=== PATIENT | male | born 1965 | race Caucasian/White ===

== ENCOUNTER 2021-10-25 07:35 | Emergency (ER) | payer BC, SELFPAY ==
[2021-10-25] VITALS (14 sets, daily range): BP systolic 118–159; BP diastolic 77–88; PULSE 103–109; RESP 14–18; TEMP 36.3–36.6; O2SAT 97–100
--- NOTE | ~2021-10-25 | CT_ITS ---
EXAMINATION: CT abdomen pelvis wo con DATE: 10/25/2021 08:52 INDICATION: Bilateral flank pain, hematuria, decreased urination. History kidney stones. TECHNIQUE: Computed tomography (CT) of the abdomen and pelvis was performed without intravenous contr ast. Automated exposure control and iterative reconstruction technique were employed. Exam dose: 367 .89 mGy-cm total exam DLP. COMPARISON: 05/08/2016 CT abdomen pelvis FINDINGS: The lung bases are clear. Normal heart size. No pericardial or pleural effusion. Calcified left hilar lymph node and multiple calcified hepatic and splenic granulomas, consistent wit h old granulomatous disease. No hepatic, splenic, pancreatic, adrenal space-occupying mass lesion is evident on this limited nonco ntrast examination. The gallbladder is present. No pericholecystic fluid or fat stranding. No bile duct or pancreatic jazmyn t dilatation. Approximately 2.5 x 3.1 cm left renal probable cyst. Approximately 3.8 x 6.2 mm nonobstructing right renal calculus Several additional subtle punctate right renal nonobstructing calculi are suggested. Approximately 2.5 mm nonobstructing upper pole left renal calculus and approximately disease. 8 mm an d 3 mm lower pole left renal nonobstructing calculi. No ureteral calculus or hydroureteronephrosis is noted on either side. There is prostate enlargement and likely associated moderately prominent diffuse urinary bladder wall thickening. There is atherosclerotic calcification but normal caliber of the abdominal aorta. No intraperitoneal or retroperitoneal or pelvic mass lesion or adenopathy or ascites is detected. Normal appendix. No bowel obstruction, bowel wall thickening, pneumatosis or intraperitoneal free air . No suspicious osteolytic or osteoblastic lesions. Mild degenerative changes of the lumbar spine. Mode rate degenerative spurring of the thoracic spine. IMPRESSION: Bilateral nonobstructive nephrolithiasis Probable 2.5 x 3 x 1 cm left renal cyst Prostate enlargement Reviewed, dictated and finalized at [facility]. Reviewed, dictated and finalized at [facility].
--- NOTE | 2021-10-25 07:44 | PC.NURSE ---
Dr. Sesay at bedside to assess pt.
--- NOTE | 2021-10-25 07:51 | ED.GENADULT ---
HPI - General Adult General Chief complaint: Urogenital-Male Stated complaint: kidney stones Time Seen by Provider: 10/25/21 07:39 History of Present Illness HPI narrative: 56-year-old male with history of diabetes, rheumatoid arthritis and kidney stones presenting the emergency department for concern of having a kidney stone. Patient states he has had decreased urinary caliber over the last few days. Patient states that he does have decreased p.o. intake due to nausea. Patient describes lower back pain across the entire lower back. Patient states he did notice some blood in his urine today. States last kidney stone was approximately 3 years ago and he saw a urologist in [place]. Patient states he does not have a current urologist. Related Data Home Medications Medication Instructions Recorded Confirmed insulin glargine 100 unit/mL 10 unit subcut HS 03/18/19 03/18/19 subcutaneous solution (Lantus U-100 Insulin) insulin lispro 100 unit/mL 5 unit subcut TID 03/18/19 03/18/19 subcutaneous cartridge (Humalog U-100 Insulin) Allergies Allergy/AdvReac Type Severity Reaction Status Date / Time Penicillins Allergy Unknown Vomiting Verified 10/25/21 07:55 Review of Systems Review of Systems: CONSTITUTIONAL: Denies fever, chills, or sweats. EYES: Denies visual changes, redness, or discharge. ENT: Denies rhinorrhea, congestion, sore throat, or otalgia. CARDIOVASCULAR: Denies chest pain, palpitations, or edema. RESPIRATORY: Denies cough or dyspnea. GASTROINTESTINAL: See HPI GENITOURINARY: See HPI SKIN: Denies rash or itching. MUSCULOSKELETAL: Denies back pain, joint pain, or myalgia. NEUROLOGIC: Denies headache, numbness, or weakness. [facility] Past Medical History Medical History (Updated 10/25/21 @ 10:07 by Elliot Sesay MD) Anemia Anxiety Asthma Depression Diabetes Diverticulitis Fibromyalgia GERD (gastroesophageal reflux disease) Gout Hepatitis HTN from septic tank Hypertension Hypothyroidism Kidney stones Osteoporosis Peripheral neuropathy Pneumonia Rheumatoid arthritis Surgical History Surgical History (Updated 03/18/19 @ 11:01 by VICK Lemons) Hx of tonsillectomy Family History Family History Father Family history of diabetes mellitus in first degree relative Mother Family history of coronary artery disease Social History Social History Smoking status: Never smoker Alcohol intake: never Exam Narrative: APPEARANCE: Well appearing, no pain, no distress, well-nourished. HEAD: normocephalic, atraumatic. EYES: PERRLA/EOMI, conjunctivae clear. NOSE: Normal no drainage NECK: Supple. No adenopathy, no masses. RESPIRATORY: Airway patent, respirations nonlabored. Clear to auscultation bilaterally, no rales, rhonchi, wheezing. CARDIOVASCULAR: Regular rate and rhythm without murmurs rubs or gallops. ABDOMINAL: Soft, nondistended. Left CVA tenderness to palpation. Suprapubic tenderness to palpation. MUSCULOSKELETAL: Moves all extremities. Strength/ROM intact, No edema, No calf tenderness. NEURO: Alert. Cranial nerves II through XII intact. Good gait. Good coordination SKIN: Warm, dry. Normal Color Course Course Emergency Course: Patient did not have significant retained urine on the posterior residual bladder scan. Patient does have a urinary tract infection and an enlarged prostate on the CT scan. Patient does have an elevated white count of 24.6. Patient's vital signs including his heart rate did improve. Patient was comfortable to plan for discharge home. Patient states he does feel improved. Patient was educated on reasons to return to the emergency room. All question concerns were addressed. Patient was discharged with Zofran for nausea control. Flomax for the enlarged prostate and Bactrim for the urinary tract infection. Along with Pyridium for sy
[2021-10-25] MEDS: ONDANSETRON INJ 4 MG/2 ML VIAL IV PUSH (08:05)
[2021-10-25] MEDS: SODIUM CHLORIDE 0.9% IV 1,000 ML 999 ML IV CONT (08:06)
[2021-10-25 08:10] LABS: Appearance Urine Turbid (Clear); Bilirubin Urine 1+ (Negative); Blood Urine 3+ (Negative); Glucose Urine UA 3+ mg/dL (Negative); Ketones Urine 2+ mg/dL (Negative); Leukocyte Esterase Ur Trace LEU/UL (Negative); Nitrate Urine Positive (Negative); Protein Urine 3+ mg/dL (Negative); Specific Grav Ur 1.025 (1.001-1.035)
[2021-10-25 08:18] LABS: Bacteria Urine 2+ /hpf; Mucus Urine Few /lpf; RBC Urine >75 /hpf (0-2); Squamous Epithelial Cell Urine Few /hpf (Few); WBC Clumps Urine Present /HPF; WBC Urine >75 /hpf
[2021-10-25 08:19] LABS: Add Urine Microscopic? YES; Color Urine Dark Yellow (Yellow)
[2021-10-25 08:28] LABS: Basophils Absolute Auto 0.1 K/mm3 (0.0-0.1); Basophils Percent Auto 0.3 % (0.2-1.2); Eosinophils Absolute Auto 0.1 K/mm3 (0-0.3); Eosinophils Percent Auto 0.2 % (0-4.4); Hematocrit 44.9 % (42.0-52.0); Hemoglobin 15.1 g/dL (14.0-18.0); Immature Granulocyte Absolute 0.21 K/mm3 (0.00-0.031); Immature Granulocyte Percent A 0.9 % (0-0.5); Lymphocytes Absolute Auto 2.12 K/mm3 (0.9-3.2); Lymphocytes Percent Auto 8.6 % (18.3-44.2); Mean Corpuscular HGB Conc 33.6 g/dl (32-36); Mean Corpuscular Hemoglobin 30.3 pg (26-34); Mean Corpuscular Volume 90.2 fl (80-100); Monocytes Absolute Auto 2.8 K/mm3 (0.1-0.6); Monocytes Percent Auto 11.4 % (2.6-8.5); Neutrophils Absolute Auto 19.4 K/mm3 (1.3-6.7); Neutrophils Percent Auto 78.6 % (45.5-73.1); Platelet Count Result 235 k/mm3 (150-375); Red Blood Count 4.98 M/mm3 (4.6-6.20); Red Cell Distribution Width 12.9 % (11.5-14.5); White Blood Count 24.6 K/mm3 (4.5-10.0)
--- NOTE | 2021-10-25 08:38 | PC.NURSE ---
Patient off unit to CT.
[2021-10-25 08:52] LABS: Alanine Aminotransferase 18 U/L (6-50); Albumin Level 3.7 g/dL (3.5-5.1); Alkaline Phosphatase 134 U/L (38-126); Anion Gap 14 mmol/L (8-16); Aspartate Amino Transferase 19 U/L (17-59); Blood Urea Nitrogen 23 mg/dL (9-20); Carbon Dioxide 22 mmol/L (22-30); Chloride 99 mmol/L (98-107); Estimated CRCL calculation 93 ml/min; Estimated Glomerular Filt Rate > 60; Glucose 296 mg/dL (65-110); Potassium 3.9 mmol/L (3.4-5.0); Sodium 135 mmol/L (137-145)
[2021-10-25] MEDS: SULFAMETHOXAZOLE/TRIMETHOPRIM 800/160 MG DS TABLET 1 TAB PO (09:36)
[2021-10-25] MEDS: PHENAZOPYRIDINE HCL 100 MG TABLET 200 MG PO (10:18)
== END 2021-10-25 10:28 | disposition home or self-care (01) ==
PROVIDERS: Emergency Provider Emergency Medicine
DX: N39.0 Urinary tract infection, site not specified (principal); N40.0 Benign prostatic hyperplasia without lower urinary tract symptoms; J45.909 Unspecified asthma, uncomplicated; M79.7 Fibromyalgia; K21.9 Gastro-esophageal reflux disease without esophagitis; M10.9 Gout, unspecified; I10 Essential (primary) hypertension; E03.9 Hypothyroidism, unspecified; M81.0 Age-related osteoporosis without current pathological fracture; E11.42 Type 2 diabetes mellitus with diabetic polyneuropathy; M06.9 Rheumatoid arthritis, unspecified; Z79.4 Long term (current) use of insulin; Z87.442 Personal history of urinary calculi
CPT/HCPCS: 36415; 74176; 80053; 81001; 85025; 87086; 87147; 87181; 87186; 96361; 96374; 99284; A9270; J2405; J7030

== ENCOUNTER 2021-11-10 10:54 | Inpatient (IN) | payer BC, SELFPAY ==
[2021-11-10] VITALS (13 sets, daily range): BP systolic 120–143; BP diastolic 65–86; PULSE 90–111; RESP 13–24; TEMP 36.7–37.1; O2SAT 94–100; BMI 22.2
--- NOTE | ~2021-11-10 | XR_ITS ---
EXAMINATION: XR retrograde pyelo w/stent RT DATE: 11/10/2021 16:10 CDT INDICATION: RT SIDED RETROGRADE PYLOGRAM W/ STENT PLACEMENT . TECHNIQUE: 80 fluoroscopic images of the right abdomen and pelvis were obtained, including a 75 image s cine clip and 5 static images, during right-sided retrograde pyelography with stent placement perfo rmed by the surgeon. I was not present in the operating room. Fluoroscopy exposure time was 20.6 seco nds. COMPARISON: CT abdomen and pelvis, same date FINDINGS: Cannulation of the bladder and catheter access to the right ureter which on filling demonstrates a di stal ureteral stone and moderate hydronephrosis. Right ureteral stent deployed in good position. IMPRESSION: Fluoroscopic documentation of right retrograde pyelography with right stent placement. Please refer t o the operative note for complete procedural details. Reviewed, dictated and finalized at location K. IMPRESSION: Fluoroscopic documentation of right retrograde pyelography with right stent tiffanie cement. Please refer to the operative note for complete procedural details.
--- NOTE | ~2021-11-10 | XR_ITS ---
EXAMINATION: XR chest PICC line DATE: 11/20/2021 12:09 INDICATION: Central line placement. TECHNIQUE: A single frontal view of the chest was obtained. COMPARISON: Chest 2 views 07/03/2016, CT abdomen and pelvis 11/10/2021 FINDINGS: The chest demonstrates clear lungs without pneumonia, pleural effusion, or pneumothorax. Th e heart size is normal. A right upper extremity peripherally inserted central venous catheter (PICC) is seen with tip in the superior vena cava. IMPRESSION: 1. PICC tip in the superior vena cava. Reviewed, dictated and finalized at location A.
--- NOTE | ~2021-11-10 | US_ITS ---
EXAMINATION: US scrotum doppler DATE: 11/10/2021 12:18 INDICATION: Right testicular pain. TECHNIQUE: Grayscale and Doppler ultrasound images of the testes were obtained. COMPARISON: CT abdomen and pelvis 10/25/2021 FINDINGS: The right testis measures 3.3 x 2.8 x 1.9 cm. The left testis measures 4.3 x 2.1 x 2.2 cm. There is normal vascular flow to both testes. The right epididymis is normal with normal vascular evin w. The left epididymis is normal with normal vascular flow. There is no varicocele or hydrocele. IMPRESSION: 1. Normal testes. 2. Review of the prior CT demonstrates a 5 mm stone in the distal right ureter. I called this result to Dr. Hoskins. Reviewed, dictated and finalized at location A.
--- NOTE | ~2021-11-10 | CT_ITS ---
EXAMINATION: CT abdomen pelvis wo con DATE: 11/10/2021 12:55 INDICATION: Hematuria. TECHNIQUE: Computed tomography (CT) of the abdomen and pelvis was performed without intravenous contr ast. Automated exposure control and iterative reconstruction technique were employed. The dose-length product was 672.19 mGy-cm. COMPARISON: CT abdomen and pelvis 10/25/2021 FINDINGS: The visualized portions of the lung bases demonstrate mild atelectasis in the right. No ple ural effusion. The heart size is normal. No pericardial effusion. There are coronary artery calcifica tions. Calcifications in the liver and spleen are consistent with old granulomatous disease. There ar e gallstones in the gallbladder, which is normal in size. The pancreas and adrenal glands are normal. There is cysts in the kidneys measuring up to 2.9 cm on the left. There is a 6 mm stone in right kid nestor. There is a 5 mm stone in distal right ureter. There is mild bilateral hydronephrosis and hydrour eter. There are approximately 6 stones in left kidney measuring up to 5 mm. The bladder is distended. The pancreas is severely enlarged. There are no dilated loops of bowel. The appendix is normal. Ther e is an umbilical hernia containing fat. There are no pathologically enlarged lymph nodes. There is n o free intraperitoneal fluid. There is mild thoracolumbar spondylosis. There is mild chronic anterior wedging of T8 and T9 vertebral bodies. IMPRESSION: 1. 5 mm stone in distal right ureter with mild right hydronephrosis and hydroureter. Mild left hydron ephrosis and hydroureter may be secondary to bladder distention. 2. Bilateral nonobstructing kidney stones. Reviewed, dictated and finalized at location A. IMPRESSION: 1. 5 mm stone in distal right ureter with mild right hydronephrosis and hydrour eter. Mild left hydronephrosis and hydroureter may be secondary to bladder dist ention. 2. Bilateral nonobstructing kidney stones.
[2021-11-10] MEDS: LACTATED RINGERS 1,000 ML 999 ML IV CONT (11:19)
[2021-11-10 11:28] LABS: Basophils Absolute Auto 0.1 K/mm3 (0.0-0.1); Basophils Percent Auto 0.3 % (0.2-1.2); Hematocrit 36.7 % (42.0-52.0); Hemoglobin 12.4 g/dL (14.0-18.0); Immature Granulocyte Absolute 0.14 K/mm3 (0.00-0.031); Immature Granulocyte Percent A 0.6 % (0-0.5); Lymphocytes Absolute Auto 1.61 K/mm3 (0.9-3.2); Lymphocytes Percent Auto 6.8 % (18.3-44.2); Mean Corpuscular HGB Conc 33.8 g/dl (32-36); Mean Corpuscular Volume 88.6 fl (80-100); Mean Platelet Volume 9.7 fl (7.4-10.4); Monocytes Absolute Auto 1.9 K/mm3 (0.1-0.6); Monocytes Percent Auto 8.2 % (2.6-8.5); Neutrophils Absolute Auto 19.8 K/mm3 (1.3-6.7); Neutrophils Percent Auto 84.1 % (45.5-73.1); Platelet Count Result 318 k/mm3 (150-375); Red Blood Count 4.14 M/mm3 (4.6-6.20); Red Cell Distribution Width 11.9 % (11.5-14.5); White Blood Count 23.5 K/mm3 (4.5-10.0)
[2021-11-10 11:31] LABS: Appearance Urine Cloudy (Clear); Bilirubin Urine Negative (Negative); Blood Urine 2+ (Negative); Color Urine Yellow (Yellow); Glucose Urine UA 3+ mg/dL (Negative); Ketones Urine 1+ mg/dL (Negative); Leukocyte Esterase Ur 1+ LEU/UL (Negative); Nitrate Urine Negative (Negative); Protein Urine 3+ mg/dL (Negative); Specific Grav Ur 1.025 (1.001-1.035); Urobilinogen Urine 0.2 mg/dL (<2.0)
[2021-11-10 11:38] LABS: Alanine Aminotransferase 20 U/L (6-50); Albumin Level 3.9 g/dL (3.5-5.1); Alkaline Phosphatase 171 U/L (38-126); Anion Gap 14 mmol/L (8-16); Aspartate Amino Transferase 29 U/L (17-59); Bilirubin,Total 0.9 mg/dL (0.2-1.3); Blood Urea Nitrogen 22 mg/dL (9-20); Calcium 9.1 mg/dL (8.4-10.2); Carbon Dioxide 23 mmol/L (22-30); Chloride 95 mmol/L (98-107); Estimated Glomerular Filt Rate > 60; Glucose 355 mg/dL (65-110); Potassium 4.1 mmol/L (3.4-5.0); Sodium 132 mmol/L (137-145)
[2021-11-10 11:44] LABS: Mucus Urine Rare /lpf; RBC Urine 51-75 /hpf (0-2); WBC Clumps Urine Present /HPF; WBC Urine >75 /hpf
--- NOTE | 2021-11-10 11:44 | ED.MALEGU ---
HPI - Male Genitourinary General Chief complaint: Urogenital-Male Stated complaint: UTI? Enlarged prostate problems per patient Time Seen by Provider: 11/10/21 11:05 Source: patient Mode of arrival: ambulatory Limitations: no limitations History of Present Illness HPI Narrative: THis is a 56 year old male with history of DM, enlarged prostate who presents for evaluation of UTI. Patient was diagnosed with UTI and enlarged prostate 2 weeks ago and he was started on antibiotics. He took antibiotics for 1 week along with flomax and pyridium. He states he felt better until 2 days ago . He is complaining of right testicular pain. He also reports his urine stream is not consistent and he is having urinary hesitancy. He also has dysuria. He denies fever, vomiting, chills, abdominal pain or back pain. He has constant nausea. He has been unable to make appointment with urologist. Related Data Home Medications Medication Instructions Recorded Confirmed insulin glargine 100 unit/mL 10 unit subcut HS 03/18/19 11/10/21 subcutaneous solution (Lantus U-100 Insulin) insulin lispro 100 unit/mL 5 unit subcut TID 03/18/19 11/10/21 subcutaneous cartridge (Humalog U-100 Insulin) Allergies Allergy/AdvReac Type Severity Reaction Status Date / Time Penicillins Allergy Unknown Vomiting Verified 11/10/21 11:04 Review of Systems Review of Systems: All systems reviewed & are unremarkable except as noted in HPI and below Constitutional: Constitutional: Denies chills, Reports fatigue and Denies fever(s) Cardiovascular: Cardiovascular: Denies chest pain and Denies rapid heart rate Respiratory: Respiratory: Denies chest congestion and Denies cough Gastrointestinal: Gastrointestinal: Denies abdominal pain, Denies bloating, Reports nausea and Denies vomiting Genitourinary: Genitourinary: Denies hematuria, Reports oliguria, Reports dysuria and Reports testicular pain Musculoskeletal: Musculoskeletal: Denies back pain [facility] Past Medical History Medical History Anemia Anxiety Asthma Depression Diverticulitis Fibromyalgia Gastroesophageal reflux disease Gout Hypertension Hypothyroidism Insulin dependent diabetes mellitus Kidney stones Osteoporosis Peripheral neuropathy Pneumonia Rheumatoid arthritis Surgical History Surgical History History of tonsillectomy Family History Family History Father Family history of diabetes mellitus in first degree relative Mother Family history of coronary artery disease Social History Social History Social History: Surrogate medical decision maker: Code status: Full code. Smoking status: Never smoker Second hand tobacco smoke exposure: No Alcohol intake: never Substance use: never Substance use type: does not use Spiritual care concerns: No Exam Const: General: no acute distress and alert Nutritional Appearance: well nourished HENMT: Head: normal to inspection Mouth: Yes Normal oral and palatal mucosa present Throat: posterior oropharynx normal Eyes: EOM: EOMs intact bilaterally Neck: Neck: normal visual inspection Chest: Chest palpation & inspection: normal inspection of the chest Resp: Effort & Inspection: normal respiratory effort Auscultation: clear to auscultation bilaterally Cardio: Rate: regular rate Rhythm: regular rhythm Heart sounds: no murmurs GI: GI Palp: Yes Soft to palpation, No Tenderness to palpation present (GI) and No Guarding due to palpation present (GI) Auscultation: normal bowel sounds : Penis: Yes circumcised Testes: epididymal tenderness on the right and testicular swelling on the right Other: right scrotum with increased swelling and tenderness, no open wound, Back/Spine/Pelvis: Back:
[2021-11-10 11:45] LABS: Add Urine Microscopic? YES
[2021-11-10] MEDS: SODIUM CHLORIDE 0.9% IV 1,000 ML 999 ML IV CONT ×2 (12:05→14:05)
[2021-11-10 13:39] LABS: Lactic Acid Reflex 1.4 mmol/L (0.7-2.0)
[2021-11-10] MEDS: INSULIN HUMAN REGULAR (*BKC) 100 UNITS/ML 6 UNITS SUB-Q (14:13)
--- NOTE | 2021-11-10 14:15 | ECG_ITS ---
Measurements Intervals Ida Rate: 106 P: 53 DC: 177 QRS: -36 QRSD: 103 T: 92 QT: 334 QTc: 443 Interpretive Statements SINUS TACHYCARDIA LEFT AXIS DEVIATION CANNOT RULE OUT SEPTAL INFARCT, AGE INDETERMINATE BORDERLINE ST-T WAVE ABNORMALITY- HIGH LATERAL LEADS BASELINE ARTIFACT- I, II, AVR, AVL, AVF, V1 ABNORMAL ECG NO PREVIOUS ECG AVAILABLE FOR COMPARISON Electronically Signed On 11-10-2021 21:46:32 CDT by Maxwell Duong D.O.
[2021-11-10 14:33] LABS: Glucose Point of Care 295 mg/dl (65-105)
--- NOTE | 2021-11-10 15:15 | PM.IMHP ---
H&P: HPI History of Present Illness Date/Time: 11/10/21 15:15 Chief Complaint: Difficulties urinating. Narrative: This is a pleasant 56-year-old male with insulin-dependent type 2 diabetes mellitus, hypertension, hypothyroidism, rheumatoid arthritis, benign prostatic hyperplasia, and history of kidney stones who presented to the emergency department from home with complaints of difficulties urinating. He was seen in the ED on 10/25/2021 for evaluation of low back pain, nausea, and decreased urine output. At that time his urinalysis was concerning for UTI (urinalysis grew out pansensitive Staphylococcus aureus) and a CT of the abdomen and pelvis showed an enlarged prostate. He was discharged home with prescriptions for Bactrim, Flomax, and Pyridium and he was told to follow-up with Urology. He has completed his course of antibiotics and he felt better up until 2 days ago when he once again started having urinary symptoms including hesitancy, slow stream, dysuria, and pain in the right groin. This morning he was not able to empty his bladder and he came back in for re-evaluation. CT scan showed a right distal ureteral stone and his urine is grossly purulent. He is now awaiting transport to OR for cystoscopy with stent placement per Dr. Olivares. He feels better now that the Esparza catheter has been inserted and his urine is draining. He has not had a fever. His appetite has been poor due to nausea but he has not had any vomiting. Review of Systems Review of Systems: Twelve systems were reviewed and are negative except for as per HPI. [facility] Past Medical History Medical History (Updated 11/10/21 @ 19:32 by Minerva Rosas PA-C) Anemia Anxiety Asthma Benign prostatic hyperplasia with urinary retention Depression Diverticulitis Fibromyalgia Gastroesophageal reflux disease Gout Hypertension Hypothyroidism Insulin dependent diabetes mellitus Kidney stones Osteoporosis Peripheral neuropathy Pneumonia Rheumatoid arthritis Surgical History Surgical History History of tonsillectomy Family History Family History Father Family history of diabetes mellitus in first degree relative Mother Family history of coronary artery disease Social History Social History (Updated 11/10/21 @ 19:26 by Minerva Rosas PA-C) Social History: Surrogate medical decision maker: Toya Noguera, spouse. Code status: Full code. Smoking status: Never smoker Second hand tobacco smoke exposure: No Alcohol intake: never Substance use: never Substance use type: does not use Spiritual care concerns: No Meds Home Medications and Allergies Home Medications Medication Instructions Recorded Confirmed Type insulin glargine 100 unit/mL 10 unit subcut HS 03/18/19 11/10/21 History subcutaneous solution (Lantus U-100 Insulin) insulin lispro 100 unit/mL 5 unit subcut TID 03/18/19 11/10/21 History subcutaneous cartridge (Humalog U-100 Insulin) ondansetron 4 mg disintegrating 4 mg PO Q6H PRN nausea and 10/25/21 11/10/21 Rx tablet vomiting #14 tabs tamsulosin 0.4 mg capsule (Flomax) 0.4 mg PO DAILY #30 caps 10/25/21 11/10/21 Rx Allergies Allergy/AdvReac Type Severity Reaction Status Date / Time Penicillins Allergy Unknown Vomiting Verified 11/10/21 11:04 Vital Signs Vital Signs - 24 hr 11/10/21 12:06 11/10/21 12:13 11/10/21 12:34 Temperature 98.7 F Pulse Rate 98 100 Respiratory Rate 18 18 Blood Pressure 143/77 H 137/65 Pulse Oximetry 97 99 99 11/10/21 12:54 11/10/21 12:55 Temperature Pulse Rate 90 Respiratory Rate 20 Blood Pressure 143/86 H Pulse Oximetry 100 98 Exam Narrative: General: Mildly ill-appearing male sitting up in bed in no acute distress. Weight: 72.4 kilograms. BMI: 22.3. HEENT: PERRL, EOMI. Sclera anicteric. Tacky mucous membranes. Neck:
--- NOTE | 2021-11-10 15:17 | WPDANESEPP ---
Anes - Eval Pre Procedure Procedure: Cystoscopy with Right stent placement Date/Time: 11/10/21 15:17 Surgeon: Dr. Olivares Preop Diagnosis: Right ureteral stone Pre Op Diagnosis: UTI? Enlarged prostate problems per patient Patient Data Age: 56 Gender: M Height: Weight: Last Vital Signs Temp 37.1 C 11/10/21 12:06 Pulse 90 11/10/21 12:54 Resp 20 11/10/21 12:54 BP 143/86 H 11/10/21 12:54 Pulse Ox 98 11/10/21 12:55 Allergies Allergy/AdvReac Type Severity Reaction Status Date / Time Penicillins Allergy Unknown Vomiting Verified 11/10/21 11:04 Home Medications Medication Instructions Recorded Confirmed Type benzonatate 200 mg capsule 200 mg PO TID PRN cough 10 days 03/18/19 Rx #30 caps insulin glargine 100 unit/mL 10 unit subcut HS 03/18/19 03/18/19 History subcutaneous solution (Lantus U-100 Insulin) insulin lispro 100 unit/mL 5 unit subcut TID 03/18/19 03/18/19 History subcutaneous cartridge (Humalog U-100 Insulin) ondansetron 4 mg disintegrating 4 mg PO Q6H PRN nausea and 10/25/21 Rx tablet vomiting #14 tabs phenazopyridine 100 mg tablet 100 mg PO TID PRN pain 6 doses #6 10/25/21 Rx (Pyridium) tabs sulfamethoxazole 800 1 tablet PO Q12H 7 days #14 tabs 10/25/21 Rx mg-trimethoprim 160 mg tablet (Bactrim DS) tamsulosin 0.4 mg capsule (Flomax) 0.4 mg PO DAILY #30 caps 10/25/21 Rx Laboratory Tests 11/10/21 11/10/21 11/10/21 11:20 11:20 11:21 WBC 23.5 K/mm3 H K/mm3 (4.5-10.0) RBC 4.14 M/mm3 L M/mm3 (4.6-6.20) Hgb 12.4 g/dL L g/dL (14.0-18.0) Hct 36.7 % L % (42.0-52.0) MCV 88.6 fl fl (80-100) MCH 30.0 pg pg (26-34) MCHC 33.8 g/dl g/dl (32-36) RDW 11.9 % % (11.5-14.5) Plt Count 318 k/mm3 k/mm3 (150-375) MPV 9.7 fl fl (7.4-10.4) Immature Gran % (Auto) 0.6 % H % (0-0.5) Neut % (Auto) 84.1 % H % (45.5-73.1) Lymph % (Auto) 6.8 % L % (18.3-44.2) Rich % (Auto) 8.2 % % (2.6-8.5) Eos % (Auto) 0.0 % % (0-4.4) Baso % (Auto) 0.3 % % (0.2-1.2) Lymph # (Auto) 1.61 K/mm3 K/mm3 (0.9-3.2) Rich # (Auto) 1.9 K/mm3 H K/mm3 (0.1-0.6) Eos # (Auto) 0.0 K/mm3 K/mm3 (0-0.3) Baso # (Auto) 0.1 K/mm3 K/mm3 (0.0-0.1) Abs Immat Gran (auto) 0.14 K/mm3 H K/mm3 (0.00-0.031) Absolute Neuts (auto) 19.8 K/mm3 H K/mm3 (1.3-6.7) Absolute Nucleated RBC 0.0 K/mm3 K/mm3 (0.0-0.012) Nucleated RBC % 0.0 % % (0.0-0.2) Sodium 132 mmol/L L mmol/L (137-145) Potassium 4.1 mmol/L mmol/L (3.4-5.0) Chloride 95 mmol/L L mmol/L (98-107) Carbon Dioxide 23 mmol/L mmol/L (22-30) Anion Gap 14 mmol/L mmol/L (8-16) BUN 22 mg/dL H mg/dL (9-20) Creatinine 0.90 mg/dL mg/dL (0.7-1.3) Estim Creat Clear Calc Not Reportable Estimated GFR > 60 (59 - ) Glucose 355 mg/dL H mg/dL (65-110) POC Capillary Glucose Lactic Acid Calcium 9.1 mg/dL mg/dL (8.4-10.2) Total Bilirubin 0.9 mg/dL mg/dL (0.2-1.3) AST 29 U/L U/L (17-59) ALT 20 U/L U/L (6-50) Alkaline Phosphatase 171 U/L H U/L (38-126) Total Protein 9.0 g/dL H g/dL (6.3-8.2) Albumin 3.9 g/dL g/dL (3.5-5.1) Urine Color Yellow (Yellow) Urine Appearance Cloudy H (Clear) Urine pH 6.0 (5.0-9.0) Ur Specific [place] 1.025 (1.001-1.035) Urine Protein 3+ mg/dL H mg/dL (Negative) Urine Glucose (UA) 3+ mg/dL H mg/dL (Negative) Urine Ketones 1+ mg/dL H mg/dL (Negative) Ur Blood (Man) 2+ H (Negative) Urine Nitrate Negative (Negative) Urine Bilirubin Negative
[2021-11-10 15:51] LABS: Glucose Point of Care 231 mg/dl (65-105)
--- NOTE | 2021-11-10 15:58 | WPDURCON ---
Assessment and Plan Assessment and plan (1) Ureteral stone: Code(s): N20.1 - Calculus of ureter Status: Acute Assessment and Plan: He be taken the operating room for right ureteral stent placement. He understands risks of bleeding, infection, damage to urine tract, inability to place the stent. Will need definitive stone management as an outpatient (2) Bilateral hydronephrosis: Code(s): N13.30 - Unspecified hydronephrosis Status: Acute Assessment and Plan: On the right side this is likely secondary to ureteral stone. On the left side this is likely secondary to his BPH and incomplete bladder emptying. (3) BPH loc w urin obs/LUTS: Code(s): N40.1 - Benign prostatic hyperplasia with lower urinary tract symptoms Status: Acute Assessment and Plan: Esparza catheter has been placed. Will start Flomax. Likely can have a void trial before discharge (4) Urinary tract infection: Code(s): N39.0 - Urinary tract infection, site not specified Status: Acute Assessment and Plan: Staph aureus on urine culture from 10/25/2021. Will be admitted after stent and placed on antibiotics. He has already received 1 dose Urology Consult Note HPI Date Seen: 11/10/21 Requesting Physician: The emergency room and hospitalist Primary Care Provider: MICROBIOLOGY LAB ASSISTANT PHYSICIAN Consult Narrative Narrative: Robinson Noguera is a 56 year old male seen at the request of the emergency room and hospitalist here at [facility]. He has a prior history of nephrolithiasis. He has always passed them on his own. He was in the ER on October 25 with symptoms of urinary tract infection he was sent home on Bactrim. CT scan was done which showed no hydronephrosis. I reviewed the CT scan and there was a distal stone on the right. It was not identified in the radiology report as there was no hydronephrosis. Over the last several days he has had increased urinary symptoms of dysuria and frequency. He has had no fevers and chills. He has some nausea without vomiting. This progressed further and he had more and more difficulties emptying his bladder. He also noted right scrotal swelling. He re-presented to the emergency room this afternoon. CT scan shows mild bilateral hydronephrosis. The stone is still present in the right distal ureter. His bladder was distended. He has an elevated white count. Urine culture ultimately grew out Staph aureus. Esparza catheter was placed in the ER with return of purulent urine. Review of Systems Review of Systems: All systems reviewed & are unremarkable except as noted in HPI and below PMFSH Past Medical History Medical History Anemia Anxiety Asthma Depression Diverticulitis Fibromyalgia Gastroesophageal reflux disease Gout Hypertension Hypothyroidism Insulin dependent diabetes mellitus Kidney stones Osteoporosis Peripheral neuropathy Pneumonia Rheumatoid arthritis Surgical History Surgical History History of tonsillectomy Family History Family History Father Family history of diabetes mellitus in first degree relative Mother Family history of coronary artery disease Social History Social History Social History: Surrogate medical decision maker: Code status: Full code. Smoking status: Never smoker Alcohol intake: never Meds Home Medications and Allergies Home Medications Medication Instructions Recorded Confirmed Type benzonatate 200 mg capsule 200 mg PO TID PRN cough 10 days 03/18/19 Rx #30 caps insulin glargine 100 unit/mL 10 unit subcut HS 03/18/19 03/18/19 History subcutaneous solution (Lantus U-100 Insulin) insulin lispro 100 unit/mL 5 unit subcut TID 03/18/19 03/18/19 History subcut
--- NOTE | 2021-11-10 16:04 | P.PNAN_ITS ---
Anes - Eval Final PreProcedure Day of Procedure 11/10/21 16:04 Patient weight: normal Heart: regular rate and rhythm Lungs: clear to auscultation Airway: Mallampati scale class II Neurological: alert and oriented Last oral intake: >/= 8 hours ASA classification: IV Emergent: yes Anesthetic plan: proceed Anesthesia type and monitoring: general LMA and standard monitoring Results Review: All pre-operative results and documents have been reviewed as part of the pre- operative evaluation. Informed Consent: The patient's anesthetic plan and its attendant risks and benefits were discussed with the patient/family/POA. Questions were solicited and answers provided to the satisfaction of the patient/family/POA.
[2021-11-10] MEDS: LACTATED RINGERS 1,000 ML 30 ML IV CONT (16:05)
--- NOTE | 2021-11-10 16:09 | WPDHPUPDATE1 ---
History and Physical Update Update Date/Time: 11/10/21 16:09 History and Physical has been reviewed, including an updated exam of the patient. There are NO changes in the patient's condition. Risks, benefits, and alternatives have been discussed and questions answered. Patient agrees to proceed with procedure.
--- NOTE | 2021-11-10 16:37 | P.OP_ITS ---
Procedure Note - Detailed Date of Procedure 11/10/21 Pre-op Diagnosis Sepsis/UTI/Obstructing R Ureteral Calculus/Urinary tract infection Post-op Diagnosis Same Procedure Performed Cystoscopy, right retrograde pyelogram, right ureteral stent placed Surgeon Hemanth Olivares MD Anesthesia General Indications This is a gentleman who arrived to emergency room with a Staph aureus urinary tract infection, a right distal ureteral stone, elevated white count, incomplete bladder emptying with bilateral hydronephrosis, and orchitis Findings Uncomplicated stent placement. Right orchitis. Diffusely inflamed bladder Description of Procedure He has correctly identified. Informed consent obtained. From the operating room. He was given general anesthesia. He was placed in dorsal thigh position. He was prepped and draped sterile fashion. Time-out performed. Cystoscopy revealed a small prostate that did not appear necessarily overly obstructive. Upon emptying the bladder there was purulent urine. His bladder was diffusely inflamed. You visualization was difficult due to the purulence of his urine in the inflammation of the bladder. I was able to identify the right ureteral orifice. I did a retrograde pyelogram on the right. The stone was seen on soldering inspector radiograph. I was able to get contrast proximal to the stone. There is hydronephrosis. I outlined the collecting system. I placed a Bentson wire to the kidney. I placed a 4.8 variable length stent. Proximal coil the renal pelvis. Distal coil was the bladder. Esparza catheter replaced. Examination of his scrotum revealed signs consistent with a right orchitis. There is no skin changes. He had a firm right testicle. Implants Right ureteral stent Estimated Blood Loss 1 Urine Output 0 Drains Yes (Right ureteral stent) Packing No Pathology None sent Complications No immediate complications Condition Stable Disposition PACU
[2021-11-10 16:49] LABS: Glucose Point of Care 194 mg/dl (65-105)
--- NOTE | 2021-11-10 18:01 | PC.NURSE ---
This patient, Robinson Noguera, was admitted to Medical Room 340-01. Patient/family oriented to hospital policies and general routines including ID bracelet, bed and alarms, visiting hours, pain management, procedures, bathroom and other care routines, personal items, smoking policy, room service/diet, and visiting hours. Information on how to activate the Rapid Response Team has been discussed. Patient/Family are encouraged to report perceived risks to care and to ask questions if they do not understand what they are told or what they should do.
[2021-11-10] MEDS: ONDANSETRON INJ 4 MG/2 ML VIAL IV PUSH (19:58)
[2021-11-10] MEDS: MORPHINE SULFATE (*CRX) 2 MG/ML INJ IV PUSH (19:58)
[2021-11-10] MEDS: INSULIN GLARGINE (*BKC) 100 UNITS/ML 10 UNITS SUB-Q (20:08)
[2021-11-10 20:15] LABS: Glucose Point of Care 178 mg/dl (65-105)
[2021-11-11] MEDS: MORPHINE SULFATE (*CRX) 2 MG/ML INJ IV PUSH ×3 (02:47→14:00)
[2021-11-11 05:51] LABS: Basophils Percent Auto 0.2 % (0.2-1.2); Eosinophils Percent Auto 0.1 % (0-4.4); Hematocrit 31.4 % (42.0-52.0); Hemoglobin 10.6 g/dL (14.0-18.0); Immature Granulocyte Absolute 0.12 K/mm3 (0.00-0.031); Immature Granulocyte Percent A 0.6 % (0-0.5); Lymphocytes Absolute Auto 1.45 K/mm3 (0.9-3.2); Lymphocytes Percent Auto 7.6 % (18.3-44.2); Mean Corpuscular HGB Conc 33.8 g/dl (32-36); Mean Platelet Volume 10.3 fl (7.4-10.4); Monocytes Absolute Auto 1.8 K/mm3 (0.1-0.6); Monocytes Percent Auto 9.6 % (2.6-8.5); Neutrophils Absolute Auto 15.5 K/mm3 (1.3-6.7); Neutrophils Percent Auto 81.9 % (45.5-73.1); Platelet Count Result 248 k/mm3 (150-375); Red Blood Count 3.53 M/mm3 (4.6-6.20); Red Cell Distribution Width 11.8 % (11.5-14.5)
[2021-11-11 05:59] VITALS: BP 134/69; PULSE 104; RESP 16; TEMP 36.9; O2SAT 96
[2021-11-11 06:21] LABS: Alanine Aminotransferase 15 U/L (6-50); Albumin Level 3.1 g/dL (3.5-5.1); Alkaline Phosphatase 141 U/L (38-126); Anion Gap 9 mmol/L (8-16); Aspartate Amino Transferase 20 U/L (17-59); Bilirubin,Total 0.6 mg/dL (0.2-1.3); Blood Urea Nitrogen 10 mg/dL (9-20); Calcium 8.1 mg/dL (8.4-10.2); Carbon Dioxide 24 mmol/L (22-30); Chloride 99 mmol/L (98-107); Estimated CRCL calculation 119 ml/min; Estimated Glomerular Filt Rate > 60; Glucose 198 mg/dL (65-110); Potassium 3.4 mmol/L (3.4-5.0); Sodium 132 mmol/L (137-145)
[2021-11-11 06:40] LABS: Hemoglobin A1C 10.8 % (<5.7)
[2021-11-11 07:19] LABS: Free T4 Free Thyroxine Reflex 1.96 ng/dL (0.78-2.19)
--- NOTE | 2021-11-11 07:56 | WPDUROPN2 ---
Progress Note: A&P Assessment and Plan (1) Calculus of distal right ureter: Code(s): N20.1 - Calculus of ureter Status: Acute Assessment and Plan: will need definitive stone management in the future (2) Orchitis, right: Code(s): N45.2 - Orchitis Status: Acute Assessment and Plan: Levaquin times 14 days (3) Acute urinary retention: Code(s): R33.8 - Other retention of urine Status: Acute Assessment and Plan: Flomax. Can likely attempt a voiding trial before discharge (4) Urinary tract infection: Code(s): N39.0 - Urinary tract infection, site not specified Status: Acute Assessment and Plan: antibiotics as above Subjective Subjective Date/Time Seen: 11/11/21 07:56 having some stent related discomfort on the right. Also some blood in the urine. All this is consistent with his stent placement. They been given IV pain medicine. Attempts should be made to transition to orals Exam Narrative: resting comfortably. Appears to be in no acute distress. Right testicle examined. No scrotal changes. Tenderness noted Objective Data Vital Signs Vital Signs: Vital Signs - 24 hr 11/10/21 12:06 11/10/21 12:13 11/10/21 12:34 Temperature 98.7 F Pulse Rate 98 100 Respiratory Rate 18 18 Blood Pressure 143/77 H 137/65 Pulse Oximetry 97 99 99 Oxygen Delivery Oxygen Flow Rate 11/10/21 12:54 11/10/21 12:55 11/10/21 15:43 Temperature Pulse Rate 90 100 Respiratory Rate 20 19 Blood Pressure 143/86 H 130/82 Pulse Oximetry 100 98 99 Oxygen Delivery Oxygen Flow Rate 11/10/21 15:47 11/10/21 16:10 11/10/21 16:40 Temperature 98.6 F 98.1 F Pulse Rate 99 111 H 96 Respiratory Rate 18 20 20 Blood Pressure 134/79 137/80 120/80 Pulse Oximetry 99 99 99 Oxygen Delivery Room Air Simple Face Mask Oxygen Flow Rate 8 11/10/21 16:55 11/10/21 17:10 11/10/21 17:25 Temperature Pulse Rate 102 H 107 H 108 H Respiratory Rate 13 24 H 16 Blood Pressure 135/83 127/79 136/83 Pulse Oximetry 99 95 94 Oxygen Delivery Simple Face Mask Room Air Room Air Oxygen Flow Rate 8 11/10/21 20:00 11/10/21 22:00 11/11/21 05:59 Temperature 98.5 F 98.5 F Pulse Rate 100 104 H Respiratory Rate 16 16 Blood Pressure 128/70 134/69 Pulse Oximetry 99 96 Oxygen Delivery Room Air Oxygen Flow Rate Intake/Output Intake/Output: Intake & Output 11/08/21 11/09/21 11/10/21 11/11/21 23:59 23:59 23:59 23:59 Intake Total 4150 Output Total 350 800 Balance 3800 -800 Meds/Results Medications: Active Medications Generic Name Dose Route Start Last Admin Trade Name Freq PRN Reason Stop Dose Admin Acetaminophen 650 mg 11/10/21 19:37 Acetaminophen 325 Mg Tablet PO Q6H PRN Mild Pain (1-3) or Fever Hydrocodone Bitart/Acetaminophen 1 tab 11/10/21 19:37 Hydrocodone/Acetaminophen (*Crx) 5-325 Mg Tablet PO Q6H PRN Pain Rated 4-6 Dextrose 12.5 gm 11/10/21 16:36 Dextrose 50% 25 Gm/50 Ml Syringe IV PUSH PRN PRN Hypoglycemia Protocol Glucagon 1 mg 11/10/21 16:36 Glucagon For Inj 1 Mg Vial IM PRN PRN Hypoglycemia Protocol Glucose 15 gm 11/10/21 16:36 Glucose Oral Gel 15 Gm Of Glucse In 37.5 Gm Tube PO PRN PRN Hypoglycemia Protocol Dextrose 1,000 mls @ 100 mls/hr 11/10/21 16:36 Dextrose 5% 1,000 Ml IVPB PRN PRN Hypoglycemia Protocol Insulin Aspart 2 - 5 units 11/11/21 08:00 Insulin Aspart (*Bkc) 100 Units/Ml SUB-Q TIDWM COLTEN Protocol Insulin Aspart 5 units 11/11/21 09:00 Insulin Aspart (*Bkc) 100 Units/Ml SUB-Q 12/11/21 08:59 TID COLTEN Insulin Glargine 10 units 11/10/21 21:00 11/10/21 20:08 Insulin Glargine (*Bkc) 100 Units/Ml SUB-Q 10 units HS COLTEN Administration Levofloxacin 750 mg 11/11/21 09:00 Levofloxacin 750 Mg Tablet PO DAILY COLTEN Morphine Ray
[2021-11-11 08:07] LABS: Total Triiodothyronine (T3) 0.86 NG/ML (0.97-1.69)
[2021-11-11] MEDS: levoFLOXacin 750 MG TABLET PO (08:10)
[2021-11-11] MEDS: TAMSULOSIN HCL 0.4 MG CAPSULE PO (08:10)
[2021-11-11] MEDS: ONDANSETRON INJ 4 MG/2 ML VIAL IV PUSH ×2 (08:10→15:54)
[2021-11-11 08:22] LABS: Glucose Point of Care 238 mg/dl (65-105)
[2021-11-11] MEDS: INSULIN ASPART (*BKC) 100 UNITS/ML SUB-Q ×5 (09:12→17:27)
[2021-11-11 12:18] LABS: Glucose Point of Care 208 mg/dl (65-105)
[2021-11-11 13:54] VITALS: BP 127/72; PULSE 101; RESP 16; TEMP 36.7; O2SAT 98
--- NOTE | 2021-11-11 16:39 | PM.IMPN ---
Progress Note: A&P Assessment and Plan (1) Calculus of distal right ureter: Code(s): N20.1 - Calculus of ureter Status: Acute Assessment and Plan: 5 millimeter distal right ureteral stone noted on imaging causing right-sided hydro nephrosis. he is s/p cystoscopy with right retrograde pyelogram and right ureteral stent placement on 11/10. Appreciate urology consultation. Will need outpatient follow-up for definitive stone management. (2) Urinary tract infection: Code(s): N39.0 - Urinary tract infection, site not specified Status: Acute Assessment and Plan: Urine culture from 10/25/2021 grew out pansensitive Staphylococcus aureus for which he completed a course of Bactrim. His urine still looks dirty thus he will be started on another course of antibiotics. continue p.o. levofloxacin. Repeat urine culture is pending. blood cultures pending (3) Orchitis, right: Code(s): N45.2 - Orchitis Status: Acute Assessment and Plan: Findings of orchitis on exam. Scrotal ultrasound was unremarkable. secondary to acute UTI. Continue levofloxacin For total of 14 days (4) Bilateral hydronephrosis: Code(s): N13.30 - Unspecified hydronephrosis Status: Acute Assessment and Plan: Related to ureteral stone and urinary retention. Urology consulted as above. s/p ureteral stent. (5) Benign prostatic hyperplasia with urinary retention: Code(s): N40.1 - Benign prostatic hyperplasia with lower urinary tract symptoms; R33.8 - Other retention of urine Status: Acute Assessment and Plan: Continue tamsulosin. Continue Esparza catheter. Plan for voiding trial prior to discharge (6) Insulin dependent diabetes mellitus: Status: Acute Assessment and Plan: A1c is 10.8. Blood sugars have been poorly controlled. Patient admits to poor compliance with blood sugar monitoring though states he does regularly take insulin. Will increase Lantus to 12 units. Continue novolog with meals. Accu-Cheks, sliding scale insulin, hypoglycemic protocol. (7) Hypertension: Code(s): I10 - Essential (primary) hypertension Status: Acute Assessment and Plan: Blood pressures Reviewed and have been stable. Last BP 127/72. Patient is not on any p.o. antihypertensives. Subjective Date/time seen: 11/11/21 16:39 Interval history: date of service: 11/11/2021 Robinson Noguera is a 56-year-old male with a history of diabetes mellitus, rheumatoid arthritis hypertension, hypothyroidism, asthma, anemia, BPH who is seen in follow-up for right ureteral calculus, right orchitis, UTI. Patient states he is feeling slightly improved today. He states his right testicle is about the size of a tennis ball. It is very sore and tender and he has not noticed any change with this. no worsening, but also no improvement. He states his scrotum is warm and red. He also has some discomfort in the right groin which she relates to the stent. Stated this morning his pain was 8/10 but after receiving pain medications, his pain improved to about 3/10. He has no issues with the Esparza catheter. He has some mild right low back pain which she also believes is due to the stent. Denies flank pain. Denies fevers or chills. No nausea, vomiting, diarrhea, shortness of breath, cough, chest pain. Review of Systems Review of Systems: All systems reviewed & are unremarkable except as noted in HPI and below Exam Narrative: General: Well-nourished, well-appearing 56-year-old male, sitting up in bed, comfortable, NARD Neuro: awake, alert and oriented x4, speech clear, no focal neuro deficits noted HEENMT: normocephalic, atraumatic, EOMI, sclerae anicteric Respiratory: clear to auscultation bilaterally, nonlabored breathing Cardio: regular rate, regular rhythm with S1-S2 Abdomen: nondistended, normoactive bowel sounds, soft, nontender to palpation :
[2021-11-11 17:31] LABS: Glucose Point of Care 167 mg/dl (65-105)
[2021-11-11] MEDS: HYDROcodone/acetaminophen (*CRX) 5-325 MG TABLET 1 TAB PO (19:37)
[2021-11-11 19:53] VITALS: BP 138/66; PULSE 99; RESP 18; TEMP 36.1; O2SAT 98
[2021-11-11] MEDS: INSULIN GLARGINE (*BKC) 100 UNITS/ML 12 UNITS SUB-Q (20:31)
[2021-11-11 20:50] LABS: Glucose Point of Care 219 mg/dl (65-105)
[2021-11-12] MEDS: HYDROcodone/acetaminophen (*CRX) 5-325 MG TABLET 1 TAB PO ×3 (01:56→18:46)
[2021-11-12] MEDS: ONDANSETRON INJ 4 MG/2 ML VIAL IV PUSH ×2 (01:56→16:59)
[2021-11-12 05:38] VITALS: BP 107/60; PULSE 97; RESP 16; TEMP 36.7; O2SAT 98
[2021-11-12 05:42] LABS: Hematocrit 31.6 % (42.0-52.0); Hemoglobin 10.6 g/dL (14.0-18.0); Mean Corpuscular HGB Conc 33.5 g/dl (32-36); Mean Corpuscular Hemoglobin 29.9 pg (26-34); Mean Platelet Volume 10.3 fl (7.4-10.4); Platelet Count Result 254 k/mm3 (150-375); Red Blood Count 3.55 M/mm3 (4.6-6.20); Red Cell Distribution Width 11.7 % (11.5-14.5); White Blood Count 17.3 K/mm3 (4.5-10.0)
[2021-11-12 05:55] LABS: Anion Gap 9 mmol/L (8-16); Blood Urea Nitrogen 10 mg/dL (9-20); Calcium 8.2 mg/dL (8.4-10.2); Carbon Dioxide 26 mmol/L (22-30); Chloride 98 mmol/L (98-107); Estimated CRCL calculation 115 ml/min; Estimated Glomerular Filt Rate > 60; Glucose 176 mg/dL (65-110); Potassium 3.3 mmol/L (3.4-5.0); Sodium 133 mmol/L (137-145)
[2021-11-12 08:19] LABS: Glucose Point of Care 146 mg/dl (65-105)
[2021-11-12] MEDS: levoFLOXacin 750 MG TABLET PO (08:28)
[2021-11-12] MEDS: TAMSULOSIN HCL 0.4 MG CAPSULE PO (08:29)
[2021-11-12] MEDS: POTASSIUM CHLORIDE 20 MEQ TABLET PO (08:32)
[2021-11-12] MEDS: INSULIN ASPART (*BKC) 100 UNITS/ML SUB-Q ×4 (08:40→17:30)
[2021-11-12 12:17] LABS: Glucose Point of Care 147 mg/dl (65-105)
[2021-11-12 14:00] VITALS: BP 101/60; PULSE 100; RESP 18; TEMP 36.7; O2SAT 99
--- NOTE | 2021-11-12 15:47 | PM.IMPN ---
Progress Note: A&P Assessment and Plan (1) Calculus of distal right ureter: Code(s): N20.1 - Calculus of ureter Status: Acute Assessment and Plan: 5 millimeter distal right ureteral stone noted on imaging causing right-sided hydro nephrosis. he is s/p cystoscopy with right retrograde pyelogram and right ureteral stent placement on 11/10. Appreciate urology consultation. Will need outpatient follow-up for definitive stone management. (2) Urinary tract infection: Code(s): N39.0 - Urinary tract infection, site not specified Status: Acute Assessment and Plan: Urine culture from 10/25/2021 grew out pansensitive Staphylococcus aureus for which he completed a course of Bactrim. His urine still looks dirty thus he will be started on another course of antibiotics. continue p.o. levofloxacin. Repeat urine culture with >100k staph aureus, susceptibility report pending. Blood cultures pending. Slow improvement of WBC. Remains afebrile. (3) Orchitis, right: Code(s): N45.2 - Orchitis Status: Acute Assessment and Plan: Findings of orchitis on exam. Scrotal ultrasound was unremarkable. Secondary to acute UTI. Continue levofloxacin for total of 14 days (4) Bilateral hydronephrosis: Code(s): N13.30 - Unspecified hydronephrosis Status: Acute Assessment and Plan: Related to ureteral stone and urinary retention. Urology consulted as above. s/p ureteral stent. (5) Benign prostatic hyperplasia with urinary retention: Code(s): N40.1 - Benign prostatic hyperplasia with lower urinary tract symptoms; R33.8 - Other retention of urine Status: Acute Assessment and Plan: Continue tamsulosin. Continue Esparza catheter. Plan for voiding trial prior to discharge per urology recs. (6) Insulin dependent diabetes mellitus: Status: Acute Assessment and Plan: A1c is 10.8. Blood sugars have been poorly controlled. Patient admits to poor compliance with blood sugar monitoring though states he does regularly take insulin. Lantus increased to 12 units. Blood sugars better today 14-170. Continue novolog with meals. Accu-Cheks, sliding scale insulin, hypoglycemic protocol. (7) Hypertension: Code(s): I10 - Essential (primary) hypertension Status: Acute Assessment and Plan: Blood pressures reviewed and have been stable. Last BP 101/60. Patient is not on any p.o. antihypertensives. Subjective Date/time seen: 11/12/21 15:47 Interval history: Date of service: 11/12/2021 Robinson Noguera is a 56-year-old male with a history of diabetes mellitus, rheumatoid arthritis hypertension, hypothyroidism, asthma, anemia, BPH who is seen in follow-up for right ureteral calculus, right orchitis, UTI. he feels a bit better today. He has right-sided low back pain that he rates as 810 related to his stent. His groin pain has improved. His right testicle discomfort seems lessened today. He states he has try to avoid touching or adjusting the area today to minimize pain. He has no issues with the Esparza catheter. States urine draining appears less bloody today. He denies fever, chills, nausea, vomiting, shortness breath, cough, chest pain Review of Systems Review of Systems: All systems reviewed & are unremarkable except as noted in HPI and below Exam Narrative: General: well-nourished, well-appearing 56-year-old male, sitting up in bed, comfortable, NARD Neuro: awake, alert and oriented x4, speech clear, no focal neuro deficits noted HEENMT: normocephalic, atraumatic, EOMI, sclerae anicteric Respiratory: clear to auscultation bilaterally, nonlabored breathing Cardio: regular rate, regular rhythm with S1-S2 Abdomen: nondistended, normoactive bowel sounds, soft, nontender to palpation : no CVA tenderness, Esparza patent and draining dark urine with sediment in tube ( bag had just been emptied so no urine seen in the bag),
[2021-11-12 17:16] LABS: Glucose Point of Care 248 mg/dl (65-105)
[2021-11-12 19:58] VITALS: BP 129/65; PULSE 106; RESP 18; TEMP 37.9; O2SAT 98
[2021-11-12] MEDS: ACETAMINOPHEN 325 MG TABLET 650 MG PO (20:11)
[2021-11-12] MEDS: INSULIN GLARGINE (*BKC) 100 UNITS/ML 12 UNITS SUB-Q (20:13)
[2021-11-12 20:49] LABS: Glucose Point of Care 198 mg/dl (65-105)
[2021-11-12 22:29] VITALS: TEMP 37.3
[2021-11-13] MEDS: HYDROcodone/acetaminophen (*CRX) 5-325 MG TABLET 1 TAB PO ×3 (02:44→17:15)
[2021-11-13] MEDS: ONDANSETRON INJ 4 MG/2 ML VIAL IV PUSH ×3 (02:44→17:14)
[2021-11-13 05:36] VITALS: BP 129/70; PULSE 89; RESP 18; TEMP 36.6; O2SAT 100
[2021-11-13] MEDS: MORPHINE SULFATE (*CRX) 2 MG/ML INJ IV PUSH ×2 (05:39→22:10)
[2021-11-13 05:55] LABS: Hematocrit 33.1 % (42.0-52.0); Mean Corpuscular HGB Conc 33.2 g/dl (32-36); Mean Corpuscular Hemoglobin 29.8 pg (26-34); Mean Corpuscular Volume 89.7 fl (80-100); Mean Platelet Volume 9.6 fl (7.4-10.4); Platelet Count Result 260 k/mm3 (150-375); Red Blood Count 3.69 M/mm3 (4.6-6.20); Red Cell Distribution Width 11.9 % (11.5-14.5); White Blood Count 14.6 K/mm3 (4.5-10.0)
[2021-11-13 06:08] LABS: Alanine Aminotransferase 15 U/L (6-50); Albumin Level 3.2 g/dL (3.5-5.1); Alkaline Phosphatase 157 U/L (38-126); Anion Gap 12 mmol/L (8-16); Aspartate Amino Transferase 18 U/L (17-59); Bilirubin,Total 0.3 mg/dL (0.2-1.3); Blood Urea Nitrogen 9 mg/dL (9-20); Calcium 8.5 mg/dL (8.4-10.2); Carbon Dioxide 28 mmol/L (22-30); Chloride 98 mmol/L (98-107); Estimated CRCL calculation 100 ml/min; Estimated Glomerular Filt Rate > 60; Glucose 200 mg/dL (65-110); Potassium 3.4 mmol/L (3.4-5.0); Sodium 138 mmol/L (137-145)
[2021-11-13 07:53] LABS: Glucose Point of Care 193 mg/dl (65-105)
[2021-11-13] MEDS: INSULIN ASPART (*BKC) 100 UNITS/ML SUB-Q ×4 (08:57→17:16)
[2021-11-13] MEDS: TAMSULOSIN HCL 0.4 MG CAPSULE PO (09:00)
[2021-11-13] MEDS: levoFLOXacin 750 MG TABLET PO (09:00)
[2021-11-13 12:20] LABS: Glucose Point of Care 192 mg/dl (65-105)
--- NOTE | 2021-11-13 13:58 | P.PNIM_ITS ---
Progress Note: A&P Assessment and Plan (1) Calculus of distal right ureter: Code(s): N20.1 - Calculus of ureter Status: Acute Assessment and Plan: * 5 millimeter distal right ureteral stone noted on imaging causing right-sided hydro nephrosis. s/p cystoscopy with right retrograde pyelogram and right ureteral stent placement on 11/10. * Appreciate urology consultation. * I spoke with Urology and they will reach out to the patient themselves to schedule a right ureteroscopy with stent exchange as outpatient next week when stable to schedule. * Will attempt a voiding trial prior to discharge. (2) Urinary tract infection: Code(s): N39.0 - Urinary tract infection, site not specified Status: Acute Assessment and Plan: * Urine culture from 10/25/2021 grew out pansensitive Staphylococcus aureus for which he completed a course of Bactrim. * His urine still looks dirty thus he will be started on another course of antibiotics. continue p.o. levofloxacin. * Repeat urine culture with >100k staph aureus, susceptibility report pending. * Blood cultures grew out Staph aureus as well. Susceptibilities pending. * Slow improvement of WBC. * Febrile overnight--> New concern for potential sepsis. (3) Orchitis, right: Code(s): N45.2 - Orchitis Status: Acute Assessment and Plan: * Findings of orchitis on exam. * Scrotal ultrasound was unremarkable. * Secondary to acute UTI. * Continue levofloxacin for total of 14 days (4) Bilateral hydronephrosis: Code(s): N13.30 - Unspecified hydronephrosis Status: Acute Assessment and Plan: * Related to ureteral stone and urinary retention. * Urology consulted as above. s/p ureteral stent. (5) Benign prostatic hyperplasia with urinary retention: Code(s): N40.1 - Benign prostatic hyperplasia with lower urinary tract symptoms; R33.8 - Other retention of urine Status: Acute Assessment and Plan: * Continue tamsulosin. * Continue Esparza catheter. * Plan for voiding trial prior to discharge per urology recs. (6) Insulin dependent diabetes mellitus: Status: Acute Assessment and Plan: * A1c is 10.8. * Blood sugars have been poorly controlled. * atient admits to poor compliance with blood sugar monitoring though states he does regularly take insulin. Lantus increased to 12 units. * Continue novolog with meals. * Accu-Cheks, sliding scale insulin, hypoglycemic protocol. (7) Hypertension: Code(s): I10 - Essential (primary) hypertension Status: Acute Assessment and Plan: * Blood pressures reviewed and have been stable. * Not requiring any oral antihypertensive coverage. Time Spent With Patient Time with patient: 15 - 25 minutes Subjective Date/time seen: 11/13/21 13:58 This pt. is examined at the bedside today as he is status post right sided ureteral stent placement from obstructing uropathy that caused urinary retention and UTI. His Urine grew out pansensitive staph and he currently taking Levaquin of which it is sensitive to. He was going to be discharged by Urology today, but he had a fever overnight of 100.2, and he has Bacteremia, with Staph aureus growing not only in his urine, but also in 2/4 bottles of blood cultures. Sensitivity is pending. Urology then recommends holding off on discharge until pt is stable and they will reach out to him to schedule a right ureteroscopy with stent exchange as outpatient next week. Urology recommends a voiding trial
--- NOTE | 2021-11-13 13:58 | PM.IMPN ---
Progress Note: A&P Assessment and Plan (1) Calculus of distal right ureter: Code(s): N20.1 - Calculus of ureter Status: Acute Assessment and Plan: 5 millimeter distal right ureteral stone noted on imaging causing right-sided hydro nephrosis. s/p cystoscopy with right retrograde pyelogram and right ureteral stent placement on 11/10. Appreciate urology consultation. I spoke with Urology and they will reach out to the patient themselves to schedule a right ureteroscopy with stent exchange as outpatient next week when stable to schedule. Will attempt a voiding trial prior to discharge. (2) Urinary tract infection: Code(s): N39.0 - Urinary tract infection, site not specified Status: Acute Assessment and Plan: Urine culture from 10/25/2021 grew out pansensitive Staphylococcus aureus for which he completed a course of Bactrim. His urine still looks dirty thus he will be started on another course of antibiotics. continue p.o. levofloxacin. Repeat urine culture with >100k staph aureus, susceptibility report pending. Blood cultures grew out Staph aureus as well. Susceptibilities pending. Slow improvement of WBC. Febrile overnight--> New concern for potential sepsis. (3) Orchitis, right: Code(s): N45.2 - Orchitis Status: Acute Assessment and Plan: Findings of orchitis on exam. Scrotal ultrasound was unremarkable. Secondary to acute UTI. Continue levofloxacin for total of 14 days (4) Bilateral hydronephrosis: Code(s): N13.30 - Unspecified hydronephrosis Status: Acute Assessment and Plan: Related to ureteral stone and urinary retention. Urology consulted as above. s/p ureteral stent. (5) Benign prostatic hyperplasia with urinary retention: Code(s): N40.1 - Benign prostatic hyperplasia with lower urinary tract symptoms; R33.8 - Other retention of urine Status: Acute Assessment and Plan: Continue tamsulosin. Continue Esparza catheter. Plan for voiding trial prior to discharge per urology recs. (6) Insulin dependent diabetes mellitus: Status: Acute Assessment and Plan: A1c is 10.8. Blood sugars have been poorly controlled. atient admits to poor compliance with blood sugar monitoring though states he does regularly take insulin. Lantus increased to 12 units. Continue novolog with meals. Accu-Cheks, sliding scale insulin, hypoglycemic protocol. (7) Hypertension: Code(s): I10 - Essential (primary) hypertension Status: Acute Assessment and Plan: Blood pressures reviewed and have been stable. Not requiring any oral antihypertensive coverage. Time Spent With Patient Time with patient: 15 - 25 minutes Subjective Date/time seen: 11/13/21 13:58 This pt. is examined at the bedside today as he is status post right sided ureteral stent placement from obstructing uropathy that caused urinary retention and UTI. His Urine grew out pansensitive staph and he currently taking Levaquin of which it is sensitive to. He was going to be discharged by Urology today, but he had a fever overnight of 100.2, and he has Bacteremia, with Staph aureus growing not only in his urine, but also in 2/4 bottles of blood cultures. Sensitivity is pending. Urology then recommends holding off on discharge until pt is stable and they will reach out to him to schedule a right ureteroscopy with stent exchange as outpatient next week. Urology recommends a voiding trial before discharge. The patient denies any CP, dyspnea, N/V/D, headache, lightheadedness, dizziness, or abdominal pain. Review of Systems Review of Systems: All systems reviewed & are unremarkable except as noted in HPI and below Exam Const: General: comfortable and no acute distress HENMT: Ears: TM's normal bilaterally General nose exam: Normal nares present Mouth: Yes moist mucous membranes Eyes: Genera
[2021-11-13 14:00] VITALS: BP 114/58; PULSE 96; RESP 18; TEMP 36.4; O2SAT 99
[2021-11-13 17:17] LABS: Glucose Point of Care 258 mg/dl (65-105)
[2021-11-13 19:32] VITALS: BP 157/74; PULSE 102; RESP 18; TEMP 37.3; O2SAT 98
[2021-11-13 20:04] LABS: Glucose Point of Care 179 mg/dl (65-105)
[2021-11-13] MEDS: INSULIN GLARGINE (*BKC) 100 UNITS/ML 12 UNITS SUB-Q (20:06)
[2021-11-14] MEDS: HYDROcodone/acetaminophen (*CRX) 5-325 MG TABLET 1 TAB PO ×2 (05:10→13:38)
[2021-11-14] MEDS: ONDANSETRON INJ 4 MG/2 ML VIAL IV PUSH (05:10)
[2021-11-14 05:35] VITALS: BP 157/75; PULSE 99; RESP 16; TEMP 36.2; O2SAT 99
[2021-11-14 05:37] LABS: Basophils Percent Auto 0.3 % (0.2-1.2); Eosinophils Absolute Auto 0.1 K/mm3 (0-0.3); Eosinophils Percent Auto 0.7 % (0-4.4); Hemoglobin 11.6 g/dL (14.0-18.0); Immature Granulocyte Percent A 0.7 % (0-0.5); Lymphocytes Absolute Auto 1.62 K/mm3 (0.9-3.2); Lymphocytes Percent Auto 10.7 % (18.3-44.2); Mean Corpuscular HGB Conc 33.1 g/dl (32-36); Mean Corpuscular Hemoglobin 30.1 pg (26-34); Mean Corpuscular Volume 90.9 fl (80-100); Mean Platelet Volume 9.8 fl (7.4-10.4); Monocytes Absolute Auto 1.6 K/mm3 (0.1-0.6); Monocytes Percent Auto 10.7 % (2.6-8.5); Neutrophils Absolute Auto 11.7 K/mm3 (1.3-6.7); Neutrophils Percent Auto 76.9 % (45.5-73.1); Platelet Count Result 297 k/mm3 (150-375); Red Blood Count 3.85 M/mm3 (4.6-6.20); Red Cell Distribution Width 11.8 % (11.5-14.5); White Blood Count 15.2 K/mm3 (4.5-10.0)
[2021-11-14 05:53] LABS: Alanine Aminotransferase 16 U/L (6-50); Albumin Level 3.2 g/dL (3.5-5.1); Alkaline Phosphatase 201 U/L (38-126); Anion Gap 8 mmol/L (8-16); Aspartate Amino Transferase 23 U/L (17-59); Bilirubin,Total 0.2 mg/dL (0.2-1.3); Blood Urea Nitrogen 8 mg/dL (9-20); Calcium 8.7 mg/dL (8.4-10.2); Carbon Dioxide 28 mmol/L (22-30); Chloride 99 mmol/L (98-107); Estimated CRCL calculation 100 ml/min; Estimated Glomerular Filt Rate > 60; Glucose 174 mg/dL (65-110); Magnesium 1.8 mg/dL (1.6-2.3); Potassium 3.5 mmol/L (3.4-5.0); Sodium 135 mmol/L (137-145)
[2021-11-14] MEDS: levoFLOXacin 750 MG TABLET PO (07:58)
[2021-11-14] MEDS: TAMSULOSIN HCL 0.4 MG CAPSULE PO (07:58)
[2021-11-14 08:09] LABS: Glucose Point of Care 271 mg/dl (65-105)
[2021-11-14] MEDS: INSULIN ASPART (*BKC) 100 UNITS/ML SUB-Q ×4 (09:27→17:53)
[2021-11-14 12:08] LABS: Glucose Point of Care 120 mg/dl (65-105)
[2021-11-14 14:36] VITALS: BP 142/70; PULSE 99; RESP 16; TEMP 36.9; O2SAT 100
--- NOTE | 2021-11-14 15:30 | P.PNIM_ITS ---
Progress Note: A&P Assessment and Plan (1) Calculus of distal right ureter: Code(s): N20.1 - Calculus of ureter Status: Acute Assessment and Plan: * 5 millimeter distal right ureteral stone noted on imaging causing right-sided hydro nephrosis. s/p cystoscopy with right retrograde pyelogram and right ureteral stent placement on 11/10. * Appreciate urology consultation. * I spoke with Urology and they will reach out to the patient themselves to schedule a right ureteroscopy with stent exchange as outpatient next week when stable to schedule. * Will attempt a voiding trial prior to discharge. * Will leave monk until patient is ready to go home per his request. A trial will be performed early the morning that we expect he will be discharged. (2) Urinary tract infection: Code(s): N39.0 - Urinary tract infection, site not specified Status: Acute Assessment and Plan: * Urine culture from 10/25/2021 grew out pansensitive Staphylococcus aureus for which he completed a course of Bactrim. * His urine still looks dirty thus he will be started on another course of antibiotics. continue p.o. levofloxacin. * Repeat urine culture with >100k staph aureus, susceptibility report pending. * Blood cultures grew out Staph aureus as well. Susceptibilities pending. * Slow improvement of WBC. * Febrile overnight--> New concern for potential sepsis. * 11/14: Pt. with stable VS. His staph that grew out of blood does nojt have same sensitivity. Will use IV ancef for now and transition to IV Dapto for home. PICC line ordered and will have ID pharmacist help with dosing of IV dapto tomorrow. (3) Orchitis, right: Code(s): N45.2 - Orchitis Status: Acute Assessment and Plan: * Findings of orchitis on exam. * Scrotal ultrasound was unremarkable. * Secondary to acute UTI. * Continue levofloxacin for total of 14 days * Ancef Q8 hrs and then prep for Dapto as outpatient. Discontinue Monk. Dapto will need to continue for 14 days after negative blood culture. (4) Bilateral hydronephrosis: Code(s): N13.30 - Unspecified hydronephrosis Status: Acute Assessment and Plan: * Related to ureteral stone and urinary retention. * Urology consulted as above. s/p ureteral stent. * Urology to replace stent next week to be rescheduled by them. (5) Benign prostatic hyperplasia with urinary retention: Code(s): N40.1 - Benign prostatic hyperplasia with lower urinary tract symptoms; R33.8 - Other retention of urine Status: Acute Assessment and Plan: * Continue tamsulosin. * Continue Monk catheter. * Plan for voiding trial prior to discharge per urology recs. (6) Insulin dependent diabetes mellitus: Status: Acute Assessment and Plan: * A1c is 10.8. * Blood sugars have been poorly controlled. * atient admits to poor compliance with blood sugar monitoring though states he does regularly take insulin. Lantus increased to 12 units. * Continue novolog with meals. * Accu-Cheks, sliding scale insulin, hypoglycemic protocol. (7) Hypertension: Code(s): I10 - Essential (primary) hypertension Status: Acute Assessment and Plan: * Blood pressures reviewed and have been stable. * Not requiring any oral antihypertensive coverage. Time Spent With Patient Time with patient: 15 - 25 minutes Subjective Date/time seen: 11/14/21 1120 This pt. was examined at the bedside today in interval assessment. He has had inte
--- NOTE | 2021-11-14 15:30 | PM.IMPN ---
Progress Note: A&P Assessment and Plan (1) Calculus of distal right ureter: Code(s): N20.1 - Calculus of ureter Status: Acute Assessment and Plan: 5 millimeter distal right ureteral stone noted on imaging causing right-sided hydro nephrosis. s/p cystoscopy with right retrograde pyelogram and right ureteral stent placement on 11/10. Appreciate urology consultation. I spoke with Urology and they will reach out to the patient themselves to schedule a right ureteroscopy with stent exchange as outpatient next week when stable to schedule. Will attempt a voiding trial prior to discharge. Will leave monk until patient is ready to go home per his request. A trial will be performed early the morning that we expect he will be discharged. (2) Urinary tract infection: Code(s): N39.0 - Urinary tract infection, site not specified Status: Acute Assessment and Plan: Urine culture from 10/25/2021 grew out pansensitive Staphylococcus aureus for which he completed a course of Bactrim. His urine still looks dirty thus he will be started on another course of antibiotics. continue p.o. levofloxacin. Repeat urine culture with >100k staph aureus, susceptibility report pending. Blood cultures grew out Staph aureus as well. Susceptibilities pending. Slow improvement of WBC. Febrile overnight--> New concern for potential sepsis. 11/14: Pt. with stable VS. His staph that grew out of blood does nojt have same sensitivity. Will use IV ancef for now and transition to IV Dapto for home. PICC line ordered and will have ID pharmacist help with dosing of IV dapto tomorrow. (3) Orchitis, right: Code(s): N45.2 - Orchitis Status: Acute Assessment and Plan: Findings of orchitis on exam. Scrotal ultrasound was unremarkable. Secondary to acute UTI. Continue levofloxacin for total of 14 days Ancef Q8 hrs and then prep for Dapto as outpatient. Discontinue Monk. Dapto will need to continue for 14 days after negative blood culture. (4) Bilateral hydronephrosis: Code(s): N13.30 - Unspecified hydronephrosis Status: Acute Assessment and Plan: Related to ureteral stone and urinary retention. Urology consulted as above. s/p ureteral stent. Urology to replace stent next week to be rescheduled by them. (5) Benign prostatic hyperplasia with urinary retention: Code(s): N40.1 - Benign prostatic hyperplasia with lower urinary tract symptoms; R33.8 - Other retention of urine Status: Acute Assessment and Plan: Continue tamsulosin. Continue Monk catheter. Plan for voiding trial prior to discharge per urology recs. (6) Insulin dependent diabetes mellitus: Status: Acute Assessment and Plan: A1c is 10.8. Blood sugars have been poorly controlled. atient admits to poor compliance with blood sugar monitoring though states he does regularly take insulin. Lantus increased to 12 units. Continue novolog with meals. Accu-Cheks, sliding scale insulin, hypoglycemic protocol. (7) Hypertension: Code(s): I10 - Essential (primary) hypertension Status: Acute Assessment and Plan: Blood pressures reviewed and have been stable. Not requiring any oral antihypertensive coverage. Time Spent With Patient Time with patient: 15 - 25 minutes Subjective Date/time seen: 11/14/21 1120 This pt. was examined at the bedside today in interval assessment. He has had interval improvement in how he feels. We have results of his blood cultures and his urine cultures that all grew out staph aureus sensitive to the Levaquin that he is on but, his blood cultures resulted today and his staph bacteremia is not sensitive to Levaquin. He should have IV coverage and should continue IV abx for his bacteremia for 14 days after his negative blood cultures, meaning he will need PICC placement and be set up for home infusion. I c
[2021-11-14] MEDS: ceFAZolin 2 GM/D5W 50 ML 2 GM/50 ML BAG IVPB (16:21)
[2021-11-14 16:52] LABS: Glucose Point of Care 203 mg/dl (65-105)
[2021-11-14 19:43] LABS: Glucose Point of Care 191 mg/dl (65-105)
[2021-11-14] MEDS: INSULIN GLARGINE (*BKC) 100 UNITS/ML 12 UNITS SUB-Q (20:11)
[2021-11-14] MEDS: MORPHINE SULFATE (*CRX) 2 MG/ML INJ IV PUSH (20:14)
--- NOTE | 2021-11-14 20:54 | PC.NURSE ---
CALLED VASCULAR RN EXT#[id number]. LEFT MESSAGE REGARDING PHYSICIAN ORDER FOR PICC LINE PLACEMENT ON THIS PATIENT. .
[2021-11-14 22:00] VITALS: BP 123/59; PULSE 93; RESP 16; TEMP 36.8; O2SAT 98
[2021-11-15] MEDS: HYDROcodone/acetaminophen (*CRX) 5-325 MG TABLET 1 TAB PO ×3 (00:53→17:07)
[2021-11-15] MEDS: ceFAZolin 2 GM/D5W 50 ML 2 GM/50 ML BAG IVPB ×3 (00:54→17:06)
[2021-11-15 05:38] LABS: Basophils Absolute Auto 0.1 K/mm3 (0.0-0.1); Basophils Percent Auto 0.5 % (0.2-1.2); Eosinophils Absolute Auto 0.1 K/mm3 (0-0.3); Eosinophils Percent Auto 0.8 % (0-4.4); Hematocrit 33.7 % (42.0-52.0); Hemoglobin 11.2 g/dL (14.0-18.0); Immature Granulocyte Percent A 0.6 % (0-0.5); Lymphocytes Absolute Auto 2.04 K/mm3 (0.9-3.2); Lymphocytes Percent Auto 13.2 % (18.3-44.2); Mean Corpuscular HGB Conc 33.2 g/dl (32-36); Mean Corpuscular Volume 90.3 fl (80-100); Mean Platelet Volume 9.6 fl (7.4-10.4); Monocytes Absolute Auto 1.6 K/mm3 (0.1-0.6); Monocytes Percent Auto 10.6 % (2.6-8.5); Neutrophils Absolute Auto 11.4 K/mm3 (1.3-6.7); Neutrophils Percent Auto 74.3 % (45.5-73.1); Platelet Count Result 284 k/mm3 (150-375); Red Blood Count 3.73 M/mm3 (4.6-6.20); Red Cell Distribution Width 11.8 % (11.5-14.5); White Blood Count 15.4 K/mm3 (4.5-10.0)
[2021-11-15 05:44] VITALS: BP 131/73; PULSE 88; RESP 16; TEMP 36.8; O2SAT 98
[2021-11-15 05:55] LABS: Alanine Aminotransferase 17 U/L (6-50); Albumin Level 3.2 g/dL (3.5-5.1); Alkaline Phosphatase 205 U/L (38-126); Anion Gap 9 mmol/L (8-16); Aspartate Amino Transferase 25 U/L (17-59); Bilirubin,Total 0.2 mg/dL (0.2-1.3); Blood Urea Nitrogen 9 mg/dL (9-20); Calcium 8.6 mg/dL (8.4-10.2); Carbon Dioxide 28 mmol/L (22-30); Chloride 99 mmol/L (98-107); Estimated CRCL calculation 100 ml/min; Estimated Glomerular Filt Rate > 60; Glucose 236 mg/dL (65-110); Magnesium 1.9 mg/dL (1.6-2.3); Potassium 3.6 mmol/L (3.4-5.0); Sodium 136 mmol/L (137-145)
[2021-11-15] MEDS: polyethylene glycoL 3350 17 GM POWD.PACK PO (08:27)
[2021-11-15] MEDS: INSULIN ASPART (*BKC) 100 UNITS/ML SUB-Q ×4 (08:27→17:09)
[2021-11-15] MEDS: TAMSULOSIN HCL 0.4 MG CAPSULE PO (08:28)
[2021-11-15 08:34] LABS: Glucose Point of Care 261 mg/dl (65-105)
[2021-11-15] MEDS: ONDANSETRON INJ 4 MG/2 ML VIAL IV PUSH (08:34)
[2021-11-15 11:55] LABS: Glucose Point of Care 161 mg/dl (65-105)
--- NOTE | 2021-11-15 12:20 | PM.IMPN ---
Progress Note: A&P Assessment and Plan (1) Calculus of distal right ureter: Code(s): N20.1 - Calculus of ureter Status: Acute Assessment and Plan: 5 millimeter distal right ureteral stone noted on imaging causing right-sided hydro nephrosis. s/p cystoscopy with right retrograde pyelogram and right ureteral stent placement on 11/10. Appreciate urology consultation. I spoke with Urology and they will reach out to the patient themselves to schedule a right ureteroscopy with stent exchange as outpatient next week when stable to schedule. Will attempt a voiding trial prior to discharge. Will leave monk until patient is ready to go home per his request. A trial will be performed early the morning that we expect he will be discharged. 11/15: Urology to determine if and when his stent replacement will be performed in the setting of him having staph bacteremia. (2) Urinary tract infection: Code(s): N39.0 - Urinary tract infection, site not specified Status: Acute Assessment and Plan: Urine culture from 10/25/2021 grew out pansensitive Staphylococcus aureus for which he completed a course of Bactrim. His urine still looks dirty thus he will be started on another course of antibiotics. continue p.o. levofloxacin. Repeat urine culture with >100k staph aureus, susceptibility report pending. Blood cultures grew out Staph aureus as well. Susceptibilities pending. Slow improvement of WBC. Febrile overnight--> New concern for potential sepsis. 11/14: Pt. with stable VS. His staph that grew out of blood does nojt have same sensitivity. Will use IV ancef for now and transition to IV Dapto for home. PICC line ordered and will have ID pharmacist help with dosing of IV dapto tomorrow. 11/15: Plan is to continue with IV Ancef through the weekend and redraw blood cultures on Thursday morning to check for resolution of bacteremia. Then PICC will be placed and when negative Dapto to be started. (3) Orchitis, right: Code(s): N45.2 - Orchitis Status: Acute Assessment and Plan: Findings of orchitis on exam. Scrotal ultrasound was unremarkable. Secondary to acute UTI. Continue levofloxacin for total of 14 days Ancef Q8 hrs and then prep for Dapto as outpatient. Discontinue Monk. Dapto will need to continue for 14 days after negative blood culture. See above plan of care. (4) Bilateral hydronephrosis: Code(s): N13.30 - Unspecified hydronephrosis Status: Acute Assessment and Plan: Related to ureteral stone and urinary retention. Urology consulted as above. s/p ureteral stent. Urology to replace stent next week to be rescheduled by them. See plan of care for #1. (5) Benign prostatic hyperplasia with urinary retention: Code(s): N40.1 - Benign prostatic hyperplasia with lower urinary tract symptoms; R33.8 - Other retention of urine Status: Acute Assessment and Plan: Continue tamsulosin. Continue Monk catheter. Plan for voiding trial prior to discharge per urology recs. (6) Insulin dependent diabetes mellitus: Status: Acute Assessment and Plan: A1c is 10.8. Blood sugars have been poorly controlled. atient admits to poor compliance with blood sugar monitoring though states he does regularly take insulin. Lantus increased to 12 units. Continue novolog with meals. Accu-Cheks, sliding scale insulin, hypoglycemic protocol. (7) Hypertension: Code(s): I10 - Essential (primary) hypertension Status: Acute Assessment and Plan: Blood pressures reviewed and have been stable. Not requiring any oral antihypertensive coverage. Time Spent With Patient Time with patient: 15 - 25 minutes Subjective Date/time seen: 11/15/21 1100 This pt. was examined at the bedside today in interval assessment since yesterday. He has staph bacteremia and he is on Ancef currently. He will con
[2021-11-15] MEDS: ACETAMINOPHEN 325 MG TABLET 650 MG PO (12:41)
[2021-11-15 14:00] VITALS: BP 138/75; PULSE 95; RESP 20; TEMP 36.6; O2SAT 99
[2021-11-15 17:14] LABS: Glucose Point of Care 195 mg/dl (65-105)
[2021-11-15 19:43] LABS: Glucose Point of Care 166 mg/dl (65-105)
[2021-11-15 22:00] VITALS: BP 136/76; PULSE 102; RESP 16; TEMP 36.3; O2SAT 97
[2021-11-15] MEDS: INSULIN GLARGINE (*BKC) 100 UNITS/ML 12 UNITS SUB-Q (22:00)
[2021-11-16] MEDS: HYDROcodone/acetaminophen (*CRX) 5-325 MG TABLET 1 TAB PO ×4 (00:42→23:37)
[2021-11-16] MEDS: ceFAZolin 2 GM/D5W 50 ML 2 GM/50 ML BAG IVPB ×4 (00:44→23:36)
[2021-11-16 05:55] VITALS: BP 129/63; PULSE 85; RESP 16; TEMP 36.9; O2SAT 97
[2021-11-16 05:57] LABS: Basophils Absolute Auto 0.1 K/mm3 (0.0-0.1); Basophils Percent Auto 0.4 % (0.2-1.2); Eosinophils Absolute Auto 0.2 K/mm3 (0-0.3); Eosinophils Percent Auto 1.6 % (0-4.4); Hematocrit 33.1 % (42.0-52.0); Hemoglobin 10.8 g/dL (14.0-18.0); Immature Granulocyte Absolute 0.16 K/mm3 (0.00-0.031); Immature Granulocyte Percent A 1.1 % (0-0.5); Lymphocytes Percent Auto 12.9 % (18.3-44.2); Mean Corpuscular HGB Conc 32.6 g/dl (32-36); Mean Corpuscular Hemoglobin 29.5 pg (26-34); Mean Corpuscular Volume 90.4 fl (80-100); Mean Platelet Volume 9.8 fl (7.4-10.4); Monocytes Absolute Auto 1.5 K/mm3 (0.1-0.6); Monocytes Percent Auto 10.9 % (2.6-8.5); Neutrophils Absolute Auto 10.2 K/mm3 (1.3-6.7); Neutrophils Percent Auto 73.1 % (45.5-73.1); Platelet Count Result 294 k/mm3 (150-375); Red Blood Count 3.66 M/mm3 (4.6-6.20); Red Cell Distribution Width 11.8 % (11.5-14.5)
[2021-11-16 06:09] LABS: Alanine Aminotransferase 16 U/L (6-50); Albumin Level 3.2 g/dL (3.5-5.1); Alkaline Phosphatase 185 U/L (38-126); Anion Gap 10 mmol/L (8-16); Aspartate Amino Transferase 25 U/L (17-59); Bilirubin,Total 0.2 mg/dL (0.2-1.3); Blood Urea Nitrogen 9 mg/dL (9-20); Calcium 8.5 mg/dL (8.4-10.2); Carbon Dioxide 27 mmol/L (22-30); Chloride 98 mmol/L (98-107); Estimated CRCL calculation 106 ml/min; Estimated Glomerular Filt Rate > 60; Glucose 291 mg/dL (65-110); Magnesium 1.9 mg/dL (1.6-2.3); Potassium 3.5 mmol/L (3.4-5.0); Sodium 135 mmol/L (137-145)
[2021-11-16 08:39] LABS: Glucose Point of Care 214 mg/dl (65-105)
[2021-11-16] MEDS: INSULIN ASPART (*BKC) 100 UNITS/ML SUB-Q ×5 (08:43→18:05)
[2021-11-16] MEDS: polyethylene glycoL 3350 17 GM POWD.PACK PO (08:45)
[2021-11-16] MEDS: TAMSULOSIN HCL 0.4 MG CAPSULE PO (08:45)
[2021-11-16] MEDS: ONDANSETRON INJ 4 MG/2 ML VIAL IV PUSH ×2 (08:48→23:36)
[2021-11-16 12:12] LABS: Glucose Point of Care 204 mg/dl (65-105)
--- NOTE | 2021-11-16 14:24 | PM.IMPN ---
Progress Note: A&P Assessment and Plan (1) Calculus of distal right ureter: Code(s): N20.1 - Calculus of ureter Status: Acute Assessment and Plan: 5 millimeter distal right ureteral stone noted on imaging causing right-sided hydro nephrosis. s/p cystoscopy with right retrograde pyelogram and right ureteral stent placement on 11/10. Appreciate urology consultation. I spoke with Urology and they will reach out to the patient themselves to schedule a right ureteroscopy with stent exchange as outpatient next week when stable to schedule. Will attempt a voiding trial prior to discharge. Will leave monk until patient is ready to go home per his request. A trial will be performed early the morning that we expect he will be discharged. 11/15: Urology to determine if and when his stent replacement will be performed in the setting of him having staph bacteremia. (2) Urinary tract infection: Code(s): N39.0 - Urinary tract infection, site not specified Status: Acute Assessment and Plan: Urine culture from 10/25/2021 grew out pansensitive Staphylococcus aureus for which he completed a course of Bactrim. His urine still looks dirty thus he will be started on another course of antibiotics. continue p.o. levofloxacin. Repeat urine culture with >100k staph aureus, susceptibility report pending. Blood cultures grew out Staph aureus as well. Susceptibilities pending. Slow improvement of WBC. Febrile overnight--> New concern for potential sepsis. 11/14: Pt. with stable VS. His staph that grew out of blood does nojt have same sensitivity. Will use IV ancef for now and transition to IV Dapto for home. PICC line ordered and will have ID pharmacist help with dosing of IV dapto tomorrow. 11/15: Plan is to continue with IV Ancef through the weekend and redraw blood cultures on Thursday morning to check for resolution of bacteremia. Then PICC will be placed and when negative Dapto to be started. (3) Orchitis, right: Code(s): N45.2 - Orchitis Status: Acute Assessment and Plan: Findings of orchitis on exam. Scrotal ultrasound was unremarkable. Secondary to acute UTI. Continue levofloxacin for total of 14 days Ancef Q8 hrs and then prep for Dapto as outpatient. Discontinue Monk. Dapto will need to continue for 14 days after negative blood culture. See above plan of care. (4) Bilateral hydronephrosis: Code(s): N13.30 - Unspecified hydronephrosis Status: Acute Assessment and Plan: Related to ureteral stone and urinary retention. Urology consulted as above. s/p ureteral stent. Urology to replace stent next week to be rescheduled by them. See plan of care for #1. (5) Benign prostatic hyperplasia with urinary retention: Code(s): N40.1 - Benign prostatic hyperplasia with lower urinary tract symptoms; R33.8 - Other retention of urine Status: Acute Assessment and Plan: Continue tamsulosin. Continue Monk catheter. Plan for voiding trial prior to discharge per urology recs. (6) Insulin dependent diabetes mellitus: Status: Acute Assessment and Plan: A1c is 10.8. Blood sugars have been poorly controlled. atient admits to poor compliance with blood sugar monitoring though states he does regularly take insulin. Lantus increased to 12 units. Continue novolog with meals. Accu-Cheks, sliding scale insulin, hypoglycemic protocol. (7) Hypertension: Code(s): I10 - Essential (primary) hypertension Status: Acute Assessment and Plan: Blood pressures reviewed and have been stable. Not requiring any oral antihypertensive coverage. Time Spent With Patient Time with patient: 15 - 25 minutes Subjective Date/time seen: 11/16/21 1000 This pt was examined at the bedside today in interval assessment. He has no new complaints today and appears to be without discomfort. He reports
[2021-11-16 15:00] VITALS: BP 142/81; PULSE 95; RESP 16; TEMP 36.1; O2SAT 98
[2021-11-16] MEDS: BISACODYL 10 MG SUPPOSITORY RECTAL (16:58)
[2021-11-16 17:48] LABS: Glucose Point of Care 167 mg/dl (65-105)
[2021-11-16 20:32] VITALS: BP 160/67; PULSE 93; RESP 18; TEMP 36.8; O2SAT 99
[2021-11-16] MEDS: INSULIN GLARGINE (*BKC) 100 UNITS/ML 12 UNITS SUB-Q (20:34)
[2021-11-16 20:47] LABS: Glucose Point of Care 230 mg/dl (65-105)
[2021-11-17 05:32] LABS: Basophils Absolute Auto 0.1 K/mm3 (0.0-0.1); Basophils Percent Auto 0.5 % (0.2-1.2); Eosinophils Absolute Auto 0.4 K/mm3 (0-0.3); Eosinophils Percent Auto 2.6 % (0-4.4); Hematocrit 33.6 % (42.0-52.0); Hemoglobin 11.1 g/dL (14.0-18.0); Immature Granulocyte Absolute 0.14 K/mm3 (0.00-0.031); Immature Granulocyte Percent A 0.9 % (0-0.5); Lymphocytes Absolute Auto 2.44 K/mm3 (0.9-3.2); Lymphocytes Percent Auto 16.3 % (18.3-44.2); Mean Corpuscular Hemoglobin 29.8 pg (26-34); Mean Corpuscular Volume 90.3 fl (80-100); Mean Platelet Volume 9.6 fl (7.4-10.4); Monocytes Absolute Auto 1.7 K/mm3 (0.1-0.6); Monocytes Percent Auto 11.3 % (2.6-8.5); Neutrophils Absolute Auto 10.2 K/mm3 (1.3-6.7); Neutrophils Percent Auto 68.4 % (45.5-73.1); Platelet Count Result 323 k/mm3 (150-375); Red Blood Count 3.72 M/mm3 (4.6-6.20); Red Cell Distribution Width 11.6 % (11.5-14.5); White Blood Count 14.9 K/mm3 (4.5-10.0)
[2021-11-17 05:48] VITALS: BP 139/73; PULSE 88; RESP 18; TEMP 36.3; O2SAT 97
[2021-11-17 05:51] LABS: Alanine Aminotransferase 15 U/L (6-50); Albumin Level 3.4 g/dL (3.5-5.1); Alkaline Phosphatase 197 U/L (38-126); Anion Gap 12 mmol/L (8-16); Aspartate Amino Transferase 24 U/L (17-59); Bilirubin,Total 0.2 mg/dL (0.2-1.3); Blood Urea Nitrogen 7 mg/dL (9-20); Calcium 8.9 mg/dL (8.4-10.2); Carbon Dioxide 28 mmol/L (22-30); Chloride 97 mmol/L (98-107); Estimated CRCL calculation 106 ml/min; Estimated Glomerular Filt Rate > 60; Glucose 245 mg/dL (65-110); Magnesium 1.9 mg/dL (1.6-2.3); Potassium 3.7 mmol/L (3.4-5.0); Sodium 137 mmol/L (137-145)
[2021-11-17] MEDS: HYDROcodone/acetaminophen (*CRX) 5-325 MG TABLET 1 TAB PO ×2 (08:22→17:50)
[2021-11-17] MEDS: TAMSULOSIN HCL 0.4 MG CAPSULE PO (08:24)
[2021-11-17] MEDS: ceFAZolin 2 GM/D5W 50 ML 2 GM/50 ML BAG IVPB ×3 (08:24→23:38)
[2021-11-17] MEDS: polyethylene glycoL 3350 17 GM POWD.PACK PO (08:24)
[2021-11-17] MEDS: ONDANSETRON INJ 4 MG/2 ML VIAL IV PUSH ×2 (08:25→17:50)
[2021-11-17] MEDS: INSULIN ASPART (*BKC) 100 UNITS/ML SUB-Q ×5 (08:25→17:45)
[2021-11-17 08:33] LABS: Glucose Point of Care 206 mg/dl (65-105)
[2021-11-17] MEDS: BISACODYL 5 MG TABLET EC 10 MG PO (11:37)
[2021-11-17] MEDS: polyethylene glycoL 3350 238 GM BOTTLE PO (11:37)
[2021-11-17 12:23] LABS: Glucose Point of Care 198 mg/dl (65-105)
[2021-11-17] MEDS: ACETAMINOPHEN 325 MG TABLET 650 MG PO (12:29)
--- NOTE | 2021-11-17 12:29 | P.PNIM_ITS ---
Progress Note: A&P Assessment and Plan (1) Calculus of distal right ureter: Code(s): N20.1 - Calculus of ureter Status: Acute Assessment and Plan: * 5 millimeter distal right ureteral stone noted on imaging causing right-sided hydro nephrosis. s/p cystoscopy with right retrograde pyelogram and right ureteral stent placement on 11/10. * Appreciate urology consultation. * I spoke with Urology and they will reach out to the patient themselves to schedule a right ureteroscopy with stent exchange as outpatient next week when stable to schedule. * Will attempt a voiding trial prior to discharge. * Will leave monk until patient is ready to go home per his request. A trial will be performed early the morning that we expect he will be discharged. * 11/15: Urology to determine if and when his stent replacement will be performed in the setting of him having staph bacteremia. (2) Urinary tract infection: Code(s): N39.0 - Urinary tract infection, site not specified Status: Acute Assessment and Plan: * Urine culture from 10/25/2021 grew out pansensitive Staphylococcus aureus for which he completed a course of Bactrim. * His urine still looks dirty thus he will be started on another course of antibiotics. continue p.o. levofloxacin. * Repeat urine culture with >100k staph aureus, susceptibility report pending. * Blood cultures grew out Staph aureus as well. Susceptibilities pending. * Slow improvement of WBC. * Febrile overnight--> New concern for potential sepsis. * 11/14: Pt. with stable VS. His staph that grew out of blood does nojt have same sensitivity. Will use IV ancef for now and transition to IV Dapto for home. PICC line ordered and will have ID pharmacist help with dosing of IV dapto tomorrow. * 11/15: Plan is to continue with IV Ancef through the weekend and redraw blood cultures on Thursday morning to check for resolution of bacteremia. Then PICC will be placed and when negative Dapto to be started. * 11/17: Continue with current IV Ancef. Blood cultures x2 to be repeated in the a.m.. (3) Orchitis, right: Code(s): N45.2 - Orchitis Status: Acute Assessment and Plan: * Findings of orchitis on exam. * Scrotal ultrasound was unremarkable. * Secondary to acute UTI. * Continue levofloxacin for total of 14 days * Ancef Q8 hrs and then prep for Dapto as outpatient. Discontinue Monk. Dapto will need to continue for 14 days after negative blood culture. * See above plan of care. (4) Bilateral hydronephrosis: Code(s): N13.30 - Unspecified hydronephrosis Status: Acute Assessment and Plan: * Related to ureteral stone and urinary retention. * Urology consulted as above. s/p ureteral stent. * Urology to replace stent next week to be rescheduled by them. * See plan of care for #1. (5) Benign prostatic hyperplasia with urinary retention: Code(s): N40.1 - Benign prostatic hyperplasia with lower urinary tract symptoms; R33.8 - Other retention of urine Status: Acute Assessment and Plan: * Continue tamsulosin. * Continue Monk catheter. * Plan for voiding trial prior to discharge per urology recs. (6) Insulin dependent diabetes mellitus: Status: Acute Assessment and Plan: * A1c is 10.8. * Blood sugars have been poorly controlled. * atient admits to poor compliance with blood sugar monitoring though states he does regularly take insulin. Lantus increased to 12 units. * Continue novolog with meals. * Accu-Cheks, sliding scale insulin, hypogly
[2021-11-17 14:00] VITALS: BP 126/63; PULSE 90; RESP 18; TEMP 36.7; O2SAT 99
[2021-11-17 17:45] LABS: Glucose Point of Care 207 mg/dl (65-105)
[2021-11-17 19:39] VITALS: BP 147/81; PULSE 103; RESP 20; TEMP 37; O2SAT 100
[2021-11-17] MEDS: INSULIN GLARGINE (*BKC) 100 UNITS/ML 12 UNITS SUB-Q (20:08)
[2021-11-17 21:53] LABS: Glucose Point of Care 210 mg/dl (65-105)
[2021-11-18] MEDS: ONDANSETRON INJ 4 MG/2 ML VIAL IV PUSH ×2 (04:22→12:38)
[2021-11-18] MEDS: HYDROcodone/acetaminophen (*CRX) 5-325 MG TABLET 1 TAB PO ×3 (04:22→20:24)
[2021-11-18 05:17] VITALS: BP 130/78; PULSE 92; RESP 18; TEMP 36.8; O2SAT 98
[2021-11-18 06:01] LABS: Basophils Absolute Auto 0.1 K/mm3 (0.0-0.1); Basophils Percent Auto 0.4 % (0.2-1.2); Eosinophils Absolute Auto 0.4 K/mm3 (0-0.3); Eosinophils Percent Auto 2.5 % (0-4.4); Hematocrit 33.1 % (42.0-52.0); Hemoglobin 10.7 g/dL (14.0-18.0); Immature Granulocyte Absolute 0.16 K/mm3 (0.00-0.031); Lymphocytes Absolute Auto 2.31 K/mm3 (0.9-3.2); Lymphocytes Percent Auto 14.6 % (18.3-44.2); Mean Corpuscular HGB Conc 32.3 g/dl (32-36); Mean Corpuscular Hemoglobin 29.5 pg (26-34); Mean Corpuscular Volume 91.2 fl (80-100); Mean Platelet Volume 9.6 fl (7.4-10.4); Monocytes Absolute Auto 1.6 K/mm3 (0.1-0.6); Monocytes Percent Auto 9.8 % (2.6-8.5); Neutrophils Absolute Auto 11.4 K/mm3 (1.3-6.7); Neutrophils Percent Auto 71.7 % (45.5-73.1); Platelet Count Result 319 k/mm3 (150-375); Red Blood Count 3.63 M/mm3 (4.6-6.20); Red Cell Distribution Width 11.8 % (11.5-14.5); White Blood Count 15.9 K/mm3 (4.5-10.0)
[2021-11-18 06:12] LABS: Alanine Aminotransferase 15 U/L (6-50); Albumin Level 3.3 g/dL (3.5-5.1); Alkaline Phosphatase 217 U/L (38-126); Anion Gap 9 mmol/L (8-16); Aspartate Amino Transferase 28 U/L (17-59); Bilirubin,Total 0.2 mg/dL (0.2-1.3); Blood Urea Nitrogen 11 mg/dL (9-20); Calcium 8.5 mg/dL (8.4-10.2); Carbon Dioxide 28 mmol/L (22-30); Chloride 98 mmol/L (98-107); Estimated CRCL calculation 98 ml/min; Estimated Glomerular Filt Rate > 60; Glucose 214 mg/dL (65-110); Magnesium 1.9 mg/dL (1.6-2.3); Potassium 3.9 mmol/L (3.4-5.0); Sodium 135 mmol/L (137-145)
[2021-11-18 08:04] LABS: Glucose Point of Care 179 mg/dl (65-105)
[2021-11-18] MEDS: ceFAZolin 2 GM/D5W 50 ML 2 GM/50 ML BAG IVPB ×3 (08:32→23:50)
[2021-11-18] MEDS: TAMSULOSIN HCL 0.4 MG CAPSULE PO (08:32)
[2021-11-18] MEDS: INSULIN ASPART (*BKC) 100 UNITS/ML SUB-Q ×4 (08:34→16:59)
--- NOTE | 2021-11-18 08:42 | WPDUROPN2 ---
Progress Note: A&P Assessment and Plan (1) Calculus of distal right ureter: Code(s): N20.1 - Calculus of ureter Status: Acute Assessment and Plan: will need prolonged IV antibiotics. Stone procedure to follow. This will not hold up his discharge. We can schedule as an outpatient (2) Acute urinary retention: Code(s): R33.8 - Other retention of urine Status: Acute Assessment and Plan: Flomax. Can attempt a voiding trial before discharge (3) Orchitis, right: Code(s): N45.2 - Orchitis Status: Acute Assessment and Plan: antibiotics for at least 2 weeks. Subjective Subjective Date/Time Seen: 11/18/21 08:42 Cultures grew out Staph aureus. Repeat cultures are pending. He has a stent in place. He is tolerating well. He has a Esparza catheter in place with clear yellow urine. He states his testicular pain is improved. according to the patient the hospitalist service is waiting for negative cultures in the plan is to transfer him to a rehab and/or nursing facility for IV antibiotics Exam Narrative: no acute distress normal breathing urine clear in Esparza right testicular swelling decreased. diaper machine tender and enlarged. no signs of skin breakdown Objective Data Vital Signs Vital Signs: Vital Signs - 24 hr 11/17/21 14:00 11/17/21 19:39 11/18/21 05:17 Temperature 98.1 F 98.6 F 98.2 F Pulse Rate 90 103 H 92 Respiratory Rate 18 20 18 Blood Pressure 126/63 147/81 H 130/78 Pulse Oximetry 99 100 98 Intake/Output Intake/Output: Intake & Output 11/15/21 11/16/21 11/17/21 11/18/21 23:59 23:59 23:59 23:59 Intake Total 1638 512 2056 150 Output Total 1850 2450 3050 600 Balance -60 -1580 -1760 -450 Meds/Results Medications: Active Medications Generic Name Dose Route Start Last Admin Trade Name Freq PRN Reason Stop Dose Admin Acetaminophen 650 mg 11/10/21 19:37 11/17/21 12:29 Acetaminophen 325 Mg Tablet PO 650 mg Q6H PRN Administration Mild Pain (1-3) or Fever Hydrocodone Bitart/Acetaminophen 1 tab 11/10/21 19:37 11/18/21 04:22 Hydrocodone/Acetaminophen (*Crx) 5-325 Mg Tablet PO 1 tab Q6H PRN Administration Pain Rated 4-6 Bisacodyl 10 mg 11/16/21 09:00 11/18/21 08:33 Bisacodyl 10 Mg Suppository RECTAL Not Given QAM [facility] Dextrose 12.5 gm 11/10/21 16:36 Dextrose 50% 25 Gm/50 Ml Syringe IV PUSH PRN PRN Hypoglycemia Protocol Glucagon 1 mg 11/10/21 16:36 Glucagon For Inj 1 Mg Vial IM PRN PRN Hypoglycemia Protocol Glucose 15 gm 11/10/21 16:36 Glucose Oral Gel 15 Gm Of Glucse In 37.5 Gm Tube PO PRN PRN Hypoglycemia Protocol Dextrose 1,000 mls @ 100 mls/hr 11/10/21 16:36 Dextrose 5% 1,000 Ml IVPB PRN PRN Hypoglycemia Protocol Cefazolin Sodium 2 gm in 50 mls @ 100 mls/hr 11/14/21 16:00 11/18/21 08:32 Ancef 2 Gm/D5w 50 Ml IVPB 100 mls/hr Q8H COLTEN Administration Insulin Aspart 2 - 5 units 11/11/21 08:00 11/18/21 08:05 Insulin Aspart (*Bkc) 100 Units/Ml SUB-Q Not Given TIDWM [facility] Protocol Insulin Aspart 5 units 11/11/21 09:00 11/18/21 08:34 Insulin Aspart (*Bkc) 100 Units/Ml SUB-Q 12/11/21 08:59 5 units TID COLTEN Administration Insulin Glargine 12 units 11/11/21 21:00 11/17/21 20:08 Insulin Glargine (*Bkc) 100 Units/Ml SUB-Q 12 units HS COLTEN Administration Morphine Sulfate 2 mg 11/10/21 19:37 11/14/21 20:14 Morphine Sulfate (*Crx) 2 Mg/Ml Inj IV PUSH 2 mg Q4H PRN Administration Pain Rated 7-10 Ondansetron HCl 4 mg 11/10/21 19:37 11/18/21 04:22 Ondansetron Inj 4 Mg/2 Ml Vial IV PUSH 4 mg Q6H PRN Administration Nausea And Vomiting Polyethylene Glycol 17 gm 11/15/21 09:00 11/18/21 08:33 Polyethylene Glycol 3350 17 Gm Powd.Pack PO Not Given QAM [facility] Tamsulosin HCl 0.4 mg 11/11/21 09:00 11/18/21 08:32 Tamsulosin Hcl 0.4 Mg Capsule
--- NOTE | 2021-11-18 09:31 | PCNWS ---
Weekly nutritional screen. Patient is tolerating current diabetic diet with adequate intake at 75-100% of meals. No weight loss reported, EMR shows wt stable. No nutritional needs at this time.
[2021-11-18 12:15] LABS: Glucose Point of Care 214 mg/dl (65-105)
--- NOTE | 2021-11-18 13:00 | P.PNIM_ITS ---
Progress Note: A&P Assessment and Plan (1) Calculus of distal right ureter: Code(s): N20.1 - Calculus of ureter Status: Acute Assessment and Plan: * 5 millimeter distal right ureteral stone noted on imaging causing right-sided hydro nephrosis. s/p cystoscopy with right retrograde pyelogram and right ureteral stent placement on 11/10. * Appreciate urology consultation. * I spoke with Urology and they will reach out to the patient themselves to schedule a right ureteroscopy with stent exchange as outpatient next week when stable to schedule. * Will attempt a voiding trial prior to discharge. * Will leave monk until patient is ready to go home per his request. A trial will be performed early the morning that we expect he will be discharged. * 11/15: Urology to determine if and when his stent replacement will be performed in the setting of him having staph bacteremia. (2) Urinary tract infection: Code(s): N39.0 - Urinary tract infection, site not specified Status: Acute Assessment and Plan: * Urine culture from 10/25/2021 grew out pansensitive Staphylococcus aureus for which he completed a course of Bactrim. * His urine still looks dirty thus he will be started on another course of antibiotics. continue p.o. levofloxacin. * Repeat urine culture with >100k staph aureus, susceptibility report pending. * Blood cultures grew out Staph aureus as well. Susceptibilities pending. * Slow improvement of WBC. * Febrile overnight--> New concern for potential sepsis. * 11/14: Pt. with stable VS. His staph that grew out of blood does nojt have same sensitivity. Will use IV ancef for now and transition to IV Dapto for home. PICC line ordered and will have ID pharmacist help with dosing of IV dapto tomorrow. * 11/15: Plan is to continue with IV Ancef through the weekend and redraw blood cultures on Thursday morning to check for resolution of bacteremia. Then PICC will be placed and when negative Dapto to be started. * 11/17: Continue with current IV Ancef. Blood cultures x2 to be repeated in the a.m.. * 11/18: BC pending, Care coordination working to find patient placement or someone to follow up with at discharge. (3) Orchitis, right: Code(s): N45.2 - Orchitis Status: Acute Assessment and Plan: * Findings of orchitis on exam. * Scrotal ultrasound was unremarkable. * Secondary to acute UTI. * Continue levofloxacin for total of 14 days * Ancef Q8 hrs and then prep for Dapto as outpatient. Discontinue Monk. Dapto will need to continue for 14 days after negative blood culture. * See above plan of care. (4) Bilateral hydronephrosis: Code(s): N13.30 - Unspecified hydronephrosis Status: Acute Assessment and Plan: * Related to ureteral stone and urinary retention. * Urology consulted as above. s/p ureteral stent. * Urology to replace stent next week to be rescheduled by them. * See plan of care for #1. (5) Benign prostatic hyperplasia with urinary retention: Code(s): N40.1 - Benign prostatic hyperplasia with lower urinary tract symptoms; R33.8 - Other retention of urine Status: Acute Assessment and Plan: * Continue tamsulosin. * Continue Monk catheter. * Plan for voiding trial prior to discharge per urology recs. (6) Insulin dependent diabetes mellitus: Status: Acute Assessment and Plan: * A1c is 10.8. * Blood sugars have been poorly controlled. * atient admits to poor compliance with blood sugar monitoring though states he does regularly take in
--- NOTE | 2021-11-18 13:00 | PM.IMPN ---
Progress Note: A&P Assessment and Plan (1) Calculus of distal right ureter: Code(s): N20.1 - Calculus of ureter Status: Acute Assessment and Plan: 5 millimeter distal right ureteral stone noted on imaging causing right-sided hydro nephrosis. s/p cystoscopy with right retrograde pyelogram and right ureteral stent placement on 11/10. Appreciate urology consultation. I spoke with Urology and they will reach out to the patient themselves to schedule a right ureteroscopy with stent exchange as outpatient next week when stable to schedule. Will attempt a voiding trial prior to discharge. Will leave monk until patient is ready to go home per his request. A trial will be performed early the morning that we expect he will be discharged. 11/15: Urology to determine if and when his stent replacement will be performed in the setting of him having staph bacteremia. (2) Urinary tract infection: Code(s): N39.0 - Urinary tract infection, site not specified Status: Acute Assessment and Plan: Urine culture from 10/25/2021 grew out pansensitive Staphylococcus aureus for which he completed a course of Bactrim. His urine still looks dirty thus he will be started on another course of antibiotics. continue p.o. levofloxacin. Repeat urine culture with >100k staph aureus, susceptibility report pending. Blood cultures grew out Staph aureus as well. Susceptibilities pending. Slow improvement of WBC. Febrile overnight--> New concern for potential sepsis. 11/14: Pt. with stable VS. His staph that grew out of blood does nojt have same sensitivity. Will use IV ancef for now and transition to IV Dapto for home. PICC line ordered and will have ID pharmacist help with dosing of IV dapto tomorrow. 11/15: Plan is to continue with IV Ancef through the weekend and redraw blood cultures on Thursday morning to check for resolution of bacteremia. Then PICC will be placed and when negative Dapto to be started. 11/17: Continue with current IV Ancef. Blood cultures x2 to be repeated in the a.m.. 11/18: BC pending, Care coordination working to find patient placement or someone to follow up with at discharge. (3) Orchitis, right: Code(s): N45.2 - Orchitis Status: Acute Assessment and Plan: Findings of orchitis on exam. Scrotal ultrasound was unremarkable. Secondary to acute UTI. Continue levofloxacin for total of 14 days Ancef Q8 hrs and then prep for Dapto as outpatient. Discontinue Monk. Dapto will need to continue for 14 days after negative blood culture. See above plan of care. (4) Bilateral hydronephrosis: Code(s): N13.30 - Unspecified hydronephrosis Status: Acute Assessment and Plan: Related to ureteral stone and urinary retention. Urology consulted as above. s/p ureteral stent. Urology to replace stent next week to be rescheduled by them. See plan of care for #1. (5) Benign prostatic hyperplasia with urinary retention: Code(s): N40.1 - Benign prostatic hyperplasia with lower urinary tract symptoms; R33.8 - Other retention of urine Status: Acute Assessment and Plan: Continue tamsulosin. Continue Monk catheter. Plan for voiding trial prior to discharge per urology recs. (6) Insulin dependent diabetes mellitus: Status: Acute Assessment and Plan: A1c is 10.8. Blood sugars have been poorly controlled. atient admits to poor compliance with blood sugar monitoring though states he does regularly take insulin. Lantus increased to 12 units. Continue novolog with meals. Accu-Cheks, sliding scale insulin, hypoglycemic protocol. (7) Hypertension: Code(s): I10 - Essential (primary) hypertension Status: Acute Assessment and Plan: Blood pressures reviewed and have been stable. Not requiring any oral antihypertensive coverage. (8) Constipation: Code(s): K59.00 - Constipa
[2021-11-18 14:00] VITALS: BP 131/72; PULSE 91; RESP 20; TEMP 36.4; O2SAT 100
[2021-11-18] MEDS: ACETAMINOPHEN 325 MG TABLET 650 MG PO (16:44)
[2021-11-18 16:59] LABS: Glucose Point of Care 173 mg/dl (65-105)
[2021-11-18 19:25] VITALS: BP 134/66; PULSE 92; RESP 18; TEMP 36.6; O2SAT 99
[2021-11-18 20:00] VITALS: PULSE 92; RESP 18; O2SAT 99
[2021-11-18] MEDS: INSULIN GLARGINE (*BKC) 100 UNITS/ML 12 UNITS SUB-Q (20:25)
[2021-11-18 21:18] LABS: Glucose Point of Care 213 mg/dl (65-105)
[2021-11-19 05:56] VITALS: BP 131/70; PULSE 96; RESP 18; TEMP 36.9; O2SAT 98
[2021-11-19] MEDS: HYDROcodone/acetaminophen (*CRX) 5-325 MG TABLET 1 TAB PO ×2 (06:29→17:17)
[2021-11-19 08:06] LABS: Glucose Point of Care 211 mg/dl (65-105)
[2021-11-19] MEDS: ceFAZolin 2 GM/D5W 50 ML 2 GM/50 ML BAG IVPB ×2 (08:20→17:07)
[2021-11-19] MEDS: TAMSULOSIN HCL 0.4 MG CAPSULE PO (08:22)
[2021-11-19] MEDS: INSULIN ASPART (*BKC) 100 UNITS/ML SUB-Q ×5 (08:24→17:13)
[2021-11-19 10:01] LABS: Hematocrit 33.9 % (42.0-52.0); Hemoglobin 11.2 g/dL (14.0-18.0); Mean Corpuscular Hemoglobin 29.6 pg (26-34); Mean Corpuscular Volume 89.4 fl (80-100); Mean Platelet Volume 9.3 fl (7.4-10.4); Platelet Count Result 310 k/mm3 (150-375); Red Blood Count 3.79 M/mm3 (4.6-6.20); Red Cell Distribution Width 11.6 % (11.5-14.5); White Blood Count 14.3 K/mm3 (4.5-10.0)
[2021-11-19 10:14] LABS: Anion Gap 10 mmol/L (8-16); Blood Urea Nitrogen 8 mg/dL (9-20); Calcium 8.8 mg/dL (8.4-10.2); Carbon Dioxide 30 mmol/L (22-30); Chloride 98 mmol/L (98-107); Estimated CRCL calculation 113 ml/min; Estimated Glomerular Filt Rate > 60; Glucose 214 mg/dL (65-110); Sodium 138 mmol/L (137-145)
[2021-11-19 12:31] LABS: Glucose Point of Care 190 mg/dl (65-105)
--- NOTE | 2021-11-19 13:09 | P.PNIM_ITS ---
Progress Note: A&P Assessment and Plan (1) Septicemia: Code(s): A41.9 - Sepsis, unspecified organism Status: Acute Assessment and Plan: patient septic with fever, leukocytosis. Blood culture with growth of St aphylococcus aureus in 2/2 bottles. Source of infection felt to be UTI, Staph aureus growing in urine. * Sepsis resolved. WBC with downward trend. Patient afebrile. * Repeat blood cultures collected on 11/19/2019 2- to date * discussed case with ID Pharm D. will plan to proceed with IV antibiotics x14 days following negative culture * continue IV Ancef at this time while awaiting negative repeat blood cultures x48 hours * will plan to transition to daptomycin 500 mg q24H for total of 14 days. Care coordination following to arrange outpatient infusions. will plan for baseline CK to be obtained tomorrow and will need weekly CK as well as weekly renal function panel for duration of IV antibiotics. Urology will follow and schedule outpatient definitive stone management following completion of antibiotics * PICC line to be placed tomorrow pending negative culture results (2) Urinary tract infection: Code(s): N39.0 - Urinary tract infection, site not specified Status: Acute Assessment and Plan: completed a course of Bactrim following UTI with Staphylococcus aureus on 10/25/2021. Repeat UA on presentation on 11/10 concerning for infection with growth of >100k Staph aureus * plan as above. Continue IV Ancef at this time (3) Calculus of distal right ureter: Code(s): N20.1 - Calculus of ureter Status: Acute Assessment and Plan: 5 millimeter distal right ureteral stone noted on imaging causing right-sided hydro nephrosis. s/p cystoscopy with right retrograde pyelogram and right ureteral stent placement on 11/10. * Appreciate urology consultation. * will need outpatient follow-up for right ureteroscopy with stent exchange as an outpatient * proceed with voiding trial today. Discontinue Esparza (4) Orchitis, right: Code(s): N45.2 - Orchitis Status: Acute Assessment and Plan: Findings of orchitis on exam, secondary to acute UTI * Scrotal ultrasound was unremarkable. * Continue antibiotics as above (5) Bilateral hydronephrosis: Code(s): N13.30 - Unspecified hydronephrosis Status: Acute Assessment and Plan: Related to ureteral stone and urinary retention. patient is now s/p ureteral stent * Urology to replace stent next week to be rescheduled by them. (6) Benign prostatic hyperplasia with urinary retention: Code(s): N40.1 - Benign prostatic hyperplasia with lower urinary tract symptoms; R33.8 - Other retention of urine Status: Acute Assessment and Plan: Esparza catheter patent and draining at this time * will discontinue Esparza today and proceed with voiding trial * Continue tamsulosin. (7) Insulin dependent diabetes mellitus: Status: Acute Assessment and Plan: A1c is 10.8. blood sugars elevated above target today 190-210 * Patient admits to poor compliance with blood sugar monitoring though states he does regularly take insulin. * Lantus increased to 14 units. * Continue novolog 5 units with meals. * Accu-Cheks, low-dose sliding scale insulin, hypoglycemic protocol. (8) Hypertension: Code(s): I10 - Essential (primary) hypertension Status: Acute Assessment and Plan: Blood pressures reviewed and have been stable. last BP 131/70 * Not requiring any oral an
--- NOTE | 2021-11-19 13:09 | PM.IMPN ---
Progress Note: A&P Assessment and Plan (1) Septicemia: Code(s): A41.9 - Sepsis, unspecified organism Status: Acute Assessment and Plan: patient septic with fever, leukocytosis. Blood culture with growth of Staphylococcus aureus in 2/2 bottles. Source of infection felt to be UTI, Staph aureus growing in urine. Sepsis resolved. WBC with downward trend. Patient afebrile. Repeat blood cultures collected on 11/19/2019 2- to date discussed case with ID Pharm D. will plan to proceed with IV antibiotics x14 days following negative culture continue IV Ancef at this time while awaiting negative repeat blood cultures x48 hours will plan to transition to daptomycin 500 mg q24H for total of 14 days. Care coordination following to arrange outpatient infusions. will plan for baseline CK to be obtained tomorrow and will need weekly CK as well as weekly renal function panel for duration of IV antibiotics. Urology will follow and schedule outpatient definitive stone management following completion of antibiotics PICC line to be placed tomorrow pending negative culture results (2) Urinary tract infection: Code(s): N39.0 - Urinary tract infection, site not specified Status: Acute Assessment and Plan: completed a course of Bactrim following UTI with Staphylococcus aureus on 10/25/2021. Repeat UA on presentation on 11/10 concerning for infection with growth of >100k Staph aureus plan as above. Continue IV Ancef at this time (3) Calculus of distal right ureter: Code(s): N20.1 - Calculus of ureter Status: Acute Assessment and Plan: 5 millimeter distal right ureteral stone noted on imaging causing right-sided hydro nephrosis. s/p cystoscopy with right retrograde pyelogram and right ureteral stent placement on 11/10. Appreciate urology consultation. will need outpatient follow-up for right ureteroscopy with stent exchange as an outpatient proceed with voiding trial today. Discontinue Esparza (4) Orchitis, right: Code(s): N45.2 - Orchitis Status: Acute Assessment and Plan: Findings of orchitis on exam, secondary to acute UTI Scrotal ultrasound was unremarkable. Continue antibiotics as above (5) Bilateral hydronephrosis: Code(s): N13.30 - Unspecified hydronephrosis Status: Acute Assessment and Plan: Related to ureteral stone and urinary retention. patient is now s/p ureteral stent Urology to replace stent next week to be rescheduled by them. (6) Benign prostatic hyperplasia with urinary retention: Code(s): N40.1 - Benign prostatic hyperplasia with lower urinary tract symptoms; R33.8 - Other retention of urine Status: Acute Assessment and Plan: Esparza catheter patent and draining at this time will discontinue Esparza today and proceed with voiding trial Continue tamsulosin. (7) Insulin dependent diabetes mellitus: Status: Acute Assessment and Plan: A1c is 10.8. blood sugars elevated above target today 190-210 Patient admits to poor compliance with blood sugar monitoring though states he does regularly take insulin. Lantus increased to 14 units. Continue novolog 5 units with meals. Accu-Cheks, low-dose sliding scale insulin, hypoglycemic protocol. (8) Hypertension: Code(s): I10 - Essential (primary) hypertension Status: Acute Assessment and Plan: Blood pressures reviewed and have been stable. last BP 131/70 Not requiring any oral antihypertensive coverage. Subjective Date/time seen: 11/19/21 13:09 Interval history: Date of service: 11/19/2021 Robinson Noguera is a 56 year old male with a history of diabetes mellitus, rheumatoid arthritis, hypertension, hypothyroidism, asthma, anemia, BPH who is seen in follow up for right ureteral calculus, and UTI with septicemia. He feels good today. He is able to get out of bed and walk around
[2021-11-19 13:52] VITALS: BP 119/66; PULSE 92; RESP 16; TEMP 36.7; O2SAT 99
[2021-11-19 17:10] LABS: Glucose Point of Care 212 mg/dl (65-105)
[2021-11-19 20:00] VITALS: PULSE 92; RESP 16; O2SAT 99
[2021-11-19] MEDS: INSULIN GLARGINE (*BKC) 100 UNITS/ML 14 UNITS SUB-Q (20:12)
[2021-11-19 22:00] VITALS: BP 139/73; PULSE 103; RESP 16; TEMP 36.9; O2SAT 100
[2021-11-20] MEDS: ceFAZolin 2 GM/D5W 50 ML 2 GM/50 ML BAG IVPB ×2 (00:04→09:38)
[2021-11-20] MEDS: ONDANSETRON INJ 4 MG/2 ML VIAL IV PUSH ×2 (00:09→09:37)
[2021-11-20 03:05] LABS: Glucose Point of Care 128 mg/dl (65-105)
[2021-11-20 05:08] LABS: Basophils Absolute Auto 0.1 K/mm3 (0.0-0.1); Basophils Percent Auto 0.5 % (0.2-1.2); Eosinophils Absolute Auto 0.5 K/mm3 (0-0.3); Eosinophils Percent Auto 4.1 % (0-4.4); Hematocrit 33.7 % (42.0-52.0); Hemoglobin 10.9 g/dL (14.0-18.0); Immature Granulocyte Absolute 0.17 K/mm3 (0.00-0.031); Immature Granulocyte Percent A 1.3 % (0-0.5); Lymphocytes Absolute Auto 2.57 K/mm3 (0.9-3.2); Lymphocytes Percent Auto 19.5 % (18.3-44.2); Mean Corpuscular HGB Conc 32.3 g/dl (32-36); Mean Corpuscular Hemoglobin 29.6 pg (26-34); Mean Corpuscular Volume 91.6 fl (80-100); Mean Platelet Volume 9.1 fl (7.4-10.4); Monocytes Absolute Auto 1.3 K/mm3 (0.1-0.6); Neutrophils Absolute Auto 8.5 K/mm3 (1.3-6.7); Neutrophils Percent Auto 64.6 % (45.5-73.1); Platelet Count Result 325 k/mm3 (150-375); Red Blood Count 3.68 M/mm3 (4.6-6.20); Red Cell Distribution Width 11.7 % (11.5-14.5); White Blood Count 13.2 K/mm3 (4.5-10.0)
[2021-11-20 05:25] LABS: Albumin Level 3.4 g/dL (3.5-5.1); Anion Gap 14 mmol/L (8-16); Blood Urea Nitrogen 8 mg/dL (9-20); Calcium 8.7 mg/dL (8.4-10.2); Carbon Dioxide 28 mmol/L (22-30); Chloride 98 mmol/L (98-107); Creatine Kinase 52 U/L (55-170); Estimated CRCL calculation 98 ml/min; Estimated Glomerular Filt Rate > 60; Glucose 240 mg/dL (65-110); Potassium 3.8 mmol/L (3.4-5.0); Sodium 140 mmol/L (137-145)
[2021-11-20 06:00] VITALS: BP 135/76; PULSE 98; RESP 18; TEMP 36.9; O2SAT 100
[2021-11-20 08:50] VITALS: O2SAT 98
[2021-11-20 08:52] LABS: Glucose Point of Care 177 mg/dl (65-105)
[2021-11-20] MEDS: HYDROcodone/acetaminophen (*CRX) 5-325 MG TABLET 1 TAB PO (09:37)
[2021-11-20] MEDS: INSULIN ASPART (*BKC) 100 UNITS/ML SUB-Q ×3 (09:38→12:35)
[2021-11-20] MEDS: TAMSULOSIN HCL 0.4 MG CAPSULE PO (09:39)
[2021-11-20] MEDS: LIDOCAINE HCL 1% PF INJ 5 ML VIAL INFILTRATE (11:40)
[2021-11-20 12:11] LABS: Glucose Point of Care 216 mg/dl (65-105)
[2021-11-20] MEDS: DAPTOmycin 500 MG in SODIUM CHLORIDE 0.9% IV 50 ML 100 MG IVPB (13:58)
[2021-11-20] MEDS: CENTRAL LINE FLUSH 10 ML IV PUSH (13:58)
[2021-11-20 15:21] VITALS: BP 134/77; PULSE 91; RESP 18; TEMP 36.6; O2SAT 100
--- NOTE | 2021-11-20 15:31 | PM.DS ---
DS: Admitting Diagnosis Discharge Date 11/20/2021 Admitting Diagnosis right ureteral calculus DS: Discharge Diagnosis Discharge Diagnosis (1) Septicemia: Code(s): A41.9 - Sepsis, unspecified organism Status: Acute Assessment and Plan: Patient septic with fever, leukocytosis. Blood culture with growth of Staphylococcus aureus in 2/2 bottles. Source of infection felt to be UTI, Staph aureus growing in urine. Sepsis resolved. WBC with downward trend. Patient remain afebrile. Repeat blood cultures collected on 11/18/2021 negative to date Discussed case with ID Pharm D. Will plan to proceed with IV antibiotics x14 days following negative culture Received IV Ancef during admission PICC line was placed on 11/20 following negative repeat cultures x48 hours. Patient will continue outpatient infusions via home health service Patient will continue daptomycin 500 mg Q 24h to complete 14 days of treatment. This will be followed by Urology. Baseline CK was normal. He will need weekly CK and renal function testing which will be completed by home health. (2) Urinary tract infection: Code(s): N39.0 - Urinary tract infection, site not specified Status: Acute Assessment and Plan: Completed a course of Bactrim following UTI with Staphylococcus aureus on 10/25/2021. Repeat UA on presentation on 11/10 concerning for infection with growth of >100k Staph aureus Plan as above. Outpatient IV Daptomycin (3) Calculus of distal right ureter: Code(s): N20.1 - Calculus of ureter Status: Acute Assessment and Plan: 5 millimeter distal right ureteral stone noted on imaging causing right-sided hydro nephrosis. S/p cystoscopy with right retrograde pyelogram and right ureteral stent placement on 11/10. Managed by Urology Will need outpatient follow-up for right ureteroscopy with stent exchange following completion of antibiotics (4) Orchitis, right: Code(s): N45.2 - Orchitis Status: Acute Assessment and Plan: Findings of orchitis on exam, secondary to acute UTI Scrotal ultrasound was unremarkable. Continue antibiotics as above (5) Bilateral hydronephrosis: Code(s): N13.30 - Unspecified hydronephrosis Status: Acute Assessment and Plan: Related to ureteral stone and urinary retention. patient is now s/p ureteral stent Urology managing for stent exchange (6) Benign prostatic hyperplasia with urinary retention: Code(s): N40.1 - Benign prostatic hyperplasia with lower urinary tract symptoms; R33.8 - Other retention of urine Status: Acute Assessment and Plan: Managed with monk catheter during admission Voiding trial completed and pt able to void independently Continue tamsulosin. (7) Insulin dependent diabetes mellitus: Status: Acute Assessment and Plan: A1c is 10.8. blood sugars elevated above target Patient admits to poor compliance with blood sugar monitoring though states he does regularly take insulin. Lantus increased to 14 units. Continue novolog 5 units with meals. Instructed regarding need for close monitoring of blood sugars at home. Monitor and record ACHS with PCP follow up for review. (8) Hypertension: Code(s): I10 - Essential (primary) hypertension Status: Acute Assessment and Plan: Blood pressures reviewed and were stable. Not requiring any oral antihypertensive coverage. DS: Summary Hospital Course Hospital Course: date of admission: 11/10/2021 date of discharge: 11/20/2021 Robinson Noguera is a 56-year-old male with a history of diabetes mellitus, rheumatoid arthritis hypertension, hypothyroidism, asthma, anemia, and BPH? who presented to the emergency department on 11/10/2021 with complaints of right testicular pain and urinary has and did see and dysuria. On presentation to the ED, he was mildly tachycardic with additi
== END 2021-11-20 17:00 | disposition home health service (06) | DRG 854 ==
LOC: ANHED 11:32 → ANH3MED 16:16
PROVIDERS: Nurse Practitioner Adult Health; Physician Assistant; Urology; Admitting Provider Internal Medicine; Emergency Provider General Practice; Visit Provider Family Medicine
PROC: 0T768DZ Dilation of Right Ureter with Intraluminal Device, Via Natural or Artificial Opening Endoscopic (ICD-10-PCS; CPT 52352; principal; 2021-11-10 16:00)
DX: A41.01 Sepsis due to Methicillin susceptible Staphylococcus aureus (principal); N13.6 Pyonephrosis; N40.1 Benign prostatic hyperplasia with lower urinary tract symptoms; N45.2 Orchitis; R33.8 Other retention of urine; D64.9 Anemia, unspecified; E11.42 Type 2 diabetes mellitus with diabetic polyneuropathy; E03.9 Hypothyroidism, unspecified; I10 Essential (primary) hypertension; F41.9 Anxiety disorder, unspecified; F32.A Depression, unspecified; J45.909 Unspecified asthma, uncomplicated; K59.00 Constipation, unspecified; K21.9 Gastro-esophageal reflux disease without esophagitis; M79.7 Fibromyalgia; M10.9 Gout, unspecified; M06.9 Rheumatoid arthritis, unspecified; Z79.4 Long term (current) use of insulin; Z87.442 Personal history of urinary calculi; Z88.0 Allergy status to penicillin
CPT/HCPCS: 36415; 36569; 74176; 74420; 76870; 80048; 80053; 80069; 81001; 82550; 82948; 83036; 83605; 83735; 84439; 84443; 84480; 85025; 85027; 87040; 87077; 87086; 87088; 87186; 93005; 93976; 96361; 96365; 99285; A9270; C1751; C1769; C2617; J0690; J0878; J1815; J1956; J2250; J2270; J2405; J2704; J3010; J7030; J7120

== ENCOUNTER 2021-11-25 12:50 | Outpatient (RCR) | payer BC, SELFPAY ==
[2021-11-25 15:38] LABS: Basophils Absolute Auto 0.1 K/mm3 (0.0-0.1); Basophils Percent Auto 0.7 % (0.2-1.2); Eosinophils Absolute Auto 0.2 K/mm3 (0-0.3); Eosinophils Percent Auto 2.2 % (0-4.4); Hematocrit 33.8 % (42.0-52.0); Hemoglobin 11.1 g/dL (14.0-18.0); Immature Granulocyte Absolute 0.04 K/mm3 (0.00-0.031); Immature Granulocyte Percent A 0.4 % (0-0.5); Mean Corpuscular HGB Conc 32.8 g/dl (32-36); Mean Corpuscular Hemoglobin 29.3 pg (26-34); Mean Corpuscular Volume 89.2 fl (80-100); Mean Platelet Volume 10.3 fl (7.4-10.4); Monocytes Absolute Auto 0.8 K/mm3 (0.1-0.6); Monocytes Percent Auto 8.5 % (2.6-8.5); Neutrophils Absolute Auto 6.2 K/mm3 (1.3-6.7); Neutrophils Percent Auto 65.2 % (45.5-73.1); Platelet Count Result 349 k/mm3 (150-375); Red Blood Count 3.79 M/mm3 (4.6-6.20); Red Cell Distribution Width 11.5 % (11.5-14.5); White Blood Count 9.6 K/mm3 (4.5-10.0)
[2021-11-25 15:43] LABS: Albumin Level 3.8 g/dL (3.5-5.1); Anion Gap 12 mmol/L (8-16); Blood Urea Nitrogen 17 mg/dL (9-20); Calcium 8.8 mg/dL (8.4-10.2); Carbon Dioxide 25 mmol/L (22-30); Chloride 97 mmol/L (98-107); Creatine Kinase 69 U/L (55-170); Estimated Glomerular Filt Rate > 60; Glucose 432 mg/dL (65-110); Phosphorus 3.7 mg/dL (2.5-4.5); Potassium 4.9 mmol/L (3.4-5.0); Sodium 134 mmol/L (137-145)
== END 2022-02-23 23:59 | disposition home or self-care (01) ==
LOC: HOME HLTH 12:50
PROVIDERS: Visit Provider Nurse Practitioner Adult Health
DX: A41.9 Sepsis, unspecified organism (principal); N39.0 Urinary tract infection, site not specified
CPT/HCPCS: 80069; 82550; 85025

== ENCOUNTER 2021-11-26 01:51 | Day surgery (SDC) | payer BC, SELFPAY ==
[2021-11-22 08:53] VITALS: BMI 21.7
--- NOTE | 2021-11-22 09:02 | PC.NURSE ---
Report to the Outpatient Waiting Room, entrance under the green pavilion located off [facility], at time 1115 on date 11/26/21. OR Time: 1315. Time changes happen often and if your time is changed the preop area will call you the afternoon before. - You and your visitor will be asked to self-screen and do not enter if you have any COVID symptoms. - Only one visitor and NO children visitors are allowed at this time. - The patient visitor is requested to leave or wait in car when not with patient due to restrictions. - A mask is required within the hospital. Patients may have clear liquids (water, carbonated beverages, clear teas, apple juice) until 3 hours prior to surgery with a maximum of 20 ounces. - No food from midnight until time of surgery Take the following medications with a SIP of water the morning of surgery: PAIN PILL IF NEEDED, 1/2 AM INSULIN DOSE Medications to discontinue per physician: N/A Date to take last dose: N/A Please no make-up, nail equ[place] gu[place], hairspray, perfume, deodorant, or body powder the day of surgery. No jewelry (including any body piercings) or valuables the day of surgery, leave them at home. Please take a shower or bath the night before, or the morning of, surgery with an antibacterial soap. Wear comfortable, loose fitting clothing. - Jewelry must be removed prior to entering the operating room. Rings and piercings that are not removed may be cut off. - The hospital will not accept responsibility for valuables. - Please leave all valuables, including medications, at home the day of surgery. If you are going home after surgery, a licensed car pick up driver must drive you home. - NO public transportation without another adult. - We recommend that an adult stay with you for 24 hours following discharge. - We also recommend that you do not drive, make important decision, drink alcoholic beverages, or take any drugs that were not prescribed by your health care provider for at least 24 hours after your discharge time. Follow any additional instructions given to you from your surgeon. If you or anyone in your household have experienced Covid symptoms in the past week, please notify your surgeon or the nurse liaison at the phone number below for possible testing. Telephone instructions given to PT - SELINA JOHNSON and asked if any additional questions and then verbalized understanding. Patient advised to call surgeon office or pre surgery nurse liaison [phone] if any additional questions.
[2021-11-26] VITALS (9 sets, daily range): BP systolic 102–149; BP diastolic 71–95; PULSE 86–103; RESP 10–20; TEMP 36.5–37; O2SAT 96–100
--- NOTE | ~2021-11-26 | XR_ITS ---
EXAMINATION: XR retrograde pyelo w/stent RT DATE: 11/26/2021 13:30 CDT INDICATION: CYSTO, RT RETRO/STENT EXCHANGE, STONE EXTRACTION . TECHNIQUE: 10 fluoroscopic images of the right abdomen and pelvis were obtained during cystoscopy, ri ght retrograde pyelography, stent exchange, stone extraction performed by the surgeon. I was not pres ent in the operating room. Fluoroscopy exposure time was 12.5 seconds. DAP [id number]. COMPARISON: 11/10/2021, CT and x-ray FINDINGS: Right ureteral stent removal followed by cannulation and wire access to the right ureter and stent de ployment. IMPRESSION: Fluoroscopic documentation of cystoscopy, right retrograde pyelography, stent exchange, and stone ext raction. Please refer to the operative note for complete procedural details . Reviewed, dictated and finalized at location K. IMPRESSION: Fluoroscopic documentation of cystoscopy, right retrograde pyelography, stent e xchange, and stone extraction. Please refer to the operative note for complete procedural details .
--- NOTE | 2021-11-26 11:38 | WPDANESEPPF ---
Anes - Initial Pre Proc Eval Procedure: Operation Date: 11/26/21 13:15 Proposed Procedures p Cystoscopy, Right Ureteroscopy, Right Retrograde Pyelogram, Right Stone Extraction, Right Stent Placement, Possible Holmium Laser Procedure - Herminio Hernandez MD Date/Time: 11/26/21 11:38 Surgeon: Herminio Hernandez MD Pre Op Diagnosis: right ureteral kidney stones Patient Data Age: 56 Gender: M Height: 1.8 m Weight: 70.76 kg Allergies Allergy/AdvReac Type Severity Reaction Status Date / Time Penicillins AdvReac Mild Vomiting Verified 11/26/21 11:34 Home Medications Medication Instructions Recorded Confirmed Type insulin lispro 100 unit/mL 5 unit subcut TID 03/18/19 11/26/21 History subcutaneous cartridge (Humalog U-100 Insulin) tamsulosin 0.4 mg capsule (Flomax) 0.4 mg PO DAILY #30 caps 10/25/21 11/26/21 Rx daptomycin 500 mg intravenous 500 mg IV Q24H 12 days #12 ea 11/20/21 11/26/21 Rx solution hydrocodone 5 mg-acetaminophen 325 1 tablet PO Q6H PRN Pain Rated 4-6 11/20/21 11/26/21 Rx mg tablet #10 tabs insulin glargine 100 unit/mL 14 unit (0.14 mL) subcut HS #10 mL 11/20/21 11/26/21 Rx subcutaneous solution (Lantus U-100 Insulin) ondansetron 4 mg disintegrating 4 mg PO Q6H PRN nausea and 11/20/21 11/26/21 Rx tablet vomiting #14 tabs Patient hx anesthesia problems: none Family hx anesthesia problems: none Results Review: All pre-operative results and documents have been reviewed as part of the pre-operative evaluation. [facility] Past Medical History Medical History (Updated 11/19/21 @ 13:34 by Elena Roth PA-C) Anemia Anxiety Asthma Benign prostatic hyperplasia with urinary retention Depression Diverticulitis Fibromyalgia Gastroesophageal reflux disease Gout Hypertension Hypothyroidism Insulin dependent diabetes mellitus Kidney stones Osteoporosis Peripheral neuropathy Pneumonia Rheumatoid arthritis Surgical History Surgical History History of tonsillectomy Family History Family History Father Family history of diabetes mellitus in first degree relative Mother Family history of coronary artery disease Social History Social History (Updated 11/10/21 @ 19:26 by Minerva Rosas PA-C) Social History: Surrogate medical decision maker: Toya Noguera, spouse. Code status: Full code. Smoking status: Never smoker Second hand tobacco smoke exposure: No Alcohol intake: never Substance use: never Substance use type: does not use Living arrangements: with family Spiritual care concerns: No Anes - Eval Final PreProcedure Day of Procedure 11/26/21 11:38 Patient weight: normal Heart: regular rate and rhythm Lungs: clear to auscultation Airway: Mallampati scale class II Neurological: alert and oriented Last oral intake: >/= 8 hours ASA classification: III Emergent: no Anesthetic plan: proceed Anesthesia type and monitoring: general LMA and standard monitoring Results Review: All pre-operative results and documents have been reviewed as part of the pre-operative evaluation. Informed Consent: The patient's anesthetic plan and its attendant risks and benefits were discussed with the patient/family/POA. Questions were solicited and answers provided to the satisfaction of the patient/family/POA.
[2021-11-26] MEDS: LACTATED RINGERS 1,000 ML 30 ML IV CONT (11:55)
[2021-11-26 12:03] LABS: Glucose Point of Care 195 mg/dl (65-105)
--- NOTE | 2021-11-26 12:13 | WPDHPUPDATE1 ---
History and Physical Update Update Date/Time: 11/26/21 12:13 History and Physical has been reviewed, including an updated exam of the patient. There are NO changes in the patient's condition. Risks, benefits, and alternatives have been discussed and questions answered. Patient agrees to proceed with procedure. Proceed with cysto, right retrograde, right ureteroscopy with stone extraction, possible laser, stent exchange
[2021-11-26] MEDS: DAPTOmycin 500 MG in SODIUM CHLORIDE 0.9% IV 50 ML 100 MG IVPB (13:28)
--- NOTE | 2021-11-26 14:16 | W.PM.PROC2 ---
Procedure Note - Detailed Date of Procedure 11/26/21 Pre-op Diagnosis right ureteral calculus Post-op Diagnosis Same Procedure Performed Cystoscopy, right retrograde pyelogram, right ureteroscopy with holmium laser, stone extraction, right ureteral stent exchange 4.8 Northern Irish contour Surgeon Herminio Hernandez MD Anesthesia General Description of Procedure Patient is taken to the operative suite correctly identified. Once anesthesia was obtained was placed in dorsal lithotomy position and prepped and draped usual sterile fashion. Twenty-two Northern Irish scope inserted the bladder. The stent was grasped and brought out to the meatus. Guidewire was inserted through the stent. Rigid ureteral scope was then placed into the distal ureter. The stone was a mulberry type stone. We could not retrieve it in 1 piece. An escape basket was placed around it. We used a 273 micron fiber to fragment to multiple small pieces. The largest pieces were sent for analysis using an escape basket. Reinspection revealed no significant stone burden in the ureter. Pyelogram was then performed. A 4.8 Northern Irish contour stent was then placed with the proximal end in the renal pelvis distal in the bladder. Bladder was drained. 2% viscous lidocaine was inserted into the urethra patient is taken recovery good condition. The follow-up in approximately 1 week's time for stent removal. Drains Yes Packing No Pathology Yes Complications No immediate complications Condition Stable Disposition PACU
[2021-11-26] MEDS: LIDOCAINE HCL 2% GEL UROJET 10 ML PKG MUCOUS MEM (14:18)
[2021-11-26 14:36] LABS: Glucose Point of Care 152 mg/dl (65-105)
[2021-11-26] MEDS: fentaNYL CITRATE INJ (*CRX) 100 MCG/2 ML VIAL 25 MCG IV PUSH ×4 (14:52→15:01)
[2021-11-26] MEDS: oxyCODONE HCL (*CRX) 5 MG TAB IR PO (15:30)
[2021-11-26] MEDS: ONDANSETRON INJ 4 MG/2 ML VIAL IV PUSH (15:49)
== END 2021-11-26 16:10 | disposition home or self-care (01) ==
PROVIDERS: Visit Provider Urology
PROC: (CPT 52352; principal; 2021-11-26 13:15)
DX: N20.1 Calculus of ureter (principal); N40.1 Benign prostatic hyperplasia with lower urinary tract symptoms; R33.8 Other retention of urine; E11.40 Type 2 diabetes mellitus with diabetic neuropathy, unspecified; Z79.4 Long term (current) use of insulin
CPT/HCPCS: 52356; 74420; 82365; 82948; 88300; A9270; C1758; C1769; C1887; C2617; J0878; J2250; J2370; J2405; J2704; J3010; J7120; Q9966

== ENCOUNTER 2021-12-02 15:59 | Outpatient (NON) | payer BC, SELFPAY ==
[2021-12-02 16:24] LABS: Hematocrit 33.1 % (42.0-52.0); Mean Corpuscular HGB Conc 33.2 g/dl (32-36); Mean Corpuscular Hemoglobin 29.3 pg (26-34); Mean Platelet Volume 10.5 fl (7.4-10.4); Platelet Count Result 291 k/mm3 (150-375); Red Blood Count 3.76 M/mm3 (4.6-6.20); Red Cell Distribution Width 12.6 % (11.5-14.5); White Blood Count 9.4 K/mm3 (4.5-10.0)
[2021-12-02 16:49] LABS: Anion Gap 11 mmol/L (8-16); Blood Urea Nitrogen 19 mg/dL (9-20); Calcium 9.1 mg/dL (8.4-10.2); Carbon Dioxide 28 mmol/L (22-30); Chloride 95 mmol/L (98-107); Creatine Kinase 70 U/L (55-170); Estimated Glomerular Filt Rate > 60; Glucose 400 mg/dL (65-110); Phosphorus 4.1 mg/dL (2.5-4.5); Potassium 3.9 mmol/L (3.4-5.0); Sodium 134 mmol/L (137-145)
[2021-12-04 09:39] LABS: Basophils Percent Auto 0.3 % (0.2-1.2); Eosinophils Absolute Auto 0.2 K/mm3 (0-0.3); Eosinophils Percent Auto 2.1 % (0-4.4); Immature Granulocyte Absolute 0.03 K/mm3 (0.00-0.031); Immature Granulocyte Percent A 0.3 % (0-0.5); Lymphocytes Absolute Auto 2.27 K/mm3 (0.9-3.2); Lymphocytes Percent Auto 24.3 % (18.3-44.2); Monocytes Absolute Auto 0.8 K/mm3 (0.1-0.6); Monocytes Percent Auto 8.6 % (2.6-8.5); Neutrophils Percent Auto 64.4 % (45.5-73.1)
== END 2021-12-02 16:00 | disposition home or self-care (01) ==
LOC: HOME HLTH 16:01
PROVIDERS: Visit Provider Nurse Practitioner Adult Health
DX: N39.0 Urinary tract infection, site not specified (principal); A41.9 Sepsis, unspecified organism
CPT/HCPCS: 80069; 82550; 85025

== ENCOUNTER → 2022-01-02 10:02 | Outpatient (CLI) | payer BC, SELFPAY ==
--- NOTE | ~2022-01-02 | US_ITS ---
EXAMINATION: US retroperitoneal comp DATE: 01/02/2022 11:04 INDICATION: Recent kidney stone TECHNIQUE: Multiple grayscale and Doppler ultrasound images of the kidneys were obtained. COMPARISON: CT, 11/10/2021 FINDINGS: The right kidney measures 10 x 5 x 6.3 cm. The left kidney measures 12.3 x 6.4 x 5.3 cm. Th e kidneys demonstrate normal parenchymal echogenicity. There is mild left hydronephrosis. The bladder is normal. IMPRESSION: 1. Mild left hydronephrosis. Reviewed, dictated and finalized at location B. GATE KEEPER
== END ==
PROVIDERS: PCP Urology; Visit Provider Urology
DX: N20.1 Calculus of ureter (principal)
CPT/HCPCS: 76770

== ENCOUNTER 2022-01-26 08:41 | Emergency (ER) | payer BC, SELFPAY ==
--- NOTE | 2022-01-26 08:48 | ED.URI ---
HPI - URI/Sore Throat General Chief Complaint: Upper Respiratory Infection Stated Complaint: uri Time Seen by Provider: 01/26/22 09:03 Source: patient and RN notes reviewed Mode of arrival: ambulatory Limitations: no limitations History of Present Illness HPI Narrative: 56-year-old male history of RA and diabetes presents concern for 5 day history of cough, chest congestion, nasal congestion, rhinorrhea, ear pain, sore throat, chills, body aches. Reports he has began having burning in his chest, discomfort with coughing. He reports other members of his family have similar symptoms but are getting better. MD elicited complaint: cough and sore throat Related Data Home Medications Medication Instructions Recorded Confirmed insulin lispro 100 unit/mL 5 unit subcut TID 03/18/19 01/26/22 subcutaneous cartridge (Humalog U-100 Insulin) Allergies Allergy/AdvReac Type Severity Reaction Status Date / Time Penicillins AdvReac Mild Vomiting Verified 01/26/22 08:59 Review of Systems Review of Systems: CONSTITUTIONAL: Reports malaise, chills. Denies sweats, or fever. EYES: Denies visual changes, redness, or discharge. ENT: Reports rhinorrhea, congestion, otalgia and sore throat. CARDIOVASCULAR: Denies chest pain, palpitations, or edema. RESPIRATORY: Reports cough with chest discomfort with. Denies dyspnea. GASTROINTESTINAL: Denies abdominal pain, nausea, vomiting, diarrhea SKIN: Denies rash or itching. MUSCULOSKELETAL: Reports myalgia. NEUROLOGIC: Denies headache. All systems reviewed & are unremarkable except as noted in HPI and below [facility] Past Medical History Medical History (Updated 01/26/22 @ 09:26 by Traci Gallagher NP) Anemia Anxiety Asthma Benign prostatic hyperplasia with urinary retention Depression Diverticulitis Fibromyalgia Gastroesophageal reflux disease Gout Hypertension Hypothyroidism Insulin dependent diabetes mellitus Kidney stones Osteoporosis Peripheral neuropathy Pneumonia Rheumatoid arthritis Surgical History Surgical History History of tonsillectomy Family History Family History Father Family history of diabetes mellitus in first degree relative Mother Family history of coronary artery disease Social History Social History (Updated 11/10/21 @ 19:26 by Minerva G. Gerling, PA-C) Social History: Surrogate medical decision maker: Toya Noguera, spouse. Code status: Full code. Smoking status: Never smoker Second hand tobacco smoke exposure: No Alcohol intake: never Substance use: never Substance use type: does not use Spiritual care concerns: No Comments At time of signature, agree with nursing past medical, surgical, social and family history. There is no relevant family history pertinent to the presenting complaint Exam Narrative: GENERAL: Nontoxic-appearing and in no acute distress. HEAD: Normocephalic EYES: PERRLA, conjunctivae clear ENT: Nares clear, turbinates edematous and erythematous. Mucous membranes moist. TM pearly lomas with dull light reflex bilaterally; no tragal tenderness. Oropharynx not erythematous without lesions. Tonsils not enlarged and without exudate, no drooling, no hoarseness, no trismus, uvula midline. NECK: Supple. No lymphadenopathy CHEST: Scattered rhonchi, otherwise Clear to auscultation, breath sounds equal. No wheezing, rales, or stridor. No respiratory distress, speaks in full sentences. HEART: Regular rate and rhythm. No murmur heard. SKIN: Warm, dry, no rash. NEURO: Alert and oriented x3. PSYCH: Normal mood and affect Course Course Emergency Course: Patient is aware of diagnosis, understands and agrees to treatment plan. Anticipatory guidance given. Patient agrees to follow-up as directed and is aware of reasons to seek care at the emergency department. Portions of this record may have been created w
[2022-01-26 08:50] VITALS: BP 128/72; PULSE 89; RESP 16; TEMP 36.6; O2SAT 100
== END 2022-01-26 09:35 | disposition home or self-care (01) ==
PROVIDERS: Emergency Provider Nurse Practitioner
DX: J06.9 Acute upper respiratory infection, unspecified (principal); E11.9 Type 2 diabetes mellitus without complications; E03.9 Hypothyroidism, unspecified; I10 Essential (primary) hypertension; M06.9 Rheumatoid arthritis, unspecified; Z20.822 Contact with and (suspected) exposure to COVID-19
CPT/HCPCS: 87426; 87804; 99213; C9803; G0463

== ENCOUNTER 2022-04-10 12:37 | Outpatient (CLI) | payer BC, SELFPAY ==
--- NOTE | ~2022-04-10 | US_ITS ---
US retroperitoneal comp 04/10/2022 12:58 Procedure: Realtime transabdominal ultrasound of the kidneys and bladder. Indication: Right ureteral stone Comparison: Ultrasound dated 01/02/[address] dated 11/10/2021 Findings: Renal echotexture is normal bilaterally without hydronephrosis, contour deforming mass. The re are bilateral renal cysts, largest in the left kidney measuring 3.3 cm. There are echogenic foci c entrally in both kidneys, most likely nonobstructing renal stones. The right kidney measures 11.5 cm and left kidney measures 12.8 cm. Bladder within normal limits. Impression: 1: Probable nonobstructing bilateral nephrolithiasis. 2: Bilateral renal cysts, largest in the left kidney measuring 3.3 cm. Reviewed, dictated and finalized at location A. RVISOR CLEANING AND ANNEALING Impression: 1: Probable nonobstructing bilateral nephrolithiasis. 2: Bilateral renal cysts, largest in the left kidney measuring 3.3 cm.
== END 2022-04-10 12:38 ==
PROVIDERS: PCP Urology; Visit Provider Urology
DX: N20.1 Calculus of ureter (principal); N28.1 Cyst of kidney, acquired
CPT/HCPCS: 76770

== ENCOUNTER 2023-01-23 08:22 | Outpatient (CLI) | payer BC, SELFPAY ==
--- NOTE | 2023-01-23 08:34 | ECG_ITS ---
Measurements Intervals Davis Rate: 102 P: 63 IL: 180 QRS: -42 QRSD: 104 T: 81 QT: 328 QTc: 428 Interpretive Statements SINUS TACHYCARDIA MARKED LEFT AXIS DEVIATION [QRS AXIS < -30] CANNOT EXCLUDE PREVIOUS sEPTAL MYOCARDIAL INFARCTION ABNORMAL ECG COMPARED TO ECG 11/10/2021 15:45:21 NO SIGNIFICANT CHANGES Electronically Signed On 01-23-2023 13:27:45 BATT MACHINE OPERATOR by Robinson Palomo M.D.
[2023-01-23 09:12] LABS: INR 1.1; Prothrombin Time 14.4 Seconds (11.1-14.7)
[2023-01-23 09:13] LABS: Partial Thromboplastin Time 32.7 SECONDS (22.3-36.8)
[2023-01-23 09:14] LABS: Anion Gap 10 mmol/L (8-16); Blood Urea Nitrogen 23 mg/dL (9-20); Calcium 9.2 mg/dL (8.4-10.2); Carbon Dioxide 24 mmol/L (22-30); Chloride 100 mmol/L (98-107); Estimated Glomerular Filt Rate > 60; Glucose 508 mg/dL (65-110); Potassium 4.6 mmol/L (3.4-5.0); Sodium 134 mmol/L (137-145)
== END 2023-01-23 08:23 | disposition home or self-care (01) ==
LOC: ANHSURGERY 08:25
PROVIDERS: Anesthesiology; Visit Provider Urology
DX: N20.0 Calculus of kidney (principal); Z01.818 Encounter for other preprocedural examination; R94.31 Abnormal electrocardiogram [ECG] [EKG]
CPT/HCPCS: 36415; 80048; 85610; 85730; 87086; 87088; 87106; 93005

== ENCOUNTER 2023-01-30 03:05 | Day surgery (SDC) | payer BC, SELFPAY ==
[2023-01-21 14:42] VITALS: BMI 22.1
--- NOTE | 2023-01-21 14:45 | PC.NURSE ---
Report to the Outpatient Waiting Room, entrance under the green pavilion located off [facility], at time 11:00 on date 01/30/23. Planned Procedure Time: 1:00. Time changes happen often and if your time is changed the preop area will call you the afternoon before. - You and your visitor will be asked to self-screen and do not enter if you have any COVID symptoms. - A mask is optional within the hospital at this time. Patients may have clear liquids (water, carbonated beverages, clear teas, apple juice) until 3 hours prior to surgery with a maximum of 20 ounces. - No food from midnight until time of surgery Take the following medications with a SIP of water the morning of surgery: 1/2 MORNING INSULIN DOSE DO NOT STOP ANY OF YOUR OTHER PRESCRIPTION MEDICATIONS PRIOR TO SURGERY ?EXCEPT THE FOLLOWING Medications to discontinue per physician: N/A Date to take last dose: N/A Please no make-up, nail danish, hairspray, perfume, deodorant, or body powder the day of surgery. No jewelry (including any body piercings) or valuables the day of surgery, leave them at home. Please take a shower or bath the night before, or the morning of, surgery with an antibacterial soap. Wear comfortable, loose fitting clothing. - Jewelry must be removed prior to entering the operating room. Rings and piercings that are not removed may be cut off. - The hospital will not accept responsibility for valuables. - Please leave all valuables, including medications, at home the day of surgery. If you are going home after surgery, a licensed hi lo driver must drive you home. - NO public transportation without another adult if you receive anesthesia. - We recommend that an adult stay with you for 24 hours following discharge. - We also recommend that you do not drive, make important decision, drink alcoholic beverages, or take any drugs that were not prescribed by your health care provider for at least 24 hours after your discharge time. Follow any additional instructions given to you from your surgeon. If you or anyone in your household have experienced Covid symptoms in the past week, please notify your surgeon or the nurse liaison at the phone number below for possible testing. Telephone instructions given to PT - BRYAN JOHNSON and asked if any additional questions and then verbalized understanding. Patient advised to call surgeon office or pre surgery nurse liaison [phone] if any additional questions.
[2023-01-30] VITALS (7 sets, daily range): BP systolic 91–145; BP diastolic 59–90; PULSE 0–93; RESP 14–18; TEMP 36.3–36.8; O2SAT 97–100
--- NOTE | ~2023-01-30 | XR_ITS ---
XR abdomen/kub 1V 01/30/2023 11:08 Indication: Preop ESWL Procedure: KUB Comparison: 03/20/2011 Findings: There is a left renal stone at the lower pole. Bowel pattern nonobstructive. Moderate colon ic fecal loading. There are pelvic phleboliths. Mild lumbar spondylosis. No acute osseous abnormality . Impression: 1: Left nephrolithiasis. Reviewed, dictated and finalized at location B. LE TAPE STITCHER UCO Impression: 1: Left nephrolithiasis.
[2023-01-30 11:05] LABS: Glucose Point of Care 161 mg/dl (65-105)
[2023-01-30] MEDS: LACTATED RINGERS 1,000 ML 30 ML IV CONT ×2 (11:27→15:44)
--- NOTE | 2023-01-30 11:33 | WPDHPUPDATE1 ---
History and Physical Update Update Date/Time: 01/30/23 11:33 History and Physical has been reviewed, including an updated exam of the patient. There are NO changes in the patient's condition. Risks, benefits, and alternatives have been discussed and questions answered. Patient agrees to proceed with procedure. Proceed with left renal eswl, flexible cystoscopy
--- NOTE | 2023-01-30 12:36 | WPDANESEPPF ---
Anes - Initial Pre Proc Eval Procedure: Operation Date: 01/30/23 13:00 Proposed Procedures p Left Renal Extracorporeal Shock Wave Lithotripsy - Herminio Hernandez MD s Flexible Cystoscopy - Hermniio Hernandez MD Date/Time: 01/30/23 12:36 Surgeon: Herminio Hernandez MD Pre Op Diagnosis: Left Kidney Stone Patient Data Age: 57 Gender: M Height: 1.8 m Weight: 73.3 kg Last Vital Signs Temp 36.3 C L 01/30/23 11:18 Pulse 93 01/30/23 11:18 Resp 16 01/30/23 11:18 BP 138/90 01/30/23 11:18 Pulse Ox 100 01/30/23 11:18 O2 Del Method Room Air 01/30/23 11:18 Allergies Allergy/AdvReac Type Severity Reaction Status Date / Time Penicillins AdvReac Mild Vomiting Verified 01/30/23 11:12 Home Medications Medication Instructions Recorded Confirmed Type insulin lispro 100 unit/mL 5 unit subcut TID 03/18/19 01/21/23 History subcutaneous cartridge (Humalog U-100 Insulin) insulin glargine 100 unit/mL 14 unit (0.14 mL) subcut HS #10 mL 11/20/21 01/21/23 Rx subcutaneous solution (Lantus U-100 Insulin) tamsulosin 0.4 mg capsule (Flomax) 0.4 mg PO HS 01/21/23 01/21/23 History Laboratory Tests 01/30/23 11:01 POC Capillary Glucose 161 H mg/dl (65-105) Patient hx anesthesia problems: none Family hx anesthesia problems: none Results Review: All pre-operative results and documents have been reviewed as part of the pre-operative evaluation. [facility] Past Medical History Medical History Anemia Anxiety Asthma Benign prostatic hyperplasia with urinary retention Depression Diverticulitis Fibromyalgia Gastroesophageal reflux disease Gout Hypertension Hypothyroidism Insulin dependent diabetes mellitus Kidney stones Osteoporosis Peripheral neuropathy Pneumonia Rheumatoid arthritis Surgical History Surgical History History of tonsillectomy Family History Family History Father Family history of diabetes mellitus in first degree relative Mother Family history of coronary artery disease Social History Social History Social History: Surrogate medical decision maker: Toya Noguera, spouse. Code status: Full code. Smoking status: Never smoker Second hand tobacco smoke exposure: No Alcohol intake: never Substance use: never Substance use type: does not use Living arrangements: with family Spiritual care concerns: No Anes - Eval Final PreProcedure Day of Procedure 01/30/23 12:36 Patient weight: normal Heart: regular rate and rhythm Lungs: clear to auscultation Airway: Mallampati scale class II Neurological: alert and oriented Last oral intake: >/= 8 hours ASA classification: III Emergent: no Anesthetic plan: proceed Anesthesia type and monitoring: general LMA and standard monitoring Results Review: All pre-operative results and documents have been reviewed as part of the pre-operative evaluation. Informed Consent: The patient's anesthetic plan and its attendant risks and benefits were discussed with the patient/family/POA. Questions were solicited and answers provided to the satisfaction of the patient/family/POA.
[2023-01-30 13:35] LABS: Glucose Point of Care 142 mg/dl (65-105)
[2023-01-30] MEDS: ceFAZolin 2 GM/D5W 50 ML 2 GM/50 ML BAG IVPB (13:37)
--- NOTE | 2023-01-30 14:17 | W.PM.PROC2 ---
Procedure Note - Detailed Date of Procedure 01/30/23 Pre-op Diagnosis Left Kidney Stone Incomplete bladder emptying Post-op Diagnosis Same Procedure Performed Flexible cystoscopy, lithotripsy of left renal calculi Surgeon Herminio Hernandez MD Anesthesia General Description of Procedure Patient is taken to the operative suite correctly identified. Once anesthesia was obtained he was prepped draped usual sterile fashion. Sixteen Italian flexible scope was inserted into the urethra. There were no urethral strictures. External sphincter is intact. Prostate does not appear obstructive in nature. Upon entering the bladder the bladder is inspected satiety. Both ureteral orifices normal anatomic position. There are no tumors noted. There is 1 to 2+ trabeculation. Is also noted that he has approximately 5-600 cc of fluid in his bladder. This was drained. He was then repositioned. The left renal calculi were position in both planes. It appeared that he had 2 stones present. It appears if there was fairly good fragmentation at termination of procedure. A total 2500 shocks were given. He is taken recovery stable condition. This completes dictation on this patient. Please send a copy of this op note to my office. Estimated Blood Loss 0 Drains No Packing No Pathology None sent Complications No immediate complications Condition Stable Disposition PACU
[2023-01-30 14:35] LABS: Glucose Point of Care 143 mg/dl (65-105)
[2023-01-30] MEDS: fentaNYL CITRATE INJ (*CRX) 100 MCG/2 ML VIAL 25 MCG IV PUSH (15:28)
[2023-01-30] MEDS: oxyCODONE HCL (*CRX) 5 MG TAB IR PO (15:29)
--- NOTE | 2023-01-30 15:49 | SUR.PHASEII ---
DR. ROMEO SPEAKING TO PATIENT AND SPOUSE.
--- NOTE | 2023-01-30 16:03 | SUR.PHASEII ---
PATIENT INSTRUCTED HOW TO STRAIN URINE. STRAINING KIT GIVEN TO PATIENT.
== END 2023-01-30 16:18 | disposition home or self-care (01) ==
PROVIDERS: PCP Internal Medicine; Visit Provider Urology
PROC: (CPT 50590; principal; 2023-01-30 13:00)
PROC: 0TJB8ZZ Inspection of Bladder, Via Natural or Artificial Opening Endoscopic (ICD-10-PCS; CPT 52000; 2023-01-30 13:00)
DX: N20.0 Calculus of kidney (principal); N40.1 Benign prostatic hyperplasia with lower urinary tract symptoms; R33.8 Other retention of urine; E11.42 Type 2 diabetes mellitus with diabetic polyneuropathy; Z79.4 Long term (current) use of insulin
CPT/HCPCS: 50590; 52000; 74018; 82948; A9270; J0690; J2001; J2250; J2371; J2405; J2704; J3010; J7030; J7120

== ENCOUNTER 2023-02-11 11:17 | Outpatient (CLI) | payer BC, SELFPAY ==
--- NOTE | ~2023-02-11 | XR_ITS ---
EXAMINATION: XR abdomen/kub 1V INDICATION: Calcium kidney stone TECHNIQUE: Supine views of the abdomen were obtained on 2 radiographs. COMPARISON: 01/30/2023 FINDINGS: There is a 7 mm stone of the left kidney lower pole which appears slightly less dense than on the comparison examination, possibly reflecting interval lithotripsy. No additional urolithiasis i s identified. There are phleboliths of the pelvis. A moderate volume of colonic stool is present. The re is mild elevation of the right hemidiaphragm. The left lung base. IMPRESSION: 1. Stone of the left kidney lower pole with slight decrease in density since the comparison examinati on, possibly reflecting interval lithotripsy. No additional urolithiasis identified. Reviewed, dictated and finalized at location B. K FITTER IMPRESSION: 1. Stone of the left kidney lower pole with slight decrease in density since e comparison examination, possibly reflecting interval lithotripsy. No addition al urolithiasis identified.
== END 2023-02-11 11:18 | disposition home or self-care (01) ==
PROVIDERS: PCP Internal Medicine; Visit Provider Urology
DX: N20.0 Calculus of kidney (principal)
CPT/HCPCS: 74018

== ENCOUNTER 2023-02-20 08:13 | Outpatient (CLI) | payer BC, SELFPAY ==
[2023-02-20 08:33] LABS: Basophils Percent Auto 0.2 % (0.2-1.2); Eosinophils Absolute Auto 0.2 K/mm3 (0-0.3); Eosinophils Percent Auto 2.7 % (0-4.4); Hematocrit 36.5 % (42.0-52.0); Hemoglobin 12.2 g/dL (14.0-18.0); Immature Granulocyte Absolute 0.02 K/mm3 (0.00-0.031); Immature Granulocyte Percent A 0.2 % (0-0.5); Lymphocytes Absolute Auto 1.83 K/mm3 (0.9-3.2); Lymphocytes Percent Auto 21.6 % (18.3-44.2); Mean Corpuscular HGB Conc 33.4 g/dl (32-36); Mean Corpuscular Hemoglobin 29.2 pg (26-34); Mean Corpuscular Volume 87.3 fl (80-100); Monocytes Percent Auto 11.7 % (2.6-8.5); Neutrophils Absolute Auto 5.4 K/mm3 (1.3-6.7); Neutrophils Percent Auto 63.6 % (45.5-73.1); Platelet Count Result 275 k/mm3 (150-375); Red Blood Count 4.18 M/mm3 (4.6-6.20); White Blood Count 8.5 K/mm3 (4.5-10.0)
[2023-02-20 08:43] LABS: Alanine Aminotransferase 16 U/L (6-50); Alkaline Phosphatase 135 U/L (38-126); Anion Gap 9 mmol/L (8-16); Aspartate Amino Transferase 23 U/L (17-59); Bilirubin,Total 0.5 mg/dL (0.2-1.3); Blood Urea Nitrogen 23 mg/dL (9-20); Calcium 9.4 mg/dL (8.4-10.2); Carbon Dioxide 24 mmol/L (22-30); Chloride 107 mmol/L (98-107); Cholesterol 172 mg/dL (0-200); Estimated Glomerular Filt Rate > 60; Glucose 233 mg/dL (65-110); HDL Direct 24 mg/dL; Potassium 4.3 mmol/L (3.4-5.0); Sodium 140 mmol/L (137-145); Triglycerides 148 mg/dL (<150)
[2023-02-20 08:47] LABS: Rheumatoid Factor 15.2 IU/ML (<12)
[2023-02-20 08:54] LABS: LDL Cholesterol Direct 104 mg/dL
[2023-02-20 09:14] LABS: Prostate Specific Antigen 0.8 ng/mL (< OR = 4.0)
[2023-02-20 10:25] LABS: Free T4 Free Thyroxine 0.87 ng/mL (0.78-2.19)
[2023-02-20 10:38] LABS: Hepatitis B Surface Antigen Negative (Negative)
[2023-02-20 10:47] LABS: Erythrocyte Sedimentation Rate > 140 mm/hr (0-20)
[2023-02-20 11:11] LABS: Creatinine Urine 73.4 mg/dL
[2023-02-20 12:01] LABS: MALB Creatinine Ratio 559.8 mg/g (0-30); Microalbumin Urine Random 410.9 mg/L (0-16.7)
[2023-02-23 19:00] LABS: Hepatitis B Core Ab Total Nonreactive (Nonreactive)
[2023-02-24 08:38] LABS: ANA Cascade Screen Negative (Negative)
== END 2023-02-20 08:14 | disposition home or self-care (01) ==
LOC: ANHLAB 08:15
PROVIDERS: PCP Internal Medicine; Visit Provider Clinical Nurse Specialist
DX: E11.9 Type 2 diabetes mellitus without complications (principal); B19.10 Unspecified viral hepatitis B without hepatic coma; E03.9 Hypothyroidism, unspecified; Z12.5 Encounter for screening for malignant neoplasm of prostate; Z13.228 Encounter for screening for other metabolic disorders; M06.9 Rheumatoid arthritis, unspecified
CPT/HCPCS: 36415; 80053; 80061; 82043; 82607; 83036; 84153; 84439; 84443; 85025; 85652; 86038; 86225; 86235; 86364; 86430; 86704; 87340; G0103

== ENCOUNTER 2023-02-25 07:19 | Outpatient (CLI) | payer BC, SELFPAY ==
[2023-02-25 10:02] LABS: Hepatitis C Virus Antibody Negative (Negative)
[2023-03-01 14:55] LABS: Glutamic acid decarboxylase AA <5 IU/mL (<5)
== END 2023-02-25 07:20 | disposition home or self-care (01) ==
LOC: ANHLAB 07:20
PROVIDERS: PCP Internal Medicine; Visit Provider Clinical Nurse Specialist
DX: E11.9 Type 2 diabetes mellitus without complications (principal); Z20.5 Contact with and (suspected) exposure to viral hepatitis
CPT/HCPCS: 36415; 83525; 84681; 86337; 86341; 86803

== ENCOUNTER 2023-03-26 11:10 | Outpatient (CLI) | payer BC, SELFPAY ==
--- NOTE | ~2023-03-26 | XR_ITS ---
XR abdomen/kub 1V DATE: 03/26/2023 11:37 INDICATION: Follow-up one month from lithotripsy. TECHNIQUE: 2 supine AP views COMPARISON: 02/11/2023 KUB 01/30/2023 KUB FINDINGS: There are multiple stone fragments overlying the lower pole of the left kidney. No left ure teral calcified stones are identified. There are bilateral calcified pelvic phleboliths. The psoas shadows are intact. No visceromegaly. There is a prominent of fecal material in the colon. No bowel obstruction. The lung bases appear clear. Normal heart size. IMPRESSION: Multiple lithotripsy stone fragments at the lower pole left kidney; no ureteral calcified calculi are identified Reviewed, dictated and finalized at Location A. Reviewed, dictated and finalized at location L. OPATHOLOGY TEACHER
== END 2023-03-26 11:11 | disposition home or self-care (01) ==
PROVIDERS: PCP Internal Medicine; Visit Provider Urology
DX: N20.0 Calculus of kidney (principal)
CPT/HCPCS: 74018

== ENCOUNTER 2023-04-03 12:33 | Outpatient (CLI) | payer BC, SELFPAY ==
--- NOTE | ~2023-04-03 | XR_ITS ---
EXAMINATION:XR_[id number]_CR DATE: 04/03/2023 13:06 INDICATION: Polyarthralgia TECHNIQUE: AP, lateral, and odontoid views of the cervical spine are provided. COMPARISON: None FINDINGS: Alignment is normal. The odontoid process is intact. No fracture is identified. The vertebr al body heights are maintained. There is moderate loss of intervertebral disc space height at C6-7. S mall anterior endplate osteophytes are present at C6-7. There is mild multilevel facet and uncoverteb ral joint osteoarthritis. Prevertebral soft tissues are normal. IMPRESSION: 1. Mild cervical spondylosis without acute findings. Reviewed, dictated and finalized at location B. POT MAN
--- NOTE | ~2023-04-03 | XR_ITS ---
Left wrist Technique: PA, oblique, lateral, and ulnar deviation views were obtained. Clinical History: Pain Findings: No acute fracture or dislocation is seen. There is advanced degenerative change of the STT articulations, radial scaphoid articulation, radiolunate articulation, and the capitate lunate articu lations. There is moderate degenerative change of the first CMC joint. Soft tissues are unremarkable. Impression: Advanced osteoarthritis of the wrist, as detailed above. Reviewed, dictated and finalized at location M. NISTRATIVE PERSONAL ASSISTANT Impression: Advanced osteoarthritis of the wrist, as detailed above.
--- NOTE | ~2023-04-03 | XR_ITS ---
EXAMINATION: XR wrist RT min 3V INDICATION: Polyarthralgia TECHNIQUE: Four views of the right wrist are obtained. COMPARISON: 12/08/2014 FINDINGS: There is advanced osteoarthritis at the radiocarpal and intercarpal articulations. There is also severe osteoarthritis at the triscaphe and first carpometacarpal joints. There is moderate oste oarthritis at the remaining carpal metacarpal joints. Overall osteoarthritis throughout the wrist dem onstrates interval worsening since the comparison examination. There is no fracture. The soft tissues are unremarkable. IMPRESSION: 1. Advanced osteoarthritis of the wrist with interval worsening since the comparison examination. Reviewed, dictated and finalized at location B. NSE CLERK IMPRESSION: 1. Advanced osteoarthritis of the wrist with interval worsening since the kyra rison examination.
== END 2023-04-03 12:34 | disposition home or self-care (01) ==
PROVIDERS: PCP Internal Medicine
DX: M47.892 Other spondylosis, cervical region (principal); M19.031 Primary osteoarthritis, right wrist; M19.032 Primary osteoarthritis, left wrist; Z87.39 Personal history of other diseases of the musculoskeletal system and connective tissue
CPT/HCPCS: 72040; 73110

== ENCOUNTER 2023-05-05 15:38 | Outpatient (CLI) | payer BC, SELFPAY ==
--- NOTE | ~2023-05-05 | XR_ITS ---
EXAM: XR abdomen/kub 1V DATE: 05/05/2023 15:50 HISTORY: f/u CALCIUM KIDNEY STONE L SIDE SURGERYX2-3MONTHS AGO . COMPARISON: 03/26/2023. FINDINGS: Clear lung bases. Normal bowel gas pattern. No organomegaly. Calcified granulomas in the l iver and spleen. Multiple stable left lower pole calcifications. Stable pelvic phleboliths. Degenerat mabel changes in the spine IMPRESSION: Left nephrolithiasis. Reviewed, dictated and finalized at location K. IMPRESSION: Left nephrolithiasis.
== END 2023-05-05 15:39 | disposition home or self-care (01) ==
LOC: ANHIMG 15:39
PROVIDERS: PCP Internal Medicine; Visit Provider Urology
DX: N20.0 Calculus of kidney (principal)
CPT/HCPCS: 74018

== ENCOUNTER 2023-05-18 16:22 | Outpatient (CLI) | payer BC, SELFPAY ==
[2023-05-18 18:33] LABS: Creatinine Urine 75.9 mg/dL
[2023-05-18 18:48] LABS: Free T4 Free Thyroxine 0.82 ng/mL (0.78-2.19)
[2023-05-18 19:08] LABS: MALB Creatinine Ratio 478.5 mg/g (0-30); Microalbumin Urine Random 363.2 mg/L (0-16.7)
== END 2023-05-18 16:23 | disposition home or self-care (01) ==
LOC: ANHLAB 16:23
PROVIDERS: PCP Internal Medicine; Visit Provider Clinical Nurse Specialist
DX: E03.9 Hypothyroidism, unspecified (principal); E11.9 Type 2 diabetes mellitus without complications
CPT/HCPCS: 36415; 82043; 83036; 84439; 84443

== ENCOUNTER 2023-08-07 11:50 | Outpatient (CLI) | payer BC, SELFPAY ==
[2023-08-07 14:45] LABS: Creatinine Urine 71.9 mg/dL
[2023-08-07 16:32] LABS: MALB Creatinine Ratio 826.8 mg/g (0-30); Microalbumin Urine Random 594.5 mg/L (0-16.7)
== END 2023-08-07 11:51 | disposition home or self-care (01) ==
LOC: ANHLAB 11:51
PROVIDERS: PCP Internal Medicine; Visit Provider Clinical Nurse Specialist
DX: E11.9 Type 2 diabetes mellitus without complications (principal)
CPT/HCPCS: 82043

== ENCOUNTER 2023-08-21 08:16 | Outpatient (CLI) | payer BC, SELFPAY ==
[2023-08-21 09:10] LABS: Anion Gap 7 mmol/L (4-12); Blood Urea Nitrogen 19 mg/dL (9-20); Calcium 9.2 mg/dL (8.4-10.2); Carbon Dioxide 27 mmol/L (22-30); Chloride 109 mmol/L (98-107); Estimated Glomerular Filt Rate > 60; Glucose 122 mg/dL (65-110); Potassium 3.9 mmol/L (3.4-5.0); Sodium 143 mmol/L (137-145)
[2023-08-21 10:08] LABS: Hemoglobin A1C 7.2 % (<5.7)
== END 2023-08-21 08:17 | disposition home or self-care (01) ==
LOC: ANHLAB 08:17
PROVIDERS: PCP Internal Medicine; Visit Provider Clinical Nurse Specialist
DX: E11.9 Type 2 diabetes mellitus without complications (principal); E03.9 Hypothyroidism, unspecified
CPT/HCPCS: 36415; 80048; 83036; 84443

== ENCOUNTER 2023-09-14 12:12 | Outpatient (CLI) | payer BC, SELFPAY ==
[2023-09-14 12:38] LABS: Hematocrit 39.4 % (42.0-52.0); Hemoglobin 13.5 g/dL (14.0-18.0); Mean Corpuscular HGB Conc 34.3 g/dl (32-36); Mean Corpuscular Hemoglobin 30.2 pg (26-34); Mean Corpuscular Volume 88.1 fl (80-100); Mean Platelet Volume 10.4 fl (7.4-10.4); Platelet Count Result 254 k/mm3 (150-375); Red Blood Count 4.47 M/mm3 (4.6-6.20); Red Cell Distribution Width 13.1 % (11.5-14.5); White Blood Count 8.2 K/mm3 (4.5-10.0)
[2023-09-14 13:34] LABS: Erythrocyte Sedimentation Rate 105 mm/hr (0-20)
[2023-09-14 14:33] LABS: Albumin Level 4.2 g/dL (3.5-5.1); Anion Gap 11 mmol/L (4-12); Blood Urea Nitrogen 23 mg/dL (9-20); Calcium 9.4 mg/dL (8.4-10.2); Carbon Dioxide 21 mmol/L (22-30); Chloride 107 mmol/L (98-107); Estimated Glomerular Filt Rate > 60; Glucose 199 mg/dL (65-110); Phosphorus 3.9 mg/dL (2.5-4.5); Potassium 4.4 mmol/L (3.4-5.0); Sodium 139 mmol/L (137-145)
[2023-09-14 14:40] LABS: Complement C3 134 mg/dL (88-165)
[2023-09-15 12:22] LABS: Kappa\\Lambda Light Chains 1.93 (0.26-1.65); Lambda Light Chain 26.2 mg/L (5.7-26.3)
[2023-09-16 15:17] LABS: Complement Total CH50 >60 U/mL (31-60)
[2023-09-19 20:08] LABS: Immunofixation, Serum Normal pattern.
[2023-09-30 14:20] LABS: Add Urine Microscopic? NO
== END 2023-09-14 12:13 | disposition home or self-care (01) ==
LOC: ANHLAB 12:13
PROVIDERS: PCP Clinical Nurse Specialist; Visit Provider Internal Medicine Nephrology
DX: R80.9 Proteinuria, unspecified (principal)
CPT/HCPCS: 36415; 80069; 81003; 82570; 83883; 84156; 85027; 85652; 86038; 86039; 86160; 86162; 86334

== ENCOUNTER 2023-09-21 08:23 | Outpatient (CLI) | payer BC, SELFPAY ==
[2023-09-21 09:27] LABS: Rheumatoid Factor < 12.0 IU/ML (<12)
[2023-09-21 10:13] LABS: Erythrocyte Sedimentation Rate 60 mm/hr (0-20)
[2023-09-21 12:14] LABS: Total Volume 24 Hour Urine 2900 ml; Urea Nitrogen 24 Hour Urine 11.9 G/DAY (12-20)
[2023-09-22 18:54] LABS: Pro/Creat Ratio 842 mg/g creat (<100); Pro/Creat Ratio mg/mg 0.842 (<0.100); Protein,total, 24 Hr Ur 928 mg/24 h (<150)
[2023-09-23 11:58] LABS: SS-A <1.0 NEG AI (<1.0 NEG); SS-B <1.0 NEG AI (<1.0 NEG)
[2023-09-23 13:53] LABS: Anti Glomerular Basement Memb <1.0 AI
[2023-09-24 09:43] LABS: Albumin 68 %
[2023-09-24 11:43] LABS: ANCA Screen NEGATIVE (NEGATIVE)
== END 2023-09-21 08:24 | disposition home or self-care (01) ==
LOC: ANHLAB 08:24
PROVIDERS: PCP Clinical Nurse Specialist; Visit Provider Internal Medicine Nephrology
DX: R80.9 Proteinuria, unspecified (principal); R76.0 Raised antibody titer
CPT/HCPCS: 36415; 81050; 82595; 83520; 84540; 85652; 86036; 86038; 86039; 86225; 86235; 86335; 86430

== ENCOUNTER 2023-09-23 07:51 | Outpatient (CLI) | payer BC, SELFPAY ==
--- NOTE | ~2023-09-23 | US_ITS ---
EXAMINATION: US renal BI DATE: 09/23/2023 08:13 INDICATION: Proteinuria, unspecified. TECHNIQUE: Multiple ultrasound grayscale images of the kidneys were obtained. COMPARISON: Ultrasound 04/10/2022, CT abdomen and pelvis 11/10/2021 FINDINGS: The right kidney measures 11.7 x 6.6 x 6.0 cm. The left kidney measures 12.5 x 6.4 x 6.3 cm. The kidn eys demonstrate normal parenchymal echogenicity. In the left kidney, there is a 3.3 cm exophytic hypo echoic mass. In the right kidney, there is an 8 mm exophytic isoechoic mass. There is a 10 mm cyst in right kidney. There is echogenic material in the bladder posteriorly. There is no hydronephrosis. Th e bladder is normal. IMPRESSION: 1. Bilateral kidney masses, which may be hemorrhagic cysts or less likely neoplasm(s). CT abdomen an d pelvis without and with contrast (CT urogram) is recommended. 2. Echogenic material in the bladder posteriorly, which may be hematoma or malignancy. Reviewed, dictated and finalized at location A. IMPRESSION: 1. Bilateral kidney masses, which may be hemorrhagic cysts or less likely neop lasm(s). CT abdomen and pelvis without and with contrast (CT urogram) is recomm ended. 2. Echogenic material in the bladder posteriorly, which may be hematoma or sandee gnancy.
== END 2023-09-23 07:52 ==
LOC: MICIMG 07:51
PROVIDERS: PCP Clinical Nurse Specialist; Visit Provider Internal Medicine Nephrology
DX: R80.9 Proteinuria, unspecified (principal); N28.89 Other specified disorders of kidney and ureter
CPT/HCPCS: 76775

== ENCOUNTER 2023-11-23 07:58 | Outpatient (CLI) | payer BC, SELFPAY ==
[2023-11-23 13:40] LABS: Anion Gap 8 mmol/L (4-12); Blood Urea Nitrogen 23 mg/dL (9-20); Calcium 8.9 mg/dL (8.4-10.2); Carbon Dioxide 25 mmol/L (22-30); Chloride 106 mmol/L (98-107); Estimated Glomerular Filt Rate > 60; Glucose 206 mg/dL (65-110); Potassium 4.1 mmol/L (3.4-5.0); Sodium 139 mmol/L (137-145)
[2023-11-23 13:51] LABS: Add Urine Microscopic? YES; Appearance Urine Turbid (Clear); Bacteria Urine None Seen /hpf; Bilirubin Urine Negative (Negative); Blood Urine 2+ (Negative); Color Urine Yellow (Yellow); Glucose Urine UA 3+ mg/dL (Negative); Ketones Urine Negative (Negative); Leukocyte Esterase Ur 2+ LEU/UL (Negative); Need Manual Microscopic Reviewed; Nitrate Urine Negative (Negative); Non Pathogenic Casts 0-2; Protein Urine 2+ mg/dL (Negative); Specific Grav Ur 1.023 (1.001-1.035); Squamous Epithelial Cell Urine Occasional /hpf (Few); Urobilinogen Urine 0.2 mg/dL (<2.0); WBC Urine >100 /hpf (0-3)
[2023-11-23 14:19] LABS: Free T4 Free Thyroxine 0.96 ng/mL (0.78-2.19)
[2023-11-23 14:33] LABS: Hemoglobin A1C 7.3 % (<5.7)
[2023-11-26 15:14] LABS: SM Antibody <1.0 NEG AI (<1.0 NEG); SM/RNP Antibody <1.0 NEG AI (<1.0 NEG)
== END 2023-11-23 07:59 | disposition home or self-care (01) ==
PROVIDERS: Internal Medicine Nephrology; PCP Clinical Nurse Specialist; Visit Provider Clinical Nurse Specialist
DX: E03.9 Hypothyroidism, unspecified (principal); E11.29 Type 2 diabetes mellitus with other diabetic kidney complication; R80.9 Proteinuria, unspecified; R76.0 Raised antibody titer; N20.0 Calculus of kidney; N28.1 Cyst of kidney, acquired
CPT/HCPCS: 36415; 80048; 81001; 83036; 84439; 84443; 86235

== ENCOUNTER 2024-02-22 09:29 | Emergency (ER) | payer BC, SELFPAY ==
--- NOTE | ~2024-02-22 | XR_ITS ---
HISTORY: swelling HX OF DIABETES AND GOUT COMPARISON: 12/08/2014 TECHNIQUE: 3 views of the right ankle were performed. FINDINGS: No acute fracture is identified. Significant periosteal bone reaction within the medial malleolus. The remainder of the malleoli are u nremarkable. Significant soft tissue swelling over the medial and lateral malleolus. Calcaneal spur is noted. IMPRESSION: Medial and lateral malleolar soft tissue swelling. A large calcaneal spur is noted. Significant periosteal reaction Reviewed, dictated and finalized at location A. EXTRACTOR
[2024-02-22 09:42] VITALS: BP 161/92; PULSE 92; RESP 18; TEMP 36.9; O2SAT 97
--- NOTE | 2024-02-22 13:33 | ED.EXTPRO ---
HPI - Extremity Problem General Chief complaint: Extremity Problem,Nontraumatic Stated complaint: right foot swelling Time Seen by Provider: 02/22/24 11:52 History of Present Illness HPI Narrative: Patient is a 4-year-old male who presents ER with ankle swelling worsening over last 3 days. No known trauma. Has history of gout. No significant redness. Denies fevers or chills or sweats. No IV drug use. Has history of gout and this feels similar. He is able to bear weight. Related Data Home Medications ?Medication ?Instructions ?Recorded ?Confirmed ?Last Taken ?Type abatacept 125 mg/mL subcutaneous 125 mg subcut WEEKLY 09/01/23 11/24/23 Unknown History syringe (Orencia) Allergies Allergy/AdvReac Type Severity Reaction Status Date / Time Penicillins AdvReac Mild Vomiting Verified 02/22/24 11:48 Review of Systems Constitutional: Constitutional: Reports no additional constitutional complaints Gastrointestinal: Gastrointestinal: Reports no additional gastrointestinal complaints Musculoskeletal: Musculoskeletal: Denies myalgias, Denies arthralgias and Reports joint swelling Integumentary/Breasts: Skin/Breast: Reports system reviewed and no additional complaints, except as docu [facility] Past Medical History Medical History (Updated 02/22/24 @ 13:39 by Armani Richards MD) BMI 24.0-24.9, adult Screening for metabolic disorder Septicemia Constipation Benign prostatic hyperplasia with urinary retention Orchitis, right Calculus of distal right ureter Acute urinary retention Sepsis Urinary tract infection BPH loc w urin obs/LUTS Bilateral hydronephrosis Ureteral stone Insulin dependent diabetes mellitus Gastroesophageal reflux disease Anemia Anxiety Depression Hypothyroidism Gout Osteoporosis Rheumatoid arthritis Fibromyalgia Kidney stones Diverticulitis Pneumonia Asthma Hypertension Peripheral neuropathy Surgical History Surgical History (Updated 11/24/23 @ 08:08 by Shadia Vance CMA) History of eye surgery left eye History of tonsillectomy Family History Family History Father Family history of diabetes mellitus in first degree relative Diabetes mellitus COPD (chronic obstructive pulmonary disease) Thyroid condition Mother Family history of coronary artery disease Acute myocardial infarction Sibling , cirrhosis of the liver Hypertension Sibling No problems noted. Social History Social History Social History: Surrogate medical decision maker: Toya Noguera, spouse. Code status: Full code. Smoking status: Never smoker Second hand tobacco smoke exposure: Yes Alcohol intake: never Substance use: never Substance use type: does not use Do You Feel Safe in your Home?: Yes Lack of Transportation: No Lack of Food: Never True Current Housing: I Have Housing Concerned About Future Housing: No Difficulty Paying Gas/Electric Bills: No Difficulty Paying for Meds: No Currently Unemployed: No Education: High School Diploma/GED Difficulty w/ Childcare or Family Care: No Living arrangements: with family Occupation/Education: occupation Additional occupation/education comments: [employer] Gender identity (if verbalized by the patient): Male Spiritual care concerns: No Exam Narrative: GENERAL: Well-appearing, well-nourished, and in no acute distress. HEAD: Normocephalic, atraumatic. ENT: Mucous membranes moist. CHEST: Clear to auscultation. No respiratory distress. HEART: Regular rate and rhythm. Normal peripheral pulses. EXTREMITIES: Normal range of motion. No edema. Large joint effusion right ankle without point tenderness. No cellulitis or increased warmth compared to left side. SKIN: Warm, dry, no rash. NEURO: Alert and oriented x3. PSYCH: Normal mood and affect. Course Course Emergency Course: Recommend rest/ice/compression/elevation. Jarad wrap provided. Will prescribe anti-inflammatories. X-ray with chronic changes. Patient may be having gout flare or due to chronic changes and ankle having a arthritic flare. Vital Signs Vital signs: Vital Signs Temperature 98.4 F 02/22/24 09:42 Pulse Rate 92 02/22/24 09:42 Respiratory Rate 18 02/22/24 09:42 Blood Pressure 161/92 H 02/22/24 09:42 Pulse Oximetry 97 02/22/24 09:42 Temperature 98.4 F 02/22/24 09:42 Pulse Rate 92 02/22/24 09:42 Respiratory Rate 18 02/22/24 09:42 Blood Pressure 161/92 H 02/22/24 09:42 Pulse Oximetry 97 02/22/24 09:42 Discharge Plan Discharge Clinical Impression: Ankle effusion Patient Disposition: Home, Self-Care Condition: Stable Instructions: Gout (ED), P.R.I.C.E. Treatment (ED), Swollen Ankle Joint (ED) Additional Instructions: Return the ER if you have fever over 100.4? F, you have worsening swelling, you cannot bear weight on your foot, or you have additional concerns. Patient Language: Spanish Prescriptions: New naproxen 375 mg tablet 375 mg PO BID Qty: 14 0RF No Action triamcinolone acetonide 0.1 % cream 1 applic topical BID Qty: 30 0RF Rx Instructions: Apply to leg twice a day for 5 days. (DME) pen needle, diabetic [BD Ultra-Fine Mini Pen Needle] 31 gauge x 3/16 needle See Rx Instructions .ROUTE .MEDSUPPLY Qty: 50 0RF Rx Instructions: To inject Lantus every night Orencia 125 mg/mL syringe 125 mg subcut WEEKLY (DME) blood-glucose meter Misc See Rx Instructions .ROUTE .MEDSUPPLY Qty: 1 0RF Rx Instructions: To check glucose 4 times daily. (DME) Blood Glucose Test Strip See Rx Instructions .ROUTE .MEDSUPPLY Qty: 50 2RF Rx Instructions: To check blood sugar 4 times daily (DME) lancets 32 gauge misc See Rx Instructions .Route Qty: 100 1RF Rx Instructions: To check glucose 4 times daily. Jardiance 10 mg tablet 10 mg PO DAILY Qty: 90 0RF insulin glargine [Basaglar KwikPen U-100 Insulin] 100 unit/mL (3 mL) insulin pen 35 unit subcut QPM Qty: 15 4RF ciprofloxacin HCl 250 mg tablet 250 mg PO Q12H Qty: 10 0RF Rx Instructions: take at lunch and bedtime levothyroxine 75 mcg tablet 75 mcg PO DAILY Qty: 90 0RF Follow-up/Referrals: Brook Guzman, HR RECRUITER-C [Primary Care Provider] - 1 Week Stand Alone Forms: Work/School Release IP
--- OUTSIDE RECORDS SUMMARY | 2024-02-29 23:41 | XMS_ITS | Referral Summary ---
Author Organization [facility] Address [address] [place] [address] Care Team Providers Care Injector Assembler Name Role Phone Brook Guzman BALAJI-MOTOR INSTALLER Primary Care Provider [phone] Source Comments [facility],non-owned Affiliates and Associated Physician Practices is amultiple site organization consisting of ambulatory clinics and hospital sitesin [place], [place], [place] and [place]. This disclosure is being madepursuant to the Care Everywhere program and may not contain all information available regarding this patient. Last updated 17.[facility] Allergies Active Allergy Reactions Criticality Noted Date Comments Penicillins Diarrhea 04/03/2023 Medications * Be aware that medications may not be up to date on this document. Alwaysverify current medications with the patient. Medication Sig Dispensed Refills Start Date End Date Status Basaglar KwikPen (Basaglar) pen ADMINISTER 15 UNITS UNDER THE SKIN EVERY EVENING 02/25/2023 Active levothyroxine (Synthroid) 50 MCG tablet Take 1.5 (one and one-half) tablets by mouth once daily 02/20/2023 Active Ozempic, 0.25 or 0.5 MG/DOSE, 2 MG/3ML SOPN INJECT 0.5 MG UNDER THE SKIN WEEKLY 02/20/2023 Active Jardiance 10 MG tablet Take 1 (one) tablet by mouth once daily 09/12/2023 Active abatacept (Orencia ClickJect) 125 MG/ML auto-injector penIndications:Rh eumatoid arthritis of multiple sites without rheumatoid factor (HCC) Inject 1 mL subcutaneously every 7 days Pen 4 mL 4 11/26/2023 Active leflunomide (Arava) 10 MG tabletIndications :Rheumatoid arthritis of multiple sites without rheumatoid factor (HCC) Take 1 (one) tablet by mouth once daily 30 tablet 11/26/2023 Active Active Problems No known active problems Social History Tobacco Use Types Packs/Day Years Used Date Smoking Tobacco: Never Smokeless Tobacco: Never Tobacco Cessation:Counseling Given: Not Answered Alcohol Use Standard Drinks/Week Comments Not Currently 0 (1 standard drink = 0.6 oz pur e alcohol) Sex and Gender Information Value Date Recorded Sex Assigned at Not on file Gender Identity Not on file Sexual Orientation Not on file Last Filed Vital Signs Vital Sign Reading Time Taken Comments Blood Pressure 140/80 11/26/2023 8:17 AM CDT Pulse 91 11/26/2023 8:17 AM CDT Temperature 36.7 ??C (98 ??F) 11/26/2023 8:17 AM CDT Respiratory Rate 16 11/26/2023 8:17 AM CDT Oxygen Saturation 99% 11/26/2023 8:17 AM CDT Inhaled Oxygen Concentration - - Weight 77.1 kg (170 lb) 11/26/2023 8:17 AM CDT Height 180.3 cm (5' 11 ) 11/26/2023 8:17 AM CDT Body Mass Index 23.71 11/26/2023 8:17 AM CDT Plan of Treatment Upcoming Encounters Date Type Department Care Team (Late st Contact Info) Description 03/08/2024 8:20 AM AUTOMATIC TIRE TESTER Office Visit [facility] - Rheumatology [address] [place] [address] Susannah Bautista MD [address] [place] [address] Administered Medications Care Teams Injector Assembler Relationship Specialty Start Date End Date Brook Guzman APRN-MOTOR INSTALLER [address] [place] [address] PCP - General Certified Clinical Nurse Specialist 04/03/23
--- OUTSIDE RECORDS SUMMARY | 2024-02-29 23:41 | XMS_ITS | Patient Health Summary ---
Author Organization [facility] [employer] Address [address] [address] Care Team Providers Care Hooker On Name Role Phone Brook Guzman BALAJI-CAREER DEVELOPMENT MANAGER Primary Care Provider [phone] Note from [facility],non-owned Affiliates and Associated Physician Practices is amultiple site organization consisting of ambulatory clinics and hospital sitesin [place], [place], [place] and [place]. This disclosure is being madepursuant to the Care Everywhere program and may not contain all information available regarding this patient. Last updated 17.[facility] Allergies * Penicillins(Diarrhea) Medications * Be aware that medications may not be up to date on this document. Alwaysverify current medications with the patient. * Basaglar KwikPen (Basaglar) pen(Started 02/25/2023) ADMINISTER 15 UNITS UNDER THE SKIN EVERY EVENING * levothyroxine (Synthroid) 50 MCG tablet(Started 02/20/2023) Take 1.5 (one and one-half) tablets by mouth once daily * Ozempic, 0.25 or 0.5 MG/DOSE, 2 MG/3ML SOPN(Started 02/20/2023) INJECT 0.5 MG UNDER THE SKIN WEEKLY * Jardiance 10 MG tablet(Started 09/12/2023) Take 1 (one) tablet by mouth once daily * abatacept (Orencia ClickJect) 125 MG/ML auto-injector pen(Started 11/26/2023) Inject 1 mL subcutaneously every 7 days Pen 4 refills by 11/25/2024 * leflunomide (Arava) 10 MG tablet(Started 11/26/2023) Take 1 (one) tablet by mouth once daily Active Problems No known active problems Social [...] Mass Index 23.71 11/26/2023 8:17 AM CDT Procedures * PROTEIN CREATININE RATIO URINE RANDOM PNL(Performed 08/03/2023) Performed for Rheumatoid arthritis of multiple sites without rheumatoid factor (HCC), Cervicalgia, Encounter for long-term (current) use of high-risk medication, High total serum IgA, CRP elevated * PROTEIN ELECTROPHORESIS BLOOD(Performed 08/03/2023) Performed for Rheumatoid arthritis of multiple sites without rheumatoid factor (HCC), Cervicalgia, Encounter for long-term (current) use of high-risk medication, High total serum IgA, CRP elevated * IMMUNOFIXATION BLOOD(Performed 08/03/2023) Performed for Rheumatoid arthritis of multiple sites without rheumatoid factor (HCC), Cervicalgia, Encounter for long-term (current) use of high-risk medication, High total serum IgA, CRP elevated * HEPATIC FUNCTION PANEL(Performed 08/03/2023) Performed for Rheumatoid arthritis of multiple sites without rheumatoid factor (HCC), Cervicalgia, Encounter for long-term (current) use of high-risk medication, High total serum IgA, CRP elevated * URINALYSIS W/MICROSCOPIC NO CULTURE(Performed 08/03/2023) Performed for Rheumatoid arthritis of multiple sites without rheumatoid factor (HCC), Cervicalgia, Encounter for long-term (current) use of high-risk medication, High total serum IgA, CRP elevated * ERYTHROCYTE SEDIMENTATION RATE(Performed 08/03/2023) Performed for Rheumatoid arthritis of multiple sites without rheumatoid factor (HCC), Cervicalgia, Encounter for long-term (current) use of high-risk medication, High total serum IgA, CRP elevated * CREATININE BLOOD(Performed 08/03/2023) Performed for Rheumatoid arthritis of multiple sites without rheumatoid factor (HCC), Cervicalgia, Encounter for long-term (current) use of high-risk medication, High total serum IgA, CRP elevated * C-REACTIVE PROTEIN(Performed 08/03/2023) Performed for Rheumatoid arthritis of multiple sites without rheumatoid factor (HCC), Cervicalgia, Encounter for long-term (current) use of high-risk medication, High total serum IgA, CRP elevated * CBC W AUTO DIFFERENTIAL(Performed 08/03/2023) Performed for Rheumatoid arthritis of multiple sites without rheumatoid factor (HCC), Cervicalgia, Encounter for long-term (current) use of high-risk medication, High total serum IgA, CRP elevated * QUANTIFERON TB-GOLD(Performed 04/03/2023) * REF LAB-SPECIMEN STATUS REPORT(Performed 04/03/2023) * HEPATITIS B CORE ANTIBODY IGM(Performed 04/03/2023) Performed for Polyarthralgia, Cervicalgia, History of rheumatoid arthritis, Encounter for long-term(current) use of high-risk medication, Screening examination for pulmonary tuberculosis, Other fatigue, Myalgia, multiple sites * HEPATITIS B SURFACE ANTIGEN W RFLX CONFIRMATION(Performed 04/03/2023) Performed for Polyarthralgia, Cervicalgia, History of rheumatoid arthritis, Encounter for long-term(current) use of high-risk medication, Screening examination for pulmonary tuberculosis, Other fatigue, Myalgia, multiple sites * HEPATIC FUNCTION PANEL(Performed 04/03/2023) Performed for Polyarthralgia, Cervicalgia, History of rheumatoid arthritis, Encounter for long-term(current) use of high-risk medication, Screening examination for pulmonary tuberculosis, Other fatigue, Myalgia, multiple sites * CREATININE BLOOD(Performed 04/03/2023) Performed for Polyarthralgia, Cervicalgia, History of rheumatoid arthritis, Encounter for long-term(current) use of high-risk medication, Screening examination for pulmonary tuberculosis, Other fatigue, Myalgia, multiple sites * BARAK PANEL COMPREHENSIVE(Performed 04/03/2023) Performed for Polyarthralgia, Cervicalgia, History of rheumatoid arthritis, Encounter for long-term(current) use of high-risk medication, Screening examination for pulmonary tuberculosis, Other fatigue, Myalgia, multiple sites * RHEUMATOID FACTOR BLOOD QUANTITATIVE(Performed 04/03/2023) Performed for Polyarthralgia, Cervicalgia, History of rheumatoid arthritis, Encounter for long-term(current) use of high-risk medication, Screening examination for pulmonary tuberculosis, Other fatigue, Myalgia, multiple sites * CYCLIC CITRULLINATED PEPTIDE(CCP) AB IGG(Performed 04/03/2023) Performed for Polyarthralgia, Cervicalgia, History of rheumatoid arthritis, Encounter for long-term(current) use of high-risk medication, Screening examination for pulmonary tuberculosis, Other fatigue, Myalgia, multiple sites * BARAK BLOOD SCREEN W/REFLEX TITER(Performed 04/03/2023) Performed for Polyarthralgia, Cervicalgia, History of rheumatoid arthritis, Encounter for long-term(current) use of high-risk medication, Screening examination for pulmonary tuberculosis, Other fatigue, Myalgia, multiple sites * ANCA VASCULITIS PANEL(Performed 04/03/2023) Performed for Polyarthralgia, Cervicalgia, History of rheumatoid arthritis, Encounter for long-term(current) use of high-risk medication, Screening examination for pulmonary tuberculosis, Other fatigue, Myalgia, multiple sites * MYOSITIS ANTIBODY PANEL COMPREHENSIVE(Performed 04/03/2023) Performed for Polyarthralgia, Cervicalgia, History of rheumatoid arthritis, Encounter for long-term(current) use of high-risk medication, Screening examination for pulmonary tuberculosis, Other fatigue, Myalgia, multiple sites * IMMUNOFIXATION BLOOD(Performed 04/03/2023) Performed for Polyarthralgia, Cervicalgia, History of rheumatoid arthritis, Encounter for long-term(current) use of high-risk medication, Screening examination for pulmonary tuberculosis, Other fatigue, Myalgia, multiple sites * C-REACTIVE PROTEIN(Performed 04/03/2023) Performed for Polyarthralgia, Cervicalgia, History of rheumatoid arthritis, Encounter for long-term(current) use of high-risk medication, Screening examination for pulmonary tuberculosis, Other fatigue, Myalgia, multiple sites * CK BLOOD(Performed 04/03/2023) Performed for Polyarthralgia, Cervicalgia, History of rheumatoid arthritis, Encounter for long-term(current) use of high-risk medication, Screening examination for pulmonary tuberculosis, Other fatigue, Myalgia, multiple sites * CBC W AUTO DIFFERENTIAL(Performed 04/03/2023) Performed for Polyarthralgia, Cervicalgia, History of rheumatoid arthritis, Encounter for long-term(current) use of high-risk medication, Screening examination for pulmonary tuberculosis, Other fatigue, Myalgia, multiple sites * ANGIOTENSIN CONVERTING ENZYME BLOOD(Performed 04/03/2023) Performed for Polyarthralgia, Cervicalgia, History of rheumatoid arthritis, Encounter for long-term(current) use of high-risk medication, Screening examination for pulmonary tuberculosis, Other fatigue, Myalgia, multiple sites * RHEUMATOID ARTHRITIS 14-3-3 ETA(Performed 04/03/2023) Performed for Polyarthralgia, Cervicalgia, History of rheumatoid arthritis, Encounter for long-term(current) use of high-risk medication, Screening examination for pulmonary tuberculosis, Other fatigue, Myalgia, multiple sites * XR CERVICAL SPINE 2 OR 3VW(Performed 04/03/2023) Performed for Polyarthralgia, Cervicalgia, History of rheumatoid arthritis * XR WRIST BILAT 3VW OR MORE(Performed 04/03/2023) Performed for Polyarthralgia, Cervicalgia, History of rheumatoid arthritis * SKIN TEST PPD - POINT OF CARE(Performed 10/18/2020) Performed for Encounter for screening for respiratory tuberculosis Results * (ABNORMAL) URINALYSIS W/MICROSCOPIC NO CULTURE (08/03/2023 7:39 AM CDT) Color UA YELLOW YELLOW [facility] Appearance CLEAR CLEAR [facility] Specific [place] UA 1.014 1.001 - 1.035 [facility] pH UA 5.5 5.0 - 8.0 [facility] Glucose UA NEGATIVE NEGATIVE [facility] Bilirubin UA NEGATIVE NEGATIVE [facility] Ketone UA NEGATIVE NEGATIVE [facility] Blood UA NEGATIVE NEGATIVE [facility] Protein UA 1+(A) NEGATIVE [facility] Nitrite UA NEGATIVE NEGATIVE [facility] Leukocyte UA 2+(A) NEGATIVE [facility] WBC UA 40-60(A) < OR = 5 /HPF [facility] RBC UA NONE SEEN < OR = 2 /HPF [facility] Epithelial Cell UA NONE SEEN < OR = 5 /HPF [facility] Bacteria UA NONE SEEN NONE SEEN /HPF [facility] Hyaline Casts NONE SEEN NONE SEEN /LPF [facility] Yeast MODERATE(A) NONE SEEN /HPF [facility] Comment: Test Performed at: [facility] [address] [place], [place] ??[phone] JENNA EPPS MD Urine URINE SPECIMEN OBTAINED BY CLEAN CATCH PROCEDURE / Unknown 08/03/2023 7:39 AM CDT 08/03/2023 7:40 AM CDT Susannah Bautista MD LAB - URINALYSIS ORD ERABLES Performing Organization Address [facility] Co de Phone Number [address] [address] * IMMUNOFIXATION BLOOD (08/03/2023 7:39 AM CDT) Only the most recent of2 resultswithin the time period is included. [facility] Interpretation Normal pattern. [facility] Comment: No monoclonal proteins detected. Test Performed at: [employer] [facility]/[address] ?? HORACIO VELASCO MD,PHD Blood BLOOD SPECIMEN / Unknown 08/03/2023 7:39 AM CDT 08/03/2023 7:40 AM CDT Susannah Bautista MD LAB - CHEMISTRY ALEXA FUNK Performing Organization Address [facility] Co de Phone Number [address] [address] * (ABNORMAL) C-REACTIVE PROTEIN (08/03/2023 7:39 AM CDT) Only the most recent of2 resultswithin the time period is included. Pathologist [facility] C-Reactive Protein 9.4(H) <8.0 mg/L [facility] Comment: Test Performed at: [facility] [address] [place], [place] ??[phone] JENNA EPPS MD Blood BLOOD SPECIMEN / Unknown 08/03/2023 7:39 AM CDT 08/03/2023 7:40 AM CDT Susannah Bautista MD LAB - CHEMISTRY ALEXA FUNK Performing Organization Address [facility] Co de Phone Number [address] [address] * (ABNORMAL) ERYTHROCYTE SEDIMENTATION RATE (08/03/2023 7:39 AM CDT) Pathologist [facility] Erythrocyte Sedimentation Rate Westergren 48(H) < OR = 20 mm/h [facility] Comment: Test Performed at: [facility] [place] [id number] [place] [address] [place] ??[phone] JENNA EPPS MD Blood BLOOD SPECIMEN / Unknown 08/03/2023 7:39 AM CDT 08/03/2023 7:40 AM CDT Susannah Bautista MD LAB - HEMATOLOGY ORD ERABLES [facility] [address] [place] [address] * (ABNORMAL) CBC WITH DIFFERENTIAL (08/03/2023 7:39 AM CDT) Only the most recent of2 resultswithin the time period is included. Pathologist [facility] White Blood Cell Count 8.0 3.8 - 10.8 Thousand/ uL [facility] RBC 4.24 4.20 - 5.80 Million/u L [facility] Hemoglobin 12.6(L) 13.2 - 17.1 g/dL [facility] Hematocrit 38.0(L) 38.5 - 50.0 % [facility] MCV 89.6 80.0 - 100.0 fL [facility] MCH 29.7 27.0 - 33.0 pg [facility] MCHC 33.2 32.0 - 36.0 g/dL [facility] RDW 13.5 11.0 - 15.0 % [facility] Platelet Count 211 140 - 400 Thousand/ uL [facility] MPV 10.7 7.5 - 12.5 fL [facility] Neutrophil Absolute 4936 1500 - 7800 cells/uL [facility] Absolute Bands [facility] Metamyelocytes Absolute [facility] Myelocytes Absolute [facility] Absolute Prolymphocytes [facility] Lymphocytes Absolute 2056 850 - 3900 cells/uL [facility] Absolute Monocytes 752 200 - 950 cells/uL [facility] Eosinophils Absolute 224 15 - 500 cells/uL [facility] Basophils Absolute 32 0 - 200 cells/uL [facility] Absolute Blasts [facility] nRBC Absolute [facility] Granulocytes % 61.7 % [facility] Band Neutrophil [facility] Metamyelocytes [facility] Myelocytes [facility] Promyelocytes [facility] Lymphocytes % 25.7 % [facility] Lymphocyte Reactive [facility] Monocytes % 9.4 % [facility] Eosinophils % 2.8 % [facility] Basophils % 0.4 % [facility] Comment: Test Performed at: [facility] [address] [place], [place] ??[phone] JENNA EPPS MD [facility] nRBC [facility] Comments [facility] Comment: Test Performed at: [facility] [address] [place], [place] ??[phone] JENNA EPPS MD Blood BLOOD SPECIMEN / Unknown 08/03/2023 7:39 AM CDT 08/03/2023 7:40 AM CDT Susannah Bautista MD LAB - HEMATOLOGY ORD ERABLES Performing Organization Address [facility] Co de Phone Number [facility] [address] [place] [address] * (ABNORMAL) PROTEIN CREATININE RATIO URINE RANDOM PNL (08/03/2023 7:39 AM CDT) Creatinine Urine 64 20 - 320 mg/dL [facility] Protein/Creatini ne Ratio 875(H) 25 - 148 mg/g creat [facility] Protein/Creatini ne Ratio 0.875(H) 0.025 - 0.148 mg/mg creat [facility] Protein Random Urine 56(H) 5 - 25 mg/dL [facility] Comment: Test Performed at: [facility] [address] [place] [address] ??[phone] JENNA EPPS MD Urine URINE SPECIMEN OBTAINED BY CLEAN CATCH PROCEDURE / Unknown 08/03/2023 7:39 AM CDT 08/03/2023 7:40 AM CDT Susannah Bautista MD LAB - URINE CHEMISTR Y ORDERABLES Performing Organization Address [facility]/ZIP Co de Phone Number [facility] [id number] [place] [address] * HEPATIC FUNCTION PANEL (08/03/2023 7:39 AM CDT) Only the most recent of2 resultswithin the time period is included. Protein Total 7.0 6.1 - 8.1 g/dL [facility] Albumin 3.9 3.6 - 5.1 g/dL [facility] Globulin Total 3.1 1.9 - 3.7 g/dL (calc) [facility] Albumin/Globulin Ratio 1.3 1.0 - 2.5 (calc) [facility] Bilirubin Total 0.3 0.2 - 1.2 mg/dL [facility] Bilirubin Direct 0.0 < OR = 0.2 mg/dL [facility] Bilirubin Indirect 0.3 0.2 - 1.2 mg/dL (calc) [facility] Alkaline Phosphatase 136 35 - 144 U/L [facility] AST 17 10 - 35 U/L [facility] ALT 14 9 - 46 U/L [facility] Comment: Test Performed at: [employer] [place], [place] ??[phone] JENNA EPPS MD Blood BLOOD SPECIMEN / Unknown 08/03/2023 7:39 AM CDT 08/03/2023 7:40 AM CDT Susannah Bautista MD LAB - CHEMISTRY ALEXA FUNK Performing Organization Address [facility] de Phone Number [facility] [address] [place] [address] * CREATININE BLOOD (08/03/2023 7:39 AM CDT) Only the most recent of2 resultswithin the time period is included. Creatinine 0.84 0.70 - 1.35 mg/dL [facility] eGFR by Cystatin C 100 > OR = 60 mL/min/1.7 3m2 [facility] Comment: Test Performed at: [facility] [address] [place] [address] ??[phone] JENNA EPPS MD Blood BLOOD SPECIMEN / Unknown 08/03/2023 7:39 AM CDT 08/03/2023 7:40 AM CDT Susannah Bautista MD LAB - CHEMISTRY ALEXA FUNK Performing Organization Address [facility] Co de Phone Number [facility] [address] [place] [address] * (ABNORMAL) PROTEIN ELECTROPHORESIS BLOOD (08/03/2023 7:39 AM CDT) Protein Total 7.0 6.1 - 8.1 g/dL [facility] Albumin 3.6(L) 3.8 - 4.8 g/dL [facility] Alpha-1 Globulin 0.3 0.2 - 0.3 g/dL [facility] Emxat-9-Bfshklje 0.8 0.5 - 0.9 g/dL [facility] Beta-1 Globulin g/dL 0.5 0.4 - 0.6 g/dL [facility] Beta-2 Globulin 0.7(H) 0.2 - 0.5 g/dL [facility] Gamma Globulin 1.1 0.8 - 1.7 g/dL [facility] Abnormal Protein Band [facility] Abnormal Protein Band 2 [facility] Abnormal Protein Band 3 [facility] Interpretation [facility] Comment: Hypoalbuminemia may be seen as a result of decreased protein synthesis or protein loss. No restricted band (M-spike) seen. Test Performed at: [facility] [address] [place], [place] ??[phone] JENNA EPPS MD Blood BLOOD SPECIMEN / Unknown 08/03/2023 7:39 AM CDT 08/03/2023 7:40 AM CDT Susannah Bautista MD LAB - CHEMISTRY ALEXA FUNK [facility] [address] [place] [address] * MYOSITIS ANTIBODY PANEL COMPREHENSIVE (04/03/2023 1:41 PM WET PROCESS MILLER HEAD) Luann-1 Antibody <20 <20 Units [facility]ILL [address]-7 Antibody Negative Negative [facility]ILL [address]-12 Antibody Negative Negative [facility] INSURANCE BILL EJ Antibody Negative Negative [facility] INSURANCE BILL OJ Antibody Negative Negative [facility] INSURANCE BILL SRP Antibody Negative Negative [facility] INSURANCE BILL Mi-2 Antibody Negative Negative [facility] INSURANCE BILL TIF1-Gamma Antibody <20 <20 Units [facility] INSURANCE BILL MDA-5 Antibody <20 <20 Units [facility]URANCE B[facility] NXP-2 Antibody <20 <20 Units [facility]URANCE B[facility] PM/SCL 100 <20 <20 Units [facility] INSURANCE BILL KU Antibody Negative Negative [facility] INSURANCE BILL SS-A 52 Antibody <20 <20 Units [facility] INSURANCE BILL Anti-U1 HOG TENDER By EIA <20 <20 Units [facility] INSURANCE BILL U2 sn HOG TENDER Antibody Negative Negative [facility] INSURANCE BILL Fibrillarin (U3 HOG TENDER) Negative Negative [facility] INSURANCE BILL Comment: ? Interpretation for Anti-Luann-1, Xigi-RSR-3yferm, ? Anti-MDA-5, Anti-NXP-2, Anti-PM/Scl-100, ? Anti-SS-A 52 kD, Anti-U1 HOG TENDER: ? Negative: ?<20 ? Weak Positive: ? 20 - 39 ? Moderate Positive: ? 40 - 80 ? Strong Positive: ? >80 ? . Blood BLOOD SPECIMEN / Unknown 04/03/2023 1:41 PM WET PROCESS MILLER HEAD 04/03/2023 Narrative [facility] INSURANCE BILL - 04/23/2023 6:12 AM WET PROCESS MILLER HEAD Test(s) 988899-Fuvf-WF-1 Ab (RDL); 304155-Brwr-PD-33 Ab (RDL); 132255-Uuhb-HI Ab (RDL); 493163-Qjit-VE Ab (RDL); 905679- Anti-SRP Ab (RDL); 392449-Obxw-Mq-1 Ab (RDL); 578370- Jfyg-MJS-9otqpp Ab (RDL); 969015-Hhgg-YAA-0 Ab (CADM-140)(RDL); 298409-Nkso-UII-4 (P140) Ab (RDL); 547710-Zfkz-CP/Scl-100 Ab (RDL); 480948-Pdct-Mf Ab (RDL); 630078-Ehkn-BY-U 52kD Ab, IgG (RDL); 166655- was developed and its performance characteristics determined by [employer]. It has not been cleared or approved by the Food and Drug Administration. Resulting Agency Comment Lab Testing performed at: [facility] [address] [place] [address] ??[facility] [phone] Susannah Bautista MD LAB - CHEMISTRY ALEXA FUNK Performing Organization Address [facility]/ZIP Co de Phone Number [facility] INSURANCE BILL [address] [place] [address] * REF LAB-SPECIMEN STATUS REPORT (04/03/2023 1:41 PM WET PROCESS MILLER HEAD) Specimen Status Report NOT AVAILABLE [facility] INSURANCE BILL Comment: Test not performed. Test cancelled by Healthcare provider after order was submitted to [employer]. ?TEST: ??[id number] ??Rheumatoid Factor (RF) ? 798601 ??BARAK by IFA Rfx Titer/Pattern ? 561796 ??HBsAg Screen ? 299034 ??Hep B Core Ab, IgM Contacted by Heron Daily RN at your facility 04/07/2023. Result cannot be obtained for this observation. 04/03/2023 1:41 PM WET PROCESS MILLER HEAD 04/03/2023 Narrative Resulting Agency Comment [facility] performed [facility]: [facility] [address] ??[facility] [phone] Susannah Bautista MD LAB - CHEMISTRY ALEXA FUNK Performing Organization Address [facility]/ZIP Co de Phone Number [facility] [address] [place] [address] * BARAK PANEL COMPREHENSIVE (04/03/2023 1:41 PM WET PROCESS MILLER HEAD) Anti-dsDNA Quantitative <1 0 - 9 IU/mL [facility] INSURANCE BILL Comment: ?Negative ?<5 ?Equivocal ??5 - 9 ?Positive ?>9 HOG TENDER Antibody 0.2 0.0 - 0.9 AI [facility] INSURANCE BILL Griffin (GERARDO) Antibody <0.2 0.0 - 0.9 AI [facility] INSURANCE BILL Antiscleroderma-70 Antibody <0.2 0.0 - 0.9 AI [facility] INSURANCE BILL Sjogren's Antibodies (SSA) <0.2 0.0 - 0.9 AI [facility] INSURANCE BILL Sjogren's Antibodies (SSB) <0.2 0.0 - 0.9 AI [facility] INSURANCE BILL Antichromatin Antibodies <0.2 0.0 - 0.9 AI [facility] INSURANCE BILL Luann-1 Antibody <0.2 0.0 - 0.9 AI [facility] INSURANCE BILL Centromere B Antibody <0.2 0.0 - 0.9 AI [facility] INSURANCE BILL See Below [facility] INSURANCE BILL Comment: Autoantibody ? Disease Association ?Condition ?Frequency ? --------- Antinuclear Antibody, ?SLE, mixed connective Direct (BARAK-D) ? tissue diseases ? --------- dsDNA ?SLE ?40 - 60% ? --------- Chromatin ?Drug induced SLE ?90% ? SLE ?48 - 97% ? --------- SSA (Ro) ? SLE ?25 - 35% ? Sjogren's Syndrome ? 40 - 70% ? Lupus ? 100% ? --------- SSB (La) ? SLE ? 10% ? Sjogren's Syndrome ?30% ?--------- Sm (anti-Griffin) ?SLE ?15 - 30% ?--------- HOG TENDER ?Mixed Connective Tissue ? Disease ? 95% (U1 nRNP, ?SLE ?30 - 50% anti-ribonucleoprotein) ??Polymyositis and/or ? Dermatomyositis ? 20% ? --------- Scl-70 (antiDNA ?Scleroderma (diffuse) ?20 - 35% topoisomerase) ? Crest ? 13% ? --------- Luann-1 ? Polymyositis and/or ? Dermatomyositis ?20 - 40% ? --------- Centromere B ? Scleroderma - Crest ? variant ? 80% Blood BLOOD SPECIMEN / Unknown 04/03/2023 1:41 PM WET PROCESS MILLER HEAD 04/03/2023 Narrative Resulting Agency Comment Lab Testing performed at: [facility] [address] [facility] ??[facility]ly [facility] [phone] Susannah Bautista MD LAB - SEROLOGY ORDER ELIZABETH [facility] INSURANCE BILL [address] [place] [address] * ANCA VASCULITIS PANEL (04/03/2023 1:41 PM WET PROCESS MILLER HEAD) Myeloperoxidase Antibody <0.2 0.0 - 0.9 units [facility] INSURANCE BILL Proteinase 3 Antibody <0.2 0.0 - 0.9 units [facility] INSURANCE BILL Cytoplasmic (C-ANCA) <1:20 Neg:<1:20 titer [facility] INSURANCE BILL p-ANCA Titer <1:20 Neg:<1:20 titer [facility] INSURANCE BILL Comment: The presence of positive fluorescence exhibiting P-ANCA or C-ANCA patterns alone is not specific for the diagnosis of Giovanna's Granulomatosis (WG) or microscopic polyangiitis. Decisions about treatment should not be based solely on ANCA IFA results. ??The International ANCA Group Consensus recommends follow up testing of positive sera with both NH-3 and MPO-ANCA enzyme immunoassays. As many as 5% serum samples are positive only by EIA. Ref. AM J Clin Pathol 1999;111:507-513. Atypical p-ANCA Titer <1:20 Neg:<1:20 titer [facility] INSURANCE BILL Comment: The atypical pANCA pattern has been observed in a significant percentage of patients with ulcerative colitis, primary sclerosing cholangitis and autoimmune hepatitis. Blood BLOOD SPECIMEN / Unknown 04/03/2023 1:41 PM WET PROCESS MILLER HEAD 04/03/2023 Narrative Resulting Agency Comment Lab Testing performed at: [facility] [address] ??[facility] [phone] Susannah Bautista MD LAB - CHEMISTRY ORDE RABCONSTANTINE [facility] INSURANCE BILL [address] [place] [address] * RHEUMATOID FACTOR BLOOD QUANTITATIVE (04/03/2023 1:41 PM WET PROCESS MILLER HEAD) Rheumatoid Factor NOT AVAILABLE IU/mL [facility] INSURANCE BILL Comment: Test not performed. Test cancelled by Healthcare provider after order was submitted to [facility]. Contacted by Heron Daily RN at your facility 04/07/2023. Result cannot be obtained for this observation. Blood BLOOD SPECIMEN / Unknown 04/03/2023 1:41 PM WET PROCESS MILLER HEAD 04/03/2023 Narrative Resulting Agency Comment Lab Testing performed at: [address] ??[facility] [phone] Susannah Bautista MD LAB - CHEMISTRY ALEXA FUNK [facility] INSURANCE BILL [address] [place] [address] * BARAK BLOOD SCREEN W/REFLEX TITER (04/03/2023 1:41 PM WET PROCESS MILLER HEAD) BARAK NOT AVAILABLE [facility] INSURANCE BILL Comment: Test not performed. Test cancelled by Healthcare provider after order was submitted to [facility]. ?Negative ?? <1:80 ?Borderline ??1:80 ?Positive ?? >1:80 Contacted by Heron Daily RN at your facility 04/07/2023. Result cannot be obtained for this observation. Blood BLOOD SPECIMEN / Unknown 04/03/2023 1:41 PM WET PROCESS MILLER HEAD 04/03/2023 Narrative Resulting Agency Comment Lab [facility] performed [facility]: [facility] [address] ??Formerly [facility] [phone] Susannah Bautista MD LAB - CHEMISTRY ALEXA FUNK Performing Organization Address [facility] Co de Phone Number [facility] INSURANCE BILL [address] [place] [address] * ANGIOTENSIN CONVERTING ENZYME BLOOD (04/03/2023 1:41 PM WET PROCESS MILLER HEAD) [facility] Angiotensin-Con verting Enzyme 61 14 - 82 U/L [facility] INSURANCE BILL Blood BLOOD SPECIMEN / Unknown 04/03/2023 1:41 PM WET PROCESS MILLER HEAD 04/03/2023 Narrative Resulting Agency Comment [facility]: [facility] [address] ??[facility] [phone] Susannah Bautista MD LAB - CHEMISTRY ALEXA FUNK Performing Organization Address [facility] de Phone Number [facility] INS[facility] B[facility] [address] [place] [address] * (ABNORMAL) CYCLIC CITRULLINATED PEPTIDE(CCP) AB IGG (04/03/2023 1:41 PM WET PROCESS MILLER HEAD) [facility] CCP Antibodies IgG/IgA 56(H) <20 Units [facility] INSURANCE BILL Comment: ? Negative: <20 ? Weak Positive: 20-39 ? Moderate Positive: 40-59 ??Strong Positive: >59 Blood BLOOD SPECIMEN / Unknown 04/03/2023 1:41 PM WET PROCESS MILLER HEAD 04/03/2023 Narrative Resulting Agency Comment Lab Testing performed at: [facility] [address] [place] [address] ??[facility] [phone] Susannah Bautista MD LAB - CHEMISTRY ALEXA FUNK Performing Organization Address [facility] Co de Phone Number [facility] INSURANCE BILL [address] [place] [address] * QUANTIFERON TB-GOLD (04/03/2023 1:41 PM WET PROCESS MILLER HEAD) [facility] QuantiFERON Incubation Incubation performed. [facility] INSURANCE BILL QuantiFERON Criteria [facility] INSURANCE BILL Comment: QuantiFERON-TB Gold Plus is a qualitative indirect test for M tuberculosis infection (including disease) and is intended for use in conjunction with risk assessment, radiography, and other medical and diagnostic evaluations. The QuantiFERON-TB Gold Plus result is determined by subtracting the Nil value from either TB antigen (Ag) value. The Mitogen tube serves as a control for the test. QuantiFERON TB1 Ag Value 0.06 IU/mL [facility] INSURANCE BILL QuantiFERON TB2 Ag Value 0.07 IU/mL [facility] INSURANCE BILL QuantiFERON Nil Value 0.03 IU/mL [facility] INSURANCE BILL QuantiFERON Mitogen Value >10.00 IU/mL [facility] INSURANCE BILL QuantiFERON-TB Gold Plus Negative Negative [facility] INSURANCE BILL Comment: No response to M tuberculosis antigens detected. Infection with M tuberculosis is unlikely, but high risk individuals should be considered for additional testing (ATS/IDSA/CDC Clinical Practice Guidelines, 2017). The reference range is an Antigen minus Nil result of <0.35 IU/mL. Chemiluminescence immunoassay methodology 04/03/2023 1:41 PM WET PROCESS MILLER HEAD 04/03/2023 Narrative Resulting Agency Comment Lab Testing performed at: [facility] [address] ??[facility]ly [facility] [phone] Susannah Bautista MD LAB - CHEMISTRY ALEXA FUNK [facility] INSURANCE BILL [address] [place] [address] * HEPATITIS B SURFACE ANTIGEN W RFLX CONFIRMATION (04/03/2023 1:41 PM WET PROCESS MILLER HEAD) Hepatitis B Virus Surface Antigen Negative Negative [facility] INSURANCE BILL Blood BLOOD SPECIMEN / Unknown 04/03/2023 1:41 PM WET PROCESS MILLER HEAD 04/03/2023 Narrative Resulting Agency Comment Lab Testing performed at: [facility] [address] ??[facility]ly [facility] [phone] Susannah Bautista MD LAB - CHEMISTRY ALEXA FUNK [facility] INSURANCE BILL [address] [place] [address] * CK BLOOD (04/03/2023 1:41 PM WET PROCESS MILLER HEAD) Pathologist [facility] CK 76 41 - 331 U/L [facility] INSURANCE BILL Blood BLOOD SPECIMEN / Unknown 04/03/2023 1:41 PM WET PROCESS MILLER HEAD 04/03/2023 Narrative Resulting Agency Comment Lab Testing performed at: [facility] [address] ??[facility]ly [facility] [phone] Susannah Bautista MD LAB - CHEMISTRY ALEXA FUNK [facility] INSURANCE BILL [address] [place] [address] * HEPATITIS B CORE ANTIBODY IGM (04/03/2023 1:41 PM WET PROCESS MILLER HEAD) [facility] Hepatitis B Core Virus Antibody IgM Negative Negative [facility] INSURANCE BILL Blood BLOOD SPECIMEN / Unknown 04/03/2023 1:41 PM WET PROCESS MILLER HEAD 04/03/2023 Narrative Resulting Agency Comment Lab Testing performed at: [facility] [address] ??[facility]ly [facility] [phone] Susannah Bautista MD LAB - CHEMISTRY ALEXA FUNK Performing Organization Address City/[facility] Co de Phone Number [facility] INSURANCE BILL [address] [place] [address] * (ABNORMAL) RHEUMATOID ARTHRITIS 14-3-3 ETA (04/03/2023 1:25 PM WET PROCESS MILLER HEAD) [facility] 14.3.3 eta Protein 0.82(H) ng/mL [facility] INSURANCE BILL Comment: Reference Range: < 0.20 Comments: 14-3-3 eta protein is a joint-derived, proinflammatory drum worker that is implicated in the joint erosion process and pathogenesis of RA. ??Serum 14-3-3 eta is elevated in both early and established RA. - Diagnostic value: ??14-3-3 eta is highly specific for RA. ??Serum 14-3-3 eta may be especially helpful in identifying ??patients with early RA where it provides a 15% incremental ??benefit to the diagnostic sensitivity of markers, ??Rheumatoid Arthritis (RA) Factor and Cyclic Citrullinated ??Peptide (CCP) Antibodies, i.e. An additional 15% of early ??RA patients may be detected by 14-3-3 eta (1). - Correlation with radiographic evidence of joint damage. ??Positive serum 14-3-3 eta levels are associated with ??higher rates of joint damage as measured by radiographic ??assessments (Sharp/van sienna Heijde Score) (2). - Serum 14-3-3 eta levels above a threshold of 0.50 ng/ml ??identify RA patients who will have more rapid radiographic ??progression, even those who may be in SDAI remission (1). References: 1. Patrice N, et al. Serum levels of 14-3-3 eta protein ?? supplement C-reactive protein and rheumatoid arthritis- ?? associated antibodies to predict clinical and ?? radiographic outcomes in a ??prospective cohort of ?? patients with recent-onset inflammatory polyarthritis. ?? Arthritis Res Ther 2016;18:37 2. Carol LUCIANO, et al. 14-3-3 eta is a novel drum worker ?? associated with the pathogenesis of rheumatoid arthritis ?? and joint damage. Arthritis Res Ther 2014;16:R99. This test was developed and its performance characteristics determined by [employer]. It has not been cleared or approved by the Food and Drug Administration. Blood BLOOD SPECIMEN / Unknown 04/03/2023 1:25 PM WET PROCESS MILLER HEAD 04/03/2023 Narrative Resulting Agency Comment Lab Testing performed at: [facility] [address] [place] [address] ??[facility] [phone] Susannah Bautista MD LAB - CHEMISTRY ALEXA FUNK [facility] Organization Address City/State/ZIP Co de Phone Number [facility] INSURANCE BILL [address] [place] [address] * XR WRIST BILAT 3VW OR MORE (04/03/2023) Anatomical Region Laterality Modality Wrist / Hand, Upper Extremity Ot her Susannah Bautista MD DIAGNOSTIC IMAGING O RDERAZAYRA * XR CERVICAL SPINE 2 OR 3VW (04/03/2023) Anatomical Region Laterality Modality Spine Other Susannah Bautista MD DIAGNOSTIC IMAGING O MAR[place] * SKIN TEST PPD - POINT OF CARE (10/18/2020 4:00 PM CDT) PPD 0 mm [facility] Other MISCELLANEOUS SAMPLE S / Unknown 10/18/2020 4:00 PM CDT Latia Natarajan ON LINE CSR-FILM [facility]TER LAB - POINT OF CARE ORDERABLES [facility] [phone] Care Teams Hooker On Relationship Specialty Start Date End Date Brook Guzman APRN-CAREER DEVELOPMENT MANAGER [address] [place] [address] PCP - General Certified Clinical Nurse Specialist 04/03/23
--- OUTSIDE RECORDS SUMMARY | 2024-02-29 23:41 | XMS_ITS | Clinical Summary ---
Author Organization [facility] Address [address] [place] [address]. [place], [place] [address] [place] [address] Care Team Providers Care System Analyst Name Role Phone None, Provider MD Primary Care Provider Unavaila ble Social History Tobacco Use Types Packs/Day Years Used Date Smoking Tobacco: Never Assessed Sex and Gender Information Value Date Recorded Sex Assigned at Not on file Legal Sex Male 8:11 PM CDT Gender Identity Not on file Sexual Orientation Not on file Plan of Treatment Health Maintenance Due Date Last Done Comments Colorectal Cancer Screening Colonoscopy (10 Years) 1965 Annual Physical 05/23/1966 Hepatitis C 05/23/1981 DTaP, Tdap and Td Vaccines ( 1 - Tdap) 05/23/1982 Zoster Vaccines (1 of 2) 05/23/2013 COVID-19 Vaccine ( - 2023-2 5 season) 2023 Influenza Adult (#1) 2023 03/10/2013 RSV Immunization or 60+ Years (1 - 1-dose 75+ series) 05/23/2038 Meningococcal Vaccine Aged Out No cb robyn eligible based on patient's age to complete this topic Pneumococcal Vaccine: Pediat rics (0 to 5 Years) and At-Risk Patients (6 to 64 Years) Aged Out No longer eligi ble based on patient's age to complete this topic RSV Immunizations Under 20 Months Aged Out No longer eligible based on patient's age to complete this topic Insurance [facility] Care Teams System Analyst Relationship Specialty Start Date End Date None, Provider, PCP - General UNKNOWN PHYSICIAN SPECIALTY 12/01/22
--- OUTSIDE RECORDS SUMMARY | 2024-02-29 23:41 | XMS_ITS | Encounter Summary ---
Author Organization [facility] Address [address] [place] [address] Care Team Providers Care Neighborhood Worker Name Role Phone Unavailable Primary Care Provider Unavailabl e Encounter Details Date Type Department Care Team (Latest Contact Info) Description 10/21/2020 Travel Social History Tobacco Use Types Packs/Day Years Used Date Smoking Tobacco: Never Assessed Sex and Gender Information Value Date Recorded Sex Assigned at Not on file Gender Identity Not on file Sexual Orientation Not on file COVID-19 Exposure Response Date Recorded In the last month, have you been in contact with someone who was confirmed or suspected to have Coronavirus / COVID-19? No / Unsure 10/18/2020 3:49 PM CDT documented as of this encounter Plan of Treatment Upcoming Encounters Date Type Department Care Team (Late st Contact Info) Description 03/08/2024 8:20 AM COUNTER CLERK Office Visit [facility] Medical [facility] - Rheumatology [address], [address] [place] [address] Susannah Bautista MD [address] [place] [address] documented as of this encounter Visit Diagnoses Not on filedocumented in this encounter
--- OUTSIDE RECORDS SUMMARY | 2024-02-29 23:41 | XMS_ITS | Encounter Summary ---
Author Organization [facility] Address [address] [place] [address] Care Team Providers Care Ware Server Name Role Phone Brook Guzman Primary Care Provider [phone] Reason for Visit * Reason Onset Date Comments Medication Monitoring 05/19/2023 BENEFIT IN VESTIGATION INQUIRY ONLY Encounter Details Date Type Department Care Team (Latest Contact Info) Description 05/19/2023 Pharmacist Telephone/Documenta tion [facility] [address] [place] [address] Porcic, Amila Medication Monitoring (BENEFIT INVESTIGATION INQUIRY ONLY) Social History Tobacco Use Types Packs/Day Years Used Date Smoking Tobacco: Never Smokeless Tobacco: Never Alcohol Use Standard Drinks/Week Comments Not Currently 0 (1 standard drink = 0.6 oz pur e alcohol) Sex and Gender Information Value Date Recorded Sex Assigned at Not on file Gender Identity Not on file Sexual Orientation Not on file documented as of this encounter Plan of Treatment Upcoming Encounters Date Type Department Care Team (Late st Contact Info) Description 03/08/2024 8:20 AM LINER ASSEMBLER Office Visit [facility] - Rheumatology [address], [address] [place] [address] Susannah Bautista MD [address] [place] [address] documented as of this encounter Visit Diagnoses Not on filedocumented in this encounter Care Teams Ware Server Relationship Specialty Start Date End Date Brook Guzman APRN-CNS [address] [place] [address] PCP - General Certified Clinical Nurse Specialist 04/03/23 documented as of this encounter
--- OUTSIDE RECORDS SUMMARY | 2024-02-29 23:41 | XMS_ITS | Encounter Summary ---
Author Organization [facility] Address [address] [place] [address] Care Team Providers Care County Agricultural Agent Name Role Phone Brook Guzman [facility] Primary Care Provider [phone] Encounter Details Date Type Department Care Team (Late Contact Info) Description 04/03/2023 Orders Only [facility] - Rheumatology [address], [address] [place] [address] Susannah Bautista MD [address] [place] [address] [address] [place] [address] Polyarthralgia; Cervicalgia; History of rheumatoid arthritis Social History Tobacco Use Types Packs/Day Years [...] Encounters Date Type Department Care Team (Late Contact Info) Description 03/08/2024 8:20 AM TYPEWRITER OPERATOR AUTOMATIC Office Visit [facility] - Rheumatology [address] [place] [address], [address] [place] [address] Susannah Bautista MD [address] [place] [address] [address] [place] [address] documented as of this encounter Procedures Procedure Name Priority Date/Time Associated Diagnosis Comments REF LAB-SPECIMEN STATUS REPORT 04/03/2023 1:41 PM TYPEWRITER OPERATOR AUTOMATIC QUANTIFERON TB-GOLD 04/03/2023 1 :41 PM TYPEWRITER OPERATOR AUTOMATIC XR WRIST BILAT 3VW OR MORE Routine 04/03/2023 Polyarthralgia Cervicalgia History of rheumatoid arthritis documented in this encounter Results * QUANTIFERON TB-GOLD (04/03/2023 1:41 PM TYPEWRITER OPERATOR AUTOMATIC) Pathologist [facility] QuantiFERON Incubation Incubation performed. [facility] INSURANCE BILL [...] IU/mL. Chemiluminescence immunoassay methodology 04/03/2023 1:41 PM TYPEWRITER OPERATOR AUTOMATIC 04/03/2023 Narrative Resulting Agency Comment Lab Testing performed at: [facility] [place] [address] [facility] ??[facility] [id number] Susannah Bautista MD LAB - CHEMISTRY ALEXA FUNK [facility] INSURANCE BILL [address] [place] [address] * REF LAB-SPECIMEN STATUS REPORT (04/03/2023 1:41 PM TYPEWRITER OPERATOR AUTOMATIC) Specimen Status Report NOT AVAILABLE [facility] INSURANCE BILL Comment: Test not performed. Test cancelled by Healthcare provider after order was submitted to [facility] [employer] ?TEST: ??[id number] ??Rheumatoid Factor (RF) ? [id number] ??BARAK by IFA Rfx Titer/Pattern ? [id number] ??HBsAg Screen ? 104800 ??Hep B Core Ab, IgM Contacted by Heron Daily RN at your facility 04/07/2023. Result cannot be obtained for this observation. 04/03/2023 1:41 PM TYPEWRITER OPERATOR AUTOMATIC 04/03/2023 Narrative Resulting Agency Comment Lab Testing performed at: [facility] ??[facility] [id number] Susannah Bautista MD LAB - CHEMISTRY ALEXA FUNK [facility] INSURANCE BILL [address] [place] [address] * XR WRIST BILAT 3VW OR MORE (04/03/2023) Anatomical Region Laterality Modality Wrist / Hand, Upper Extremity Ot her Susannah Bautista MD DIAGNOSTIC IMAGING O RDERABLES documented in this encounter Visit Diagnoses Diagnosis Polyarthralgia Pain in joint, multiple sites Cervicalgia History of rheumatoid arthritis Personal history of arthritis documented in this encounter Care Teams County Agricultural Agent Relationship Specialty Start Date End Date Brook Guzman APRN-PORTFOLIO DIRECTOR [address] [place] [address] PCP - General Certified Clinical Nurse Specialist 04/03/23 documented as of this encounter
--- OUTSIDE RECORDS SUMMARY | 2024-02-29 23:41 | XMS_ITS | Encounter Summary ---
Author Organization [facility] Address [address] [place] [address] Care Team Providers Care Staff Nurse Midwife Name Role Phone Brook Guzman PAINT TESTER-SEXTON HELPER Primary Care Provider [phone] Reason for Visit * Reason Comments Establish Care History of RA Encounter Details Date Type Department Care Team (Late st Contact Info) Description 04/03/2023 10:00 AM TIRE GROOVER Office Visit [facility] - Rheumatology [address], [address] [place] [address] Susannah Bautista MD [address] [place] [address] Polyarthralgia (Primary Dx); Cervicalgia; History of rheumatoid arthritis; Encounter for long-term (current) use of high-risk medication; Screening examination for pulmonary tuberculosis; Other fatigue; Myalgia, multiple sites Social History Tobacco Use Types Packs/Day Years Used Date Smoking Tobacco: Never Smokeless Tobacco: Never Alcohol Use Standard Drinks/Week Comments Not Currently 0 (1 standard drink = 0.6 oz pur e alcohol) Sex and Gender Information Value Date Recorded Sex Assigned at Not on file Gender Identity Not on file Sexual Orientation Not on file documented as of this encounter Last Filed Vital Signs Vital Sign Reading Time Taken Comments Blood Pressure 104/80 04/03/2023 9:44 AM TIRE GROOVER Pulse 100 04/03/2023 9:44 AM TIRE GROOVER Temperature 36.4 ??C (97.5 ??F) 04/03/2023 9:44 AM CS T Respiratory Rate - - Oxygen Saturation 100% 04/03/2023 9:44 AM TIRE GROOVER Inhaled Oxygen Concentration - - Weight 71.5 kg (157 lb 9.6 oz) 04/03/2023 9:44 A M TIRE GROOVER Height 180.3 cm (5' 11 ) 04/03/2023 9:44 AM TIRE GROOVER Body Mass Index 21.98 04/03/2023 9:44 AM TIRE GROOVER documented in this encounter Patient Instructions * Patient Instructions* Susannah Bautista MD - 04/03/2023 10:14 AM TIRE GROOVER [facility] at [facility] X-rays today here Please read information on azathioprine, leflunomide, Orencia. Please have your primary care doctor send us a copy of recent labs. Take medrol dose pack as directed on the package. GROOVER documented in this encounter Progress Notes * Susannah Bautista MD - 04/05/2023 6:30 PM CST Initial Rheumatology Office Note Date of Visit: April 03, 2023 Patient's Primary Care Physician: TAINA CorralesSEXTON HELPER Referring physician: PCP Chief Complaint/History of Present Illness Subjective Robinson Noguera is a 57 year old male here sent by PCP regarding rheumatoid arthritis. According to the patient he was diagnosed as rheumatoid arthritis about 10 years ago on the basis of joint pain and swelling of small joints of the hands wrists. No redness or warmth. Used to have morning stiffness. He took lot of medicines including oral and subcutaneous methotrexate, Enbrel whichhe stopped after 5-6 months as it stopped helping, Humira which he stopped taking after 8-10 monthsas his workforce staffing advisor left. He has not taken Humira and methotrexate for 4 years according to him he had 4 workforce staffing advisor who left in succession . he also took Simponi infusion which did not help. He has not been taking any medicine and complains of lot of joint pain and swelling. He takes ibuprofen. He also has history of neck pain. 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 Previous Report(s) Reviewed: I reviewed patient's past medical history, past surgical history,family history,allergies, social history, OBGYN history in females in [facility]. They are noted as follows. No past medical history on file. Past Surgical History: Procedure Laterality Date ??? Lithotripsy 01/2023 Family History Problem Relation Name Age of Onset ??? Diabetes - Type 2 Mother ??? Diabetes - Type 2 Father ??? Hypertension Father ??? Diabetes - Type 2 Maternal Grandmother ??? Diabetes - Type 2 Maternal Grandfather ??? Diabetes - Type 2 Paternal Grandmother ??? Diabetes - Type 2 Paternal Grandfather Allergies Allergen Reactions ??? Penicillins Diarrhea Social History Socioeconomic History ??? Marital status: Spouse name: Not on file ??? Number of children: Not on file ??? Years of education: Not on file ??? Highest education level: Not on file Occupational History ??? Not on file Tobacco Use ??? Smoking status: Never ??? Smokeless tobacco: Never Vaping Use ??? Vaping Use: Never used Substance and Sexual Activity ??? Alcohol use: Not Currently ??? Drug use: Not on file ??? Sexual activity: Not on file Other Topics Concern ??? Not on file Social History Narrative ??? Not on file Social Determinants of Health Financial Resource Strain: Not on file Food Insecurity: Not on file Transportation Needs: Not on file Stress: Not on file Housing Stability: Not on file Review of Systems Complains of joint pain swelling morning stiffness muscle pain fatigue, neck pain, diabetes. Denies any fever more than 101 severe headache ear pain deafness sudden blindness dry eyes dry mouth multiple mucosal ulcers malar rash Raynaud's phenomena, seizures numbness tingling weakness of thelimbs stroke anxiety depression blood in the urine UTI dysphagia blood in the stool thyroid pattern parathyroid problems, midback pain Objective Objective: BP 104/80 Pulse 100 Temp 97.5 ??F (36.4 ??C) (Temporal) Ht 1.803 m (5' 11 ) Wt 71.5 kg (157lb 9.6 oz) SpO2 100% GENERAL: ?no distress HEENT: ??No obvious abnormality or lesion SKIN: ??No rash or vasculitic lesion visible ?? NEURO: ?nonfocal examination ?PSYCH: ?alert and oriented into 3 EXTREMITIES: ?no edema clubbing or cyanosis MUSCULOSKELETAL: He has mild tenderness of multiple joints of the hands bilaterally and the cervical spine. No synovitis of any joints. Normal range of motion of the joints?? Lab Review Recent Labs Component Name 04/03/23 1341 WBC 8.4 Recent Labs Component Name 04/03/23 1341 WBC 8.4 HGB 12.1* HCT 35.8* PLTCOUNT 275 No results found for: NEUTROPHILAB No results for input(s): SODIUM , POTASSIUM , CHLORIDE , CO2 , BUN , CREATININE , CALCIUM , ALBUMIN , PROTEIN , [id number] , [id number] , ALT , AST , GFR , GLUCOSE , [id number] in the last 69115 hours. No results for input(s): SODIUM , POTASSIUM , CHLORIDE , CO2 , BUN , CREATININE , EGFR , EGFRAFRIC , GLUCOSE , CALCIUM in the last 13032 hours. Previous workup: I do not have any recent records other than negative hepatitis-C antibody According to the note from the PCP they do hepatitis-B BARAK panel rheumatoid factor CMP TSH sed rateand PSA, I do not have any results on those labs and we called the doctor's office for those results Assessment Assessment: Polyarthralgia - Plan: XR HAND BILAT 2VW, XR WRIST BILAT 3VW OR MORE, XR CERVICAL SPINE 2 OR 3VW, ANGIOTENSIN CONVERTING ENZYME BLOOD, CBC WITH DIFFERENTIAL, CK BLOOD, C-REACTIVE PROTEIN, IMMUNOFIXATION BLOOD, MYOSITIS ANTIBODY PANEL COMPREHENSIVE, RHEUMATOID ARTHRITIS 14-3-3 ETA, QUANTIFERON-TB GOLD PLUS 4-TUBE, ANCA VASCULITIS PANEL, methylPREDNISolone (Medrol Dosepak) 4 MG tablet, BARAK BLOOD SCREEN W/REFLEX TITER, CYCLIC CITRULLINATED PEPTIDE(CCP) AB IGG, RHEUMATOID FACTOR BLOOD QUANTITATIVE,BARAK PANEL COMPREHENSIVE, CREATININE BLOOD, ERYTHROCYTE SEDIMENTATION RATE, HEPATIC FUNCTION PANEL, HEPATITIS B SURFACE ANTIGEN W RFLX CONFIRMATION, HEPATITIS B CORE ANTIBODY IGM Cervicalgia - Plan: XR HAND BILAT 2VW, XR WRIST BILAT 3VW OR MORE, XR CERVICAL SPINE 2 OR 3VW, ANGIOTENSIN CONVERTING ENZYME BLOOD, CBC WITH DIFFERENTIAL, CK BLOOD, C-REACTIVE PROTEIN, IMMUNOFIXATIONBLOOD, MYOSITIS ANTIBODY PANEL COMPREHENSIVE, RHEUMATOID ARTHRITIS 14-3-3 ETA, QUANTIFERON-TB GOLD PLUS 4-TUBE, ANCA VASCULITIS PANEL, BARAK BLOOD SCREEN W/REFLEX TITER, CYCLIC CITRULLINATED PEPTIDE(CCP) AB IGG, RHEUMATOID FACTOR BLOOD QUANTITATIVE, BARAK PANEL COMPREHENSIVE, CREATININE BLOOD, ERYTHROCYTE SEDIMENTATION RATE, HEPATIC FUNCTION PANEL, HEPATITIS B SURFACE ANTIGEN W RFLX CONFIRMATION, HEPATITIS B CORE ANTIBODY IGM History of rheumatoid arthritis - Plan: XR HAND BILAT 2VW, XR WRIST BILAT 3VW OR MORE, XR CERVICAL SPINE 2 OR 3VW, ANGIOTENSIN CONVERTING ENZYME BLOOD, CBC WITH DIFFERENTIAL, CK BLOOD, C-REACTIVE PROTEIN, IMMUNOFIXATION BLOOD, MYOSITIS ANTIBODY PANEL COMPREHENSIVE, RHEUMATOID ARTHRITIS 14-3-3 ETA, QUANTIFERON-TB GOLD PLUS 4-TUBE, ANCA VASCULITIS PANEL, BARAK BLOOD SCREEN W/REFLEX TITER, CYCLIC CITRULLINATED PEPTIDE(CCP) AB IGG, RHEUMATOID FACTOR BLOOD QUANTITATIVE, BARAK PANEL COMPREHENSIVE, CREATININE BLOOD, ERYTHROCYTE SEDIMENTATION RATE, HEPATIC FUNCTION PANEL, HEPATITIS B SURFACE ANTIGEN W RFLX CONFIRMATION, HEPATITIS B CORE ANTIBODY IGM Encounter for long-term (current) use of high-risk medication - Plan: ANGIOTENSIN CONVERTING ENZYMEBLOOD, CBC WITH DIFFERENTIAL, CK BLOOD, C-REACTIVE PROTEIN, IMMUNOFIXATION BLOOD, MYOSITIS ANTIBODYPANEL COMPREHENSIVE, RHEUMATOID ARTHRITIS 14-3-3 ETA, QUANTIFERON-TB GOLD PLUS 4-TUBE, ANCA VASCULITIS PANEL, BARAK BLOOD SCREEN W/REFLEX TITER, CYCLIC CITRULLINATED PEPTIDE(CCP) AB IGG, RHEUMATOID FACTOR BLOOD QUANTITATIVE, BARAK PANEL COMPREHENSIVE, CREATININE BLOOD, ERYTHROCYTE SEDIMENTATION RATE, HEPATIC FUNCTION PANEL, HEPATITIS B SURFACE ANTIGEN W RFLX CONFIRMATION, HEPATITIS B CORE ANTIBODY IGM Screening examination for pulmonary tuberculosis - Plan: ANGIOTENSIN CONVERTING ENZYME BLOOD, CBC WITH DIFFERENTIAL, CK BLOOD, C-REACTIVE PROTEIN, IMMUNOFIXATION BLOOD, MYOSITIS ANTIBODY PANEL COMPREHENSIVE, RHEUMATOID ARTHRITIS 14-3-3 ETA, QUANTIFERON-TB GOLD PLUS 4-TUBE, ANCA VASCULITIS PANEL, BARAK BLOOD SCREEN W/REFLEX TITER, CYCLIC CITRULLINATED PEPTIDE(CCP) AB IGG, RHEUMATOID FACTOR BLOOD QUANTITATIVE, BARAK PANEL COMPREHENSIVE, CREATININE BLOOD, ERYTHROCYTE SEDIMENTATION RATE, HEPATIC FUNCTION PANEL, HEPATITIS B SURFACE ANTIGEN W RFLX CONFIRMATION, HEPATITIS B CORE ANTIBODY IGM Other fatigue - Plan: ANGIOTENSIN CONVERTING ENZYME BLOOD, CBC WITH DIFFERENTIAL, CK BLOOD, C-REACTIVE PROTEIN, IMMUNOFIXATION BLOOD, MYOSITIS ANTIBODY PANEL COMPREHENSIVE, RHEUMATOID ARTHRITIS 14-3-3 ETA, QUANTIFERON-TB GOLD PLUS 4-TUBE, ANCA VASCULITIS PANEL, BARAK BLOOD SCREEN W/REFLEX TITER, CYCLIC CITRULLINATED PEPTIDE(CCP) AB IGG, RHEUMATOID FACTOR BLOOD QUANTITATIVE, BARAK PANEL COMPREHENSIVE,CREATININE BLOOD, ERYTHROCYTE SEDIMENTATION RATE, HEPATIC FUNCTION PANEL, HEPATITIS B SURFACE ANTIGEN W RFLX CONFIRMATION, HEPATITIS B CORE ANTIBODY IGM Myalgia, multiple sites - Plan: ANGIOTENSIN CONVERTING ENZYME BLOOD, CBC WITH DIFFERENTIAL, CK BLOOD, C-REACTIVE PROTEIN, IMMUNOFIXATION BLOOD, MYOSITIS ANTIBODY PANEL COMPREHENSIVE, RHEUMATOID ARTHRITIS 14-3-3 ETA, QUANTIFERON-TB GOLD PLUS 4-TUBE, ANCA VASCULITIS PANEL, BARAK BLOOD SCREEN W/REFLEX TITER, CYCLIC CITRULLINATED PEPTIDE(CCP) AB IGG, RHEUMATOID FACTOR BLOOD QUANTITATIVE, BARAK PANEL COMPREHENSIVE, CREATININE BLOOD, ERYTHROCYTE SEDIMENTATION RATE, HEPATIC FUNCTION PANEL, HEPATITIS B SURFACE ANTIGEN W RFLX CONFIRMATION, HEPATITIS B CORE ANTIBODY IGM Patient with long history of rheumatoid arthritis. Previously used methotrexate and Humira which was the last medicine he stopped about 3 and half years ago after his workforce staffing advisor left. Previously he took Enbrel Humira Simponi Aria. He is only taking ibuprofen but I do not see any synovitis today. Currently most pain seems to be noninflammatory possibly due to diabetic neuropathy or cervical radiculopathy. We discussed checking labs and x-rays to evaluate autoimmune disease inflammatory arthritis. He agrees. He complains of lot of pain and previously responded to steroids. He sees his diabetes is under good control and wants to take steroid taper pack knowing risks. I will make further plan at next visit after going over the workup ordered today. Thank you for referral, I hope that I will be off benefit in care for this pleasant patient. Pleasefeel free to call for any questions. Plan Plan: There are no discontinued medications. Current Outpatient Medications Medication Sig Dispense Refill ??? Basaglar KwikPen (Basaglar) pen ADMINISTER 15 UNITS UNDER THE SKIN EVERY EVENING ??? fluconazole (Diflucan) 100 MG tablet Take 1 (one) tablet by mouth once daily (Patient not taking: Reported on 04/03/2023) ??? levothyroxine (Synthroid) 50 MCG tablet Take 1 (one) tablet by mouth once daily ??? methylPREDNISolone (Medrol Dosepak) 4 MG tablet Take by mouth as directed Take as directed by mouth per package instructions. 21 tablet 0 ??? Ozempic, 0.25 or 0.5 MG/DOSE, 2 MG/3ML SOPN INJECT 0.5 MG UNDER THE SKIN WEEKLY ??? sildenafil (Revatio) 20 MG tablet TAKE 1 TO 5 TABLETS BY MOUTH ONCE DAILY NEEDED (Patient not taking: Reported on 04/03/2023) ??? sulfamethoxazole-trimethoprim (Bactrim DS; Septra DS) 800-160 MG tablet Take 1 (one) tablet by mouth 2 times daily Until all taken. (Patient not taking: Reported on 04/03/2023) ??? tamsulosin (Flomax) 0.4 MG capsule Take 1 (one) capsule by mouth at bedtime (Patient not taking: Reported on 04/03/2023) ??? traMADol (Ultram) 50 MG tablet TAKE 1 TABLET BY MOUTH EVERY 6 HOURS FOR PAIN (Patient not taking: Reported on 04/03/2023) ??? triamcinolone acetonide (Kenalog) 0.1 % cream APPLY TOPICALLY TO LEG TWICE DAILY FOR 5 DAYS No current facility-administered medications for this visit. Orders Placed This Encounter ??? XR HAND BILAT 2VW Standing Status: Future Standing Expiration Date: 04/03/2024 Order Specific Question: Release to patient Answer: Immediate ??? XR WRIST BILAT 3VW OR MORE Standing Status: Future Number of Occurrences: 1 Standing Expiration Date: 04/03/2024 Order Specific Question: Release to patient Answer: Immediate Order Specific Question: Which Views are required? Answer: Radiologist Protocol Views ??? XR CERVICAL SPINE 2 OR 3VW Standing Status: Future Standing Expiration Date: 04/03/2024 Order Specific Question: Release to patient Answer: Immediate Order Specific Question: Which views are required? Answer: Radiologist Protocol Views ??? ANGIOTENSIN CONVERTING ENZYME BLOOD Order Specific Question: Release to patient Answer: Immediate ??? CBC WITH DIFFERENTIAL Order Specific Question: Release to patient Answer: Immediate ??? CK BLOOD Order Specific Question: Release to patient Answer: Immediate ??? C-REACTIVE PROTEIN Order Specific Question: Release to patient Answer: Immediate ??? IMMUNOFIXATION BLOOD Order Specific Question: Release to patient Answer: Immediate ??? MYOSITIS ANTIBODY PANEL COMPREHENSIVE Order Specific Question: Release to patient Answer: Immediate ??? RHEUMATOID ARTHRITIS 14-3-3 ETA Order Specific Question: Release to patient Answer: Immediate ??? QUANTIFERON-TB GOLD PLUS 4-TUBE Order Specific Question: Release to patient Answer: Immediate ??? ANCA VASCULITIS PANEL Order Specific Question: Release to patient Answer: Immediate ??? BARAK BLOOD SCREEN W/REFLEX TITER Order Specific Question: Release to patient Answer: Immediate ??? CYCLIC CITRULLINATED PEPTIDE(CCP) AB IGG Order Specific Question: Release to patient Answer: Immediate ??? RHEUMATOID FACTOR BLOOD QUANTITATIVE Order Specific Question: Release to patient Answer: Immediate ??? BARAK PANEL COMPREHENSIVE Order Specific Question: Release to patient Answer: Immediate ??? CREATININE BLOOD Order Specific Question: Release to patient Answer: Immediate ??? ERYTHROCYTE SEDIMENTATION RATE Order Specific Question: Release to patient Answer: Immediate ??? HEPATIC FUNCTION PANEL Order Specific Question: Release to patient Answer: Immediate ??? HEPATITIS B SURFACE ANTIGEN W RFLX CONFIRMATION Order Specific Question: Release to patient Answer: Immediate ??? HEPATITIS B CORE ANTIBODY IGM Order Specific Question: Release to patient Answer: Immediate ??? methylPREDNISolone (Medrol Dosepak) 4 MG tablet Sig: Take by mouth as directed Take as directed by mouth per package instructions. Dispense: 21 tablet Refill: 0 We will discuss results of workup ordered today at next visit,unless they need to be taken care of urgently. Call sooner for any problems. Return in about 4 weeks (around 05/01/2023). Cc: PCP GROOVER documented in this encounter Plan of Treatment Upcoming Encounters Date Type Department Care Team (Late st Contact Info) Description 03/08/2024 8:20 AM TIRE GROOVER Office Visit [facility] - Rheumatology [address], [address] [place] [address] Susannah Bautista MD [address] [place] [address] Scheduled Orders Name Type Priority Associated Diagnoses Orde r Schedule XR HAND BILAT 2VW Imaging Routine Polyarthralgia Cervicalgia History of rheumatoid arthritis 1 Occurrences starting 04/03/2023 until 04/03/2024 QUANTIFERON-TB GOLD PLUS 4-TUBE Lab Routine Polyarthralgia Cervicalgia History of rheumatoid arthritis Encounter for long-term (current) use of high-risk medication Screening examination for pulmonary tuberculosis Other fatigue Myalgia, multiple sites Ordered: 04/03/2023 ERYTHROCYTE SEDIMENTATION RATE Lab Routine Polyarthralgia Cervicalgia History of rheumatoid arthritis Encounter for long-term (current) use of high-risk medication Screening examination for pulmonary tuberculosis Other fatigue Myalgia, multiple sites Ordered: 04/03/2023 documented as of this encounter Procedures Procedure Name Priority Date/Time Associated Diagnosis Comments MYOSITIS ANTIBODY PANEL COMPREHENSIVE Routine 04/03/2023 1:41 PM TIRE GROOVER Polyarthralgia Cervicalgia History of rheumatoid arthritis Encounter for long-term (current) use of high-risk medication Screening examination for pulmonary tuberculosis Other fatigue Myalgia, multiple sites IMMUNOFIXATION BLOOD Routine 04/03/2023 1:41 PM TIRE GROOVER Polyarthralgia Cervicalgia History of rheumatoid arthritis Encounter for long-term (current) use of high-risk medication Screening examination for pulmonary tuberculosis Other fatigue Myalgia, multiple sites BARAK PANEL COMPREHENSIVE Routine 04/03/2023 1:41 PM TIRE GROOVER Polyarthralgia Cervicalgia History of rheumatoid arthritis Encounter for long-term (current) use of high-risk medication Screening examination for pulmonary tuberculosis Other fatigue Myalgia, multiple sites ANCA VASCULITIS PANEL Routine 04/03/2023 1:41 PM TIRE GROOVER Polyarthralgia Cervicalgia History of rheumatoid arthritis Encounter for long-term (current) use of high-risk medication Screening examination for pulmonary tuberculosis Other fatigue Myalgia, multiple sites RHEUMATOID FACTOR BLOOD QUANTITATIVE Routine 04/03/2023 1:41 PM TIRE GROOVER Polyarthralgia Cervicalgia History of rheumatoid arthritis Encounter for long-term (current) use of high-risk medication Screening examination for pulmonary tuberculosis Other fatigue Myalgia, multiple sites C-REACTIVE PROTEIN Routine 04/03/2023 1: 41 PM TIRE GROOVER Polyarthralgia Cervicalgia History of rheumatoid arthritis Encounter for long-term (current) use of high-risk medication Screening examination for pulmonary tuberculosis Other fatigue Myalgia, multiple sites BARAK BLOOD SCREEN W/REFLEX TITER Routine 04/03/2023 1:41 PM TIRE GROOVER Polyarthralgia Cervicalgia History of rheumatoid arthritis Encounter for long-term (current) use of high-risk medication Screening examination for pulmonary tuberculosis Other fatigue Myalgia, multiple sites ANGIOTENSIN CONVERTING ENZYME BLOOD Routine 04/03/2023 1:41 PM TIRE GROOVER Polyarthralgia Cervicalgia History of rheumatoid arthritis Encounter for long-term (current) use of high-risk medication Screening examination for pulmonary tuberculosis Other fatigue Myalgia, multiple sites CYCLIC CITRULLINATED PEPTIDE(CCP) AB IGG Routine 04/03/2023 1:41 PM TIRE GROOVER Polyarthralgia Cervicalgia History of rheumatoid arthritis Encounter for long-term (current) use of high-risk medication Screening examination for pulmonary tuberculosis Other fatigue Myalgia, multiple sites CBC W AUTO DIFFERENTIAL Routine 04/03/2023 1:41 PM TIRE GROOVER Polyarthralgia Cervicalgia History of rheumatoid arthritis Encounter for long-term (current) use of high-risk medication Screening examination for pulmonary tuberculosis Other fatigue Myalgia, multiple sites HEPATIC FUNCTION PANEL Routine 1:41 PM TIRE GROOVER Polyarthralgia Cervicalgia History of rheumatoid arthritis Encounter for long-term (current) use of high-risk medication Screening examination for pulmonary tuberculosis Other fatigue Myalgia, multiple sites HEPATITIS B SURFACE ANTIGEN W RFLX CONFIRMATION Routine 04/03/2023 1:41 PM TIRE GROOVER Polyarthralgia Cervicalgia History of rheumatoid arthritis Encounter for long-term (current) use of high-risk medication Screening examination for pulmonary tuberculosis Other fatigue Myalgia, multiple sites CREATININE BLOOD Routine 04/03/2023 1:41 PM TIRE GROOVER Polyarthralgia Cervicalgia History of rheumatoid arthritis Encounter for long-term (current) use of high-risk medication Screening examination for pulmonary tuberculosis Other fatigue Myalgia, multiple sites CK BLOOD Routine 04/03/2023 1:41 PM TIRE GROOVER Polyarthralgia Cervicalgia History of rheumatoid arthritis Encounter for long-term (current) use of high-risk medication Screening examination for pulmonary tuberculosis Other fatigue Myalgia, multiple sites HEPATITIS B CORE ANTIBODY IGM Routine 04/03/2023 1:41 PM TIRE GROOVER Polyarthralgia Cervicalgia History of rheumatoid arthritis Encounter for long-term (current) use of high-risk medication Screening examination for pulmonary tuberculosis Other fatigue Myalgia, multiple sites RHEUMATOID ARTHRITIS 14-3-3 ETA Routine 04/03/2023 1:25 PM TIRE GROOVER Polyarthralgia Cervicalgia History of rheumatoid arthritis Encounter for long-term (current) use of high-risk medication Screening examination for pulmonary tuberculosis Other fatigue Myalgia, multiple sites documented in this encounter Results * HEPATITIS B CORE ANTIBODY IGM (04/03/2023 1:41 PM TIRE GROOVER) Hepatitis B Core Virus Antibody IgM Negative Negative [facility] INSURANCE BILL Blood BLOOD SPECIMEN / Unknown 04/03/2023 1:41 PM TIRE GROOVER 04/03/2023 Narrative Resulting Agency Comment [facility] [address] [place] [address] ??[facility] [id number] Susannah Bautista MD LAB - CHEMISTRY ALEXA FUNK Performing Organization Address [facility]/ZIP Co de Phone Number [facility] INSURANCE BILL [address] [place] [address] * HEPATITIS B SURFACE ANTIGEN W RFLX CONFIRMATION (04/03/2023 1:41 PM TIRE GROOVER) Hepatitis B Virus Surface Antigen Negative Negative [facility] INSURANCE BILL Blood BLOOD SPECIMEN / Unknown 04/03/2023 1:41 PM TIRE GROOVER 04/03/2023 Narrative Resulting Agency Comment [facility] performed [facility]: [facility] [address] ??[facility] [id number] Susannah Bautista MD LAB - CHEMISTRY ALEXA FUNK Performing Organization Address City/[facility]/ZIP Co de Phone Number [facility] INSURANCE BILL [address] [place] [address] * (ABNORMAL) HEPATIC FUNCTION PANEL (04/03/2023 1:41 PM TIRE GROOVER) Protein Total 7.3 6.0 - 8.5 g/dL [facility] INSURANCE BILL Albumin 3.8 3.8 - 4.9 g/dL [facility] INSURANCE BILL Bilirubin Total <0.2 0.0 - 1.2 mg/dL [facility] INSURANCE BILL Bilirubin Direct <0.10 0.00 - 0.40 mg/dL [facility] INSURANCE BILL Alkaline Phosphatase 133(H) 44 - 121 IU/L [facility] INSURANCE BILL AST 16 0 - 40 IU/L [facility] INSURANCE BILL ALT 11 0 - 44 IU/L [facility] INSURANCE BILL Blood BLOOD SPECIMEN / Unknown 04/03/2023 1:41 PM TIRE GROOVER 04/03/2023 Narrative Resulting Agency Comment Lab Testing performed at: [facility] [place] [id number] [facility] ??[facility] [id number] Susannah Bautista MD LAB - CHEMISTRY ALEXA FUNK Performing Organization Address City/[facility] Co de Phone Number [facility] INSURANCE BILL [address] [place] [address] * CREATININE BLOOD (04/03/2023 1:41 PM TIRE GROOVER) Pathologist [facility] Creatinine 0.90 0.76 - 1.27 mg/dL [facility] INSURANCE BILL eGFR by CKD-EPI 98 >59 mL/min/1.7 3 [facility] INSURANCE BILL Blood BLOOD SPECIMEN / Unknown 04/03/2023 1:41 PM TIRE GROOVER 04/03/2023 Narrative Resulting Agency Comment Lab Testing performed at: [facility] ??[facility] [phone] Susannah Bautista MD LAB - CHEMISTRY ALEXA FUNK Performing Organization Address [facility] Co de Phone Number [facility] INSURANCE BILL [address] [place] [address] * BRAAK PANEL COMPREHENSIVE (04/03/2023 1:41 PM TIRE GROOVER) Anti-dsDNA Quantitative <1 0 - 9 IU/mL [facility] INSURANCE BILL Comment: ?Negative ?<5 ?Equivocal ??5 - 9 ?Positive ?>9 INFORMATION TECHNOLOGY SECURITY ANALYST Antibody 0.2 0.0 - 0.9 AI [facility] [...] Sm (anti-Griffin) ?SLE ?15 - 30% ?--------- INFORMATION TECHNOLOGY SECURITY ANALYST ?Mixed Connective Tissue ? Disease ? 95% [...] BLOOD SPECIMEN / Unknown 04/03/2023 1:41 PM TIRE GROOVER 04/03/2023 Narrative Resulting Agency Comment Lab Testing performed at: [facility] [address] [place] [address] [facility] [id number] Susannah Bautista MD LAB - SEROLOGY ORDER [facility] INSURANCE BILL [address] [place] [address] * RHEUMATOID FACTOR BLOOD QUANTITATIVE (04/03/2023 1:41 PM TIRE GROOVER) Rheumatoid Factor NOT AVAILABLE IU/mL [facility] INSURANCE BILL Comment: Test not performed. Test cancelled by Healthcare provider after order was submitted to [facility]. Contacted by Heron Daily RN at your facility 04/07/2023. Result cannot be obtained for this observation. Blood BLOOD SPECIMEN / Unknown 04/03/2023 1:41 PM TIRE GROOVER 04/03/2023 Narrative Resulting Agency Comment Lab Testing performed at: [facility] [address] [facility] [id number] Susannah Bautista MD LAB - CHEMISTRY ALEXA FUNK Performing Organization Address [facility] de Phone Number [facility] INSURANCE BILL [address] [place] [address] * (ABNORMAL) CYCLIC CITRULLINATED PEPTIDE(CCP) AB IGG (04/03/2023 1:41 PM TIRE GROOVER) Pathologist [facility] CCP Antibodies IgG/IgA 56(H) <20 Units [facility] INSURANCE BILL Comment: ? Negative: <20 ? Weak Positive: 20-39 ? Moderate Positive: 40-59 ??Strong Positive: >59 Blood BLOOD SPECIMEN / Unknown 04/03/2023 1:41 PM TIRE GROOVER 04/03/2023 Narrative Resulting Agency Comment Lab Testing performed at: [facility] [address] [place] [address] ??[facility] [phone] Susannah Bautista MD LAB - CHEMISTRY ALEXA FUNK Performing Organization Address [facility] de Phone Number [facility] INSURANCE BILL [address] [place] [address] * BARAK BLOOD SCREEN W/REFLEX TITER (04/03/2023 1:41 PM TIRE GROOVER) Pathologist [facility] BARAK NOT AVAILABLE [facility] INSURANCE BILL Comment: Test not performed. Test cancelled by Healthcare provider after order was submitted to [facility]. ?Negative ?? <1:80 ?Borderline ??1:80 ?Positive ?? >1:80 Contacted by Heron Daily RN at your facility 04/07/2023. Result cannot be obtained for this observation. Blood BLOOD SPECIMEN / Unknown 04/03/2023 1:41 PM TIRE GROOVER 04/03/2023 Narrative Resulting Agency Comment Lab Testing performed at: [facility] [address] [facility] [id number] Susannah Bautista MD LAB - CHEMISTRY ALEXA FUNK [facility] INSURANCE BILL [address] [place] [address] * ANCA VASCULITIS PANEL (04/03/2023 1:41 PM TIRE GROOVER) Myeloperoxidase Antibody <0.2 0.0 - 0.9 units [...] up testing of positive sera with both WV-3 and MPO-ANCA enzyme immunoassays. As many as 5% serum samples are positive only by EIA. Ref. AM J Clin Pathol 1999;111:507-513. Atypical p-ANCA Titer <1:20 Neg:<1:20 titer [facility] INSURANCE BILL Comment: The atypical pANCA pattern has been observed in a significant percentage of patients with ulcerative colitis, primary sclerosing cholangitis and autoimmune hepatitis. Blood BLOOD SPECIMEN / Unknown 04/03/2023 1:41 PM TIRE GROOVER 04/03/2023 Narrative Resulting Agency Comment Lab Testing performed at: [facility] [address] ??[facility] [id number] Susannah Bautista MD LAB - CHEMISTRY ALEXA FUNK [facility] INSURANCE BILL [address] [place] [address] * MYOSITIS ANTIBODY PANEL COMPREHENSIVE (04/03/2023 1:41 PM TIRE GROOVER) Luann-1 Antibody <20 <20 Units [facility] [...] <20 Units [facility] INSURANCE BILL Anti-U1 INFORMATION TECHNOLOGY SECURITY ANALYST By EIA <20 <20 Units [facility] INSURANCE BILL U2 sn INFORMATION TECHNOLOGY SECURITY ANALYST Antibody Negative Negative [facility] INSURANCE BILL Fibrillarin (U3 INFORMATION TECHNOLOGY SECURITY ANALYST) Negative Negative [facility] INSURANCE BILL Comment: ? Interpretation for Anti-Luann-1, Cpxu-PBI-5yncyd, ? Anti-MDA-5, Anti-NXP-2, Anti-PM/Scl-100, ? Anti-SS-A 52 kD, Anti-U1 INFORMATION TECHNOLOGY SECURITY ANALYST: ? Negative: ?<20 ? Weak Positive: ? 20 - 39 ? Moderate Positive: ? 40 - 80 ? Strong Positive: ? >80 ? . Blood BLOOD SPECIMEN / Unknown 04/03/2023 1:41 PM TIRE GROOVER 04/03/2023 Narrative [facility] INSURANCE BILL - 04/23/2023 6:12 AM TIRE GROOVER Test(s) 715023-Nkgn-KE-5 Ab (RDL); [id number]-Iloz-ZX-08 Ab (RDL); 716938-Rrnk-XP Ab (RDL); 315542-Sxcr-SI Ab (RDL); 198643- Anti-SRP Ab (RDL); 432661-Whfk-Ha-8 Ab (RDL); [id number]- Uarl-WCF-5xzntu Ab (RDL); 161700-Bqkx-YDA-3 Ab (CADM-140)(RDL); [id number]-Fxmz-MAC-6 (P140) Ab (RDL); 827009-Aeyr-BY/Scl-100 Ab (RDL); 389339-Pfsu-Qn Ab (RDL); 461641-Dffw-VX-U 52kD Ab, IgG (RDL); 535014- was developed and its performance characteristics determined by [employer]. It has not been cleared or approved by the Food and Drug Administration. Resulting Agency Comment Lab Testing performed at: [facility] [address] [place] [address] ??[facility] [phone] Susannah Bautista MD LAB - CHEMISTRY ALEXA FUNK Performing Organization Address [facility]/ZIP Co de Phone Number [facility] INSURANCE BILL [address] [place] [address] * (ABNORMAL) IMMUNOFIXATION BLOOD (04/03/2023 1:41 PM TIRE GROOVER) Immunofixation Result [facility] INSURANCE BILL Comment:No monoclonality det ected. IgG Quantitative 1,412 603 - 1,613 mg/dL [facility] INSURANCE BILL IgA Quantitative 866(H) 90 - 386 mg/dL [facility] INSURANCE BILL Comment: Results confirmed on dilution. IgM Quantitative 62 20 - 172 mg/dL [facility] INSURANCE BILL Blood BLOOD SPECIMEN / Unknown 04/03/2023 1:41 PM TIRE GROOVER 04/03/2023 Narrative Resulting Agency Comment Lab Testing performed at: [facility] [address] [facility] [id number] Susannah Bautista MD LAB - CHEMISTRY ALEXA FUNK Performing Organization Address [facility] Co de Phone Number [facility] INSURANCE BILL [address] [place] [address] * (ABNORMAL) C-REACTIVE PROTEIN (04/03/2023 1:41 PM TIRE GROOVER) Pathologist [facility] C-Reactive Protein 28(H) 0 - 10 mg/L [facility] INSURANCE BILL Blood BLOOD SPECIMEN / Unknown 04/03/2023 1:41 PM TIRE GROOVER 04/03/2023 Narrative Resulting Agency Comment Lab Testing performed at: [facility] [employer] [address] ??[facility] [phone] Susannah Bautista MD LAB - CHEMISTRY ALEXA FUNK Performing Organization Address [facility]/ZIP Co de Phone Number [facility] INSURANCE BILL [address] [place] [address] * CK BLOOD (04/03/2023 1:41 PM TIRE GROOVER) CK 76 41 - 331 U/L [facility] INSURANCE BILL Blood BLOOD SPECIMEN / Unknown 04/03/2023 1:41 PM TIRE GROOVER 04/03/2023 Narrative Resulting Agency Comment Lab Testing performed at: [facility] [address] [facility] [phone] Susannah Bautista MD LAB - CHEMISTRY ALEXA FUNK [facility] INSURANCE BILL [address] [place] [address] * (ABNORMAL) CBC WITH DIFFERENTIAL (04/03/2023 1:41 PM TIRE GROOVER) Pathologist [facility] WBC 8.4 3.4 - 10.8 x10E3/uL [facility] INSURANCE BILL RBC 4.18 4.14 - 5.80 x10E6/uL [facility] INSURANCE BILL Hemoglobin 12.1(L) 13.0 - 17.7 g/dL [facility] INSURANCE BILL Hematocrit 35.8(L) 37.5 - 51.0 % [facility] INSURANCE BILL MCV 86 79 - 97 fL [facility] INSURANCE BILL MCH 28.9 26.6 - 33.0 pg [facility] INSURANCE BILL MCHC 33.8 31.5 - 35.7 g/dL [facility] INSURANCE BILL RDW 13.3 11.6 - 15.4 % [facility] INSURANCE BILL Platelet Count 275 150 - 450 x10E3/uL [facility] INSURANCE BILL Granulocytes % 62 Not Estab. % [facility] INSURANCE BILL Lymphocytes % 24 Not Estab. % [facility] INSURANCE BILL Monocytes % 10 Not Estab. % [facility] INSURANCE BILL Eosinophils % 3 Not Estab. % [facility] INSURANCE BILL Basophils % 1 Not Estab. % [facility] INSURANCE BILL Immature Cells NOT AVAILABLE [facility] INSURANCE BILL Comment:Result cannot be obt ained for this observation. Granulocytes Absolute 5.2 1.4 - 7.0 x10E3/uL [facility] INSURANCE BILL Lymphocytes Absolute 2.0 0.7 - 3.1 x10E3/uL [facility] INSURANCE BILL Monocytes Absolute 0.8 0.1 - 0.9 x10E3/uL [facility] INSURANCE BILL Eosinophils Absolute 0.3 0.0 - 0.4 x10E3/uL [facility] INSURANCE BILL Basophils Absolute 0.0 0.0 - 0.2 x10E3/uL [facility] INSURANCE BILL Immature Granulocytes 0 Not Estab. % [facility] INSURANCE BILL Immature Granulocytes Absolute 0.0 0.0 - 0.1 x10E3/uL [facility] INSURANCE BILL nRBC NOT AVAILABLE [facility] INSURANCE BILL Comment:Result cannot be obt ained for this observation. Comment Hematology NOT AVAILABLE [facility] INSURANCE BILL Comment:Result cannot be obt ained for this observation. Blood BLOOD SPECIMEN / Unknown 04/03/2023 1:41 PM TIRE GROOVER 04/03/2023 Narrative Resulting Agency Comment Lab Testing performed at: [address] ??[facility] [id number] Susannah Bautista MD LAB - HEMATOLOGY ORD ERABLES Performing Organization Address [facility] Co de Phone Number [facility] INSURANCE BILL [address] [place] [address] * ANGIOTENSIN CONVERTING ENZYME BLOOD (04/03/2023 1:41 PM TIRE GROOVER) Pathologist [facility] Angiotensin-Con verting Enzyme 61 14 - 82 U/L [facility] INSURANCE BILL Blood BLOOD SPECIMEN / Unknown 04/03/2023 1:41 PM TIRE GROOVER 04/03/2023 Narrative Resulting Agency Comment Lab Testing performed at: [address] ??[facility] [id number] Susannah Bautista MD LAB - CHEMISTRY ORDE RABLES Performing Organization Address [facility] Co de Phone Number [facility] INSURANCE BILL [address] [place] [address] * (ABNORMAL) RHEUMATOID ARTHRITIS 14-3-3 ETA (04/03/2023 1:25 PM TIRE GROOVER) Pathologist [facility] 14.3.3 eta Protein 0.82(H) ng/mL [facility] INSURANCE BILL Comment: Reference Range: < 0.20 Comments: 14-3-3 eta protein is a joint-derived, proinflammatory communications and signals supervisor that is implicated in the joint erosion [...] be in SDAI remission (1). References: 1. Carrier N, et al. Serum levels of 14-3-3 eta protein ?? supplement C-reactive protein and rheumatoid arthritis- ?? associated antibodies to predict clinical and ?? radiographic outcomes in a ??prospective cohort of ?? patients with recent-onset inflammatory polyarthritis. ?? Arthritis Res Ther 2016;18:37 2. Carol LUCIANO, et al. 14-3-3 eta is a novel communications and signals supervisor ?? associated with the pathogenesis of rheumatoid arthritis ?? and joint damage. Arthritis Res Ther 2014;16:R99. This test was developed and its performance characteristics determined by [employer]. It has not been cleared or approved by the Food and Drug Administration. Blood BLOOD SPECIMEN / Unknown 04/03/2023 1:25 PM TIRE GROOVER 04/03/2023 Narrative Resulting Agency Comment Lab Testing performed at: [facility] [address] [facility] ??[facility] [phone] Susannah Bautista MD LAB - CHEMISTRY ALEXA FUNK [facility] INSURANCE BILL [address] [place] [address] * XR CERVICAL SPINE 2 OR 3VW (04/03/2023) Anatomical Region Laterality Modality Spine Other Susannah Bautista MD DIAGNOSTIC IMAGING O RDERABLES * XR WRIST BILAT 3VW OR MORE (04/03/2023) Anatomical Region Laterality Modality Wrist / Hand, Upper Extremity Ot her Susannah Bautista MD DIAGNOSTIC IMAGING O RDERABLES documented in this encounter Visit Diagnoses Diagnosis Polyarthralgia- Primary Pain in joint, multiple sites Cervicalgia History of rheumatoid arthritis Personal history of arthritis Encounter for long-term (current) use of high-risk medication Encounter for long-term (current) use of other medications Screening examination for pulmonary tuberculosis Other fatigue Myalgia, multiple sites documented in this encounter Care Teams Staff Nurse Midwife Relationship Specialty Start Date End Date Brook Guzman APRN-[employer] HELPER [address] [place] [address] PCP - General Certified Clinical Nurse Specialist 04/03/23 documented as of this encounter
--- OUTSIDE RECORDS SUMMARY | 2024-02-29 23:41 | XMS_ITS | Encounter Summary ---
Author Organization [facility] Address [address] [place] [address]. [place], [place] [id number] [place] [id number] Care Team Providers Care Driver Utility Worker Name Role Phone None, Provider Primary Care Provider Unavaila ble Encounter Details Date Type Department Care Team (Latest Contact Info) Description 12/01/2022 Travel Social History Tobacco Use Types Packs/Day Years Used Date Smoking Tobacco: Never Assessed Sex and Gender Information Value Date Recorded Sex Assigned at Not on file Legal Sex Male 8:11 PM CDT Gender Identity Not on file Sexual Orientation Not on file documented as of this encounter Plan of Treatment Not on file documented as of this encounter Visit Diagnoses Not on filedocumented in this encounter Care Teams Driver Utility Worker Relationship Specialty Start Date End Date None, Provider, PCP - General UNKNOWN PHYSICIAN SPECIALTY 12/01/22 documented as of this encounter
--- OUTSIDE RECORDS SUMMARY | 2024-02-29 23:41 | XMS_ITS | Encounter Summary ---
Author Organization [facility] Address [address] [place] [address] Care Team Providers Care Criminal Investigative Agent Name Role Phone Brook Guzman BALAJI-JUNIOR MECHANICAL ENGINEER Primary Care Provider [phone] Reason for Visit * Reason Comments Rheumatoid Arthritis Encounter Details Date Type Department Care Team (Late st Contact Info) Description 07/28/2023 8:20 AM CDT Office Visit [facility] - Rheumatology [address], [address] [place] [address] Susannah Cortez MD [address] [place] [address] Rheumatoid arthritis of multiple sites without rheumatoid factor (HCC) (Primary Dx); Cervicalgia; Encounter for long-term (current) use of high-risk medication; High total serum IgA; CRP elevated Social History Tobacco Use Types Packs/Day Years [...] Sign Reading Time Taken Comments Blood Pressure 128/84 07/28/2023 8:41 AM CDT Pulse 86 07/28/2023 8:41 AM CDT Temperature - - Respiratory Rate 16 07/28/2023 8:41 AM CDT Oxygen Saturation 99% 07/28/2023 8:41 AM CDT Inhaled Oxygen Concentration - - Weight 71.2 kg (157 lb) 07/28/2023 8:41 AM CDT Height 180.3 cm (5' 11 ) 07/28/2023 8:41 AM CDT Body Mass Index 21.9 07/28/2023 8:41 AM CDT documented in this encounter Patient Instructions * Patient Instructions* Susannah Cortez MD - 07/28/2023 8:59 AM CDT Continue Orencia weekly. Stop it for any infection call your PCP or go to urgent care. Labs at [facility]. Recommend keeping ideal weight and daily stretching. documented in this encounter Progress Notes * Susannah Cortez MD - 07/28/2023 8:49 AM CDT Follow-up Rheumatology Office Note Date of Visit: July 28, 2023 Patient's Primary Care Physician: Brook Guzman APRN-JUNIOR MECHANICAL ENGINEER Referring physician: PCP Chief Complaint/History of Present Illness Subjective Here for follow-up regarding history of rheumatoid arthritis. Has had 8 injection of subcu Orencia without side effects. Has mild chronic pain without joint swelling redness warmth or morning stiffness Has not seen eye doctor. Has some intermittent fussiness of the eyes. No black spots Has chronic decreased range of motion of the joints. No infection Takes as needed Tylenol and ibuprofen Initial HPI: Robinson Noguera is a 58 year old male here sent by PCP [...] which he stopped taking after 8-10 monthsas it stopped helping and his metal box maker left. He has not taken Humira and methotrexate for 4 years according to him he had 4 metal box maker who left in succession . he also took Simponi infusion which did not help. He has not been taking any medicine and complains of lot of joint pain and swelling. He takes ibuprofen. He also has history of neck pain. Family history is negative for any autoimmune disease No cigarettes or alcohol he works in a [employer]. Previous Report(s) Reviewed: I reviewed patient's past medical history, past surgical history,family history,allergies, social history, OBGYN history in females in [facility]. They are noted as follows. Past Medical History: Diagnosis Date Diabetes (HCC) type 2 Past Surgical History: Procedure Laterality Date Lithotripsy 01/2023 Family History Problem Relation Name Age of Onset Diabetes - Type 2 Mother Diabetes - Type 2 Father Hypertension Father Diabetes - Type 2 Maternal Grandmother Diabetes - Type 2 Maternal Grandfather Diabetes - Type 2 Paternal Grandmother Diabetes - Type 2 Paternal Grandfather Allergies Allergen Reactions Penicillins Diarrhea Social History Socioeconomic History Marital status: Spouse name: Not on file Number of children: Not on file Years of education: Not on file Highest education level: Not on file Occupational History Not on file Tobacco Use Smoking status: Never Smokeless tobacco: Never Vaping Use Vaping Use: Never used Substance and Sexual Activity Alcohol use: Not Currently Drug use: Never Sexual activity: Not on file Other Topics Concern Not on file Social History Narrative Not on file Social Determinants of Health [...] parathyroid problems, midback pain Objective Objective: BP 128/84 Pulse 86 Resp 16 Ht 1.803 m (5' 11 ) Wt 71.2 kg (157 lb) SpO2 99% GENERAL: no distress HEENT: No obvious abnormality or lesion SKIN: No rash or vasculitic lesion visible NEURO: nonfocal examination PSYCH: alert and oriented into 3 EXTREMITIES: no edema clubbing or cyanosis MUSCULOSKELETAL: He has mild tenderness of multiple joints of the hands bilaterally and the cervical spine. No synovitis of any joints. Decreased range of motion of the wrists due to pain Lab Review Recent Labs Component Name 08/03/23 0739 WBC 8.0 Recent Labs Component Name 08/03/23 0739 04/03/23 1341 WBC 8.0 8.4 HGB 12.6* 12.1* HCT 38.0* 35.8* PLTCOUNT 211 275 No results found for: NEUTROPHILAB Recent Labs Component Name 08/03/23 0739 CREATININE 0.84 ALBUMIN 3.9 3.6* ALT 14 AST 17 Recent Labs Component Name 08/03/23 0739 04/03/23 1341 CREATININE 0.84 0.90 EGFR - 98 Previous workup: I do not have any recent records other than negative hepatitis-C antibody According to the note from the PCP they do hepatitis-B BARAK panel rheumatoid factor CMP TSH sed rateand PSA, I do not have any results on those labs and we called the doctor's office for those results. Workup ordered by me: X-ray of the C-spine read as moderate DJD C6-7. X-ray of the wrist read as osteoarthritis and widening. I do not see report of the x-ray of the hands. Labs showed elevated CCP antibody at 56, elevated CRP at 28, elevated 1433 eta antibodies at 0.82, elevated IgA at 866 without any monoclonal antibody on serum immunofixation. Rest of the labs were normal/negative including hepatitis-B C rheumatoid factor BARAK. Assessment Assessment: Rheumatoid arthritis of multiple sites without rheumatoid factor (HCC) - Plan: CBC WITH DIFFERENTIAL, C-REACTIVE PROTEIN, CREATININE BLOOD, ERYTHROCYTE SEDIMENTATION RATE, URINALYSIS W/MICROSCOPIC NOCULTURE, HEPATIC FUNCTION PANEL, IMMUNOFIXATION BLOOD, PROTEIN ELECTROPHORESIS BLOOD, PROTEIN CREATININE RATIO URINE RANDOM PNL Cervicalgia - Plan: CBC WITH DIFFERENTIAL, C-REACTIVE PROTEIN, CREATININE BLOOD, ERYTHROCYTE SEDIMENTATION RATE, URINALYSIS W/MICROSCOPIC NO CULTURE, HEPATIC FUNCTION PANEL, IMMUNOFIXATION BLOOD, PROTEIN ELECTROPHORESIS BLOOD, PROTEIN CREATININE RATIO URINE RANDOM PNL Encounter for long-term (current) use of high-risk medication - Plan: CBC WITH DIFFERENTIAL, C-REACTIVE PROTEIN, CREATININE BLOOD, ERYTHROCYTE SEDIMENTATION RATE, URINALYSIS W/MICROSCOPIC NO CULTURE,HEPATIC FUNCTION PANEL, IMMUNOFIXATION BLOOD, PROTEIN ELECTROPHORESIS BLOOD, PROTEIN CREATININE RATIO URINE RANDOM PNL High total serum IgA - Plan: CBC WITH DIFFERENTIAL, C-REACTIVE PROTEIN, CREATININE BLOOD, ERYTHROCYTE SEDIMENTATION RATE, URINALYSIS W/MICROSCOPIC NO CULTURE, HEPATIC FUNCTION PANEL, IMMUNOFIXATION BLOOD, PROTEIN ELECTROPHORESIS BLOOD, PROTEIN CREATININE RATIO URINE RANDOM PNL CRP elevated - Plan: CBC WITH DIFFERENTIAL, C-REACTIVE PROTEIN, CREATININE BLOOD, ERYTHROCYTE SEDIMENTATION RATE, URINALYSIS W/MICROSCOPIC NO CULTURE, HEPATIC FUNCTION PANEL, IMMUNOFIXATION BLOOD, PROTEIN ELECTROPHORESIS BLOOD, PROTEIN CREATININE RATIO URINE RANDOM PNL Patient with long history of rheumatoid arthritis. Previously used methotrexate and Humira which was the last medicine he stopped about 3 and half years ago after his metal box maker left. Previously he took Enbrel Humira Simponi Aria. Enbrel and Humira stopped helping. A lot of pain seems to be noninflammatory possibly due to diabetic neuropathy or cervical radiculopathy. Cervical spine pain not too bad and he does not want to see pain management. He prefers to take Tylenol and ibuprofen as needed and do exercises. His labs did show CCP antibody with rheumatoid factor being negative so he has seronegative RA, CRPwas high and he responded very well to Medrol Dosepak. We do not want to repeat steroid due to history of diabetes and other medical issues. He does not want to take sulfasalazine as he wants to avoid regular labs. Also has GI issues Taking Orencia without any side effects. He wants to continue it knowing risk. Repeat labs including IgA level. Check monitoring labs. Patient should keep on seeing Primary Care Provider for routine medical care and cancer screening appropriate for age and risk factors Plan Plan: Medications Discontinued During This Encounter Medication Reason fluconazole (Diflucan) 100 MG tablet No Pharm No AVS sildenafil (Revatio) 20 MG tablet No Pharm No AVS sulfamethoxazole-trimethoprim (Bactrim DS; Septra DS) 800-160 MG tablet No Pharm No AVS tamsulosin (Flomax) 0.4 MG capsule No Pharm No AVS traMADol (Ultram) 50 MG tablet No Pharm No AVS Current Outpatient Medications Medication Sig Dispense Refill abatacept (Orencia ClickJect) 125 MG/ML auto-injector pen Inject 1 mL subcutaneously every 7 days Pen 4 mL 5 Basaglar KwikPen (Basaglar) pen ADMINISTER 15 UNITS UNDER THE SKIN EVERY EVENING levothyroxine (Synthroid) 50 MCG tablet Take 1.5 (one and one-half) tablets by mouth once daily methylPREDNISolone (Medrol Dosepak) 4 MG tablet Take by mouth as directed Take as directed by mouthper package instructions. (Patient not taking: Reported on 05/01/2023) 21 tablet 0 Ozempic, 0.25 or 0.5 MG/DOSE, 2 MG/3ML SOPN INJECT 0.5 MG UNDER THE SKIN WEEKLY (Patient not taking: Reported on 07/28/2023) triamcinolone acetonide (Kenalog) 0.1 % cream APPLY TOPICALLY TO LEG TWICE DAILY FOR 5 DAYS No current facility-administered medications for this visit. Orders Placed This Encounter CBC WITH DIFFERENTIAL Order Specific Question: Release to patient Answer: Immediate C-REACTIVE PROTEIN Order Specific Question: Release to patient Answer: Immediate CREATININE BLOOD Order Specific Question: Release to patient Answer: Immediate ERYTHROCYTE SEDIMENTATION RATE Order Specific Question: Release to patient Answer: Immediate URINALYSIS W/MICROSCOPIC NO CULTURE Order Specific Question: Release to patient Answer: Immediate HEPATIC FUNCTION PANEL Order Specific Question: Release to patient Answer: Immediate IMMUNOFIXATION BLOOD Order Specific Question: Release to patient Answer: Immediate PROTEIN ELECTROPHORESIS BLOOD Order Specific Question: Release to patient Answer: Immediate PROTEIN CREATININE RATIO URINE RANDOM PNL Order Specific Question: Release to patient Answer: Immediate Call sooner for any problems. Return in about 3 months (around 10/28/2023). Cc: * Darlin Galdamez MA - 07/28/2023 8:43 AM CDT THESE ARE NOT CLINICAL NOTES BY DARLIN PRICE THESE ARE NOTES FOR DR CORTEZ TO REFERENCE DURING HIS NOTE BUILDING DUE TO HIM NOT BEING ABLE TO WRITE DUE TO A BROKEN HAND. DARLIN SCRIBED ALL NOTES IN THE ROOM WITH DR CORTEZ DURING THE APPOINTMENT PERDR CORTEZ. 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 Discussed his Wrist are stiff Discussed possible referral to OT Discussed benefits and risks of orencica Discussed need for labs (pt request [facility]) Discussed need for eye exam Discussed possible inflammation behind an eye Discussed continuing orencia Discussed RA symptoms Discussed possible damage already done to joints documented in this encounter Plan of Treatment Upcoming Encounters Date Type Department Care Team (Late st Contact Info) Description 03/08/2024 8:20 AM ELECTROMECHANIC Office Visit [facility] - Rheumatology [address], [address] [place] [address] Susannah Cortez MD [address] [place] [address] documented as of this encounter Procedures Procedure Name Priority Date/Time Associated Diagnosis Comments URINALYSIS W/MICROSCOPIC NO CULTURE Routine 08/03/2023 7:39 AM CDT Rheumatoid arthritis of multiple sites without rheumatoid factor (HCC) Cervicalgia Encounter for long-term (current) use of high-risk medication High total serum IgA CRP elevated IMMUNOFIXATION BLOOD Routine 08/03/2023 7:39 AM CDT Rheumatoid arthritis of multiple sites without rheumatoid factor (HCC) Cervicalgia Encounter for long-term (current) use of high-risk medication High total serum IgA CRP elevated C-REACTIVE PROTEIN Routine 08/03/2023 7: 39 AM CDT Rheumatoid arthritis of multiple sites without rheumatoid factor (HCC) Cervicalgia Encounter for long-term (current) use of high-risk medication High total serum IgA CRP elevated ERYTHROCYTE SEDIMENTATION RATE Routine 08/03/2023 7:39 AM CDT Rheumatoid arthritis of multiple sites without rheumatoid factor (HCC) Cervicalgia Encounter for long-term (current) use of high-risk medication High total serum IgA CRP elevated CBC W AUTO DIFFERENTIAL Routine 08/03/19 24 7:39 AM CDT Rheumatoid arthritis of multiple sites without rheumatoid factor (HCC) Cervicalgia Encounter for long-term (current) use of high-risk medication High total serum IgA CRP elevated PROTEIN CREATININE RATIO URINE RANDOM PNL Routine 08/03/2023 7:39 AM CDT Rheumatoid arthritis of multiple sites without rheumatoid factor (HCC) Cervicalgia Encounter for long-term (current) use of high-risk medication High total serum IgA CRP elevated HEPATIC FUNCTION PANEL Routine 7:39 AM CDT Rheumatoid arthritis of multiple sites without rheumatoid factor (HCC) Cervicalgia Encounter for long-term (current) use of high-risk medication High total serum IgA CRP elevated CREATININE BLOOD Routine 08/03/2023 7:39 AM CDT Rheumatoid arthritis of multiple sites without rheumatoid factor (HCC) Cervicalgia Encounter for long-term (current) use of high-risk medication High total serum IgA CRP elevated PROTEIN ELECTROPHORESIS BLOOD Routine 08/03/2023 7:39 AM CDT Rheumatoid arthritis of multiple sites without rheumatoid factor (HCC) Cervicalgia Encounter for long-term (current) use of high-risk medication High total serum IgA CRP elevated documented in this encounter Results * (ABNORMAL) PROTEIN CREATININE RATIO URINE RANDOM PNL (08/03/2023 7:39 AM CDT) Creatinine Urine 64 20 - 320 mg/dL [facility] Protein/Creatini ne Ratio 875(H) 25 - 148 mg/g creat [facility] Protein/Creatini ne Ratio 0.875(H) 0.025 - 0.148 mg/mg creat [facility] Protein Random Urine 56(H) 5 - 25 mg/dL [facility] Comment: Test Performed at: [facility] [id number] [place] [address] ??[phone] JENNA EPPS MD Urine URINE SPECIMEN OBTAINED BY CLEAN CATCH PROCEDURE / Unknown 08/03/2023 7:39 AM CDT 08/03/2023 7:40 AM CDT Susannah Cortez MD LAB - URINE CHEMISTR Y ORDERABLES [facility] [address] [place] [address] * (ABNORMAL) PROTEIN ELECTROPHORESIS BLOOD (08/03/2023 7:39 AM CDT) Protein Total 7.0 6.1 - 8.1 g/dL [facility] Albumin 3.6(L) 3.8 - 4.8 g/dL [facility] Alpha-1 Globulin 0.3 0.2 - 0.3 g/dL [facility] Cwfpy-7-Kqhrgolb 0.8 0.5 - 0.9 g/dL [facility] Beta-1 [...] restricted band (M-spike) seen. Test Performed at: [facility] [address] [place], [place] ??[phone] JENNA EPPS MD Blood BLOOD SPECIMEN / Unknown 08/03/2023 7:39 AM CDT 08/03/2023 7:40 AM CDT Susannah Cortez MD LAB - CHEMISTRY ALEXA FUNK Performing Organization Address [facility] de Phone Number [facility] [address] [place] [address] * IMMUNOFIXATION BLOOD (08/03/2023 7:39 AM CDT) Pathologist [facility] Interpretation Normal pattern. [facility] Comment: No monoclonal proteins detected. Test Performed at: [facility]/[address] ??[phone] HORACIO VELASCO MD,PHD Blood BLOOD SPECIMEN / Unknown 08/03/2023 7:39 AM CDT 08/03/2023 7:40 AM CDT Susannah Cortez MD LAB - CHEMISTRY ALEXA FUNK Performing Organization Address [facility] Co de Phone Number [facility] [address] [place] [id number] * HEPATIC FUNCTION PANEL (08/03/2023 7:39 AM CDT) Pathologist [facility] Protein Total 7.0 6.1 - 8.1 g/dL [...] 46 U/L [facility] Comment: Test Performed at: [facility] [place] [address] [place], [place] ??[phone] JENNA EPPS MD Blood BLOOD SPECIMEN / Unknown 08/03/2023 7:39 AM CDT 08/03/2023 7:40 AM CDT Susannah Cortez MD LAB - CHEMISTRY ORDE RABLES Performing Organization Address [facility] Co de Phone Number [facility] [address] [place] [address] * (ABNORMAL) URINALYSIS W/MICROSCOPIC NO CULTURE (08/03/2023 7:39 AM CDT) Color UA YELLOW YELLOW [facility] Appearance CLEAR CLEAR [facility] Specific [place] UA 1.014 1.001 - 1.035 [facility] pH [...] SEEN /HPF [facility] Comment: Test Performed at: [address] [address] [place], [place] ??[phone] JENNA EPPS MD Urine URINE SPECIMEN OBTAINED BY CLEAN CATCH PROCEDURE / Unknown 08/03/2023 7:39 AM CDT 08/03/2023 7:40 AM CDT Susannah Cortez MD LAB - URINALYSIS ORD ERABLES Performing Organization Address [facility] Co de Phone Number [facility] [address] [place] [address] * (ABNORMAL) ERYTHROCYTE SEDIMENTATION RATE (08/03/2023 7:39 AM CDT) Erythrocyte Sedimentation Rate Westergren 48(H) < OR = 20 mm/h [facility] Comment: Test Performed at: [facility] [address] [place], [place] ??[phone] JENNA EPPS MD Blood BLOOD SPECIMEN / Unknown 08/03/2023 7:39 AM CDT 08/03/2023 7:40 AM CDT Susannah Cortez MD LAB - HEMATOLOGY ORD ERABLES Performing Organization Address City/[facility]/ZIP Co de Phone Number [place] [phone] * CREATININE BLOOD (08/03/2023 7:39 AM CDT) Creatinine 0.84 0.70 - 1.35 mg/dL [facility] eGFR by Cystatin C 100 > OR = 60 mL/min/1.7 3m2 [facility] Comment: Test Performed at: [facility] [address] [place] [address] ??[phone] JENNA EPPS MD Blood BLOOD SPECIMEN / Unknown 08/03/2023 7:39 AM CDT 08/03/2023 7:40 AM CDT Susannah Cortez MD LAB - CHEMISTRY ORDE RABLES Performing Organization Address City/[facility]/ZIP Co de Phone Number [address] [address] * (ABNORMAL) C-REACTIVE PROTEIN (08/03/2023 7:39 AM CDT) C-Reactive Protein 9.4(H) <8.0 mg/L [facility] Comment: Test Performed at: [facility] [address] [place] ??[phone] JENNA EPPS MD Blood BLOOD SPECIMEN / Unknown 08/03/2023 7:39 AM CDT 08/03/2023 7:40 AM CDT Susannah Cortez MD LAB - CHEMISTRY ALEXA FUNK Performing Organization Address City/[facility]/ZIP Co de Phone Number [facility] [address] [place] [address] * (ABNORMAL) CBC WITH DIFFERENTIAL (08/03/2023 7:39 AM CDT) White Blood Cell Count 8.0 3.8 - [...] 0.4 % [facility] Comment: Test Performed at: [address] [address] [place], [place] ??[phone] JENNA EPPS MD Blasts [facility] nRBC [facility] Comments [facility] Comment: Test Performed at: [address] [address] [place], [place] ??[phone] JENNA EPPS MD Blood BLOOD SPECIMEN / Unknown 08/03/2023 7:39 AM CDT 08/03/2023 7:40 AM CDT Susannah Cortez MD LAB - HEMATOLOGY ORD JAIDEN [facility] [address] [place] [address] documented in this encounter Visit Diagnoses Diagnosis Rheumatoid arthritis of multiple sites without rheumatoid factor (HCC)- Primary Rheumatoid arthritis Cervicalgia Encounter for long-term (current) use of high-risk medication Encounter for long-term (current) use of other medications High total serum IgA CRP elevated Elevated C-reactive protein (CRP) documented in this encounter Care Teams Criminal Investigative Agent Relationship Specialty Start Date End Date Brook Guzman APRN-JUNIOR MECHANICAL ENGINEER [address] [place] [address] PCP - General Certified Clinical Nurse Specialist 04/03/23 documented as of this encounter
--- OUTSIDE RECORDS SUMMARY | 2024-02-29 23:41 | XMS_ITS | Clinical Summary ---
Author Organization [facility] Address [address] [place] [address] Care Team Providers Care Global Mobility Specialist Name Role Phone Brook Guzman BALAJI-NUCLEAR PLANT OPERATOR Primary Care Provider [phone] Source Comments [facility],non-owned Affiliates and Associated Physician Practices is amultiple site organization consisting of ambulatory clinics and hospital sitesin [place], [place], [place] and [place]. This disclosure is being madepursuant to the Care Everywhere program and may not contain all information available regarding this patient. Last updated 17.[facility] Allergies Active Allergy Reactions Criticality Noted Date [...] Active Active Problems No known active problems Family History Medical History Relation Name Comments Diabetes - Type 2 Father Hypertension Father Diabetes - Type 2 Maternal Grandfather Diabetes - Type 2 Maternal Grandmother Diabetes - Type 2 Mother Diabetes - Type 2 Paternal Grandfather Diabetes - Type 2 Paternal Grandmother Relation Name Status Comments Father Maternal Grandfather Maternal Grandmother Mother Paternal Grandfather Paternal Grandmother Social History Tobacco Use Types Packs/Day Years [...] st Contact Info) Description 03/08/2024 8:20 AM LICENSED TAX CONSULTANT Office Visit [facility] - Rheumatology [address], [address] [place] [address] Susannah Bautista MD [address] [place] [address] Health Maintenance Due Date Last Done Comments COLOGUARD (AGES 45-75) - COL ON CA SCREENING 1963 COLON MONITORING 1963 COLONOSCOPY - COLON CA SCREENING 1963 CT COLONOGRAPHY - COLON CA SCREENING 1963 Colorectal Cancer Screening 1963 FIT - COLON CA SCREENING 1963 FLEX SIG - COLON CA SCREENING 1963 LIPID TESTING 1963 HIV SCREENING 05/23/1978 HEPATITIS C SCREENING 05/19/1981 DTAP/TDAP/TD VACCINES (1 - Tdap) 05/23/1982 ZOSTER VACCINE (1 of 2) 05/23/2013 Respiratory Syncytial Virus (RSV) Vaccine Pt: or over 60 yrs (1 - Risk 60-74 years 1-dose series) 2023 COVID-19 VACCINE ( - 2023-2 5 season) 2023 INFLUENZA VACCINE (#1) 2023 DEPRESSION SCREENING 02/24/2024 HEPATITIS B VACCINE Aged Out No longe r eligible based on patient's age to complete this topic HIB VACCINE Aged Out No longer eligi ble based on patient's age to complete this topic HPV VACCINE Aged Out No longer eligi ble based on patient's age to complete this topic MENINGOCOCCAL VACCINE Aged Out No cb robyn eligible based on patient's age to complete this topic PNEUMOCOCCAL VACCINE Aged Out No long er eligible based on patient's age to complete this topic Care Teams Global Mobility Specialist Relationship Specialty Start Date End Date Brook Guzman APRN-NUCLEAR PLANT OPERATOR [address] [place] [address] PCP - General Certified Clinical Nurse Specialist 04/03/23
--- OUTSIDE RECORDS SUMMARY | 2024-02-29 23:41 | XMS_ITS | Encounter Summary ---
Author Organization [facility] Address [address] [place] [address] Care Team Providers Care Photographic Technician Name Role Phone Brook Guzman APRN-VEHICLE INSURANCE AGENT Primary Care Provider [phone] Reason for Visit * Reason Onset Date Comments Medication Prior Auth Request 05/01/2023 Encounter Details Date Type Department Care Team (Late st Contact Info) Description 05/01/2023 Refill [facility] - Rheumatology [address], [address] [place] [address] Susannah Bautista MD [address] [place] [address] Medication Prior Auth Request Social History Tobacco Use Types Packs/Day Years Used Date Smoking Tobacco: Never Smokeless Tobacco: Never Alcohol Use Standard Drinks/Week Comments Not Currently 0 (1 standard drink = 0.6 oz pur e alcohol) Sex and Gender Information Value Date Recorded Sex Assigned at Not on file Gender Identity Not on file Sexual Orientation Not on file documented as of this encounter Miscellaneous Notes * Addendum Note - Bruce Daily RN - 05/19/2023 1:36 PM CDTAddended by: BRUCE DAIYL on: 05/19/2023 01:36 PM Modules accepted: Orders * Telephone Encounter - Bruce Daily RN - 05/19/2023 1:30 PM CDT Contacted patient and informed them that their Orencia was approved and the script will be sent over to the pharmacy by Dr. Bautista. Patient advised to contact the office if they do not hear from the pharmacy to schedule delivery in the next few days or if the cost of the medication is high. Patient informed that patient assistance programs and co-pay assistance cards are available if needed potentially (Patient advised to view [employer] message). Patient also informed thatfirst dose education training is available at the office if desired once the medication is received. Patient reminded to keep medication refrigerated until 10-20 minutes prior to injection. Patient advised to contact the office if any side effects/adverse reactions occur after starting the new medication including, but not limited to infection, new onset high blood pressure, nausea, headache, etc. Patient informed that new medication may take several months to reach full effectiveness. Patient questions and concerns addressed and no further questions at this time. * Telephone Encounter - Niecy Griffin CPhT - 05/19/2023 12:29 PM CDT Medication Prior Authorization-Approval ?? Medication: Orencia 125mg/ml pre-filled syringe or auto-injector (whichever preferred with the plan) ?? 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 Status: Approved 05/19/2023 through 05/18/2024 ?? Insurance: [employer] Prescription Benefit ID#: [id number] Case/Reference number: ID: [id number] Please send prescription to [facility]. Patient has already enrolled in the Orencia savings program. Approval notice has been uploaded into the media tab. 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 Some people do not respond very well to TNF inhibitors. Please proceed with prior authorization on Orencia. Thank you * Telephone Encounter - Bruce Daily RN - 05/18/2023 10:53 AM CDT Patient contacted and informed of Dr. Bautista's below response. Patient wanted to clarify that the humira was helping for a few months but then stopped working. If needed patient says he would be willing to try humira again. All questions and concerns addressed, patient verbalized understanding and nofurther questions at this time. * Telephone Encounter - Susannah Bautista MD - 05/18/2023 10:32 AM CDT Please check with the patient regarding Humira. He did say that the Enbrel stopped helping. If his insurance requires failure of 2 anti TNF agents, please check if Humira stopped helping or if it helped. If it helped, I am okay with Humira as it seems to work faster than Orencia. If he sees that Humira stopped helping, please let me know so I can update the note and we can get prior authorization on Orencia. Thank you * Telephone Encounter - Niecy Griffin CPhT - 05/18/2023 10:07 AM CDT Jackie has denied the Orencia. The denial notice statement did not match what had been submitted from the PA, so I reached out to the plan ( ). I was connected with [facility] Special[facility] PA dept rep, Yohana. After reviewing the denial, she stated the reason was because the chart notes state the patient stopped the Humira but not that it was ineffective. Yohana stated that an addendem with documentation of the Humira failure could be submitted for reconsideration. Please update the chart notes to reflect the patient's trial and failure of the Humira. If that is not accurate, the patient will have to be on a preferred therapy before the Orencia will be approved. Please review and advise. Full denial notice has been uploaded into the media tab. Medication Prior Authorization-Denial ?? Medication: Orencia 125mg/ml auto-injector ?? Diagnosis/ICD 10: Seronegative RA M06.09 Submitted via: Cover My Meds ([place]: [id number]) ?? Status: Denied-not sufficient documentation showing usage of at least 2 preferred therapies (i.e. Enbrel and Humira) ?? Insurance: [employer] Prescription Benefit ID#: [id number] Case/Reference number: [id number] * Telephone Encounter - Niecy Griffin CPhT - 05/15/2023 3:18 PM CDT Medication Prior Authorization-Submitted (marked as urgent) Medication: Orencia 125mg/ml auto-injector Diagnosis/ICD 10: Seronegative RA M06.09 Submitted via: Cover My Meds ([place]: [id number]) Status: Submitted-Pending Determination Insurance: [employer] Prescription Benefit ID#: [id number] Case/Reference number: N/A * Telephone Encounter - Niecy Griffin CPhT - 05/15/2023 2:51 PM CDT Prior authorization has been requested. Will update further once the question set has generated andPA has been fully submitted. * Telephone Encounter - Vladimir Giron - 05/08/2023 1:47 PM CDT Pt called the office to inquire about his Orencia status. Pt was advised it was still in initial prior authorization status. Discussed that briefly with pt as well as that patient assistance may alsobe necessary, but pt stated he had already gone online and gotten a copay card set up to help with Orencia, he just needed the prescription. Pt was told it was still well within normal time frame forhow long insurance can take to respond to PA requests, but that a note would be sent to the pharmacy front line leader to follow up on the PA request and advising her that pt has already completed patient assistance. * Telephone Encounter - Niecy Griffin CPhT - 05/01/2023 12:09 PM CST ----- Message from Susannah Bautista MD sent at 05/01/2023 11:40 AM PSYCH ARNP ----- Please get prior authorization on Orencia injection 125 mg subQ weekly. Reason is M06.09. He has taken methotrexate, hydroxychloroquine, anti TNF agents in the past. Due to elevated liver test we can not use leflunomide. TB test and hepatitis-B C testing negative. Thank you H ARNP documented in this encounter Plan of Treatment Upcoming Encounters Date Type Department Care Team (Late st Contact Info) Description 03/08/2024 8:20 AM PSYCH ARNP Office Visit [facility] - Rheumatology [address], [address] [place] [address] Susannah Bautista MD [address] [place] [address] documented as of this encounter Visit Diagnoses Diagnosis Rheumatoid arthritis of multiple sites without rheumatoid factor (HCC)- Primary Rheumatoid arthritis documented in this encounter Care Teams Photographic Technician Relationship Specialty Start Date End Date Brook Guzman APRN-VEHICLE INSURANCE AGENT [address] [place] [address] PCP - General Certified Clinical Nurse Specialist 04/03/23 documented as of this encounter
--- OUTSIDE RECORDS SUMMARY | 2024-02-29 23:41 | XMS_ITS | Encounter Summary ---
Author Organization [facility] Address [address] [place] [address] Care Team Providers Care Psychiatric Registered Nurse Name Role Phone Brook Guzman APRN-WASHING MACHINE REPAIRER Primary Care Provider [phone] Reason for Visit * Reason Onset Date Comments Record Request 04/03/2023 Encounter Details Date Type Department Care Team (Late st Contact Info) Description 04/03/2023 Telephone [facility] - Rheumatology [address], [address] [place] [address] Susannah Bautista MD [address] [place] [address] Record Request Social History Tobacco Use Types Packs/Day [...] as of this encounter Miscellaneous Notes * Telephone Encounter - Heron Daily RN - 04/06/2023 2:51 PM CST Received additional labs from the patient PCP office that were previously not received. These labs included some of the labs added on at [facility] earlier today including a RF, Hepatitis B surface antigen and core antibody, and the BARAK blood screen w reflex to titer. Called [facility] back and cancelledthe above add on labs since they were already completed. Remaining tests will be added on as requested by Dr. Bautista. Labs uploaded to media. CRANE OPERATOR * Telephone Encounter - Heron Daily RN - 04/06/2023 1:46 PM CST Called [facility] and spoke with Lab Director Sierra who informed me that the ANCA, CBC, PEDRO, Immunofixation, CRP, Myomarker profile, Quantiferon TB, and RA 14-3-3 protein labs were drawn. Attempted toadd on the remaining labs and was informed that they would be added if enough specimen was available. Unfortunately the ESR cannot be added due to time constraints. Will update Dr. Bautista. CRANE OPERATOR * Telephone Encounter - Susannah Bautista MD - 04/03/2023 1:55 PM CST I ordered rest of the labs. You can check Thursday if they can add some of these or all of these extra labs. Thank you CRANE OPERATOR * Telephone Encounter - Heron Daily RN - 04/03/2023 1:41 PM CST Patient contacted and informed of Dr. Bautista's below response. All questions and concerns addressed, patient verbalized understanding but he just left the lab and had the blood drawn already. Will update Dr. Bautista. CRANE OPERATOR * Telephone Encounter - Susannah Bautista MD - 04/03/2023 1:30 PM CST Please call patient. The lab reports send by PCP saw office does not include many of the test mentioned in her last note, like BARAK rheumatoid factor and other tests which I did not order today. If the patient has not drawn blood work yet, I can send more orders which he can do along with the orders I gave him in the morning. Thank you CRANE OPERATOR * Telephone Encounter - Heron Daily RN - 04/03/2023 11:46 AM CST Called patient PCP office and was transferred to medical records. Spoke with medical records staff who informed me that a faxed request would need to be sent to [phone]. Done. Will await records. CRANE OPERATOR * Telephone Encounter - Heron Daily RN - 04/03/2023 11:45 AM CST ----- Message from Susannah Bautista MD sent at 04/03/2023 10:29 AM MILL CRANE OPERATOR ----- He had labs done by his PCP recently but they did not give us report. Please have them fax us the report as soon as possible. Thank you CRANE OPERATOR documented in this encounter Plan of Treatment Upcoming Encounters Date Type Department Care Team (Late st Contact Info) Description 03/08/2024 8:20 AM MILL CRANE OPERATOR Office Visit [facility] - Rheumatology [address], [address] [place] [address] Susannah Bautista MD [address] [place] [address] documented as of this encounter Visit Diagnoses Not on filedocumented in this encounter Care Teams Psychiatric Registered Nurse Relationship Specialty Start Date End Date Brook Guzman APRN-WASHING MACHINE REPAIRER [address] [place] [id number] PCP - General Certified Clinical Nurse Specialist 04/03/23 documented as of this encounter
--- OUTSIDE RECORDS SUMMARY | 2024-02-29 23:41 | XMS_ITS | Encounter Summary ---
Author Organization [facility] Address [address] [place] [address] Care Team Providers Care Campaign Coordinator Name Role Phone Unavailable Primary Care Provider Unavailabl e Reason for Visit * Reason Comments PPD Skin Test Placement Encounter Details Date Type Department Care Team (Late st Contact Info) Description 10/18/2020 4:00 PM CDT Office Visit [facility] AT [address] [address] Provider, [facility] Exp [facility] Encounter for screening for respiratory tuberculosis (Primary Dx) Social History Tobacco Use Types Packs/Day Years [...] PM CDT documented as of this encounter Progress Notes * Latia Natarajan, LOCOMOTIVE BOILERMAKER-DECONTAMINATION TECHNICIAN - 10/18/2020 3:54 PM CDT PPD Placement note Robinson Chuckie, 55 year old male is here today for placement of PPD test Reason for PPD test: work Pt taken PPD test before: yes Verified in allergy area and with patient that they are not allergic to the products PPD is made of(Phenol or Tween). Yes Is patient taking any oral or IV steroid medication now or have they taken it in the last month? no Has the patient ever received the BCG vaccine?: no Has the patient had a COVID-19 vaccine in the last 4 weeks: no Has the patient been in recent contact with anyone known or suspected of having active TB disease?:no Date of exposure (if applicable): Name of person they were exposed to (if applicable): Patient's Country of origin?: O: Alert and oriented in NAD. P: PPD placed on 10/18/2020. Patient advised to return for reading within 48-72 hours. documented in this encounter Plan of Treatment Upcoming Encounters Date Type Department Care Team (Late st Contact Info) Description 03/08/2024 8:20 AM SOFTWARE CONFIGURATION MANAGER Office Visit [facility] - Rheumatology [address], [address] [place] [address] Susannah Bautista MD [address] [place] [address] documented as of this encounter Procedures Procedure Name Priority Date/Time Associated Diagnosis Comments SKIN TEST PPD - POINT OF CARE Routine 10/18/2020 4:00 PM CDT Encounter for screening for respiratory tuberculosis documented in this encounter Results * SKIN TEST PPD - POINT OF CARE (10/18/2020 4:00 PM CDT) PPD 0 mm [facility] Other MISCELLANEOUS SAMPLE S / Unknown 10/18/2020 4:00 PM CDT [facility] - POINT OF CARE ORDERABLES [facility] [address] [phone] documented in this encounter Visit Diagnoses Diagnosis Encounter for screening for respiratory tuberculosis- Primary Screening examination for pulmonary tuberculosis documented in this encounter Administered Medications Administered Medications Medication Order MAR Action Action Date Dose Rate Site PPD Intradermal Given 10/18/2020 0.1 mL Left Forearm documented in this encounter
--- OUTSIDE RECORDS SUMMARY | 2024-02-29 23:41 | XMS_ITS | Encounter Summary ---
Author Organization [facility] Address [address] [place] [address] Care Team Providers Care Spinner Fixer Name Role Phone Brook Guzman APRN-LAB SYSTEMS ANALYST Primary Care Provider [phone] Reason for Visit * Reason Onset Date Comments Update 04/03/2023 Encounter Details Date Type Department Care Team (Late Contact Info) Description 04/03/2023 Telephone [facility] - Rheumatology [address], [address] [place] [address] Susannah Bautista MD [address] [place] [address] Update Social History Tobacco Use Types Packs/Day Years [...] Encounter - Heron Daily RN - 04/03/2023 11:39 AM CST Patient called the office and requested that his x-ray orders from Dr. Bautista be faxed to [facility] imaging at fax [phone]. Done. Patient informed of this and verbalized understanding and had no further questions or concerns at this time. CARRIER documented in this encounter Plan of Treatment Upcoming Encounters Date Type Department Care Team (Late st Contact Info) Description 03/08/2024 8:20 AM TIE CARRIER Office Visit [facility] - Rheumatology [address], [address] [place] [address] Susannah Bautista MD [address] [place] [address] documented as of this encounter Visit Diagnoses Not on filedocumented in this encounter Care Teams Spinner Fixer Relationship Specialty Start Date End Date Brook Guzman APRN-LAB SYSTEMS ANALYST [address] [place] [address] PCP - General Certified Clinical Nurse Specialist 04/03/23 documented as of this encounter
--- OUTSIDE RECORDS SUMMARY | 2024-02-29 23:41 | XMS_ITS | Encounter Summary ---
Author Organization [facility] Address [address] [place] [address] Care Team Providers Care Customer Service Representative Teller Name Role Phone Brook Guzman APRN-BURGLARY INVESTIGATOR Primary Care Provider [phone] Reason for Visit * Reason Onset Date Comments Med Question 05/18/2023 Encounter Details Date Type Department Care Team (Late st Contact Info) Description 05/18/2023 Telephone [facility] - Rheumatology [address], [address] [place] [address] Susannah Bautista MD [address] [place] [address] Med Question Social History Tobacco Use Types Packs/Day Years [...] Telephone Encounter - Heron Daily RN - 05/18/2023 10:28 AM CDT Please see 05/01/2023 telephone encounter for resolution of this encounter. * Telephone Encounter - Susannah Bautista MD - 05/18/2023 9:49 AM CDT Okay with me. Thank you * Telephone Encounter - Jessica France LPN - 05/18/2023 9:40 AM CDT Patient calling to report his insurance Bc/bs insurance will approve a vial orencia with syringes ,as opposed to pen injector . Patient staes he's fine with that , he just wants to start it AISHA since he's having a lot of pain. Please call him back to let him know outcome. documented in this encounter Plan of Treatment Upcoming Encounters Date Type Department Care Team (Late st Contact Info) Description 03/08/2024 8:20 AM BARREL COATER Office Visit [facility] - Rheumatology [address], [address] [place] [address] Susannah Bautista MD [address] [place] [address] documented as of this encounter Visit Diagnoses Not on filedocumented in this encounter Care Teams Customer Service Representative Teller Relationship Specialty Start Date End Date Brook Guzman APRN-BURGLARY INVESTIGATOR [address] [place] [address] PCP - General Certified Clinical Nurse Specialist 04/03/23 documented as of this encounter
--- OUTSIDE RECORDS SUMMARY | 2024-02-29 23:41 | XMS_ITS | Encounter Summary ---
Author Organization [facility] Address [address] [place] [address] Care Team Providers Care Linoleum Layer Apprentice Name Role Phone Brook Guzman APRN-CONSTRUCTION SUPERVISOR/CARPENTER Primary Care Provider [phone] Reason for Visit * Reason Onset Date Comments Medication Problem 08/20/2023 Encounter Details Date Type Department Care Team (Late st Contact Info) Description 08/20/2023 Telephone [facility] - Rheumatology [address], [address] [place] [address] Susannah Bautista MD [address] [place] [address] Medication Problem Social History Tobacco Use Types Packs/Day Years [...] encounter Miscellaneous Notes * Telephone Encounter - Niecy Griffin rv body mechanic - 08/20/2023 4:17 PM CDT [facility]ed [facility] and spoke with wendie Tinoco. She stated that the [employer] was being run through the IM[employer] program but it was only covering just under $600 out of the $4000+ co-pay. I then called the [facility] program ( ) and spoke with rep Luque. She stated that the patient would need to be brought to the line in order for her to assist. I reached out to thepatient and was able to conference him into the call. Once on the call together, Ene stated that the patient would qualify for an additional savings card with the full funds of $15,000. However, due to their HIPAA guidelines, I was unable to remain on the call but advised the patient to call meif he has any issues or to let me know he was able to get set up for his Orencia refill. The patient verbalized understanding and the call was ended. * Telephone Encounter - Vladimir Giron - 08/20/2023 3:30 PM CDT Received a call from pt stating that he had attempted to refill his medication through his pharmacyas he only has his Orencia for this weekend but not any more. Agent stated the pharmacy told him they could ship tomorrow but would cost $3500. Pt stated he is not on patient assistance and that he has spoken with his insurance who confirmed they were still covering it and he had already met his deductible for the year. Briefly reviewed the case with pharmacy brittny Pemberton who did not immediately see any reason for the [place] change. Pt was informed, per Niecy, this change would be investigated further and he would be called with an update once more information was found. documented in this encounter Plan of Treatment Upcoming Encounters Date Type Department Care Team (Late st Contact Info) Description 03/08/2024 8:20 AM BLOCKER AND POLISHER GOLD WHEEL Office Visit [facility] - Rheumatology [address], [address] [place] [address] Susannah Bautista MD [address] [place] [address] documented as of this encounter Visit Diagnoses Not on filedocumented in this encounter Care Teams Linoleum Layer Apprentice Relationship Specialty Start Date End Date Brook Guzman APRN-CONSTRUCTION SUPERVISOR/CARPENTER [address] [place] [id number] PCP - General Certified Clinical Nurse Specialist 04/03/23 documented as of this encounter
--- OUTSIDE RECORDS SUMMARY | 2024-02-29 23:41 | XMS_ITS | Encounter Summary ---
Author Organization [facility] Address [address] [place] [address] Care Team Providers Care Dog Obedience Instructor Name Role Phone Brook Guzman APRN-INSIDE CHANNEL ACCOUNT MANAGER Primary Care Provider [phone] Reason for Visit * Reason Onset Date Comments MEDICATION REFILL 10/29/2023 Encounter Details Date Type Department Care Team (Late st Contact Info) Description 10/29/2023 Refill [facility] - Rheumatology [address], [address] [place] [address] Susannah Bautista MD [address] [place] [address] MEDICATION REFILL Social History Tobacco Use Types Packs/Day Years [...] encounter Miscellaneous Notes * Telephone Encounter - Susannah Bautista MD - 10/29/2023 2:27 PM CDT Images from the original note were not included. * Telephone Encounter - Heron Daily RN - 10/29/2023 9:34 AM CDT Patient chart, labs and allergies reviewed and medication sent to provider due to lack of hepatitisC testing. BIOLOGIC REFILL REQUEST Last OV: 07/28/2023 Next Appointment: 11/26/2023 Last Fill: 05/20/2023 No results for input(s): CHOL , TRIG , HDL , VLDL , LDLCALC in the last 66424 hours. Recent Labs Component Name 08/03/23 0739 04/03/23 1341 WBC 8.0 8.4 HGB 12.6* 12.1* PLTCOUNT 211 275 MCV 89.6 86 Recent Labs Component Name 08/03/23 0739 04/03/23 1341 CREATININE 0.84 0.90 Recent Labs Component Name 04/03/23 1341 EGFR 98 Recent Labs Component Name 08/03/23 0739 04/03/23 1341 AST 17 16 ALT 14 11 ALKPHOS 136 133* TBIL 0.3 <0.2 Last ESR: Recent Labs Component Name 08/03/23 0739 SEDRATE 48* Last 3 CRP: Recent Labs Component Name 08/03/23 0739 04/03/23 1341 CRP 9.4* 28* Recent Labs Component Name 04/03/23 1341 HBSAG Negative Recent Labs Component Name 04/03/23 1341 QUANTTBGPLUS Negative Hepatitis B surface Ag: negative Date: 04/03/2023 Hepatitis B surface Ab: not done Date: N/A Hepatitis B Core ab: negative Date: 04/03/2023 Hepatitis C ab: not done Date: N/A Last Quantiferon TB-GOLD: 04/03/2023 Negative Chest X-Ray: N/A Immunization: Immunization History Administered Date(s) Administered PPD 10/18/2020 documented in this encounter Plan of Treatment Upcoming Encounters Date Type Department Care Team (Late st Contact Info) Description 03/08/2024 8:20 AM ENGRAVER PICTURE Office Visit [facility] - Rheumatology [address], [address] [place] [address] Susannah Bautista MD [address] [place] [address] documented as of this encounter Visit Diagnoses Diagnosis Rheumatoid arthritis of multiple sites without rheumatoid factor (HCC) Rheumatoid arthritis documented in this encounter Care Teams Dog Obedience Instructor Relationship Specialty Start Date End Date Brook Guzman APRN-INSIDE CHANNEL ACCOUNT MANAGER [address] [place] [address] PCP - General Certified Clinical Nurse Specialist 04/03/23 documented as of this encounter
--- OUTSIDE RECORDS SUMMARY | 2024-02-29 23:41 | XMS_ITS | Encounter Summary ---
Author Organization [facility] Address [address] [place] [address]. [place] [address] [place] [address] Care Team Providers Care Latin Teacher Name Role Phone Unavailable Primary Care Provider Unavailabl e Encounter Details Date Type Department Care Team (Late st Contact Info) Description 03/02/2011 Abstract [facility] [address] [place] [address] Ariel Larson MD [address] [place] [id number] Social History Tobacco Use Types Packs/Day Years Used Date Smoking Tobacco: Never Assessed Sex and Gender Information Value Date Recorded Sex Assigned at Not on file Legal Sex Male 8:11 PM CDT Gender Identity Not on file Sexual Orientation Not on file documented as of this encounter Plan of Treatment Not on file documented as of this encounter Visit Diagnoses Diagnosis Abdominal pain Abdominal pain, unspecified site documented in this encounter
--- OUTSIDE RECORDS SUMMARY | 2024-02-29 23:41 | XMS_ITS | Encounter Summary ---
Author Organization [facility] Address [address] [place] [address] Care Team Providers Care Wheel Installer Name Role Phone Brook Guzman BALAJI-APPLICATION SERVICES MANAGER Primary Care Provider [phone] Reason for Visit * Reason Comments Follow-up Encounter Details Date Type Department Care Team (Late st Contact Info) Description 05/01/2023 8:40 AM LOCATOR SPECIALIST Office Visit [facility] - Rheumatology [address], [address] [place] [address] Susannah Bautista MD [address] [place] [address] Rheumatoid arthritis of multiple sites without rheumatoid factor (HCC) (Primary Dx); Cervicalgia; Encounter for long-term (current) use of high-risk medication; Myalgia, multiple sites; CRP elevated; High total serum IgA; Spondylosis of cervical region without myelopathy or radiculopathy Social History Tobacco Use Types Packs/Day Years [...] Sign Reading Time Taken Comments Blood Pressure 142/92 05/01/2023 8:33 AM LOCATOR SPECIALIST Pulse 100 05/01/2023 8:33 AM LOCATOR SPECIALIST Temperature 36.2 ??C (97.2 ??F) 05/01/2023 8:33 AM CS T Respiratory Rate - - Oxygen Saturation 98% 05/01/2023 8:33 AM LOCATOR SPECIALIST Inhaled Oxygen Concentration - - Weight 71.7 kg (158 lb) 05/01/2023 8:33 AM LOCATOR SPECIALIST Height 180.3 cm (5' 11 ) 05/01/2023 8:33 AM LOCATOR SPECIALIST Body Mass Index 22.04 05/01/2023 8:33 AM LOCATOR SPECIALIST documented in this encounter Patient Instructions * Patient Instructions* Susannah Bautista MD - 05/01/2023 8:58 AM LOCATOR SPECIALIST Please read information on sulfasalazine and Orencia. We will try to get Orencia approved through your insurance. We will try to get report of all the x-rays from your hospital, please call them to have them send all the x-rays fax to us. We will repeat IgA level at the next visit. Recommend keeping ideal weight and daily stretching. TOR SPECIALIST documented in this encounter Progress Notes * Susannah Bautista MD - 05/01/2023 8:37 AM CST Follow-up Rheumatology Office Note Date of Visit: 05/01/2023 Patient's Primary Care Physician: DENNYS Corrales Referring physician: PCP Chief Complaint/History of Present Illness Subjective Here for 1st follow-up regarding history of rheumatoid arthritis. He did labs and x-rays. Here for results Feels better after taking Medrol Dosepak. Neck pain not too bad. Much improvement in the pain and swelling of the small joints of the hands. Still has some swellingin the morning and morning stiffness for 2-3 hours. Take as needed Tylenol or ibuprofen. Initial HPI: Robinson Noguera is a 57 year old [...] 8-10 monthsas it stopped helping and his faculty research physician left. He has not taken Humira and methotrexate for 4 years according to him he had 4 faculty research physician who left in succession . he also [...] social history, OBGYN history in females in [facility]. They are noted as follows. Past Medical History: Diagnosis Date ??? Diabetes ([facility]) type 2 Past Surgical History: Procedure Laterality Date ??? [...] Alcohol use: Not Currently ??? Drug use: Never ??? Sexual activity: Not on file Other [...] parathyroid problems, midback pain Objective Objective: BP 142/92 Pulse 100 Temp 97.2 ??F (36.2 ??C) Ht 1.803 m (5' 11 ) Wt 71.7 kg (158 lb) [id number]% GENERAL: ?no distress HEENT: ??No obvious abnormality [...] PLTCOUNT 275 No results found for: NEUTROPHILAB Recent Labs Component Name 04/03/23 1341 CREATININE 0.90 ALBUMIN 3.8 ALT 11 AST 16 Recent Labs Component Name 04/03/23 1341 CREATININE 0.90 EGFR 98 Previous workup: I do not have [...] arthritis of multiple sites without rheumatoid factor ([facility]) Cervicalgia Encounter for long-term (current) use of high-risk medication Myalgia, multiple sites CRP elevated 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 Previously used methotrexate and Humira which was the last medicine he stopped about 3 and half years ago after his faculty research physician left. Previously he took Enbrel Humira Simponi Aria. Enbrel and Humira stopped helping. I discussed results of recent work-up in detail with the patient. A lot of pain seems to be [...] history of diabetes and other medical issues. We discussed different options including sulfasalazine and Orencia. He does not want to take sulfasalazine due to need for regular blood work. He also had some upset stomach and he is concerned about the aspirin in the sulfasalazine. We will see if the insurance allows Orencia. We discussed in detail risks benefits of both and gave him pamphlet. We will start Orencia insurance company approves it otherwise we have to try sulfasalazine as we do not want to repeat prednisone. We discussed elevated IgA. His creatinine is normal and no rash. We discussed referring him to Hematology to rule out any hematological disorder versus repeating IgA at the next visit. He prefers to wait until next visit and have it repeated. His serum protein immunofixation did not show any monoclonal protein and he denies any fever chills night sweats. Patient should keep on seeing Primary Care Provider for routine medical care and cancer screening appropriate for age and risk factors Plan Plan: There are no discontinued medications. [...] as directed by mouth per package instructions. (Patient not taking: Reported on 05/01/2023) 21 tablet 0 ??? Ozempic, 0.25 or [...] No current facility-administered medications for this visit. No orders of the defined types were placed in this encounter. Call sooner for any problems. Return in about 3 months (around 08/01/2023). Cc: PCP documented in this encounter Plan of Treatment Upcoming Encounters Date Type Department Care Team (Late st Contact Info) Description 03/08/2024 8:20 AM LOCATOR SPECIALIST Office Visit [facility] - Rheumatology [address], [address] [place] [address] Susannah Bautista MD [address] [place] [id number] documented as of this encounter Visit Diagnoses Diagnosis Rheumatoid arthritis of multiple sites without rheumatoid factor (HCC)- Primary Rheumatoid arthritis Cervicalgia Encounter for long-term (current) use of high-risk medication Encounter for long-term (current) use of other medications Myalgia, multiple sites CRP elevated Elevated C-reactive protein (CRP) 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
--- OUTSIDE RECORDS SUMMARY | 2024-02-29 23:41 | XMS_ITS | Encounter Summary ---
Author Organization [facility] Address [address] [place] [address] Care Team Providers Care Wheelman Name Role Phone Unavailable Primary Care Provider Unavailabl e Encounter Details Date Type Department Care Team (Latest Contact Info) Description 10/18/2020 Travel Social History Tobacco Use Types Packs/Day [...] st Contact Info) Description 03/08/2024 8:20 AM CUSTOMER SUPPORT COORDINATOR Office Visit [facility] - Rheumatology [address], [address] [place] [address] Susannah Bautista MD [address] [place] [address] documented as of this encounter Visit Diagnoses Not on filedocumented in this encounter
--- OUTSIDE RECORDS SUMMARY | 2024-02-29 23:41 | XMS_ITS | Encounter Summary ---
Author Organization [facility] Address [address] [place] [address] Care Team Providers Care Rewinder Operator Name Role Phone Brook Guzman BALAJI-[facility] Primary Care Provider [phone] Encounter Details Date Type Department Care Team (Late Contact Info) Description 04/06/2023 Orders Only [facility] - Rheumatology [address], [address] [place] [address] Susannah Bautista MD [address] [place] [address] [address] [place] [address] Polyarthralgia; Cervicalgia; History of rheumatoid [...] (Late Contact Info) Description 03/08/2024 8:20 AM OFFICE MACHINES WIRER Office Visit [facility] - Rheumatology [address] [place], [place] [address] [place] [address] [place] [address] [place] [address] [address] [place] [address] documented as of this encounter Procedures Procedure Name Priority Date/Time Associated Diagnosis Comments XR CERVICAL SPINE 2 OR 3VW Routine 04/03/2023 Polyarthralgia Cervicalgia History of rheumatoid arthritis documented in this encounter Results * XR CERVICAL SPINE 2 OR 3VW (04/03/2023) Anatomical Region Laterality Modality Spine Other Susannah Bautista MD DIAGNOSTIC IMAGING O RDERABLES documented in this encounter Visit Diagnoses Diagnosis Polyarthralgia Pain in joint, multiple sites Cervicalgia History of rheumatoid arthritis Personal history of arthritis documented in this encounter Care Teams Rewinder Operator Relationship Specialty Start Date End Date Brook Guzman APRN-TAR CHASER [address] [place] [address] PCP - General Certified Clinical Nurse Specialist 04/03/23 documented as of this encounter
--- OUTSIDE RECORDS SUMMARY | 2024-02-29 23:41 | XMS_ITS | Encounter Summary ---
Author Organization [facility] Address [address] [place] [address] Care Team Providers Care Incident Response Lead Name Role Phone Brook Guzman APRN-CLINICAL OFFICE TECHNICIAN Primary Care Provider [phone] Reason for Visit * Reason Comments Arthritis Encounter Details Date Type Department Care Team (Late st Contact Info) Description 11/26/2023 8:40 AM CDT Office Visit [facility] - Rheumatology [address], [address] [place] [address] Susannah Bautista MD [address] [place] [address] Rheumatoid arthritis of multiple sites without rheumatoid factor (HCC) (Primary Dx); Encounter for long-term (current) use of high-risk medication; CRP elevated; Sedimentation rate elevation; Proteinuria, unspecified type; Hypoalbuminemia; High total serum IgA Social History Tobacco Use Types Packs/Day Years [...] Mass Index 23.71 11/26/2023 8:17 AM CDT documented in this encounter Patient Instructions * Patient Instructions* Susannah Bautista MD - 11/26/2023 8:35 AM CDT Please contact your primary care physician regarding blood pressure. Please go to the emergency room if you develop chest pain shortness of breath severe headache, dizziness, vision issues, one-sided weakness. Please read information on leflunomide and azathioprine Please start leflunomide 10 mg daily if you understand the risks. Stop for any side effects and let us know right away. Please do monitoring labs 10 days after starting it Stop Orencia and leflunomide for any infection and contact PCP right away, go to the urgent care ifunable to get hold of PCP. Please sign release of information form to get records from your kidney doctor Dr. Medrano documented in this encounter Progress Notes * Susannah Bautista MD - 11/26/2023 8:35 AM CDT Follow-up Rheumatology Office Note Date of Visit: November 26, 2023 Patient's Primary Care Physician: Brook Guzman APRN-CLINICAL OFFICE TECHNICIAN Referring physician: PCP Chief Complaint/History of Present Illness Subjective Here for follow-up regarding history of rheumatoid arthritis. He is taking subcutaneous Orencia weekly without side effects. It has helped with the symptoms he continues to have chronic pain and swelling of bilateral wrist. No redness warmth. Morning stiffness for half an hour. He saw correctional facility nurse Dr. Medrano at [facility]. He did further testing Neck pain is not too bad Has chronic decreased range of motion of [...] 8-10 monthsas it stopped helping and his semiautomatic taper operator left. He has not taken Humira and methotrexate for 4 years according to him he had 4 semiautomatic taper operator who left in succession . he also [...] social history, OBGYN history in females in [facility]. They are noted as follows. Past Medical History: Diagnosis Date Diabetes (HCC) type 2 Past Surgical History: Procedure Laterality Date Lithotripsy 01/2023 Retinal Detachment Repair Left 10/22/2023 Family History Problem Relation Name Age of [...] of Systems Complains of joint pain swelling Denies any fever more than 101 severe headache ear pain deafness sudden blindness dry eyes dry mouth multiple mucosal ulcers malar rash Raynaud's phenomena, seizures numbness tingling weakness of thelimbs stroke anxiety depression blood in the urine UTI dysphagia blood in the stool thyroid pattern parathyroid problems, midback pain Objective Objective: BP 140/80 Pulse 91 Temp 98 ??F (36.7 ??C) Resp 16 Ht 1.803 m (5' 11 ) Wt 77.1 kg (170 lb) SpO2 99% GENERAL: no distress HEENT: No obvious abnormality or lesion SKIN: No rash or vasculitic lesion visible NEURO: nonfocal examination PSYCH: alert and oriented into 3 EXTREMITIES: no edema clubbing or cyanosis MUSCULOSKELETAL: He has mild tenderness of multiple joints of the hands bilaterally and mild swelling of bilateral wrists. Decreased range of motion of the wrists [...] for those results. Workup ordered by me: Recent: urine protein creatinine ratio elevated at 875, albumin low at 3.6, sed rate elevated at 48 , normal value is 20, CRP elevated at 9.4, normal is up to 8. Rest of the labs were normal/negative Previous: X-ray of the C-spine read as moderate [...] sites without rheumatoid factor (HCC) - Plan: abatacept (Orencia ClickJect) 125 MG/ML auto-injector pen, CBC WITH DIFFERENTIAL, BUN, CREATININE BLOOD, ERYTHROCYTE SEDIMENTATION RATE, C-REACTIVE PROTEIN, HEPATIC FUNCTION PANEL, THIOPURINE METHYLTRANSFERASE, leflunomide (Arava) 10 MG tablet Encounter for long-term (current) use of high-risk medication - Plan: CBC WITH DIFFERENTIAL, BUN, CREATININE BLOOD, ERYTHROCYTE SEDIMENTATION RATE, C-REACTIVE PROTEIN, HEPATIC FUNCTION PANEL, THIOPURINE METHYLTRANSFERASE CRP elevated Sedimentation rate elevation Proteinuria, unspecified type Hypoalbuminemia High total serum IgA Patient with long history of rheumatoid arthritis. Previously used methotrexate and Humira which was the last medicine he stopped about 3 and half years ago after his semiautomatic taper operator left. Previously he took Enbrel Humira Simponi [...] He wants to continue it knowing risk. It has helped him but he still has significant symptoms. Now he agrees to take DMARD. We discussed leflunomide. We discussed risk benefits, pamphlet given, he wants to take it knowing risk of infection and need for regular monitoring. Start leflunomide 10 mg daily, he will do monitoring labs in 10 days. He will stop it for any side effects or infection and let us know. If he has side effects to it in the future we can try azathioprine, check TPMT Years elevated IgA without monoclonal gammopathy He is seeing a correctional facility nurse Dr. Medrano at [facility] regarding proteinurea, he has diabetesalso. Patient should keep on seeing Primary Care Provider for routine medical care and cancer screening appropriate for age and risk factors Plan Plan: Medications Discontinued During This Encounter Medication Reason triamcinolone acetonide (Kenalog) 0.1 % cream List Clean-Up abatacept (Orencia ClickJect) 125 MG/ML auto-injector pen Tx Complete methylPREDNISolone (Medrol Dosepak) 4 MG tablet Tx Complete Current Outpatient Medications Medication Sig Dispense Refill abatacept (Orencia ClickJect) 125 MG/ML auto-injector pen Inject 1 mL subcutaneously every 7 days Pen 4 mL 4 Basaglar KwikPen (Basaglar) pen ADMINISTER 15 UNITS UNDER THE SKIN EVERY EVENING Jardiance 10 MG tablet Take 1 (one) tablet by mouth once daily leflunomide (Arava) 10 MG tablet Take 1 (one) tablet by mouth once daily 30 tablet 0 levothyroxine (Synthroid) 50 MCG tablet Take 1.5 (one and one-half) tablets by mouth once daily Ozempic, 0.25 or 0.5 MG/DOSE, 2 MG/3ML SOPN INJECT 0.5 MG UNDER THE SKIN WEEKLY (Patient not taking: Reported on 07/28/2023) No current facility-administered medications for this visit. Orders Placed This Encounter CBC WITH DIFFERENTIAL Order Specific Question: Release to patient Answer: Immediate BUN Order Specific Question: Release to patient Answer: Immediate CREATININE BLOOD Order Specific Question: Release to patient Answer: Immediate ERYTHROCYTE SEDIMENTATION RATE Order Specific Question: Release to patient Answer: Immediate C-REACTIVE PROTEIN Order Specific Question: Release to patient Answer: Immediate HEPATIC FUNCTION PANEL Order Specific Question: Release to patient Answer: Immediate THIOPURINE METHYLTRANSFERASE Order Specific Question: Release to patient Answer: Immediate abatacept (Orencia ClickJect) 125 MG/ML auto-injector pen Sig: Inject 1 mL subcutaneously every 7 days Pen Dispense: 4 mL Refill: 4 leflunomide (Arava) 10 MG tablet Sig: Take 1 (one) tablet by mouth once daily Dispense: 30 tablet Refill: 0 Call sooner for any problems. Return in about 3 months (around 02/26/2024). Cc: documented in this encounter Plan of Treatment Upcoming Encounters Date Type Department Care Team (Late st Contact Info) Description 03/08/2024 8:20 AM SUPERVISOR WORD PROCESSING Office Visit [facility] - Rheumatology [address], [address] [place] [address] Susannah Bautista MD [address] [place] [address] Scheduled Orders Name Type Priority Associated Diagnoses Orde r Schedule CBC WITH DIFFERENTIAL Lab Routine Rheumatoid arthritis of multiple sites without rheumatoid factor (HCC) Encounter for long-term (current) use of high-risk medication Ordered: 11/26/2023 BUN Lab Routine Rheumatoid arthritis of multiple sites without rheumatoid factor (HCC) Encounter for long-term (current) use of high-risk medication Ordered: 11/26/2023 CREATININE BLOOD Lab Routine Rheumatoid arthritis of multiple sites without rheumatoid factor (HCC) Encounter for long-term (current) use of high-risk medication Ordered: 11/26/2023 ERYTHROCYTE SEDIMENTATION RATE Lab Routine Rheumatoid arthritis of multiple sites without rheumatoid factor (HCC) Encounter for long-term (current) use of high-risk medication Ordered: 11/26/2023 C-REACTIVE PROTEIN Lab Routine Rheumatoid arthritis of multiple sites without rheumatoid factor (HCC) Encounter for long-term (current) use of high-risk medication Ordered: 11/26/2023 HEPATIC FUNCTION PANEL Lab Routine Rheumatoid arthritis of multiple sites without rheumatoid factor (HCC) Encounter for long-term (current) use of high-risk medication Ordered: 11/26/2023 THIOPURINE METHYLTRANSFERASE Lab Routine Rheumatoid arthritis of multiple sites without rheumatoid factor (HCC) Encounter for long-term (current) use of high-risk medication Ordered: 11/26/2023 documented as of this encounter Visit Diagnoses Diagnosis Rheumatoid arthritis of multiple sites without rheumatoid factor (HCC)- Primary Rheumatoid arthritis Encounter for long-term (current) use of high-risk medication Encounter for long-term (current) use of other medications CRP elevated Elevated C-reactive protein (CRP) Sedimentation rate elevation Elevated sedimentation rate Proteinuria, unspecified type Hypoalbuminemia Other disorders of plasma protein metabolism High total serum IgA documented in this encounter Care Teams Incident Response Lead Relationship Specialty Start Date End Date Brook Guzman APRN-CLINICAL OFFICE TECHNICIAN [address] [place] [address] PCP - General Certified Clinical Nurse Specialist 04/03/23 documented as of this encounter
--- OUTSIDE RECORDS SUMMARY | 2024-02-29 23:41 | XMS_ITS | Encounter Summary ---
Author Organization [facility] Address [address] [place] [address] [place] [address] Care Team Providers Care Director [employer] Name Role Phone Unavailable Primary Care Provider Unavailabl e Reason for Visit * Reason Onset Date Comments Referral 03/25/2023 Encounter Details Date Type Department Care Team (Late st Contact Info) Description 03/25/2023 Telephone [facility] Medical [facility] - Rheumatology [address], [address] [place] [address] Susannah Bautista MD [address] [place] [address] Referral Social History Tobacco Use Types Packs/Day Years Used Date Smoking Tobacco: Never Assessed Sex and Gender Information Value Date Recorded Sex Assigned at Not on file Gender Identity Not on file Sexual Orientation Not on file documented as of this encounter Miscellaneous Notes * Telephone Encounter - Jessica France LPN - 03/26/2023 1:23 PM OCCUPATIONAL THERAPY AIDE Patient called back and made COOLER WORKER appt with Dr Bautista. PATIONAL THERAPY AIDE * Telephone Encounter - Jessica France LPN - 03/25/2023 5:10 PM OCCUPATIONAL THERAPY AIDE Called patient as a referral to [facility] rheumatology by PCP VICK Corrales for HX of RA . No answerso M asking for a callback to schedule as well as historical Rheum records faxed to us. Call #1. PATIONAL THERAPY AIDE documented in this encounter Plan of Treatment Upcoming Encounters Date Type Department Care Team (Late st Contact Info) Description 03/08/2024 8:20 AM OCCUPATIONAL THERAPY AIDE Office Visit [facility] - Rheumatology [address], [address] [place] [address] Susannah Bautista MD [address] [place] [address] documented as of this encounter Visit Diagnoses Not on filedocumented in this encounter
--- OUTSIDE RECORDS SUMMARY | 2024-02-29 23:41 | XMS_ITS | Encounter Summary ---
Author Organization [facility] Address [address] [place] [address] Care Team Providers Care Histology Assistant Name Role Phone Unavailable Primary Care Provider Unavailabl e Reason for Visit * Reason Comments PPD SKIN TEST READ Encounter Details Date Type Department Care Team (Latest Contact Info) Description 10/21/2020 12:00 PM CDT Clinical Support [facility] AT [address] [address] Encounter for screening for respiratory tuberculosis Social History Tobacco Use Types Packs/Day Years [...] of this encounter Progress Notes * Latia Natarajan APRN-CNP - 10/21/2020 12:29 PM CDT 10/21/2020 Robinson Noguera returns to clinic today for TB (PPD) reading. 0 mm of induration noted, negative reading. Copy of the results were given to patient and scanned into the medical record. Patient denies any further questions or concerns today. CECE Diallo 10/21/2020 12:29 PM documented in this encounter Plan of Treatment Upcoming Encounters Date Type Department Care Team (Late st Contact Info) Description 03/08/2024 8:20 AM STEAM TANK OPERATOR Office Visit [facility] Medical [facility] - Rheumatology [address], [address] [place] [address] Susannah Bautista MD [address] [place] [address] documented as of this encounter Visit Diagnoses Diagnosis Encounter for screening for respiratory tuberculosis- Primary Screening examination for pulmonary tuberculosis documented in this encounter
--- OUTSIDE RECORDS SUMMARY | 2024-02-29 23:41 | XMS_ITS | Encounter Summary ---
Author Organization [facility] Address [address] [place] [address]. [place] [address] [place] [address] Care Team Providers Care Tensile Tester Name Role Phone None, Provider Primary Care Provider Eric manzo Encounter Details Date Type Department Care Team (Late st Contact Info) Description 12/01/2022 12:10 PM CDT - 12/01/2022 11:59 PM CDT Hospital Encounter [facility] [place] [address] Herminio Hernandez MD [address] [facility] [place] [address] Discharge Disposition: Home or Self Care (Routine Discharge) Social History Tobacco Use Types Packs/Day Years Used Date Smoking Tobacco: Never Assessed Sex and Gender Information Value Date Recorded Sex Assigned at Not on file Legal Sex Male 8:11 PM CDT Gender Identity Not on file Sexual Orientation Not on file documented as of this encounter Plan of Treatment Not on file documented as of this encounter Procedures Procedure Name Priority Date/Time Associated Diagnosis Comments XR ABD KUB Routine 12/01/2022 12:35 PM CDT Right ureteral stone documented in this encounter Results * XR ABD KUB (12/01/2022 12:35 PM CDT) Anatomical Region Laterality Modality Abdomen Radiographic Tammy ging 12/01/2022 1:56 PM CDT Impressions 12/01/2022 1:58 PM CDT IMPRESSION: 1. ??Left abdominal calcifications are probably within the kidney. 2. ??Multiple calcifications in the pelvis. Referred By: ?? Interpreted By: Brent Rios MD, 12/01/2022 1:56 PM Narrative 12/01/2022 1:58 PM CDT EXAM: XR ABD KUB DATE: 12/01/2022 ?? No comparison INDICATION: Right ureteral stone. TECHNIQUE: One view FINDINGS: The right kidney is obscured by bowel. ??There are 2 adjacent calcifications of similar size, shape, and density in the mid left kidney. ??Each measures about 5 mm. There are multiple calcifications in the pelvis. ??Some have the typical appearance of phleboliths. ??Others are indeterminant. ??No comparison x-ray on a recent CT. ??Moderate stool volume. Procedure Note Brent Rios MD - 12/01/2022 EXAM: XR ABD KUB DATE: 12/01/2022 No comparison INDICATION: Right ureteral stone. TECHNIQUE: One view FINDINGS: The right kidney is obscured by bowel. There are 2 adjacentcalcifications of similar size, shape, and density in the mid left kidney.Each measures about 5 mm. There are multiple calcifications in the pelvis. Some have the typicalappearance of phleboliths. Others are indeterminant. No comparison x-angely a recent CT. Moderate stool volume. IMPRESSION: 1. Left abdominal calcifications are probably within the kidney. 2. Multiple calcifications in the pelvis. Referred By: Interpreted By: Brent Rios MD, 12/01/2022 1:56 PM us Herminio Hernandez MD GENERAL IMAGING Final Re sult documented in this encounter Visit Diagnoses Diagnosis Right ureteral stone Calculus of ureter documented in this encounter Care Teams Tensile Tester Relationship Specialty Start Date End Date None, Provider, PCP - General UNKNOWN PHYSICIAN SPECIALTY 12/01/22 documented as of this encounter
--- OUTSIDE RECORDS SUMMARY | 2024-02-29 23:42 | XMS_ITS | Encounter Summary ---
Author Organization [facility] Address [address] [place] [address] Care Team Providers Care Cereal Miller Name Role Phone Unavailable Primary Care Provider Unavailabl e Encounter Details Date Type Department Care Team (Late st Contact Info) Description 02/25/2021 1:00 PM ELECTROCHEMIST Rapid Evaluation [place] [facility] Community Testing [address] [address] Social History Tobacco Use Types Packs/Day Years Used Date Smoking Tobacco: Never Assessed Sex and Gender Information Value Date Recorded Sex Assigned at Not on file Legal Sex Male 12:45 PM ELECTROCHEMIST Gender Identity Not on file Sexual Orientation Not on file documented as of this encounter Plan of Treatment Not on file documented as of this encounter Visit Diagnoses Not on filedocumented in this encounter
--- OUTSIDE RECORDS SUMMARY | 2024-02-29 23:42 | XMS_ITS | Patient Health Record ---
Author Organization [facility] [employer] Address [address] [facility] [address] [facility] [address] [place], [place] [address] Care Team Providers Care International Relations Professor Name Role Phone Ilya Granados [phone] ALLERGIES Allergen (clinical drug ingredient) Drug/Non Drug Allergy documented on EMR Reaction Allergy Type Onset Date Status penicillin stomach upset Drug Allergy Ac tive REASON FOR REFERRAL No Information MEDICATIONS Medication SIG (Take, Route, Frequency, Duration) Notes Start Date End Date Status metoclopramide 10 mg 1 tab(s) orally 4 t imes a day (before meals and at bedtime) 02/24/2024 02/24/2024 Active levothyroxine 100 mcg (0.1 mg) 1 tab(s) orally once a day 02/24/2024 02/24/2024 Active metFORMIN 1000 mg 1 tab(s) orally 2 ti mes a day 02/24/2024 02/24/2024 Active raNITIdine 150 mg 1 cap(s) orally 2 ti mes a day 02/24/2024 02/24/2024 Active FLUoxetine 20 mg 1 tab(s) orally once a day 02/24/2024 02/24/2024 Active methotrexate 2.5 mg 6 tab(s orally once a week for 30 12/31/2008 02/24/2024 Active lisinopril 2.5 mg 1 tab(s) orally once a day 02/24/2024 02/24/2024 Active SOCIAL HISTORY Sex Assigned At : Social History Observation Description Sex Assigned At Unknown PROBLEMS Problem Type ICD Code Onset Dates Problem Status W/U Status Risk SNOMED Code Notes Problem Rheumatoid Arthritis (714.0) Active confirmed Rheumatoid arthritis (23722900) PLAN OF TREATMENT No Information Insurance Providers Payer Name Payer Address Payer Phone Subscriber Number Group Number Insured Name Patient Relationship to Insured Coverage Start Date Coverage End Date [facility] [address] [place] [phone] [id number] Robinson Noguear Self - patient is the insured 9 MEDICAL (GENERAL) HISTORY Medical History History ICD Code rheumatoid arthritis
--- OUTSIDE RECORDS SUMMARY | 2024-02-29 23:42 | XMS_ITS | Encounter Summary ---
Author Organization [facility] Address [address] [place] [address]. [place], [place] [address] [place] [address] Care Team Providers Care Second Crusher Name Role Phone Unavailable Primary Care Provider Unavailabl e Encounter Details Date Type Department Care Team (Late st Contact Info) Description 03/29/1995 Abstract [place] [address] , Generic Conversion, Social History Tobacco Use Types Packs/Day Years [...]
--- OUTSIDE RECORDS SUMMARY | 2024-02-29 23:42 | XMS_ITS | Encounter Summary ---
Author Organization [facility] Address [address] [place] [address]. [place] [address] [place] [address] Care Team Providers Care Data Report Analyst Name Role Phone Unavailable Primary Care Provider Unavailabl e Encounter Details Date Type Department Care Team (Late st Contact Info) Description 02/28/2011 Abstract [facility] [address] [place] [address] Ariel Larson MD [address] [place] [phone] Social History Tobacco Use Types Packs/Day Years Used Date Smoking Tobacco: Never Assessed Sex and Gender Information Value Date Recorded Sex Assigned at Not on file Legal Sex Male 8:11 PM CDT Gender Identity Not on file Sexual Orientation Not on file documented as of this encounter Plan of Treatment Not on file documented as of this encounter Visit Diagnoses Diagnosis Reflux esophagitis documented in this encounter
--- OUTSIDE RECORDS SUMMARY | 2024-02-29 23:42 | XMS_ITS | Encounter Summary ---
Author Organization [facility] Address [address] [place] [address] Care Team Providers Care Hvac Sales Representative Name Role Phone Unavailable Primary Care Provider Unavailabl e Encounter Details Date Type Department Care Team (Late st Contact Info) Description 02/28/2021 Lab Requisition [facility] Community Testing [facility] [address] [place] [address] Martell Cazares MD [address] [place] [address] [address] [place], [place] [address] Social History Tobacco Use Types Packs/Day Years Used Date Smoking Tobacco: Never Assessed Sex and Gender Information Value Date Recorded Sex Assigned at Not on file Legal Sex Male 12:45 PM SLIDE MAKER Gender Identity Not on file Sexual Orientation Not on file documented as of this encounter Plan of Treatment Not on file documented as of this encounter Procedures Procedure Name Priority Date/Time Associated Diagnosis Comments SARS-COV-2 PCR [facility] ONLY Routine 02/25/2021 8:23 PM SLIDE MAKER documented in this encounter Visit Diagnoses Not on filedocumented in this encounter Additional Health Concerns Infection Onset Date Last Indicated Resolved Time COVID - 19 Confirmed 02/25/2021 02/25/2021 022 12:17 AM SLIDE MAKER documented as of this encounter
--- OUTSIDE RECORDS SUMMARY | 2024-02-29 23:42 | XMS_ITS | Encounter Summary ---
Author Organization [facility] Address [address] [place] [address]. [place] [address] [place] [address] Care Team Providers Care Automotive Parts Person Name Role Phone Unavailable Primary Care Provider Unavailabl e Encounter Details Date Type Department Care Team (Late st Contact Info) Description 02/28/2011 Abstract [facility] Diagnostic Imaging [address] [place] [address] Ariel Larson MD [address] [place] [phone] Social History Tobacco Use Types Packs/Day Years [...]
--- OUTSIDE RECORDS SUMMARY | 2024-02-29 23:42 | XMS_ITS | Encounter Summary ---
Author Organization [facility] Address [address] [place] [address]. [place], [place] [address] [place] [address] Care Team Providers Care Bee Breeder Name Role Phone Unavailable Primary Care Provider Unavailabl e Encounter Details Date Type Department Care Team (Late st Contact Info) Description 12/24/[address] [facility] Emergency Room [address] [place] [address] , Moris Monsalve MD Social History Tobacco Use Types Packs/Day Years [...]
--- OUTSIDE RECORDS SUMMARY | 2024-02-29 23:42 | XMS_ITS | Encounter Summary ---
Author Organization [facility] Address [address] [place] [address] Care Team Providers Care Glass Carrier Name Role Phone Unavailable Primary Care Provider Unavailabl e Encounter Details Date Type Department Care Team (Late st Contact Info) Description 03/12/2021 Lab Requisition [facility] Community Testing [facility] [address] [place] [address] Martell Cazares MD [address] [place] [address] [address] [place], [place] [address] Social History Tobacco Use Types Packs/Day Years Used Date Smoking Tobacco: Never Assessed Sex and Gender Information Value Date Recorded Sex Assigned at Not on file Legal Sex Male 12:45 PM MECHANICAL ENGINEERING TECHNOLOGIST Gender Identity Not on file Sexual Orientation Not on file documented as of this encounter Plan of Treatment Not on file documented as of this encounter Procedures Procedure Name Priority Date/Time Associated Diagnosis Comments SARS-COV-2 PCR [facility] ONLY Routine 03/12/2021 8:10 AM MECHANICAL ENGINEERING TECHNOLOGIST documented in this encounter Visit Diagnoses Not on filedocumented in this encounter Additional Health Concerns Infection Onset Date Last Indicated Resolved Time COVID - 19 Confirmed 02/25/2021 02/25/2021 022 12:17 AM MECHANICAL ENGINEERING TECHNOLOGIST documented as of this encounter
--- OUTSIDE RECORDS SUMMARY | 2024-02-29 23:42 | XMS_ITS | Clinical Summary ---
Author Organization [facility] Care Team Providers Care Country Printer Name Role Phone Unavailable Primary Care Provider Unavailabl e Social History Tobacco Use Types Packs/Day Years Used Date Smoking Tobacco: Never Assessed Sex and Gender Information Value Date Recorded Sex Assigned at Not on file Legal Sex Male 12:45 PM LADIES' HAT TRIMMER Gender Identity Not on file Sexual Orientation Not on file Plan of Treatment Health Maintenance Due Date Last Done Comments Hepatitis C Virus (HCV) Screening 1965 TdaP Immunization 1965 Colonoscopy 05/23/2008 Colorectal Cancer Screening 05/23/2008 Cologuard 05/23/2013 Immunochemical Fecal Occult Blood 05/23/2013 Pneumococcal Immunization (5 0+ years) (1 of 1 - PCV) 05/23/2013 Zoster Immunization (1 of 2) 05/23/2013 PSA Discussion 05/23/2018 Influenza Immunization (#1) 2023 03/10/2013 SARS-COV-2 Immunization ( - 2023- season) 2023 Respiratory Syncytial Virus (RSV) Immunization (Adult) (1 - 1-dose 75+ series) 05/23/2038 Hepatitis B Immunization Aged Out No longer eligible based on patient's age to complete this topic Meningococcal Immunization (ACWY) Aged Out No longer eligible based on patient's age to complete this topic Pneumococcal Immunization Combined Aged Out No longer eligible based on patient's age to complete this topic Rotavirus Immunization Aged Out No lo nger eligible based on patient's age to complete this topic
== END 2024-02-22 14:18 | disposition home or self-care (01) ==
PROVIDERS: Emergency Provider Emergency Medicine; PCP Clinical Nurse Specialist
DX: M25.471 Effusion, right ankle (principal); N40.1 Benign prostatic hyperplasia with lower urinary tract symptoms; R33.8 Other retention of urine; N13.8 Other obstructive and reflux uropathy; J45.909 Unspecified asthma, uncomplicated; E03.9 Hypothyroidism, unspecified; K21.9 Gastro-esophageal reflux disease without esophagitis; M10.9 Gout, unspecified; M06.9 Rheumatoid arthritis, unspecified; M79.7 Fibromyalgia; G62.9 Polyneuropathy, unspecified; F32.A Depression, unspecified; F41.9 Anxiety disorder, unspecified; Z87.442 Personal history of urinary calculi; Z87.01 Personal history of pneumonia (recurrent); Z87.440 Personal history of urinary (tract) infections; Z86.2 Personal history of diseases of the blood and blood-forming organs and certain disorders involving the immune mechanism; Z79.620 Long term (current) use of immunosuppressive biologic; Z79.899 Other long term (current) drug therapy; Z79.4 Long term (current) use of insulin; Z79.84 Long term (current) use of oral hypoglycemic drugs
CPT/HCPCS: 73610; 99283

== ENCOUNTER 2024-03-15 10:34 | Outpatient (CLI) | payer OTHER, SELFPAY ==
--- NOTE | ~2024-03-15 | US_ITS ---
EXAMINATION: US venous doppler LE RT DATE: 03/15/2024 11:02 INDICATION: Right lower limb swelling TECHNIQUE: Grayscale ultrasound images without and with compression and Doppler ultrasound images of the right lower extremity veins were obtained. COMPARISON: CT dated 11/10/2021 FINDINGS: The visualized portions of right common femoral vein, profunda (deep) femoral vein, femoral vein, pop liteal vein, peroneal trunk, posterior tibial veins, peroneal veins, gastrocnemius vein and greater s aphenous vein outflow are patent. Chronic right inguinal lymphadenopathy with the largest lymph nodes with increase in size of a now 4.2 x 2.2 x 1.8 cm, previously 3.4 x 1.5 x 1.7 cm lymph node with unc hanged lobular margins. Increase in size appears to result from enlargement of the central echogenic fatty hilum. IMPRESSION: 1. No deep venous thrombosis in the right lower limb. 2. Chronic likely reactive right inguinal lymphadenopathy. Reviewed, dictated and finalized at location A. ORATE AIRCRAFT MECHANIC
== END 2024-03-15 10:35 | disposition home or self-care (01) ==
PROVIDERS: PCP Internal Medicine; Visit Provider Clinical Nurse Specialist
DX: M79.89 Other specified soft tissue disorders (principal); K40.90 Unilateral inguinal hernia, without obstruction or gangrene, not specified as recurrent
CPT/HCPCS: 93971

== ENCOUNTER 2024-03-31 14:12 | Outpatient (CLI) | payer OTHER, SELFPAY ==
--- NOTE | ~2024-03-31 | XR_ITS ---
EXAMINATION: XR chest 2V 03/31/2024 14:23 INDICATION: Cough PROCEDURE: 2 view chest COMPARISON: Comparison to multiple prior studies sequentially, with oldest reviewed study dated 10/2010. FINDINGS: The lungs are clear. The cardiomediastinal silhouette is within normal limits. There are no pleural effusions. There is no pneumothorax suspected. IMPRESSION: 1: NO ACUTE CARDIOPULMONARY DISEASE. Reviewed, dictated and finalized at location B. ARTS MODEL
== END 2024-03-31 14:13 | disposition home or self-care (01) ==
LOC: GOSHIMG 14:13
PROVIDERS: PCP Clinical Nurse Specialist; Visit Provider Clinical Nurse Specialist
DX: R05.9 Cough, unspecified (principal); D72.829 Elevated white blood cell count, unspecified
CPT/HCPCS: 71046

== ENCOUNTER 2024-04-22 10:35 | Outpatient (CLI) | payer OTHER, SELFPAY | END 2024-04-22 10:36 | disposition home or self-care (01) | PROVIDERS: PCP Clinical Nurse Specialist; Visit Provider Clinical Nurse Specialist | DX: M19.071 Primary osteoarthritis, right ankle and foot (principal); M25.471 Effusion, right ankle; M65.971 Unspecified synovitis and tenosynovitis, right ankle and foot; D72.829 Elevated white blood cell count, unspecified | CPT/HCPCS: 73723; A9579 ==

== ENCOUNTER 2024-05-10 13:47 | Outpatient (CLI) | payer OTHER, SELFPAY ==
--- NOTE | ~2024-05-10 | XR_ITS ---
Exam: Abdomen 1V HISTORY: 1 YR POST OP KIDNEY STONES COMPARISON: 05/05/2023. Reference is also made to a CT examination of the abdomen and pelvis dated 10/24 TECHNIQUE: Supine images of the abdomen FINDINGS: Bowel gas pattern is non-obstructive. There is no free air or deep sulci. Redemonstration of a 4 mm calculus projecting over the lower pole of the left kidney. Additional calcification projecting over the left hemipelvis, lateral to the left SI joint consistent with a bone island. Multiple calcifications are identified within the deep pelvis, consistent with phleboliths. No calcifications are identified projecting over the right kidney or along the expected course of the bilateral ureters. Lung bases are unremarkable. Fecal stasis within the colon. IMPRESSION: Redemonstration of a 4 mm calculus projecting over the lower pole of the left kidney. No additional renal or ureteral calculi are present. Reviewed, dictated and finalized at location A. IMPRESSION: Redemonstration of a 4 mm calculus projecting over the lower pole of the left k idney. No additional renal or ureteral calculi are present.
--- OUTSIDE RECORDS SUMMARY | 2024-05-10 15:33 | XMS_ITS | Referral Summary ---
Author Organization [facility] Address [address] [place] [phone] Care Team Providers Care Conservation Planner Name Role Phone Deja Haynes MD Primary Care Provider +1- [phone] Encounters Date Type Department Care Team Description 05/06/2024 Telephone [facility] Orthopedics and Sports Medicine [address] [place] [phone] Dimas Garcia DO 05/06/2024 9:05 AM CDT - 05/06/2024 11:59 PM CDT Hospital Encounter [facility] Diag Imaging [address] [place] [phone] Right ankle pain, unspecified chronicity Discharge Disposition: Discharge to home or self care 05/06/2024 9:30 AM CDT Office Visit [facility] Orthopedics and Sports Medicine [address] [place] [phone] Dimas Garcia DO Right ankle pain, unspecified chronicity (Primary Dx); Charcot joint of right foot; Arthritis of right subtalar joint 04/22/2024 - 04/22/2024 11:[address] DRAFTSPERSON Hospital Encounter [facility] [address] [place] [address] [place] [address] Discharge Disposition: Discharge to home or self care 02/22/2024 - 02/22/2024 11:[address] DESIGN DRAFTSPERSON Hospital Encounter [facility] [address] [facility] [place] [address] Discharge Disposition: Discharge to home or self care from Last 3 Months Allergies Active Allergy Reactions Criticality Noted Date Comments Penicillins Stomach upset Low Medications insulin glargine (BASAGLAR) 100 unit/mL (3 mL) pen for injection ADMINISTER 15 UNITS UNDER THE SKIN EVERY EVENING 4 Active losartan (COZAAR) 50 mg tablet Take 1 tablet (50 mg total) by mouth daily 5 Active abatacept (Orencia ClickJect) 125 mg/mL auto-injector Inject 1 mL (125 mg total) under the skin once a week 4 Active levothyroxine (SYNTHROID) 50 mcg tablet Take 1.5 tablets (75 mcg total) by mouth daily 3 Active Active Problems No known active problems Social History Tobacco Use Types Packs/Day Years Used Date Smoking Tobacco: Never Tobacco Cessation:Counseling Given: Not Answered Sex and Gender Information Value Date Recorded Sex Assigned at Not on file Legal Sex Male 11:[address] DRAFTSPERSON Gender Identity Not on file Sexual Orientation Not on file 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 Not on file Last Filed Vital Signs Vital Sign Reading Time Taken Comments Blood Pressure 147/89 08/16/2013 9:17 AM CDT Pulse 92 08/16/2013 9:17 AM CDT Temperature - - Respiratory Rate - - Oxygen Saturation - - Inhaled Oxygen Concentration - - Weight 76.2 kg (168 lb) 05/06/2024 9:59 AM CDT Height 180.3 cm (5' 11 ) 05/06/2024 9:59 AM CDT Body Mass Index 23.43 05/06/2024 9:59 AM CDT Plan of Treatment Not on file Procedures Procedure Name Priority Date/Time Associated Diagnosis Comments MRI TRANSFER OF OUTSIDE FILMS Routine 04/22/2024 12:[address] DES[address] DRAFTSPERSON XR TRANSFER OF OUTSIDE FILMS Routine 02/22/2024 12:[address] DESIGN DRAFTSPERSON from Last 3 Months Results * MRI Outside Reference (04/22/2024 12:[address] DES[address] DRAFTSPERSON) Narrative FELICIA_[email or web address]_MHE - 05/03/2024 11:30 AM CDT This order has been auto-finalized and does not contain a result. us Provider Transcribed Order IMG MRI PROCEDURES Fi nal Result Performing Organization Address City/[facility]/ZIP Co de Phone Number [email or web address]_MHE * XR Outside Reference (02/22/2024 12:[address] DES[address] DRAFTSPERSON) Narrative ANG_GREGORIO - 05/03/2024 11:30 AM CDT This order has been auto-finalized and does not contain a result. us Provider Transcribed Order IMG XR PROCEDURES Fin al Result Performing Organization Address City/[facility] Co de Phone Number FELICIA_[email or web address]_MHE from Last 3 Months Insurance [facility] H[facility]/PPO Address: [address] [address] [facility]/PPO Address: [address] [address] Care Teams Conservation Planner Relationship Specialty Start Date End Date Deja Haynes MD PCP - General 08/16/13
--- OUTSIDE RECORDS SUMMARY | 2024-05-10 15:33 | XMS_ITS | Clinical Summary ---
Author Organization [facility] Address [address] [place] [phone] Care Team Providers Care Brownfield Redevelopment Site Manager Name Role Phone Deja Haynes MD Primary Care Provider +1- [phone] Allergies Active Allergy Reactions Criticality Noted Date [...] Active Active Problems No known active problems Encounters Date Type Department Care Team Description 05/06/2024 9:30 AM CDT Office Visit [facility] Orthopedics and Sports Medicine [address] [place] [address] [place] [phone] Dimas Garcia DO Right ankle pain, unspecified chronicity (Primary Dx); Charcot joint of right foot; Arthritis of right subtalar joint 05/06/2024 9:05 AM CDT - 05/06/2024 11:59 PM CDT Hospital Encounter [facility] Orthopedic and Neuro Center Diag Imaging [address] [place] [phone] Right ankle pain, unspecified chronicity Discharge Disposition: Discharge to home or self care 05/06/2024 Telephone [facility] Orthopedics and Sports Medicine [address] [facility] [address] [place] [phone] Dimas Garcia DO 04/22/2024 - 04/22/2024 11:59 PM GROUNDING ENGINEER Hospital Encounter [facility] [employer] [address] [facility] [place] [address] Discharge Disposition: Discharge to home or self care 02/22/2024 - 02/22/2024 11:59 PM GROUNDING ENGINEER Hospital Encounter [facility] [employer] [address] [facility] [place] [address] Discharge Disposition: Discharge to home or self care from Last 3 Months Surgical History Surgery Date Site/Laterality Comments NO PAST SURGERIES Medical History Medical History Date Comments Hx Other Medical jaundice/hepati tis Kidney disorder kidney disease Hypothyroidism hypothyroidism Depression Depression Hyperlipidemia Hyperlipidemia Hypertension Hypertension Diabetes mellitus (HCC) Diabetes Anxiety disorder Anxiety Family History Medical History Relation Name Comments Arthritis Father Gout Father Arthritis Mother Heart disease Mother Coronary artery disease Other 1 Hypertension Other 2 Thyroid disease Other 3 Diabetes Other 4 Relation Name Status Comments Father Mother Other 1 Other 2 Other 3 Other 4 Other 5 Social History Tobacco Use Types Packs/Day Years Used Date Smoking Tobacco: Never Tobacco Cessation:Counseling Given: Not Answered Sex and Gender Information Value Date Recorded Sex Assigned at Not on file Legal Sex Male 11:26 AM GROUNDING ENGINEER Gender Identity Not on file Sexual Orientation Not on file 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 Not on file Obstetrics History Last Filed Vital Signs Vital Sign Reading [...] 05/06/2024 9:59 AM CDT Plan of Treatment Health Maintenance Due Date Last Done Comments Colon Cancer Screening-Colonoscopy 1965 Depression Screening 1965 Hepatitis C Screening 1965 Prostate Cancer Screening-PSA 1965 DTaP/Tdap/Td Vaccine (1 - Tdap) 05/23/1974 Hepatitis B Screening 05/23/1981 Regular Well Visit/Exam 18-64 05/23/1981 Zoster Vaccine (1 of 2) 05/23/2013 Influenza Vaccine (#1) 2023 03/10/2013 Pneumococcal vaccine <65 Aged Out No longer eligible based on patient's age to complete this topic Procedures Procedure Name Priority Date/Time Associated Diagnosis Comments MRI TRANSFER OF OUTSIDE FILMS Routine 04/22/2024 12:00 AM GROUNDING ENGINEER XR TRANSFER OF OUTSIDE FILMS Routine 02/22/2024 12:00 AM GROUNDING ENGINEER from Last 3 Months Results * MRI Outside Reference (04/22/2024 12:00 AM GROUNDING ENGINEER) Narrative RAD_GIANNAIO_MHB_MHE - 05/03/2024 11:30 AM CDT This order has been auto-finalized and does not contain a result. us Provider Transcribed Order IMG MRI PROCEDURES Fi nal Result Performing Organization Address [facility] de Phone Number [email or web address] * XR Outside Reference (02/22/2024 12:00 AM GROUNDING ENGINEER) Narrative RAD_GIANNAIO_MHB_MHE - 05/03/2024 11:30 AM CDT This order has been auto-finalized and does not contain a result. us Provider Transcribed Order IMG XR PROCEDURES Fin al Result Performing Organization Address [facility] Co de Phone Number RAD_FLO_MHB_MHE from Last 3 Months Insurance [facility] HMO/PPO Address: [address] [address] [place] [address] [facility] H[facility]/PPO Address: [facility] [address] [place] [address] Care Teams Brownfield Redevelopment Site Manager Relationship Specialty Start Date End Date Deja Haynes MD PCP - General 08/16/13
--- OUTSIDE RECORDS SUMMARY | 2024-05-10 15:33 | XMS_ITS | Clinical Summary ---
Author Organization [facility] Care Team Providers Care Wood Drill Operator Name Role Phone Unavailable Primary Care Provider Unavailabl e Social History Tobacco Use Types Packs/Day Years Used Date Smoking Tobacco: Never Assessed Sex and Gender Information Value Date Recorded Sex Assigned at Not on file Legal Sex Male 12:45 PM PROPERTY FIELD INSPECTOR Gender Identity Not on file Sexual Orientation Not on file Plan of Treatment Health Maintenance Due Date Last Done Comments Hepatitis C Virus (HCV) Screening 1965 TdaP Immunization 1965 Colonoscopy 05/23/2008 Colorectal Cancer Screening 05/23/2008 Cologuard 05/23/2013 Immunochemical Fecal Occult Blood 05/23/2013 Pneumococcal Immunization (5 0+ years) (1 of 1 - PCV) 05/23/2013 Zoster Immunization (1 of 2) 05/23/2013 Influenza Immunization (#1) 2023 03/10/2013 SARS-COV-2 Immunization [...]
--- OUTSIDE RECORDS SUMMARY | 2024-05-10 15:33 | XMS_ITS | Continuity of Care Document ---
[facility] Organization [facility] Address [address] [place] [address] Phone Care Team Providers Care Biomedical Equipment Support Specialist Name Role Phone Lauri Maxwell MD Unavailable Unavailable Advance Directives Directive Yes / No Effective Date File Name No Information Encounters Encounter Description Practice Location Reason(s) For Visit Diagnoses Date Provider Providers Copied on Encounter [facility], [address], [place], [place], [id number], tel:[phone] [facility] No Information Hans Carreon. [address], [place], [place], [id number]. tel:[phone] Family History Family Member Type Diagnosis Age At Onset No Information Payers Payer name Insurance type Covered libertarian ID Authoriza tion(s) No Information Social History Type Description Quantity Date Captured Comments Sex Male Smoking Status No Information Chief Complaint And Reason For Visit No Information Reason For Referral Reason For Referral No Information History Of Present Illness Encounter Date Complaint History Of Prese nt Illness No Information Functional Status Date Functional Assessmen t No Information Instructions Date Instruction Additional Infor mation No Information Assessments Type Assessment Date No Information Patient Care Teams Name Effective Dates (start - stop) Status Members No Information
--- OUTSIDE RECORDS SUMMARY | 2024-05-10 15:33 | XMS_ITS | Clinical Summary ---
Author Organization [facility] Address [address] [place] [address] Care Team Providers Care Retail Loss Prevention Specialist Name Role Phone Brook Guzman BALAJI-ANALYTICAL ENGINEER Primary Care Provider [phone] Source Comments [facility],non-owned Affiliates and Associated Physician Practices is amultiple site organization consisting of ambulatory clinics and hospital sitesin [place], [place], [place] and [place]. This disclosure is being madepursuant to the Care Everywhere program and may not contain all information available regarding this patient. Last updated 17.[facility] Allergies Active Allergy Reactions Criticality Noted Date [...] tablet by mouth once daily 30 tablet 04/05/2024 Active Active Problems Problem Noted Date Diagnosed Date Rheumatoid arthritis of mult [facility] sites without rheumatoid factor 04/05/2024 Encounters Date Type Department Care Team Description 04/05/2024 9:00 AM ASSISTANT STORE MANAGER Office Visit [facility] - Rheumatology [address], [address] [place] [phone] Susannah Bautista MD Rheumatoid arthritis of multiple sites without rheumatoid factor (HCC) (Primary Dx); Encounter for long-term (current) use of high-risk medication; CRP elevated; Sedimentation rate elevation; Proteinuria, unspecified type; Hypoalbuminemia; High total serum IgA; Other fatigue; Screening examination for pulmonary tuberculosis; Elevated liver function tests; Periosteal elevation determined by X-ray 04/05/2024 Telephone [facility] - Rheumatology [address] [place] [address] Susannah Bautista MD Appointment 03/31/2024 Telephone [facility] - Rheumatology [address], [address] [place] [phone] Susannah Bautista MD Update 03/31/2024 Telephone [facility] - Rheumatology [address], [address] [place] [phone] Susannah Bautista MD Appointment 03/30/2024 Telephone [facility] - Rheumatology [address], [address] [place] [phone] Susannah Bautista MD LABS ONLY 03/29/2024 Orders Only [facility] - Rheumatology [address], [address] [place] [phone] Susannah Bautista MD from Last 3 Months Family History Medical History Relation Name Comments [...] drink = 0.6 oz pur e alcohol) PHQ-2 Answer Date Recorded Patient Health Questionnaire-2 Score 0 04/05/2024 Sex and Gender Information Value Date Recorded Sex Assigned at Not on file Gender Identity Not on file Sexual Orientation Not on file Last Filed Vital Signs Vital Sign Reading Time Taken Comments Blood Pressure 140/90 04/05/2024 8:35 AM ASSISTANT STORE MANAGER Pulse 99 04/05/2024 8:35 AM ASSISTANT STORE MANAGER Temperature 36.2 C (97.2 F) 04/05/2024 8:35 AM ASSISTANT STORE MANAGER Respiratory Rate 16 04/05/2024 8:35 AM ASSISTANT STORE MANAGER Oxygen Saturation 99% 04/05/2024 8:35 AM ASSISTANT STORE MANAGER Inhaled Oxygen Concentration - - Weight 78.5 kg (173 lb) 04/05/2024 8:35 AM ASSISTANT STORE MANAGER Height 180.3 cm (5' 11 ) 11/26/2023 8:17 AM CDT Body Mass Index 24.13 11/26/2023 8:17 AM CDT Plan of Treatment Upcoming Encounters Date Type Department Care Team (Late st Contact Info) Description 06/01/2024 9:00 AM CDT Office Visit [facility] - Rheumatology [address] [place] [address] Susannah Bautista MD [address] [place] [address] Health Maintenance Due Date Last [...] 05/19/1981 DTAP/TDAP/TD VACCINES (1 - Tdap) 05/23/1982 PNEUMOCOCCAL VACCINE 50+ (1 of 1 - PCV) 05/23/2013 ZOSTER VACCINE (1 of 2) 05/23/2013 Respiratory Syncytial Virus (RSV) Vaccine Pt: or over 60 yrs (1 - Risk 60-74 years 1-dose series) 2023 COVID-19 VACCINE (1 - 2023-2 5 season) 2023 INFLUENZA VACCINE (#1) 2023 DEPRESSION SCREENING Completed 04/05/2024 HEPATITIS B VACCINE Aged Out No longe r eligible based on patient's age to complete this topic HIB VACCINE Aged Out No longer eligi ble based on patient's age to complete this topic HPV VACCINE Aged Out No longer eligi ble based on patient's age to complete this topic MENINGOCOCCAL (Group B) VACC INE SHARED DECISION-MAKING Aged Out No longer eligibl e based on patient's age to complete this topic MENINGOCOCCAL GROUPS A/C/Y/W VACCINE Aged Out No longer eligible b ased on patient's age to complete this topic Procedures Procedure Name Priority Date/Time Associated Diagnosis Comments THIOPURINE METHYLTRANSFERASE Routine 03/29/2024 8:00 AM ASSISTANT STORE MANAGER C-REACTIVE PROTEIN Routine 03/29/2024 8: 00 AM ASSISTANT STORE MANAGER ERYTHROCYTE SEDIMENTATION RATE Routine 03/29/2024 8:00 AM ASSISTANT STORE MANAGER BUN Routine 03/29/2024 8:00 AM ASSISTANT STORE MANAGER HEPATIC FUNCTION PANEL Routine 8:00 AM ASSISTANT STORE MANAGER REF LAB-SPECIMEN STATUS REPORT Routine 03/29/2024 8:00 AM ASSISTANT STORE MANAGER CBC W AUTO DIFFERENTIAL Routine 03/29/19 8:00 AM ASSISTANT STORE MANAGER from Last 3 Months Results * REF LAB-SPECIMEN STATUS REPORT (03/29/2024 8:00 AM ASSISTANT STORE MANAGER) Specimen Status Report Comment [facility] INSURANCE BILL Comment: Javier Villareal HFP7 Default Javier Villareal HFP7 Default A hand-written panel/profile was received from your office. In accordance with the [facility] Ambiguous Test Code Policy dated August 2002, we have completed your order by using the closest currently or formerly recognized AMA panel. We have assigned Hepatic Function Panel (7), Test Code #[id number] to this request. If this is not the testing you wished to receive on this specimen, please contact the [facility] Client Inquiry/Technical Services Department to clarify the test order. We appreciate your business. 03/29/2024 8:00 AM ASSISTANT STORE MANAGER 03/29/2024 Narrative [facility] INSURANCE BILL - 03/29/2024 11:07 PM ASSISTANT STORE MANAGER Performed at: [address] [id number] Health Screener: Jason Mckenzie PhD, Phone: [phone] Susannah Bautista MD LAB - CHEMISTRY ALEXA FUNK Performing Organization Address [facility] Co de Phone Number [facility] INSURANCE BILL [address] [place] [address] * (ABNORMAL) C-REACTIVE PROTEIN (03/29/2024 8:00 AM ASSISTANT STORE MANAGER) C-Reactive Protein 109(H) 0 - 10 mg/L [facility] INSURANCE BILL 03/29/2024 8:00 AM ASSISTANT STORE MANAGER 03/29/2024 Narrative [facility] INSURANCE BILL - 03/30/2024 7:09 AM ASSISTANT STORE MANAGER Performed at: [address] [id number] Health Screener: Jason Mckenzie PhD, Phone: [phone] Susannah Bautista MD LAB - CHEMISTRY ALEXA FUNK Performing Organization Address [facility] Co de Phone Number [facility] INSURANCE BILL [address] [place] [address] * THIOPURINE METHYLTRANSFERASE (03/29/2024 8:00 AM ASSISTANT STORE MANAGER) TPMT Activity 22.2 Units/mL RBC [facility] INSURANCE BILL Comment: Reference Range: Normal: 15.1 - 26.4 Heterozygous for low TPMT variant: 6.3 - 15.0 Homozygous for low TPMT variant: <6.3 Interpretation Comment [facility] INSURANCE BILL Comment: The above results can be interpreted as Normal for red blood cell Thiopurine Methyltransferase activity. For patients having an intrinsic low level of TPMT, recent RBC transfusion can variably increase their assayed enzymatic activity depending on the amount and circulating half-life of the transfused red blood cells. This test was developed and its performance characteristics determined by [facility]. It has not been cleared or approved by the Food and Drug Administration. This case has been reviewed, approved, interpreted and electronically signed by Thomas Bryant, PhD, [facility]. Methodology Comment [facility] INSURANCE BILL Comment: Enzymatic Endpoint/Liquid Chromatography - Tandem Mass Spectrometry (LC-MS/MS) 03/29/2024 8:00 AM ASSISTANT STORE MANAGER 03/29/2024 Narrative [facility] INSURANCE BILL - 04/04/2024 3:07 PM ASSISTANT STORE MANAGER Performed at: [facility] [address] [place] [id number] Health Screener: Deniz Reyes MD, Phone: [phone] Susannah Bautista MD LAB - CHEMISTRY ALEXA FUNK Performing Organization Address [facility] Co de Phone Number [facility] INSURANCE BILL [address] [place] [address] * (ABNORMAL) ERYTHROCYTE SEDIMENTATION RATE (03/29/2024 8:00 AM ASSISTANT STORE MANAGER) Pathologist [facility] Erythrocyte Sedimentation Rate Westergren 58(H) 0 - 30 mm/hr [facility] INSURANCE BILL 03/29/2024 8:00 AM ASSISTANT STORE MANAGER 03/29/2024 Narrative [facility] INSURANCE BILL - 03/30/2024 7:09 AM ASSISTANT STORE MANAGER Performed at: [address] [place] [id number] Health Screener: Jason Mckenzie PhD, Phone: [phone] Susannah Bautista MD LAB - HEMATOLOGY ORD ERAZAYRA Performing Organization Address [facility] Co de Phone Number [facility] INSURANCE BILL [address] [place] [address] * (ABNORMAL) CBC WITH DIFFERENTIAL (03/29/2024 8:00 AM ASSISTANT STORE MANAGER) WBC 15.4(H) 3.4 - 10.8 x10E3/uL [facility] INSURANCE BILL RBC 4.74 4.14 - 5.80 x10E6/uL [facility] INSURANCE BILL Hemoglobin 14.5 13.0 - 17.7 g/dL [facility] INSURANCE BILL Hematocrit 43.2 37.5 - 51.0 % [facility] INSURANCE BILL MCV 91 79 - 97 fL [facility] INSURANCE BILL MCH 30.6 26.6 - 33.0 pg [facility] INSURANCE BILL MCHC 33.6 31.5 - 35.7 g/dL [facility] INSURANCE BILL RDW 12.6 11.6 - 15.4 % [facility] INSURANCE BILL Platelet Count 249 150 - 450 x10E3/uL [facility] INSURANCE BILL Granulocytes % 80 Not Estab. % [facility] INSURANCE BILL Lymphocytes % 9 Not Estab. % [facility] INSURANCE BILL Monocytes % 9 Not Estab. % [facility] INSURANCE BILL Eosinophils % 2 Not Estab. % [facility] INSURANCE BILL Basophils % 0 Not Estab. % [facility] INSURANCE BILL Granulocytes Absolute 12.2(H) 1.4 - 7.0 x10E3/uL [facility] INSURANCE BILL Lymphocytes Absolute 1.4 0.7 - 3.1 x10E3/uL [facility] INSURANCE BILL Monocytes Absolute 1.4(H) 0.1 - 0.9 x10E3/uL [facility] INSURANCE BILL Eosinophils Absolute 0.3 0.0 - 0.4 x10E3/uL [facility] INSURANCE BILL Basophils Absolute 0.0 0.0 - 0.2 x10E3/uL [facility] INSURANCE BILL Immature Granulocytes 0 Not Estab. % [facility] INSURANCE BILL Immature Granulocytes Absolute 0.0 0.0 - 0.1 x10E3/uL [facility] INSURANCE BILL Comment: A hand-written panel/profile was received from your office. In accordance with the [facility] Ambiguous Test Code Policy dated August 2002, we have assigned CBC with Differential/Platelet, Test Code #[id number] to this request. If this is not the testing you wished to receive on this specimen, please contact the [facility] Client Inquiry/ Technical Services Department to clarify the test order. We appreciate your business. 03/29/2024 8:00 AM ASSISTANT STORE MANAGER 03/29/2024 Narrative [facility] INSURANCE BILL - 03/29/2024 11:07 PM ASSISTANT STORE MANAGER Performed at: - [facility] [id number] Health Screener: Jason Mckenzie PhD, Phone: [phone] Susannah Bautista MD LAB - HEMATOLOGY ORD ERABLES Performing Organization Address [facility] Co de Phone Number [facility] INSURANCE BILL [address] [place] [address] * (ABNORMAL) HEPATIC FUNCTION PANEL (03/29/2024 8:00 AM ASSISTANT STORE MANAGER) Protein Total 6.3 6.0 - 8.5 g/dL [facility] INSURANCE BILL Albumin 3.5(L) 3.8 - 4.9 g/dL [facility] INSURANCE BILL Bilirubin Total 0.3 0.0 - 1.2 mg/dL [facility] INSURANCE BILL Bilirubin Direct 0.14 0.00 - 0.40 mg/dL [facility] INSURANCE BILL Alkaline Phosphatase 173(H) 44 - 121 IU/L [facility] INSURANCE BILL AST 21 0 - 40 IU/L [facility] INSURANCE BILL ALT 16 0 - 44 IU/L [facility] INSURANCE BILL 03/29/2024 8:00 AM ASSISTANT STORE MANAGER 03/29/2024 Narrative [facility] INSURANCE BILL - 03/30/2024 7:09 AM ASSISTANT STORE MANAGER Performed at: - [address] [id number] Health Screener: Jason Mckenzie PhD, Phone: [phone] Susannah Bautista MD LAB - CHEMISTRY ORDCarolina RABCONSTANTINE Performing Organization Address City/[facility]/ZIP Co de Phone Number [facility] INSURANCE BILL [address] [place] [address] * BUN (03/29/2024 8:00 AM ASSISTANT STORE MANAGER) BUN 21 8 - 27 mg/dL [facility] INSURANCE BILL 03/29/2024 8:00 AM ASSISTANT STORE MANAGER 03/29/2024 Narrative [facility] INSURANCE BILL - 03/30/2024 7:09 AM ASSISTANT STORE MANAGER Performed at: - [address] [id number] Health Screener: Jason Mckenzie PhD, Phone: [phone] Susannah Bautista MD LAB - CHEMISTRY ALEXA Aldana Organization Address City/State/ZIP Co de Phone Number [facility] INSURANCE BILL [address] [place] [address] from Last 3 Months Care Teams Retail Loss Prevention Specialist Relationship Specialty Start Date End Date Brook Guzman APRN-ANALYTICAL ENGINEER [address] [place] [address] PCP - General Certified Clinical Nurse Specialist 04/03/23
--- OUTSIDE RECORDS SUMMARY | 2024-05-10 15:33 | XMS_ITS | Clinical Summary ---
Author Organization [facility] Address [address] [place] [address] Care Team Providers Care Surfboard Designer Name Role Phone None, Provider MD Primary [...] Vaccines (1 of 2) 05/23/2013 COVID-19 Vaccine (2023-2 5 season) 2023 Influenza Adult (#1) 2023 03/10/2013 RSV Immunization or 60+ Years (1 - 1-dose 75+ series) 05/23/2038 Meningococcal B Vaccine Aged Out No l onger eligible based on patient's age to complete this topic Meningococcal Vaccine Aged Out No cb robyn [...] patient's age to complete this topic Insurance [facility] Care Teams Surfboard Designer Relationship Specialty Start Date End Date None, Provider, MD PCP - General UNKNOWN PHYSICIAN SPECIALTY 12/01/22
--- OUTSIDE RECORDS SUMMARY | 2024-05-10 15:34 | XMS_ITS | Patient Health Record ---
Author Organization [employer] Address [address] [facility] [address] [place], [place] [id number] Care Team Providers Care Belt And Link Shop Supervisor Name Role Phone Ilya Granados [phone] ALLERGIES Allergen (clinical drug ingredient) Drug/Non Drug [...] Rheumatoid Arthritis (714.0) Active confirmed Rheumatoid arthritis (46072339) PLAN OF TREATMENT No Information Insurance Providers Payer Name Payer Address Payer Phone Subscriber Number Group Number Insured Name Patient Relationship to Insured Coverage Start Date Coverage End Date [facility] [address] [place] [phone] [id number] Robinson Noguera Self - patient is the insured 9 MEDICAL (GENERAL) HISTORY Medical History History ICD Code rheumatoid arthritis
== END 2024-05-10 13:48 | disposition home or self-care (01) ==
LOC: ANHIMG 13:51
PROVIDERS: PCP Clinical Nurse Specialist; Visit Provider Urology
DX: N20.0 Calculus of kidney (principal)
CPT/HCPCS: 74018

== ENCOUNTER 2024-05-17 14:50 | Outpatient (CLI) | payer OTHER, SELFPAY ==
--- NOTE | ~2024-05-17 | CT_ITS ---
EXAMINATION: CT abdomen wo/w con DATE: 05/17/2024 15:36 INDICATION: Renal mass. TECHNIQUE: Computed tomography (CT) of the abdomen was performed without and with 100 mL Omnipaque 35 0 intravenous contrast. Automated exposure control and iterative reconstruction technique were employ ed. The dose-length product was 1162.51 mGy-cm. COMPARISON: CT abdomen and pelvis 11/10/2021 FINDINGS: The visualized portions of the lung bases demonstrate mild atelectasis. There is mild scarr ing in paraspinal right lower lobe. No pleural effusion. The heart size is normal. There are coronary artery calcifications. No pericardial effusion. Calcifications in the liver and spleen are consisten t with old granulomatous disease. There are gallstones in the gallbladder, which is normal in size. T he pancreas and adrenal glands are normal. There are cysts in the kidneys measuring up to 3.4 cm on t he left. There are five stones in left kidney measuring up to 5 mm. There are no dilated loops of bow el. There are no pathologically enlarged lymph nodes. There is no free intraperitoneal fluid. There i s an umbilical hernia containing fat. There is mild thoracic and lumbar spondylosis. There is mild ch ronic anterior wedging of multiple thoracic vertebral bodies. IMPRESSION: 1. Benign cysts in the kidneys. Reviewed, dictated and finalized at location A.
[2024-05-17 15:24] LABS: Estimated Glomerular Filt Rate > 60
--- OUTSIDE RECORDS SUMMARY | 2024-05-17 17:27 | XMS_ITS | Clinical Summary ---
Author Organization [facility] Address [address] [place] [address] Care Team Providers Care Sporting Goods Salesperson Name Role Phone Deja Haynes MD Primary Care Provider [phone] Allergies Active Allergy Reactions Criticality Noted Date [...] by mouth daily 3 Active Active Problems Problem Noted Date Diagnosed Date Rheumatoid arthritis of mult iple sites without rheumatoid factor 04/05/2024 Encounters Date Type Department Care Team Description 05/12/2024 Telephone [facility] Orthopaedic Surgery [address] [place] [address] Mary Garcia RN 05/11/2024 2:30 PM CDT Office Visit [facility] Orthopedics and Sports Medicine [address] [place] [address] [address] [place] [address] Fabby Salder PA Charcot joint of right foot (Primary Dx) 05/06/2024 9:30 AM CDT Office Visit [facility] Orthopedics and Sports Medicine [address] [place] [address] [address] [place] [address] Dimas Garcia DO Right ankle pain, unspecified chronicity (Primary Dx); Charcot joint of right foot; Arthritis of right subtalar joint 05/06/2024 9:05 AM CDT - 05/06/2024 11:59 PM CDT Hospital Encounter [facility] Di[facility] [address] [place] [address] Right ankle pain, unspecified chronicity Discharge Disposition: Discharge to home or self care 05/06/2024 Telephone [facility] Orthopedics and Sports Medicine [address] [place] [address] [address] [place] [address] Dimas Garcia DO 04/22/2024 - 04/22/2024 11:59 PM ANTI TANK MISSILEMAN Hospital Encounter [facility] [employer] [address] [place] [address] Discharge Disposition: Discharge to home or self care 02/22/2024 - 02/22/2024 11:59 PM ANTI TANK MISSILEMAN Hospital Encounter [facility] [employer] [address] [place] [address] Discharge Disposition: Discharge to home or self [...] on file Legal Sex Male 11:26 AM ANTI TANK MISSILEMAN Gender Identity Not on file Sexual Orientation [...] Name Priority Date/Time Associated Diagnosis Comments XR FOOT RIGHT 3 OR MORE VIEWS Schedule Routine, Read Routine (OP Routine) 05/06/2024 9:10 AM CDT Right ankle pain, unspecified chronicity MRI TRANSFER OF OUTSIDE FILMS Routine 04/22/2024 12:00 AM ANTI TANK MISSILEMAN XR TRANSFER OF OUTSIDE FILMS Routine 02/22/2024 12:00 AM ANTI TANK MISSILEMAN from Last 3 Months Results * XR Foot Right 3 or More Views (05/06/2024 9:10 AM CDT) Anatomical Region Laterality Modality Lower Extremities, Foot Right Computed Radiography 05/11/2024 6:48 PM CDT Narrative 05/11/2024 6:54 PM CDT EXAM DESCRIPTION: XR FOOT RIGHT 3 OR MORE VIEWS REASON FOR STUDY: pain Increased general foot pain for 6 weeks, no injury FINDINGS: Three views submitted with comparison 02/22/2024. Severe right midfoot neuropathic arthropathy is present with fragmentation, anterior subluxation of the talus in respect to the calcaneus, and vertical orientation with dorsal subluxation of the tarsal bones. Soft tissue swelling is present about the ankle. Large heel spur is present. 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 Left foot osteoarthritis noted. IMPRESSION: Severe right midfoot neuropathic arthropathy. THIS IS AN ELECTRONICALLY VERIFIED FINAL REPORT 05/11/2024 6:54 PM - Electronically signed by Robinson Buckley M.D. T: Report ID: [id number] Reading Location: [id number] Procedure Note Robinson Buckley MD - 05/11/2024 EXAM DESCRIPTION: XR FOOT RIGHT 3 OR MORE VIEWS REASON FOR STUDY: pain Increased general foot pain for 6 weeks, no injury FINDINGS: Three views submitted with comparison 02/22/2024. Severe right midfoot neuropathic arthropathy is present withfragmentation, anterior subluxation of the talus in respect to the calcaneus, andvertical orientation with dorsal subluxation of the tarsal bones. Soft tissueswelling is present about the ankle. Large heel spur is present. 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 Left footosteoarthritis noted. IMPRESSION: Severe right midfoot neuropathic arthropathy. THIS IS AN ELECTRONICALLY VERIFIED FINAL REPORT 05/11/2024 6:54 PM - Electronically signed by Robinson Buckley M.D. T: Report ID: [id number] Reading Location: [place] [address] Dimas Garcia DO IMG XR PROCEDURES Final Result * MRI Outside Reference (04/22/2024 12:00 AM ANTI TANK MISSILEMAN) Narrative RAD_FLO_MHB_MHE - 05/03/2024 11:30 AM CDT This order has been auto-finalized and does not contain a result. us Provider Transcribed Order IMG MRI PROCEDURES Fi nal Result RAD_CLARIO_MHB_MHE * XR Outside Reference (02/22/2024 12:00 AM ANTI TANK MISSILEMAN) Narrative [facility]_CLARIO_MHB_MHE - 05/03/2024 11:30 AM CDT This order has been auto-finalized and does not contain a result. us Provider Transcribed Order IMG XR PROCEDURES Fin al Result [facility]_GIANNAIO_MHB_MHE from Last 3 Months Insurance [facility] Care Teams Sporting Goods Salesperson Relationship Specialty Start Date End Date Deja Haynes MD PCP - General 08/16/13
--- OUTSIDE RECORDS SUMMARY | 2024-05-17 17:27 | XMS_ITS | Continuity of Care Document ---
Author Organization [facility] Address [address] [place] [address] Phone Care Team Providers Care Pool Attendant Name Role Phone Lauri Maxwell MD Unavailable Unavailable Advance Directives Directive Yes / No Effective Date File Name No Information Encounters Encounter Description Practice Location Reason(s) For Visit Diagnoses Date Provider Providers Copied on Encounter [employer] [facility], [address], [place], [place], [id number], tel:[phone] [facility] No Information Hans Carreon. [address] , [facility] [address], [place], [place], [id number]. tel:[phone] Family History Family Member Type Diagnosis Age At Onset No Information Payers Payer name Insurance type Covered constitution party ID Authoriza tion(s) No Information Social History [...]
--- OUTSIDE RECORDS SUMMARY | 2024-05-17 17:27 | XMS_ITS | Referral Summary ---
Author Organization [facility] Address [address] [place] [address] Care Team Providers Care Photocomposing Machine Operator Name Role Phone Deja Haynes MD Primary Care Provider [phone]- [phone] Encounters Date Type Department Care Team Description 05/12/2024 Telephone [facility] Orthopaedic Surgery [address] [place] [address] 2nd [address] [place] [address] Mary Garcia RN 05/11/2024 2:30 PM CDT Office Visit [facility] Medical [facility] Orthopedics and Sports Medicine [address] [place] [phone] Fabby Sadler PA Charcot joint of right foot (Primary Dx) 05/06/2024 Telephone [facility] Medical [facility] Orthopedics and Sports Medicine [address] [place] [address] [place] [phone] Dimas Garcia DO 05/06/2024 9:05 AM CDT - 05/06/2024 11:59 PM CDT Hospital Encounter [facility] Di[facility] Imaging [address] [place] [address] Right ankle pain, unspecified chronicity Discharge Disposition: Discharge to home or self care 05/06/2024 9:30 AM CDT Office Visit [facility] Orthopedics and Sports Medicine [address] [place] [address] [place] [phone] Dimas Garcia DO Right ankle pain, unspecified chronicity (Primary Dx); Charcot joint of right foot; Arthritis of right subtalar joint 04/22/2024 - 04/22/2024 11:59 PM PIPE LINE MAINTENANCE SUPERVISOR Hospital Encounter [facility] [address] [place] [address] Discharge Disposition: Discharge to home or self care 02/22/2024 - 02/22/2024 11:59 PM PIPE LINE MAINTENANCE SUPERVISOR Hospital Encounter [facility] [employer] [address] [place] [address] Discharge Disposition: Discharge to home or self [...] mult iple sites without rheumatoid factor 04/05/2024 Social History Tobacco Use Types Packs/Day Years Used Date Smoking Tobacco: Never Tobacco Cessation:Counseling Given: Not Answered Sex and Gender Information Value Date Recorded Sex Assigned at Not on file Legal Sex Male 11:26 AM PIPE LINE MAINTENANCE SUPERVISOR Gender Identity Not on file Sexual Orientation [...] OF OUTSIDE FILMS Routine 04/22/2024 12:00 AM PIPE LINE MAINTENANCE SUPERVISOR XR TRANSFER OF OUTSIDE FILMS Routine 02/22/2024 12:00 AM PIPE LINE MAINTENANCE SUPERVISOR from Last 3 Months Results * XR [...] by Robinson Buckley M.D. T: Report ID: [id number] Reading Location: [id number] Procedure Note Robinson Buckley MD - 05/11/2024 [...] by Robinson Buckley M.D. T: Report ID: [id number] Reading Location: [place] [address] [place] Dimas Garcia DO IMG XR PROCEDURES Final Result * MRI Outside Reference (04/22/2024 12:00 AM PIPE LINE MAINTENANCE SUPERVISOR) Narrative [email or web address] - 05/03/2024 11:30 AM CDT This order has been auto-finalized and does not contain a result. us Provider Transcribed Order IMG MRI PROCEDURES Fi nal Result Performing Organization Address [facility] de Phone Number [email or web address] * XR Outside Reference (02/22/2024 12:00 AM PIPE LINE MAINTENANCE SUPERVISOR) Narrative [email or web address] - 05/03/2024 11:30 AM CDT This order has been auto-finalized and does not contain a result. Provider Transcribed Order IMG XR PROCEDURES Fin al Result Performing Organization Address [facility] de Phone Number [email or web address] from Last 3 Months Insurance [facility] H[facility]/PPO Address: [address] [address] [place] [address] [facility] HMO/PPO Address: [address] [address] [place] [address] Care Teams Photocomposing Machine Operator Relationship Specialty Start Date End Date Deja Haynes MD PCP - General 08/16/13
--- OUTSIDE RECORDS SUMMARY | 2024-05-17 17:27 | XMS_ITS | Clinical Summary ---
Author Organization [facility] Address [address] [place] [address] Care Team Providers Care Tile Roofer Name Role Phone None, Provider MD Primary [...] patient's age to complete this topic Insurance [facility] Care Teams Tile Roofer Relationship Specialty Start Date End Date None, Provider, MD PCP - General UNKNOWN PHYSICIAN SPECIALTY 12/01/22
--- OUTSIDE RECORDS SUMMARY | 2024-05-17 17:27 | XMS_ITS | Patient Health Record ---
Author Organization [employer] Address [address] [facility] [address] [place], [place] [address] Care Team Providers Care Strategic Communications Manager Name Role Phone Ilya Granados [phone] ALLERGIES Allergen (clinical drug ingredient) Drug/Non Drug [...] Rheumatoid Arthritis (714.0) Active confirmed Rheumatoid arthritis (41838148) PLAN OF TREATMENT No Information Insurance Providers Payer Name Payer Address Payer Phone Subscriber Number Group Number Insured Name Patient Relationship to Insured Coverage Start Date Coverage End Date [employer] [address] [place] [phone] [id number] Robinson Noguera Self - patient is the insured 9 MEDICAL (GENERAL) HISTORY Medical History History ICD Code rheumatoid arthritis
--- OUTSIDE RECORDS SUMMARY | 2024-05-17 17:27 | XMS_ITS | Clinical Summary ---
Author Organization [facility] Care Team Providers Care Sales Floor Team Leader Name Role Phone Unavailable Primary Care Provider Unavailabl e Social History Tobacco Use Types Packs/Day Years Used Date Smoking Tobacco: Never Assessed Sex and Gender Information Value Date Recorded Sex Assigned at Not on file Legal Sex Male 12:45 PM BRIM IRONER HAND Gender Identity Not on file Sexual Orientation [...]
--- OUTSIDE RECORDS SUMMARY | 2024-05-17 17:27 | XMS_ITS | Clinical Summary ---
Author Organization [facility] Address [address] [place] [place] [address] Care Team Providers Care Hospital Recruiter Name Role Phone Brook Guzman BALAJI-MANAGER OF CARE Primary Care Provider [phone] [phone] Source Comments [facility],non-owned Affiliates and Associated Physician Practices is amultiple site organization consisting of ambulatory clinics and hospital sitesin [place], [place], [place] and [place]. This disclosure is being madepursuant to the Care Everywhere program and may not contain all information available regarding this patient. Last updated 17.[facility] Allergies Active Allergy Reactions Criticality Noted Date [...] Date Diagnosed Date Rheumatoid arthritis of mult access hospital daytone sites without rheumatoid factor 04/05/2024 Encounters Date Type Department Care Team Description 04/05/2024 9:00 AM SUSTAINABILITY OFFICER Office Visit [facility] - Rheumatology [address] [facility], [address] [place] [address] Susannah Bautista MD Rheumatoid arthritis of multiple sites without rheumatoid factor (Primary Dx); Encounter for long-term (current) use of high-risk medication; CRP elevated; Sedimentation rate elevation; Proteinuria, unspecified type; Hypoalbuminemia; High total serum IgA; Other fatigue; Screening examination for pulmonary tuberculosis; Elevated liver function tests; Periosteal elevation determined by X-ray 04/05/2024 Telephone [facility] - Rheumatology [address] [facility] [address] [place] [address] Susannah Bautista MD Appointment 03/31/2024 Telephone [facility] - Rheumatology [address] [facility] [facility], [address] [place] [phone] Susannah Bautista MD Update 03/31/2024 Telephone [facility] - Rheumatology [address] [facility] [facility], [address] [place] [address] Susnanah Bautista MD Appointment 03/30/2024 Telephone [facility] - Rheumatology [address] [facility] [facility], [address] [place] [address] Susannah Bautista MD LABS ONLY 03/29/2024 Orders Only [facility] - Rheumatology [address] [facility] [facility], [address] [place] [address] Susannah Bautista MD from Last 3 Months [...] Comments Blood Pressure 140/90 04/05/2024 8:35 AM SUSTAINABILITY OFFICER Pulse 99 04/05/2024 8:35 AM SUSTAINABILITY OFFICER Temperature 36.2 C (97.2 F) 04/05/2024 8:35 AM SUSTAINABILITY OFFICER Respiratory Rate 16 04/05/2024 8:35 AM SUSTAINABILITY OFFICER Oxygen Saturation 99% 04/05/2024 8:35 AM SUSTAINABILITY OFFICER Inhaled Oxygen Concentration - - Weight 78.5 kg (173 lb) 04/05/2024 8:35 AM SUSTAINABILITY OFFICER Height 180.3 cm (5' 11 ) 11/26/2023 8:17 AM CDT Body Mass Index 24.13 11/26/2023 8:17 AM CDT Plan of Treatment Upcoming Encounters Date Type Department Care Team (Late st Contact Info) Description 06/01/2024 9:00 AM CDT Office Visit [facility] - Rheumatology [address] [facility] [address] [place] [address] Susannah Bautista MD [address] [facility] [facility] [address] [place] [address] Health Maintenance Due Date Last [...] years 1-dose series) 2023 COVID-19 VACCINE (1 2023-2 5 season) 2023 INFLUENZA VACCINE (#1) [...] Comments THIOPURINE METHYLTRANSFERASE Routine 03/29/2024 8:00 AM SUSTAINABILITY OFFICER C-REACTIVE PROTEIN Routine 03/29/2024 8: 00 AM SUSTAINABILITY OFFICER ERYTHROCYTE SEDIMENTATION RATE Routine 03/29/2024 8:00 AM SUSTAINABILITY OFFICER BUN Routine 03/29/2024 8:00 AM SUSTAINABILITY OFFICER HEPATIC FUNCTION PANEL Routine 8:00 AM SUSTAINABILITY OFFICER REF LAB-SPECIMEN STATUS REPORT Routine 03/29/2024 8:00 AM SUSTAINABILITY OFFICER CBC W AUTO DIFFERENTIAL Routine 03/29/19 8:00 AM SUSTAINABILITY OFFICER from Last 3 Months Results * REF LAB-SPECIMEN STATUS REPORT (03/29/2024 8:00 AM SUSTAINABILITY OFFICER) Specimen Status Report Comment [facility] INSURANCE BILL Comment: Javier Villareal HFP7 Default Javier Villareal HFP7 Default A hand-written panel/profile was received from your office. In accordance with the [facility] Ambiguous Test Code Policy dated August 2002, we have completed your order by using the closest currently or formerly recognized AMA panel. We have assigned Hepatic Function Panel (7), Test Code #148432 to this request. If this is not the testing you wished to receive on this specimen, please contact the [facility] Client Inquiry/Technical Services Department to clarify the test order. We appreciate your business. 03/29/2024 8:00 AM SUSTAINABILITY OFFICER 03/29/2024 Narrative [facility] INSURANCE BILL - 03/29/2024 11:07 PM SUSTAINABILITY OFFICER Performed at: [address] [id number] Agent Broker: Jason Mckenzie PhD, Phone: [phone] Susannah Bautista MD LAB - CHEMISTRY ALEXA FUNK Performing Organization Address [facility] Co de Phone Number [facility] INSURANCE BILL [address] [place] [address] * (ABNORMAL) C-REACTIVE PROTEIN (03/29/2024 8:00 AM SUSTAINABILITY OFFICER) C-Reactive Protein 109(H) 0 - 10 mg/L [facility] INSURANCE BILL 03/29/2024 8:00 AM SUSTAINABILITY OFFICER 03/29/2024 Narrative [facility] INSURANCE BILL - 03/30/2024 7:09 AM SUSTAINABILITY OFFICER Performed at: [address] [id number] Agent Broker: Jason Mckenzie PhD, Phone: [phone] Susannah Bautista MD LAB - CHEMISTRY ALEXA FUNK Performing Organization Address [facility] Co de Phone Number [facility] INSURANCE BILL [address] [place] [address] * THIOPURINE METHYLTRANSFERASE (03/29/2024 8:00 AM SUSTAINABILITY OFFICER) TPMT Activity 22.2 Units/mL RBC [facility] INSURANCE [...] developed and its performance characteristics determined by [facility]. It has not been cleared or approved by the Food and Drug Administration. This case has been reviewed, approved, interpreted and electronically signed by Thomas Bryant, PhD, [facility]. Methodology Comment [facility] INSURANCE BILL Comment: Enzymatic Endpoint/Liquid Chromatography - Tandem Mass Spectrometry (LC-MS/MS) 03/29/2024 8:00 AM SUSTAINABILITY OFFICER 03/29/2024 Narrative [facility] INSURANCE BILL - 04/04/2024 3:07 PM SUSTAINABILITY OFFICER Performed at: 01 - [facility] [address] [place] [id number] Agent Broker: Deniz Reyes MD, Phone: [phone] Susannah Bautista MD LAB - CHEMISTRY ALEXA FUNK Performing Organization Address [facility] Co de Phone Number [facility] INSURANCE BILL [address] [place] [address] * (ABNORMAL) ERYTHROCYTE SEDIMENTATION RATE (03/29/2024 8:00 AM SUSTAINABILITY OFFICER) Pathologist [facility] Erythrocyte Sedimentation Rate Westergren 58(H) 0 - 30 mm/hr [facility] INSURANCE BILL 03/29/2024 8:00 AM SUSTAINABILITY OFFICER 03/29/2024 Narrative [facility] INSURANCE BILL - 03/30/2024 7:09 AM SUSTAINABILITY OFFICER Performed at: [address] [place] [id number] Agent Broker: Jason Mckenzie PhD, Phone: [phone] Susannah Bautista MD LAB - HEMATOLOGY ORD ERAZAYRA Performing Organization Address [facility] Co de Phone Number [facility] INSURANCE BILL [address] [place] [address] * (ABNORMAL) CBC WITH DIFFERENTIAL (03/29/2024 8:00 AM SUSTAINABILITY OFFICER) WBC 15.4(H) 3.4 - 10.8 x10E3/uL [facility] [...] have assigned CBC with Differential/Platelet, Test Code #[id number] to this request. If this is not the testing you wished to receive on this specimen, please contact the [facility] Client Inquiry/ Technical Services Department to clarify the test order. We appreciate your business. 03/29/2024 8:00 AM SUSTAINABILITY OFFICER 03/29/2024 Narrative [facility] INSURANCE BILL - 03/29/2024 11:07 PM SUSTAINABILITY OFFICER Performed at: 01 - [address] [id number] Agent Broker: Jason Mckenzie PhD, Phone: [phone] Susannah Bautista MD LAB - HEMATOLOGY ORD ERABLES Performing Organization Address [facility] Co de Phone Number [facility] INSURANCE BILL [address] [place] [address] * (ABNORMAL) HEPATIC FUNCTION PANEL (03/29/2024 8:00 AM SUSTAINABILITY OFFICER) Protein Total 6.3 6.0 - 8.5 g/dL [...] IU/L [facility] INSURANCE BILL 03/29/2024 8:00 AM SUSTAINABILITY OFFICER 03/29/2024 Narrative [facility] INSURANCE BILL - 03/30/2024 7:09 AM SUSTAINABILITY OFFICER Performed at: - [address] [id number] Agent Broker: Jason Mckenzie PhD, Phone: [phone] Susannah Bautista MD LAB - CHEMISTRY ORDE RABLES Performing Organization Address [facility] Co de Phone Number [facility] INSURANCE BILL [address] [place] [address] * BUN (03/29/2024 8:00 AM SUSTAINABILITY OFFICER) BUN 21 8 - 27 mg/dL [facility] INSURANCE BILL 03/29/2024 8:00 AM SUSTAINABILITY OFFICER 03/29/2024 Narrative [facility] INSURANCE BILL - 03/30/2024 7:09 AM SUSTAINABILITY OFFICER Performed at: - [address] [id number] Agent Broker: Jason Mckenzie PhD, Phone: [phone] Susannah Bautista MD LAB - CHEMISTRY ALEXA FUNK [facility] INSURANCE BILL [address] [place] [address] from Last 3 Months Care Teams Hospital Recruiter Relationship Specialty Start Date End Date Brook Guzman APRN-MANAGER OF CARE [address] [place] [address] PCP - General Certified Clinical Nurse Specialist 04/03/23
== END 2024-05-17 14:51 | disposition home or self-care (01) ==
PROVIDERS: PCP Clinical Nurse Specialist; Visit Provider Urology
DX: N28.89 Other specified disorders of kidney and ureter (principal); N28.1 Cyst of kidney, acquired
CPT/HCPCS: 74170; Q9967

== ENCOUNTER 2024-09-13 08:00 | Outpatient (CLI) | payer OTHER, SELFPAY ==
--- NOTE | ~2024-09-13 | US_ITS ---
US abdomen limited INDICATION: Abnormal laboratory values PROCEDURE: Realtime right upper abdominal ultrasound. COMPARISON: No prior studies for comparison. FINDINGS: The pancreas is normal without focal mass or pancreatic ductal dilation. Liver echotexture is normal without focal mass or intrahepatic biliary dilatation. There is normal directional flow i n the portal vein. Gallstones. No gallbladder wall thickening or pericholecystic fluid. Common bile duct measures 5 mm. No sonographic Cline's sign. IMPRESSION: 1: Cholelithiasis. Reviewed, dictated and finalized at location A. IMPRESSION: 1: Cholelithiasis.
== END 2024-09-13 08:01 | disposition home or self-care (01) ==
LOC: GOSHIMG 08:00
DX: M06.09 Rheumatoid arthritis without rheumatoid factor, multiple sites (principal); R74.8 Abnormal levels of other serum enzymes; Z79.899 Other long term (current) drug therapy; K80.20 Calculus of gallbladder without cholecystitis without obstruction
CPT/HCPCS: 76705

== ENCOUNTER 2024-10-31 14:02 | Outpatient (CLI) | payer OTHER, SELFPAY ==
--- NOTE | ~2024-10-31 | US_ITS ---
EXAMINATION: US thyroid DATE: 10/31/2024 14:15 INDICATION: Hypothyroidism TECHNIQUE: Multiple ultrasound images of the thyroid were obtained. COMPARISON: None. FINDINGS: The right thyroid lobe measures 4.3 x 1.8 x 1.2 cm. The left thyroid lobe measures 4.0 x 1.3 x 1.6 cm. No discrete nodules identified. There is normal echotexture and echogenicity throughout the thyroid gland. There is subjectively increased vascular flow throughout the thyroid on color Doppler. IMPRESSION: 1. Subjective diffuse mild increased vascular flow throughout the otherwise normal-appearing thyroid which can be seen in the setting of thyroiditis. Reviewed, dictated and finalized at location A. IMPRESSION: 1. Subjective diffuse mild increased vascular flow throughout the otherwise nor mal-appearing thyroid which can be seen in the setting of thyroiditis.
== END 2024-10-31 14:03 | disposition home or self-care (01) ==
PROVIDERS: PCP Clinical Nurse Specialist; Visit Provider Clinical Nurse Specialist
DX: E03.9 Hypothyroidism, unspecified (principal)
CPT/HCPCS: 76536

== ENCOUNTER 2024-12-12 07:34 | Outpatient (CLI) | payer OTHER, SELFPAY ==
--- NOTE | ~2024-12-12 | MR_ITS ---
EXAMINATION: MR brain/brain stem wo/w con DATE: 12/12/2024 08:30 INDICATION: Muscle weakness (generalized). TECHNIQUE: Magnetic resonance imaging (MRI) of the brain and brainstem was performed without and with 15 mL MultiHance intravenous contrast. COMPARISON: None. FINDINGS: There is a small acute infarct in left basal ganglia. There are scattered areas of nonspecific increased T2-weighted signal intensity in the cerebral white matter and pontine disease, which is within normal limits for the patient's age. There is no intracranial hemorrhage or abnormal mass lesion. The ventricles are normal in size. The orbits are normal. There is mild mucosal thickening in the paranasal sinuses. The mastoid air cells are normal. IMPRESSION: 1. 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 Reviewed, dictated and finalized at location E.
== END 2024-12-12 07:35 | disposition home or self-care (01) ==
PROVIDERS: PCP Clinical Nurse Specialist; Visit Provider Clinical Nurse Specialist
DX: M62.81 Muscle weakness (generalized) (principal); R29.6 Repeated falls; R93.0 Abnormal findings on diagnostic imaging of skull and head, not elsewhere classified
CPT/HCPCS: 70553; A9577

== ENCOUNTER 2024-12-13 10:38 | Emergency (ER) | payer OTHER, SELFPAY ==
[2024-12-13] VITALS (9 sets, daily range): BP systolic 163–189; BP diastolic 91–102; PULSE 96–108; RESP 15–20; TEMP 36.5–36.8; O2SAT 96–100
--- NOTE | ~2024-12-13 | XR_ITS ---
EXAMINATION: XR chest 1V portable COMPARISON: No comparisons available. HISTORY: post CVA FINDINGS: The lungs are clear, no effusion. No pneumothorax. Heart is normal size. Mediastinal and hilar contours are within normal limits. Bony thorax no acute abnormality. Miscellaneous: None Impression: No acute cardiopulmonary abnormality. Reviewed, dictated and finalized at location P. Impression: No acute cardiopulmonary abnormality.
--- NOTE | 2024-12-13 10:46 | ECG_ITS ---
Test Date: 2024-12-13 10:50:03 Measurements Intervals [place] Rate: 103 P: 64 MS: 156 QRS: -50 QRSD: 102 T: 87 QT: 325 QTc: 426 Interpretive Statements SINUS TACHYCARDIA INCOMPLETE RIGHT BUNDLE BRANCH BLOCK LEFT ANTERIOR FASCICULAR BLOCK CANNOT R/O SEPTAL INFARCT, AGE INDETERMINATE BORDERLINE ST-T WAVE ABNORMALITY- HIGH LATERAL LEADS ABNORMAL ECG No previous ECG available for comparison Electronically Signed On 12-13-2024 11:26:15 CDT by Maxwell Duong D.O.
[2024-12-13 11:17] LABS: Hematocrit 37.7 % (42.0-52.0); Hemoglobin 12.9 g/dL (14.0-18.0); Immature Granulocyte Percent A 0.4 % (0-0.5); Lymphocytes Absolute Auto 1.75 K/mm3 (0.9-3.2); Mean Corpuscular HGB Conc 34.2 g/dl (32-36); Mean Corpuscular Hemoglobin 30.9 pg (26-34); Mean Corpuscular Volume 90.4 fl (80-100); Nucleated Red Blood Cells Absolute Auto 0.000 K/mm3 (0.0-0.012); Nucleated Red Blood Cells Perc 0.0 % (0.0-0.2); Platelet Count Result 227 k/mm3 (150-375); Red Blood Count 4.17 M/mm3 (4.6-6.20); White Blood Count 8.3 K/mm3 (4.5-10.0)
[2024-12-13 11:25] LABS: Alanine Aminotransferase 18 U/L (6-50); Albumin Level 3.9 g/dL (3.5-5.1); Alkaline Phosphatase 137 U/L (38-126); Anion Gap 7 mmol/L (4-12); Aspartate Amino Transferase 26 U/L (17-59); Bilirubin,Total 0.3 mg/dL (0.2-1.3); Blood Urea Nitrogen 19 mg/dL (9-20); Calcium 9.1 mg/dL (8.4-10.2); Carbon Dioxide 26 mmol/L (22-30); Chloride 105 mmol/L (98-107); Estimated CRCL calculation 78 ml/min; Estimated Glomerular Filt Rate > 60; Glucose 206 mg/dL (65-110); Potassium 4.4 mmol/L (3.4-5.0); Sodium 138 mmol/L (137-145); Total Protein 7.3 g/dL (6.3-8.2)
[2024-12-13 11:37] LABS: Troponin I < 0.012 ng/mL (0.000-0.034)
[2024-12-13 11:38] LABS: INR 1.1; Prothrombin Time 13.9 Seconds (11.1-14.7)
[2024-12-13 11:39] LABS: Partial Thromboplastin Time 31.7 Seconds (22.3-36.8)
--- NOTE | 2024-12-13 12:48 | ED_ITS ---
HPI - Neuro Symptoms/Deficit General Chief Complaint: Neuro Symptoms/Deficit Stated Complaint: post stroke Time Seen by Provider: 12/13/24 12:01 Source: patient and family Mode of arrival: ambulatory Limitations: no limitations History of Present Illness HPI Narrative: This is a 59-year-old male who presents to the ED for abnormal MRI. Patient states for the past week or so, he has been having some tremors to his bilateral upper and lower extremities with some headaches. He saw his PCP for this and had an outpatient MRI done yesterday. He was called today as the MRI did show evidence of a stroke within the last week so he was sent here for further evaluation. Patient does report a mild headache at this time. Denies numbness, tingling, weakness. Related Data Home Medications ?Medication ?Instructions ?Recorded ?Confirmed ?Last Taken ?Type folic acid 1 mg tablet 1 mg PO DAILY 12/13/2412/1312/13/24 History methotrexate sodium (PF) 25 mg/mL See Rx Instructions .Route .COMPLEX 12/13/24 12/13/24 12/11/24 History injection solution Allergies Allergy/AdvReac Type Severity Reaction Status Date / Time azathioprine AdvReac Severe Diarrhea Verified 10/31/24 08:30 Penicillins AdvReac Mild Vomiting Verified 10/31/24 08:30 Review of Systems 2 Review of Systems: Gen.: Denies fevers or chills Eyes: Denies eye pain or visual change ENT: Denies congestion Respiratory: Denies shortness of breath or cough CV: Denies chest pain or palpitations GI: Denies abdominal pain nausea, emesis or diarrhea denies burning, urgency, frequency or hematuria Musculoskeletal: Denies back pain or muscle pain Neuro: As per HPI Skin: Denies rash Except as documented, all other systems reviewed and negative [facility] Past Medical History Medical History Type II diabetes mellitus with HbA1C goal to be determined Raised antibody titer Rash and nonspecific skin eruption Gout flare Encounter to establish care Swelling of ankle joint, right Screening for prostate cancer BMI 24.0-24.9, adult Screening for metabolic disorder Septicemia Constipation Benign prostatic hyperplasia with urinary retention Orchitis, right Calculus of distal right ureter Acute urinary retention Sepsis Urinary tract infection BPH loc w urin obs/LUTS Bilateral hydronephrosis Ureteral stone Insulin dependent diabetes mellitus Gastroesophageal reflux disease Anemia Anxiety Depression Hypothyroidism Gout Osteoporosis Rheumatoid arthritis Fibromyalgia Kidney stones Diverticulitis Pneumonia Asthma Hypertension Peripheral neuropathy Surgical History Surgical History History of eye surgery left eye History of tonsillectomy Family History Family History Father Family history of diabetes mellitus in first degree relative Diabetes mellitus COPD (chronic obstructive pulmonary disease) Thyroid condition Mother Family history of coronary artery disease Acute myocardial infarction Sibling , cirrhosis of the liver Hypertension Sibling No problems noted. Social History Social History Social History: Surrogate medical decision maker: Toya Noguera, spouse. Code status: Full code. 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 CARDIOVASCULAR: Regular rate and rhythm without murmurs rubs or gallops. ABDOMINAL: Soft, nontender, nondistended, no rebound or guarding MUSCULOSKELETAl: Moves all extremities. No clubbing, cyanosis or edema. NEURO: Awake and alert. Following commands, speech normal, no focal deficits. NIHSS 0 SKIN:: Warm, dry. No rashes lesions or abrasions PSYCHIATRIC: Normal affect/mood, Course Vital Signs Vital signs: Vital Signs Temperature 97.7 F 12/13/24 10:39 Pulse Rate 108 H 12/13/24 10:39 Respiratory Rate 16 12/13/24 10:39 Blood Pressure 168/100 H 12/13/24 10:39 Pulse Oximetry 99 12/13/24 10:39 Oxygen Delivery Room Air 12/13/24 10:39 Temperature 98.0 F 12/13/24 11:03 Pulse Rate 96 12/13/24 13:11 Respiratory Rate 18 12/13/24 13:11 Blood Pressure 163/96 H 12/13/24 13:11 Pulse Oximetry 99 12/13/24 13:11 Oxygen Delivery Room Air 12/13/24 10:47 MDM - Neuro Symptoms/Deficit MDM Narrative Medical decision making narrative: 59-year-old male presenting for abnormal MRI. On initial evaluation patient was in no acute distress afebrile, hemodynamically stable. Heart and lungs were clear. He had a nonfocal neuro exam. NIHSS is 0. I did reviewed MRI which did reveal a and acute basal ganglia stroke. CBC and CMP with Antonio which showed no significant abnormalities. I discussed case with Dr. Jacobsen, Neurology, recommended starting aspirin, Plavix, statin and to follow up as an outpatient. I discussed this with the patient who is agreeable to this plan. Given strict return precautions. Differential Diagnosis Differential diagnosis: Likely subarachnoid hemorrhage, cerebrovascular accident, multiple sclerosis and transient cerebral ischemia Medical Records Attestation: I reviewed the patient's medical records. Lab Data Attestation: I reviewed the patient's lab results. 12/13/24 11:06 12/13/24 11:06 Labs: Lab Results 12/13/24 12/13/24 Range/Units 10:47 11:06 WBC 8.3 (4.5-10.0) K/mm3 RBC 4.17 L (4.6-6.20) M/mm3 Hgb 12.9 L (14.0-18.0) g/dL Hct 37.7 L (42.0-52.0) % MCV 90.4 (80-100) fl MCH 30.9 (26-34) pg MCHC 34.2 (32-36) g/dl RDW 14.6 H (11.5-14.5) % Plt Count 227 (150-375) k/mm3 MPV 10.6 H (7.4-10.4) fl Immature Gran % (Auto) 0.4 (0-0.5) % Neut % (Auto) 55.7 (45.5-73.1) % Lymph % (Auto) 21.2 (18.3-44.2) % [place] % (Auto) 12.8 H (2.6-8.5) % Eos % (Auto) 9.2 H (0-4.4) % Baso % (Auto) 0.7 (0.2-1.2) % Lymph # (Auto) 1.75 (0.9-3.2) K/mm3 [place] # (Auto) 1.1 H (0.1-0.6) K/mm3 Eos # (Auto) 0.8 H (0-0.3) K/mm3 Baso # (Auto) 0.1 (0.0-0.1) K/mm3 Abs Immat Gran (auto) 0.03 (0.00-0.031) K/mm3 Absolute Neuts (auto) 4.6 (1.3-6.7) K/mm3 Absolute Nucleated RBC 0.000 (0.0-0.012) K/mm3 Nucleated RBC % 0.0 (0.0-0.2) % PT 13.9 (11.1-14.7) Seconds INR 1.1 APTT 31.7 (22.3-36.8) Seconds Sodium 138 (137-145) mmol/L Potassium 4.4 (3.4-5.0) mmol/L Chloride 105 (98-107) mmol/L Carbon Dioxide 26 (22-30) mmol/L Anion Gap 7 (4-12) mmol/L BUN 19 (9-20) mg/dL Creatinine 0.84 (0.7-1.3) mg/dL Estim Creat Clear Calc 78 ml/min Estimated GFR > 60 (59 - ) Glucose 206 H (65-110) mg/dL POC Capillary Glucose 222 H (65-105) mg/dl Calcium 9.1 (8.4-10.2) mg/dL Total Bilirubin 0.3 (0.2-1.3) mg/dL AST 26 (17-59) U/L ALT 18 (6-50) U/L Alkaline Phosphatase 137 H (38-126) U/L Troponin I < 0.012 (0.000-0.034) ng/mL Total Protein 7.3 (6.3-8.2) g/dL Albumin 3.9 (3.5-5.1) g/dL Imaging Data Radiologist's impression: Impressions Chest X-Ray 12/13/24 11:26 Impression: No acute cardiopulmonary abnormality. 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 You will be started on aspirin, Plavix atorvastatin. You were given a referral to Neurology, Dr. Jacobsen, follow-up with his office in the next week. Follow up with the PCP in the next week for re-evaluation. Return to the ED for any new or worsening symptoms. Patient Language: New Zealander Prescriptions: New clopidogrel [Plavix] 75 mg tablet 75 mg PO DAILY 21 Days Qty: 21 0RF aspirin 81 mg capsule 81 mg PO DAILY Qty: 90 0RF atorvastatin [Lipitor] 40 mg tablet 40 mg PO DAILY Qty: 30 0RF No Action (DME) pen needle, diabetic [BD Ultra-Fine Mini Pen Needle] 31 gauge x 3/16 needle See Rx Instructions .ROUTE .MEDSUPPLY Qty: 50 0RF Rx Instructions: To inject Lantus every night losartan 50 mg tablet 50 mg PO DAILY Qty: 90 3RF hydrocodone-acetaminophen 5-325 mg tablet 1 tablet PO Q8H PRN (Reason: pain) Qty: 30 0RF folic acid 1 mg tablet 1 mg PO DAILY methotrexate sodium (PF) 25 mg/mL solution See Rx Instructions .ROUTE .COMPLEX Rx Instructions: 0.3mL under the skin Q7days (DME) blood-glucose meter Misc See Rx Instructions .ROUTE .MEDSUPPLY Qty: 1 0RF Rx Instructions: To check glucose 4 times daily. (DME) Blood Glucose Test Strip See Rx Instructions .ROUTE .MEDSUPPLY Qty: 50 2RF Rx Instructions: To check blood sugar 4 times daily (DME) lancets 32 gauge misc See Rx Instructions .Route Qty: 100 1RF Rx Instructions: To check glucose 4 times daily. insulin glargine [Basaglar KwikPen U-100 Insulin] 100 unit/mL (3 mL) insulin pen 35 unit subcut QPM Qty: 15 4RF levothyroxine [Unithroid] 125 mcg tablet 125 mcg PO DAILY Qty: 30 1RF Mounjaro 2.5 mg/0.5 mL pen injector 2.5 mg subcut WEEKLY Qty: 2 0RF Rx Instructions: for 4 weeks Follow-up/Referrals: Ernie Jacobsen MD [Physician, Neurology] Brook Guzman FNP-C [Primary Care Provider, Internal Medicine]
--- OUTSIDE RECORDS SUMMARY | 2024-12-13 14:56 | XMS_ITS | Clinical Summary ---
Author Organization [facility] Address [address] 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 This disclosure is being madepursuant to the Care Everywhere program and may not contain all information available regarding this patient. Last updated 17.[facility] Allergies Active Allergy Reactions Criticality Noted Date Comments Azathioprine Nausea and/or Vomiting High 10/11/2024 Penicillins Diarrhea 04/03/2023 Medications * Be aware that medications may not be up to date on this document. Alwaysverify current medications with the patient. Basaglyecenia KwikPen (Basaglar) pen ADMINISTER 15 UNITS UNDER THE SKIN EVERY EVENING 02/25/19 24 Active levothyroxine (Synthroid) 50 MCG tablet Take 1.5 (one and one-half) tablets by mouth once daily 02/21/20 23 Active Ozempic, 0.25 or 0.5 MG/DOSE, 2 MG/3ML SOPN INJECT 0.5 MG UNDER THE SKIN WEEKLY 02/21/20 23 Active glipiZIDE (Glucotrol) 5 MG tablet Take 1 (one) tablet by mouth once daily 04/06/19 25 Active omeprazole (PriLOSEC) 20 MG capsule Take 1 (one) capsule by mouth 2 times daily, before breakfast and supper Active losartan (Cozaar) 50 MG tablet Take 1 (one) tablet by mouth once daily Active folic acid (Folvite) 1 MG tablet Take 1 (one) tablet by mouth once daily 30 tablet 11 10/12/19 25 Active [place] & Syringes (1CC TB SYRINGE) [facility] Use one syringe once every 7 days for methotrexate injection. 12 Each 1 10/12/19 25 Active Methotrexate Sodium (methotrexate, PF,) 50 MG/2ML injectionIndic ations:Rheumat oid arthritis of multiple sites without rheumatoid factor (HCC),Encounte r for long-term (current) use of high-risk medication Inject 0.3 mL subcutaneously every 7 days (once a week) 8 mL 1 11/25/19 25 Active Methotrexate Sodium (methotrexate, PF,) 50 MG/2ML injection Inject 0.3 mL subcutaneously every 7 days (once a week) 8 mL 10/12/19 25 025 Discontin ued(Reord er) Active Problems Problem Noted Date Diagnosed Date Rheumatoid arthritis of [facility] without rheumatoid factor 04/05/2024 Encounters Date Type Department Care Team Description 12/02/2024 Orders Only [facility] - Rheumatology [address] [place] [address] Susannah Bautista MD Rheumatoid arthritis of multiple sites without rheumatoid factor (HCC); Encounter for long-term (current) use of high-risk medication 11/04/2024 Orders Only [facility] - Rheumatology [address] [place] [address] Susannah Bautista MD Rheumatoid arthritis of multiple sites without rheumatoid factor (HCC); Encounter for long-term (current) use of high-risk medication 09/29/2024 Results Follow-Up [facility] - Rheumatology [address] [place] [address] Susannah Bautista MD 09/28/2024 Orders Only [facility] - Rheumatology [address] [place] [address] Susannah Bautista MD Rheumatoid arthritis of multiple sites without rheumatoid factor (HCC); Encounter for long-term (current) use of high-risk medication; Elevated liver enzymes from Last 3 Months Family History Medical [...] Never Smokeless Tobacco: Never Tobacco Cessation:Counseling Given: No Alcohol Use Standard Drinks/Week Comments Not Currently 0 (1 standard drink = 0.6 oz pur e alcohol) PHQ-2 Answer Date Recorded Patient Health Questionnaire-2 Score 0 04/05/2024 Sex and Gender Information Value Date Recorded Sex Assigned at Not on file 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 Gender Identity Not on file Sexual Orientation Not on file Last Filed Vital Signs Vital Sign Reading Time Taken Comments Blood Pressure 162/96 09/07/2024 3:40 PM CDT Pulse 91 09/07/2024 3:02 PM CDT Temperature 36.1 C (97 F) 09/07/2024 3:02 PM CDT Respiratory Rate 16 08/29/2024 12:55 PM CDT Oxygen Saturation 100% 09/07/2024 3:02 PM CDT Inhaled Oxygen Concentration - - Weight 75.8 kg (167 lb) 09/07/2024 3:02 PM CDT Height 180.3 cm (5' 11) 08/01/2024 8:22 AM CDT Body Mass Index 23.29 08/01/2024 8:22 AM CDT Plan of Treatment Upcoming Encounters Date Type Department Care Team (Late st Contact Info) Description 01/11/2025 3:00 PM PARACHUTE PANEL JOINER Office Visit [facility] - Rheumatology [address] [place] [address] Susannah Bautista MD [address] [place] [address] Health Maintenance Due Date Last Done Comments COLOGUARD (AGES 45-75) - COL ON CA SCREENING 1963 COLON MONITORING 1963 COLONOSCOPY - COLON CA SCREENING 1963 CT COLONOGRAPHY - COLON CA SCREENING 1963 Colorectal Cancer Screening 1963 FIT - COLON CA SCREENING 1963 FLEX SIG - COLON CA SCREENING 1963 LIPID TESTING 1963 COVID-19 VACCINE (#1) 05/23/1968 HIV SCREENING 05/23/1978 HEPATITIS C SCREENING 05/19/1981 DTAP/TDAP/TD VACCINES (1 - Tdap) 05/23/1982 PNEUMOCOCCAL VACCINE 50+ (1 of 2 - PCV) 05/23/1982 ZOSTER VACCINE (1 of 2) 05/23/1982 Respiratory Syncytial Virus (RSV) Vaccine Pt: or over 60 yrs (1 - Risk 60-74 years 1-dose series) 2023 INFLUENZA VACCINE (#1) 2024 DEPRESSION SCREENING Completed 04/05/2024 HEPATITIS B VACCINE [...] Procedure Name Priority Date/Time Associated Diagnosis Comments HEPATIC FUNCTION PANEL Routine 9:36 AM CDT Rheumatoid arthritis of multiple sites without rheumatoid factor (HCC) Encounter for long-term (current) use of high-risk medication C-REACTIVE PROTEIN Routine 11/23/2024 9: 36 AM CDT Rheumatoid arthritis of multiple sites without rheumatoid factor (HCC) Encounter for long-term (current) use of high-risk medication ERYTHROCYTE SEDIMENTATION RATE Routine 11/23/2024 9:36 AM CDT Rheumatoid arthritis of multiple sites without rheumatoid factor (HCC) Encounter for long-term (current) use of high-risk medication CREATININE BLOOD Routine 11/23/2024 9:36 AM CDT Rheumatoid arthritis of multiple sites without rheumatoid factor (HCC) Encounter for long-term (current) use of high-risk medication BUN Routine 11/23/2024 9:36 AM CDT Rheumatoid arthritis of multiple sites without rheumatoid factor (HCC) Encounter for long-term (current) use of high-risk medication CBC W AUTO DIFFERENTIAL Routine 11/23/2024 9:36 AM CDT Rheumatoid arthritis of multiple sites without rheumatoid factor (HCC) Encounter for long-term (current) use of high-risk medication US ABDOMEN LIMITED Routine 09/13/2024 Rheumatoid arthritis of multiple sites without rheumatoid factor (HCC) Encounter for long-term (current) use of high-risk medication Elevated liver enzymes from Last 3 Months Results * (ABNORMAL) C-REACTIVE PROTEIN (11/23/2024 9:36 AM CDT) C-Reactive Protein 16(H) 0 - 10 mg/L [facility] INSURANCE BILL Blood BLOOD SPECIMEN / Unknown 11/23/2024 9:36 AM CDT 11/23/2024 Narrative [facility] INSURANCE BILL - 11/24/2024 6:10 AM CDT Performed at: [address] [place] [id number] [employer] Application Developer: Jason Mckenzie PhD, Phone: [phone] us Susannah Bautista MD LAB - CHEMISTRY ORDERABLES Final Result [facility] INSURANCE BILL [address] [place] [address] * (ABNORMAL) ERYTHROCYTE SEDIMENTATION RATE (11/23/2024 9:36 AM CDT) Erythrocyte Sedimentation Rate Westergren 42(H) 0 - 30 mm/hr [facility] INSURANCE BILL Blood BLOOD SPECIMEN / Unknown 11/23/2024 9:36 AM CDT 11/23/2024 Narrative [facility] INSURANCE BILL - 11/24/2024 6:10 AM CDT Performed at: [facility] [id number] [employer] Developer: Jason Mckenzie PhD, Phone: [phone] us Susannah Bautista MD LAB - HEMATOLOGY ORDERABLES Cely l Result [facility] INSURANCE BILL [address] [place] [address] * (ABNORMAL) CBC WITH DIFFERENTIAL (11/23/2024 9:36 AM CDT) WBC 8.8 3.4 - 10.8 x10E3/uL [facility] INSURANCE BILL RBC 3.83(L) 4.14 - 5.80 x10E6/uL [facility] INSURANCE BILL Hemoglobin 11.9(L) 13.0 - 17.7 g/dL [facility] INSURANCE BILL Hematocrit 36.2(L) 37.5 - 51.0 % [facility] INSURANCE BILL MCV 95 79 - 97 fL [facility] INSURANCE BILL MCH 31.1 26.6 - 33.0 pg [facility] INSURANCE BILL MCHC 32.9 31.5 - 35.7 g/dL [facility] INSURANCE BILL RDW 13.2 11.6 - 15.4 % [facility] INSURANCE BILL Platelet Count 240 150 - 450 x10E3/uL [facility] INSURANCE BILL Granulocytes % 60 Not Estab. % [facility] INSURANCE BILL Lymphocytes % 17 Not Estab. % [facility] INSURANCE BILL Monocytes % 7 Not Estab. % [facility] INSURANCE BILL Eosinophils % 16 Not Estab. % [facility] INSURANCE BILL Basophils % 0 Not Estab. % [facility] INSURANCE BILL Granulocytes Absolute 5.3 1.4 - 7.0 x10E3/uL [facility] INSURANCE BILL Lymphocytes Absolute 1.5 0.7 - 3.1 x10E3/uL [facility] INSURANCE BILL Monocytes Absolute 0.6 0.1 - 0.9 x10E3/uL [facility] INSURANCE BILL Eosinophils Absolute 1.4(H) 0.0 - 0.4 x10E3/uL [facility] INSURANCE BILL Basophils Absolute 0.0 0.0 - 0.2 x10E3/uL [facility] INSURANCE BILL Immature Granulocytes 0 Not Estab. % [facility] INSURANCE BILL Immature Granulocytes Absolute 0.0 0.0 - 0.1 x10E3/uL [facility] INSURANCE BILL Blood BLOOD SPECIMEN / Unknown 11/23/2024 9:36 AM CDT 11/23/2024 Narrative [facility] INSURANCE BILL - 11/23/2024 11:08 PM CDT Performed at: [address] [id number] [employer] Developer: Jason Mckenzie PhD, Phone: [phone] us Susannah Bautista MD LAB - HEMATOLOGY ORDERABLES Cely l Result [facility] INSURANCE BILL [address] [place] [address] * (ABNORMAL) HEPATIC FUNCTION PANEL (11/23/2024 9:36 AM CDT) Protein Total 5.6(L) 6.0 - 8.5 g/dL [facility] INSURANCE BILL Albumin 3.6(L) 3.9 - 4.9 g/dL [facility] INSURANCE BILL Bilirubin Total 0.2 0.0 - 1.2 mg/dL [facility] INSURANCE BILL Bilirubin Direct <0.08 0.00 - 0.40 mg/dL [facility] INSURANCE BILL Alkaline Phosphatase 162(H) 47 - 123 IU/L [facility] INSURANCE BILL AST 15 0 - 40 IU/L [facility] INSURANCE BILL ALT 12 0 - 44 IU/L [facility] INSURANCE BILL Blood BLOOD SPECIMEN / Unknown 11/23/2024 9:36 AM CDT 11/23/2024 Narrative [facility] INSURANCE BILL - 11/24/2024 6:10 AM CDT Performed at: [address] [id number] [employer] Developer: Jason Mckenzie PhD, Phone: [phone] us Susannah Bautista MD LAB - CHEMISTRY ORDERABLES Final Result [facility] INSURANCE BILL [address] [place] [address] * CREATININE BLOOD (11/23/2024 9:36 AM CDT) Creatinine 0.87 0.76 - 1.27 mg/dL [facility] INSURANCE BILL eGFR by CKD-EPI 98 >59 mL/min/1.7 3 [facility] INSURANCE BILL Blood BLOOD SPECIMEN / Unknown 11/23/2024 9:36 AM CDT 11/23/2024 Narrative [facility] INSURANCE BILL - 11/24/2024 6:10 AM CDT Performed at: 01 - [facility] [id number] [employer] Developer: Jason Mckenzie PhD, Phone: [phone] Susannah Bautista MD LAB - CHEMISTRY ORDERABLES Final Result [facility] INSURANCE BILL [address] [place] [address] * BUN (11/23/2024 9:36 AM CDT) [facility] BUN 12 8 - 27 mg/dL [facility] INSURANCE BILL Blood BLOOD SPECIMEN / Unknown 11/23/2024 9:36 AM CDT 11/23/2024 Narrative [facility] INSURANCE BILL - 11/24/2024 6:10 AM CDT Performed at: [address] [id number] [employer] Developer: Jason Mckenzie PhD, Phone: [phone] Susannah Bautista MD LAB - CHEMISTRY ORDERABLES Final Result Performing Organization Address City/[facility]/ZIP Co de Phone Number [facility] INSURANCE BILL [address] [place] [address] * US Abdomen Limited (09/13/2024) Anatomical Region Laterality Modality Abdomen Ultrasound 09/13/2024 Susannah Bautista MD US ORDERABLES Final Result from Last 3 Months Insurance [facility] Care Teams Automobile Assembly Supervisor Relationship Specialty Start Date End Date Brook Guzman APRN-ALBERT [address] [place] [address] PCP - General Certified Clinical Nurse Specialist 04/03/23
--- OUTSIDE RECORDS SUMMARY | 2024-12-13 14:56 | XMS_ITS | Clinical Summary ---
Author Organization [facility] Address [address] [place] [address] Care Team Providers Care Accountant Controller Name Role Phone Brook Guzman NP Primary Care Provider [phone] Allergies Active Allergy Reactions Criticality Noted Date [...] the skin once a week 4 Active glipiZIDE (GLUCOTROL) 5 mg tablet Take 1 tablet (5 mg total) by mouth daily 5 Active HYDROcodone-alisha taminophen (NORCO) 5-325 mg per tablet Take by mouth every 8 (eight) hours as needed 5 Active levothyroxine (SYNTHROID) 100 mcg tablet Take 1 tablet (100 mcg total) by mouth daily 5 Active azaTHIOprine (IMURAN) 50 mg tablet TAKE ONE TABLET A DAY FOR 1 WEEK AND THEN 1 TABLET TWICE DAILY IF NO SIDE EFFECTS Active omeprazole (PriLOSEC) 20 mg capsule Take 1 capsule (20 mg total) by mouth Active Active Problems Problem Noted Date Diagnosed Date Foot ulceration, right, limited to breakdown of skin 06/10/2024 Charcot joint of right foot 06/10/2024 Rheumatoid arthritis of mult iple sites without rheumatoid factor 04/05/2024 Encounters Date Type Department Care Team Description 10/03/2024 12:15 PM CDT Office Visit [facility] Orthopedics and Sports Medicine [address] [place] [address] [address] [place] [id number] Dimas Garcia DO Charcot joint of right foot (Primary Dx) 10/03/2024 11:38 AM CDT - 10/03/2024 11:59 PM CDT Hospital Encounter [facility] [address] [place] [address] Charcot joint of right foot Discharge Disposition: Discharge to home or self care from Last 3 Months Surgical History Surgery Date Site/Laterality Comments NO PAST SURGERIES Medical History Medical History Date Comments Hx Other Medical jaundice/hepati tis Kidney disorder kidney disease Hypothyroidism hypothyroidism Depression Depression Hyperlipidemia Hyperlipidemia Hypertension Hypertension Diabetes mellitus Diabetes Anxiety disorder Anxiety Family History Medical [...] on file Legal Sex Male 11:26 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 Gender Identity Not on file Sexual Orientation [...] - - Weight 76.2 kg (168 lb) 10/03/2024 12:33 PM CDT Height 180.3 cm (5' 11) 10/03/2024 12:33 PM CDT Body Mass Index 23.43 10/03/2024 12:33 PM CDT Plan of Treatment Health Maintenance Due Date Last Done Comments Colon Cancer Screening-Colonoscopy 1965 Depression Screening 1965 Hepatitis C Screening 1965 Prostate Cancer Screening-PSA 1965 DTaP/Tdap/Td Vaccine (1 - Tdap) 05/23/1974 Hepatitis B Screening 05/23/1981 Regular Well Visit/Exam 18-64 05/23/1981 Pneumococcal vaccine <65 (1 of 2 - PCV) 05/23/1982 Zoster Vaccine (1 of 2) 05/23/1982 Influenza Vaccine (#1) 2024 03/10/2013 Procedures Procedure Name Priority Date/Time Associated Diagnosis Comments XR FOOT RIGHT 3 OR MORE VIEWS Schedule Routine, Read Routine (OP Routine) 10/03/2024 11:44 AM CDT Charcot joint of right foot from Last 3 Months Results * XR Foot Right 3 or More Views (10/03/2024 11:44 AM CDT) Anatomical Region Laterality Modality Lower Extremities, Foot Right Computed Radiography 10/10/2024 10:5 3 AM CDT Narrative 10/10/2024 10:54 AM CDT EXAM DESCRIPTION: 1. XR FOOT RIGHT 3 OR MORE VIEWS REASON FOR STUDY: pain General foot pain since April 2024, no injury FINDINGS: Three views submitted with comparison 06/30/2024. Severe right midfoot neuropathic arthropathy is present with dorsal subluxation of the tarsals at the talonavicular articulation and fragmentation. Pes planovalgus alignment is present. Midfoot soft tissue swelling noted. Achilles enthesophyte and small heel spur noted. 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 IMPRESSION: 1. Unchanged severe right midfoot neuropathic arthropathy with dorsal subluxation of the tarsals at the talonavicular articulation and fragmentation. THIS IS AN ELECTRONICALLY VERIFIED FINAL REPORT 10/10/2024 10:54 AM - Electronically signed by Robinson Buckley M.D. T: Report ID: [id number] Reading Location: [id number] Procedure Note Robinson Buckley MD - 10/10/2024 EXAM DESCRIPTION: 1. XR FOOT RIGHT 3 OR MORE VIEWS REASON FOR STUDY: pain General foot pain since April 2024, no injury FINDINGS: Three views submitted with comparison 06/30/2024. Severe right midfoot neuropathic arthropathy is present with dorsal subluxation of the tarsals at the talonavicular articulation and fragmentation. Pes planovalgus alignment is present. Midfoot soft tissue swelling noted. Achilles enthesophyte and small heel spur noted. 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 IMPRESSION: 1. Unchanged severe right midfoot neuropathic arthropathy with dorsal subluxation of the tarsals at the talonavicular articulation andfragmentation. THIS IS AN ELECTRONICALLY VERIFIED FINAL REPORT 10/10/2024 10:54 AM - Electronically signed by Robinson Buckley M.D. T: Report ID: [id number] Reading Location: [place] [address] Dimas Garcia DO IMG XR PROCEDURES Final Result from Last 3 Months Insurance [facility] CHO[facility] PLUS Care Teams Accountant Controller Relationship Specialty Start Date End Date Brook Guzman NP PCP - General Cardiovascular Disease 06/30/24
--- OUTSIDE RECORDS SUMMARY | 2024-12-13 14:56 | XMS_ITS | Patient Health Record ---
Author Organization [facility] Address [address] [facility] [address] [facility] [address] [place], [place] [address] Care Team Providers Care Prepress Stripper Name Role Phone Ilya Granados Unavailable [phone] ALLERGIES Allergen (clinical drug ingredient) Drug/Non Drug [...] 6 tab(s orally once a week for 12/31/2008 02/24/2024 Active lisinopril 2.5 mg 1 tab(s) orally once a day 02/24/2024 02/24/2024 Active PROBLEMS Problem Type ICD Code Onset Dates Problem Status W/U Status Risk SNOMED Code Notes Problem Rheumatoid Arthritis (714.0) Active confirmed Rheumatoid arthritis (49153939) PLAN OF TREATMENT No Information Insurance Providers Payer Name Payer Address Payer Phone Subscriber Number Group Number Insured Name Patient Relationship to Insured Coverage Start Date Coverage End Date [facility] [address] [place] [phone] [id number] Robinson Noguera Self - patient is the insured 9 MEDICAL (GENERAL) HISTORY Medical History History ICD Code rheumatoid arthritis
--- OUTSIDE RECORDS SUMMARY | 2024-12-13 14:56 | XMS_ITS | Clinical Summary ---
Author Organization [facility] Address [address] [place] [address] Care Team Providers Care Antichecking Iron Worker Name Role Phone None, Provider MD Primary [...] Td Vaccines ( 1 - Tdap) 05/23/1982 Pneumococcal Vaccine: 50+ Ye ars (1 of 1 - PCV) 05/23/2013 Zoster Vaccines (1 of 2) 05/23/2013 COVID-19 Vaccine ( - 2024-2 6 season) 2024 Influenza Adult (#1) 2024 03/10/2013 RSV Immunization or 60+ Years (1 - 1-dose 75+ series) 05/23/2038 Hepatitis A Vaccines Aged Out No long er eligible based on patient's age to complete this topic Meningococcal B Vaccine Aged Out No l onger eligible based on patient's age to complete this topic Meningococcal Vaccine Aged Out No cb robyn eligible based on patient's age to complete this topic RSV Immunizations Under 20 Months Aged Out No longer eligible based on patient's age to complete this topic Insurance [facility] Care Teams Antichecking Iron Worker Relationship Specialty Start Date End Date None, Provider, MD PCP - General UNKNOWN PHYSICIAN SPECIALTY 12/01/22
--- OUTSIDE RECORDS SUMMARY | 2024-12-13 14:56 | XMS_ITS | Clinical Summary ---
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 Gender Identity Not on file Sexual Orientation Not on file Plan of Treatment Health Maintenance Due Date Last Done Comments Hepatitis C Virus (HCV) Screening 1965 TdaP Immunization 1965 Cologuard 05/23/2008 Colonoscopy 05/23/2008 Colorectal Cancer Screening 05/23/2008 Immunochemical Fecal Occult Blood 05/23/2008 Pneumococcal Immunization (5 0+ years) (1 of 1 - PCV) 05/23/2013 Zoster Immunization (1 of 2) 05/23/2013 PSA Discussion 05/23/2018 Influenza Immunization (#1) 2024 03/10/2013 SARS-COV-2 Immunization ( - season) 2024 Respiratory Syncytial Virus (RSV) Immunization (Adult) (1 - 1-dose 75+ series) 05/23/2038 Hepatitis B Immunization Aged Out No longer eligible based on patient's age to complete this topic Human Papillomavirus (HPV) Immunization Aged Out No longer eligible b ased on patient's age to complete this topic Meningococcal Immunization (ACWY) Aged Out No longer eligible based on patient's age to complete this topic Rotavirus Immunization Aged Out No lo nger eligible based on patient's age to complete this topic
== END 2024-12-13 13:13 | disposition home or self-care (01) ==
PROVIDERS: Emergency Medicine; Emergency Provider Student in an Organized Health Care Education/Training Program; PCP Clinical Nurse Specialist
DX: I63.9 Cerebral infarction, unspecified (principal); E11.39 Type 2 diabetes mellitus with other diabetic ophthalmic complication; I10 Essential (primary) hypertension; E11.42 Type 2 diabetes mellitus with diabetic polyneuropathy; J45.909 Unspecified asthma, uncomplicated; E03.9 Hypothyroidism, unspecified; N40.1 Benign prostatic hyperplasia with lower urinary tract symptoms; R33.8 Other retention of urine; N13.8 Other obstructive and reflux uropathy; K21.9 Gastro-esophageal reflux disease without esophagitis; M81.0 Age-related osteoporosis without current pathological fracture; M79.7 Fibromyalgia; M06.9 Rheumatoid arthritis, unspecified; M10.9 Gout, unspecified; D64.9 Anemia, unspecified; F41.9 Anxiety disorder, unspecified; F32.A Depression, unspecified; Z87.440 Personal history of urinary (tract) infections; Z87.442 Personal history of urinary calculi; Z87.01 Personal history of pneumonia (recurrent); Z77.22 Contact with and (suspected) exposure to environmental tobacco smoke (acute) (chronic); Z79.85 Long-term (current) use of injectable non-insulin antidiabetic drugs; Z79.4 Long term (current) use of insulin; Z79.899 Other long term (current) drug therapy
CPT/HCPCS: 36415; 71045; 80053; 82948; 84484; 85025; 85610; 85730; 93005; 99284

== ENCOUNTER 2025-01-05 09:38 | Outpatient (CLI) | payer OTHER, SELFPAY ==
--- NOTE | ~2025-01-05 | US_ITS ---
Clinical History: I63.9 - Cerebral infarction, unspecified Examination: US carotid duplex BI Comparison: None Technique: Grayscale, color, duplex/spectral Doppler sonography carotid and vertebral arteries. Distal CCA and Peak ICA systolic velocities provided. Society of Radiologists in Ultrasound (SRU) consensus criteria utilized, indirectly assessing stenosis by velocities. Findings: No plaque noted Right side: CCA - 103 cm/sec. ICA - 103 cm/sec. ICA/CCA - 1.0 Left Side: CCA - 109 cm/sec. ICA - 80 cm/sec. ICA/CCA - 0.75 Normal antegrade flow measured bilateral vertebral arteries. IMPRESSION: 1. No hemodynamically significant ICA stenosis (i.e., if any stenosis, less than 50%). 2. Normal bilateral antegrade vertebral artery flow. Stenosis measured by Society of Radiologists in Ultrasound (SRU) criteria. Reviewed, dictated and finalized at location R. APPLICATIONS REPRESENTATIVE IMPRESSION: 1. No hemodynamically significant ICA stenosis (i.e., if any stenosis, less th an 50%). 2. Normal bilateral antegrade vertebral artery flow. Stenosis measured by Society of Radiologists in Ultrasound (SRU) criteria.
--- OUTSIDE RECORDS SUMMARY | 2025-01-05 10:15 | XMS_ITS | Clinical Summary ---
Author Organization [facility] Address [address] [place] [address] Care Team Providers Care Autoglazier Name Role Phone Brook Guzman BALAJI-JUNIOR PROGRAMMER ANALYST Primary Care Provider [phone] Source Comments [facility],non-owned Affiliates and Associated Physician Practices is amultiple site organization consisting of ambulatory clinics and hospital sitesin [place], [place], [place]. This disclosure is being madepursuant to the Care Everywhere program and may not contain all information available regarding this patient. Last updated 17.[facility] Allergies Active Allergy Reactions Criticality Noted Date Comments Azathioprine Nausea and/or Vomiting High 10/11/2024 Penicillins Diarrhea 04/03/2023 Medications * Be aware that medications may not be up to date on this document. Alwaysverify current medications with the patient. Basaglyecenia KwikPen (Basaglar) pen ADMINISTER 15 UNITS UNDER THE SKIN EVERY EVENING 4 Active levothyroxine (Synthroid) 50 MCG tablet Take 1.5 (one and one-half) tablets by mouth once daily 3 Active Ozempic, 0.25 or 0.5 MG/DOSE, 2 MG/3ML SOPN INJECT 0.5 MG UNDER THE SKIN WEEKLY 3 Active glipiZIDE (Glucotrol) 5 MG tablet Take 1 (one) tablet by mouth once daily 5 Active omeprazole (PriLOSEC) 20 MG capsule Take 1 (one) capsule by mouth 2 times daily, before breakfast and supper Active losartan (Cozaar) 50 MG tablet Take 1 (one) tablet by mouth once daily Active folic acid (Folvite) 1 MG tablet Take 1 (one) tablet by mouth once daily 30 tablet 11 5 Active [place] [employer] Syringes (1CC TB SYRINGE) [facility] Use one syringe once every 7 days for methotrexate injection. 12 Each 1 5 Active Methotrexate Sodium (methotrexate, PF,) 50 MG/2ML injectionIndic ations:Rheumat oid arthritis of multiple sites without rheumatoid factor (HCC),Encounte r for long-term (current) use of high-risk medication Inject 0.3 mL subcutaneously every 7 days (once a week) 8 mL 1 5 Active Active Problems Problem Noted Date Diagnosed Date Rheumatoid arthritis of mult iple sites without rheumatoid factor 04/05/2024 Encounters Date Type Department Care Team Description 12/30/2024 Orders Only [facility] - Rheumatology [address] [place] [address] Susannah Bautista MD Rheumatoid arthritis of multiple sites without rheumatoid factor (HCC); Encounter for long-term (current) use of high-risk medication 12/26/2024 Results Follow-Up [facility] - Rheumatology [address] [place] [address] Susannah Bautista MD 12/02/2024 Orders Only [facility] - Rheumatology [address] [place] [address] Susannah Bautista MD Rheumatoid arthritis of multiple sites without rheumatoid factor (HCC); Encounter for long-term (current) use of high-risk medication 11/04/2024 Orders Only [facility] - Rheumatology [address] [place] [address] Susannah Bautista MD Rheumatoid arthritis of multiple sites without rheumatoid factor (HCC); Encounter for long-term (current) use of high-risk medication from Last 3 Months Family History Medical [...] on file Legal Sex Male 5:06 AM 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 - [facility]ology [address] [place] [address] Susannah Bautista MD [address] [place] [address] Health Maintenance Due Date Last Done Comments [...] Procedure Name Priority Date/Time Associated Diagnosis Comments C-REACTIVE PROTEIN SENSITIVE Routine 12/23/2024 7:48 AM CDT Rheumatoid arthritis of multiple sites without rheumatoid factor (HCC) Encounter for long-term (current) use of high-risk medication BUN Routine 12/23/2024 7:47 AM CDT Rheumatoid arthritis of multiple sites without rheumatoid factor (HCC) Encounter for long-term (current) use of high-risk medication CREATININE BLOOD Routine 12/23/2024 7:47 AM CDT Rheumatoid arthritis of multiple sites without rheumatoid factor (HCC) Encounter for long-term (current) use of high-risk medication HEPATIC FUNCTION PANEL Routine 7:47 AM CDT Rheumatoid arthritis of multiple sites without rheumatoid factor (HCC) Encounter for long-term (current) use of high-risk medication CBC W AUTO DIFFERENTIAL Routine 12/23/2024 7:47 AM CDT Rheumatoid arthritis of multiple sites without rheumatoid factor (HCC) Encounter for long-term (current) use of high-risk medication ERYTHROCYTE SEDIMENTATION RATE Routine 12/23/2024 7:47 AM CDT Rheumatoid arthritis of multiple sites without rheumatoid factor (HCC) Encounter for long-term (current) use of high-risk medication HEPATIC FUNCTION PANEL Routine 9:36 AM CDT [...] for long-term (current) use of high-risk medication from Last 3 Months Results * (ABNORMAL) C-REACTIVE PROTEIN SENSITIVE (12/23/2024 7:48 AM CDT) C-Reactive Protein High Sensitivity 6.37(H) 0.00 - 3.00 mg/L [facility] INSURANCE BILL Comment: Relative Risk for Future Cardiovascular Event Low <1.00 Average 1.00 - 3.00 High >3.00 Blood BLOOD SPECIMEN / Unknown 12/23/2024 7:48 AM CDT 12/23/2024 Narrative [facility] INSURANCE BILL - 12/24/2024 8:11 AM CDT Performed at: [address] [place] [id number] Travel Accommodation Inspector: Jason Mckenzie PhD, Phone: [phone] Susannah Bautista MD LAB - CHEMISTRY ORDERABLES Final Result Performing Organization Address City/[facility] Co de Phone Number [facility] INSURANCE BILL [address] [place] [address] * ERYTHROCYTE SEDIMENTATION RATE (12/23/2024 7:47 AM CDT) Only the most recent of2 resultswithin the time period is included. Erythrocyte Sedimentation Rate Westergren 25 0 - 30 mm/hr [facility] INSURANCE BILL Blood BLOOD SPECIMEN / Unknown 12/23/2024 7:47 AM CDT 12/23/2024 Narrative [facility] INSURANCE BILL - 12/24/2024 7:09 AM CDT Performed at: [address] [place] [id number] Travel Accommodation Inspector: Jason Mckenzie PhD, Phone: [phone] Susannah Bautista MD LAB - HEMATOLOGY ORDERABLES Cely l Result Performing Organization Address [facility] de Phone Number [facility] INSURANCE BILL [address] [place] [address] * (ABNORMAL) CBC WITH DIFFERENTIAL (12/23/2024 7:47 AM CDT) Only the most recent of2 resultswithin the time period is included. WBC 8.9 3.4 - 10.8 x10E3/uL [facility] INSURANCE BILL RBC 4.38 4.14 - 5.80 x10E6/uL [facility] INSURANCE BILL Hemoglobin 13.9 13.0 - 17.7 g/dL [facility] INSURANCE BILL Hematocrit 41.3 37.5 - 51.0 % [facility] INSURANCE BILL MCV 94 79 - 97 fL [facility] INSURANCE BILL MCH 31.7 26.6 - 33.0 pg [facility] INSURANCE BILL MCHC 33.7 31.5 - 35.7 g/dL [facility] INSURANCE BILL RDW 14.0 11.6 - 15.4 % [facility] INSURANCE BILL Platelet Count 270 150 - 450 x10E3/uL [facility] INSURANCE BILL Granulocytes % 66 Not Estab. % [facility] INSURANCE BILL Lymphocytes % 17 Not Estab. % [facility] INSURANCE BILL Monocytes % 9 Not Estab. % [facility] INSURANCE BILL Eosinophils % 8 Not Estab. % [facility] INSURANCE BILL Basophils % 0 Not Estab. % [facility] INSURANCE BILL Granulocytes Absolute 5.8 1.4 - 7.0 x10E3/uL [facility] INSURANCE BILL Lymphocytes Absolute 1.6 0.7 - 3.1 x10E3/uL [facility] INSURANCE BILL Monocytes Absolute 0.8 0.1 - 0.9 x10E3/uL [facility] INSURANCE BILL Eosinophils Absolute 0.7(H) 0.0 - 0.4 x10E3/uL [facility] INSURANCE BILL Basophils Absolute 0.0 0.0 - 0.2 x10E3/uL [facility] INSURANCE BILL Immature Granulocytes 0 Not Estab. % [facility] INSURANCE BILL Immature Granulocytes Absolute 0.0 0.0 - 0.1 x10E3/uL [facility] INSURANCE BILL Blood BLOOD SPECIMEN / Unknown 12/23/2024 7:47 AM CDT 12/23/2024 Narrative [facility] INSURANCE BILL - 12/24/2024 7:09 AM CDT Performed at: [address] [id number] Travel Accommodation Inspector: Jason Mckenzie PhD, Phone: [phone] us Susannah Bautista MD LAB - HEMATOLOGY ORDERABLES Cely l Result [facility] INSURANCE BILL [address] [place] [address] * (ABNORMAL) HEPATIC FUNCTION PANEL (12/23/2024 7:47 AM CDT) Only the most recent of2 resultswithin the time period is included. [facility] Protein Total 6.9 6.0 - 8.5 g/dL [facility] INSURANCE BILL Albumin 4.2 3.9 - 4.9 g/dL [facility] INSURANCE BILL Bilirubin Total 0.3 0.0 - 1.2 mg/dL [facility] INSURANCE BILL Bilirubin Direct 0.11 0.00 - 0.40 mg/dL [facility] INSURANCE BILL Alkaline Phosphatase 161(H) 47 - 123 IU/L [facility] INSURANCE BILL AST 22 0 - 40 IU/L [facility] INSURANCE BILL ALT 18 0 - 44 IU/L [facility] INSURANCE BILL Blood BLOOD SPECIMEN / Unknown 12/23/2024 7:47 AM CDT 12/23/2024 Narrative [facility] INSURANCE BILL - 12/24/2024 8:11 AM CDT Performed at: [address] [id number] Travel Accommodation Inspector: Jason Mckenzie PhD, Phone: [phone] us Susannah Bautista MD LAB - CHEMISTRY ORDERABLES Final Result Performing Organization Address City/[facility]/ZIP Co de Phone Number [facility] INSURANCE BILL [address] [place] [address] * CREATININE BLOOD (12/23/2024 7:47 AM CDT) Only the most recent of2 resultswithin the time period is included. Creatinine 0.92 0.76 - 1.27 mg/dL [facility] INSURANCE BILL eGFR by CKD-EPI 95 >59 mL/min/1.7 3 [facility] INSURANCE BILL Blood BLOOD SPECIMEN / Unknown 12/23/2024 7:47 AM CDT 12/23/2024 Narrative [facility] INSURANCE BILL - 12/24/2024 7:09 AM CDT Performed at: [address] [id number] Travel Accommodation Inspector: Jason Mckenzie PhD, Phone: [phone] us Susannah Bautista MD LAB - CHEMISTRY ORDERABLES Final Result Performing Organization Address City/[facility]/ZIP Co de Phone Number [facility] INSURANCE BILL [address] [place] [address] * BUN (12/23/2024 7:47 AM CDT) Only the most recent of2 resultswithin the time period is included. BUN 20 8 - 27 mg/dL [facility] INSURANCE BILL Blood BLOOD SPECIMEN / Unknown 12/23/2024 7:47 AM CDT 12/23/2024 Narrative [facility] INSURANCE BILL - 12/24/2024 7:09 AM CDT Performed at: [address] [place] [id number] Travel Accommodation Inspector: Jason Mckenzie PhD, Phone: [phone] Susannah Bautista MD LAB - CHEMISTRY ORDERABLES Final Result [facility] INSURANCE BILL [address] [place] [address] * (ABNORMAL) C-REACTIVE PROTEIN (11/23/2024 9:36 AM CDT) [facility] C-Reactive Protein 16(H) 0 - 10 mg/L [facility] INSURANCE BILL Blood BLOOD SPECIMEN / Unknown 11/23/2024 9:36 AM CDT 11/23/2024 Narrative [facility] INSURANCE BILL - 11/24/2024 6:10 AM CDT Performed at: [address] [place] [id number] Travel Accommodation Inspector: Jason Mckenzie PhD, Phone: [phone] Susannah Bautista MD LAB - CHEMISTRY ORDERABLES Final Result Performing Organization Address City/[facility]/ZIP Co de Phone Number [facility] INSURANCE BILL [address] [place] [address] from Last 3 Months Insurance [facility] Care Teams Autoglazier Relationship Specialty Start Date End Date Brook Guzman APRN-JUNIOR PROGRAMMER ANALYST [address] [place] [address] PCP - General Certified Clinical Nurse Specialist 04/03/23
--- OUTSIDE RECORDS SUMMARY | 2025-01-05 10:15 | XMS_ITS | Encounter Summary ---
Author Organization [facility] Address [address] [place] [address] Care Team Providers Care Wellness Ambassador Name Role Phone Brook Guzman PRODUCTION TRUCK DRIVER-[facility] Primary Care Provider [phone] Encounter Details Date Type Department Care Team (Late st Contact Info) Description 12/26/2024 Results Follow-Up [facility] - Rheumatology [address] [place] [phone] Susannah Bautista MD [address] [place] [phone] Social History Tobacco Use Types Packs/Day Years Used Date Smoking Tobacco: Never Smokeless Tobacco: Never Alcohol Use Standard Drinks/Week Comments Not Currently 0 (1 standard drink = 0.6 oz pur e alcohol) PHQ-2 Answer Date Recorded Patient Health Questionnaire-2 Score 0 04/05/2024 Sex and Gender Information Value Date Recorded Sex Assigned at Not on file Legal Sex Male 5:06 AM FUR DRESSER Gender Identity Not on file Sexual Orientation Not on file documented as of this encounter Plan of Treatment Upcoming Encounters Date Type Department Care Team (Late st Contact Info) Description 01/11/2025 3:00 PM FUR DRESSER Office Visit [facility] - Rheumatology [address] [place] [phone] Susannah Bautista MD [address] [place] [phone] documented as of this encounter Visit Diagnoses Not on filedocumented in this encounter Care Teams Wellness Ambassador Relationship Specialty Start Date End Date Brook Guzman APRN-GRAB JACK WORKER [address] [place] [address] PCP - General Certified Clinical Nurse Specialist 04/03/23 documented as of this encounter
--- OUTSIDE RECORDS SUMMARY | 2025-01-05 10:15 | XMS_ITS | Encounter Summary ---
Author Organization [facility] Address [address] [place] [address] Care Team Providers Care Sap Fico Business Analyst Name Role Phone rBook Guzman [facility] Primary Care Provider [phone] Encounter Details Date Type Department Care Team (Late st Contact Info) Description 12/30/2024 Orders Only [facility] - Rheumatology [address] [place] [id number] Susannah Bautista MD [address] [place] [id number] Rheumatoid arthritis of multiple sites without rheumatoid factor (HCC); Encounter for long-term (current) use of high-risk medication Social History Tobacco Use Types Packs/Day Years Used Date Smoking Tobacco: Never Smokeless Tobacco: Never Alcohol Use Standard Drinks/Week Comments Not Currently 0 (1 standard drink = 0.6 oz pur e alcohol) PHQ-2 Answer Date Recorded Patient Health Questionnaire-2 Score 0 04/05/2024 Sex and Gender Information Value Date Recorded Sex Assigned at Not on file Legal Sex Male 5:06 AM DIRECTOR VALIDATION Gender Identity Not on file Sexual Orientation Not on file documented as of this encounter Plan of Treatment Upcoming Encounters Date Type Department Care Team (Late st Contact Info) Description 01/11/2025 3:00 PM DIRECTOR VALIDATION Office Visit [facility] - Rheumatology [address] [place] [id number] Susannah Bautista MD [address] [place] [id number] documented as of this encounter Visit Diagnoses Diagnosis Rheumatoid arthritis of multiple sites without rheumatoid factor (HCC) Rheumatoid arthritis Encounter for long-term (current) use of high-risk medication Encounter for long-term (current) use of other medications documented in this encounter Care Teams Sap Fico Business Analyst Relationship Specialty Start Date End Date Brook Guzman APRN-BATCH UNLOADER [address] [place] [address] PCP - General Certified Clinical Nurse Specialist 04/03/23 documented as of this encounter
--- OUTSIDE RECORDS SUMMARY | 2025-01-05 10:15 | XMS_ITS | Clinical Summary ---
Author Organization [facility] Care Team Providers Care Metal Bonding Worker Name Role Phone Unavailable Primary Care Provider Unavailabl e Social History Tobacco Use Types Packs/Day Years Used Date Smoking Tobacco: Never Assessed Sex and Gender Information Value Date Recorded Sex Assigned at Not on file Legal Sex Male 12:45 PM WOMEN'S HEALTH CARE NURSE PRACTITIONER Gender Identity Not on file Sexual Orientation [...] (#1) 2024 03/10/2013 SARS-COV-2 Immunization ( - 2024- season) 2024 Respiratory Syncytial Virus (RSV) Immunization [...]
--- OUTSIDE RECORDS SUMMARY | 2025-01-05 10:15 | XMS_ITS | Clinical Summary ---
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
--- OUTSIDE RECORDS SUMMARY | 2025-01-05 10:15 | XMS_ITS | Patient Health Record ---
Author Organization [facility] [employer] [facility] Address [address] [facility] [address] [place], [place] [id number] Care Team Providers Care Planning Intern Name Role Phone Ilya Granados Unavailable [phone] ALLERGIES Allergen (clinical drug ingredient) Drug/Non Drug [...] Rheumatoid Arthritis (714.0) Active confirmed Rheumatoid arthritis (94990848) PLAN OF TREATMENT No Information Insurance Providers Payer Name Payer Address Payer Phone Subscriber Number Group Number Insured Name Patient Relationship to Insured Coverage Start Date Coverage End Date [facility] [address] [place] [phone] [id number] Noguera Self - patient is the insured 9 MEDICAL (GENERAL) HISTORY Medical History History ICD Code rheumatoid arthritis
== END 2025-01-05 09:39 | disposition home or self-care (01) ==
PROVIDERS: PCP Clinical Nurse Specialist; Visit Provider Clinical Nurse Specialist
DX: I63.9 Cerebral infarction, unspecified (principal)
CPT/HCPCS: 93880

== ENCOUNTER 2025-01-12 12:17 | Outpatient (CLI) | payer OTHER, SELFPAY ==
--- NOTE | 2025-01-12 12:54 | ECHO_ITS ---
Patient Info Name: Robinson Noguera Age: 59 years : 1965 Gender: Male Ht: 71 in Wt: 165 lbs BSA: 1.94 m2 HR: 94 bpm BP: 171 / 109 mmHg Technical Quality: Good Exam Date: 01/12/2025 1:01 PM Patient Status: O Admit Date: 01/12/2025 Exam Type: CA echo doppler w bubble study Complete two-dimensional, color flow and Doppler transthoracic echocardiogram is performed with agitated saline. Art Objects Supervisor: Eugene Flores III Attending Provider: Brook Guzman [facility] Contrast/Agitated Saline Contrast/Ag. Saline: Agitated Saline Amount: 16.00 ml Existing IV Access: No IV Access Condition: patent with no signs of infiltration New IV Access: Right Site Condition: IV removed Summary 1. Left ventricular chamber dimension is normal. 2. Left ventricular systolic function is normal, estimated at 60-65. 3. There is mild concentric increased left ventricular wall thickness. 4. The left ventricular diastolic function is grade I diastolic dysfunction. 5. E/e' 8 is minimally elevated. 6. Agitated saline injection with and without valsalva maneuver opacified right side cardiac chambers with only 2 bubbles shunt to left side cardiac chambers suggesting tiny patent foramen ovale. 7. There is mild aortic valve sclerosis. 8. There is trace mitral valve regurgitation. Left Ventricle E/e' 8 is minimally elevated. Left ventricular chamber dimension is normal. Left ventricular systolic function is normal, estimated at 60-65. There is mild concentric increased left ventricular wall thickness. The left ventricular diastolic function is grade I diastolic dysfunction. Right Ventricle Right ventricular chamber dimension is normal. Right ventricular systolic function is normal and with normal TAPSE 2.3 cm. Left Atria Left atrial chamber dimension is normal. Right Atria Right atrial chamber dimension is normal. Atrial Septum Interatrial septum not well visualized by 2D and agitated saline imaging. Agitated saline injection with and without valsalva maneuver opacified right side cardiac chambers with only 2 bubbles shunt to left side cardiac chambers suggesting tiny patent foramen ovale. Aortic Valve The aortic valve is trileaflet. There is mild aortic valve sclerosis. There is no aortic valve stenosis. There is no aortic valve regurgitation. Pulmonic Valve There is no pulmonic regurgitation. Mitral Valve There is no mitral valve stenosis. There is trace mitral valve regurgitation. Tricuspid Valve There is no tricuspid valve regurgitation. Pericardium/Pleural There is no pericardial effusion. Inferior Vena Cava Normal inferior vena cava with >50% collapse upon inspiration consistent with normal right atrial pressure, 5 mmHg. Aorta The aortic root size at the sinus of Valsalva is normal. Left Ventricular Outflow Tract Name Value Normal LVOT 2D LVOT Diameter 2.2 cm LVOT Doppler LVOT Peak Velocity 81 cm/s LVOT Peak Gradient 3 mmHg LVOT Mean Gradient 1 mmHg LVOT VTI 19 cm LVOT VTI/AV VTI Ratio 0.9 LVOT Stroke Volume 70 ml LVOT CO 6.2 l/min LVOT CI 3.2 l/min/m2 Pulmonic Valve Name Value Normal PV Doppler PV Peak Velocity 121 cm/s PV Peak Gradient 6 mmHg PV Mean Gradient 3 mmHg Mitral Valve Name Value Normal MV Doppler MV Peak Gradient 3 mmHg MV Mean Gradient 2 mmHg MV Area (Cont Eq VTI) 4.5 cm2 MV Diastolic Function MV E Peak Velocity 68 cm/s MV A Peak Velocity 85 cm/s MV E/A 0.8 MV Decel Time (PW) 149 ms MV Annular TDI MV E/e' (Septal) 10.5 MV E/e' (Lateral) 7.6 MV E/e' (Average) 9.0 Tricuspid Valve Name Value Normal Estimated PAP/RSVP RA Pressure 5 mmHg <=5 TV Annular TDI TV Lateral [place] s' Velocity 14.4 cm/s >=9.5 Aortic Valve Name Value Normal AV Doppler AV Peak Velocity 115 cm/s AV Peak Gradient 5 mmHg AV Mean Gradient 3 mmHg AV VTI 20 cm AV Area (Cont Eq VTI) 3.5 cm2 >=3.0 AV Area (Cont Eq Seth) 2.7 cm2 AV DI (Seth) 0.71 AV Regurgitation 2D LVOT Area 3.8 cm2 Ventricles Name Value Normal LV Dimensions 2D/MM IVS Diastolic Thickness (2D) 1.2 cm 0.6-1.0 LVID Diastole (2D) 4.2 cm 4.2-5.8 LVIW Diastolic Thickness (2D) 1.2 cm 0.6-1.0 LVID Systole (2D) 2.9 cm 2.5-4.0 LVOT Diameter 2.2 cm LV Mass (2D Cubed) 178.08 g 88.00-224.00 LV Mass Index (2D Cubed) 92 g/m2 49-115 Relative Wall Thickness (2D) 0.57 <=0.42 LV Fractional Shortening/Ejection Fraction 2D/MM LV Fractional Shortening (2D) 32 % 25-43 LV EF (2D Teichholz) 61 % LV Diastolic Volume (4C MOD) 77 ml LV EF (4C MOD) 69 % LV Diastolic Volume (2C MOD) 63 ml LV EF (2C MOD) 51 % LV Diastolic Volume (BP MOD) 71 ml 62-150 LV Diastolic Volume Index (BP MOD) 36 ml/m2 34-74 LV Systolic Volume (BP MOD) 27 ml 21-61 LV Systolic Volume Index (BP MOD) 14 ml/m2 11-31 LV EF (BP MOD) 61 % 52-72 LV Diastolic Length (4C) 7.9 cm LV Systolic Length (4C) 6.4 cm LV Stroke Volume (4C MOD) 54 ml Atria Name Value Normal LA Dimensions LA Volume (4C A-L) 38 ml LA Volume (BP A-L) 42 ml RA Dimensions RA Systolic Major [place] Length (4C) 4.9 cm 2.1-2.7 RA Area (4C) 13.6 cm2 <=18.0 Report Signatures
== END 2025-01-12 12:18 | disposition home or self-care (01) ==
PROVIDERS: PCP Clinical Nurse Specialist; Visit Provider Clinical Nurse Specialist
DX: I63.9 Cerebral infarction, unspecified (principal)
CPT/HCPCS: 93306; 96375